=== PATIENT | female | born 1985 | race Two or more races ===

== ENCOUNTER 2023-02-17 10:37 | Outpatient (OUT) | payer OTHER, SELFPAY ==
[2023-02-17 11:22] LABS: Glucose 1 Hour 194 mg/dL
== END 2023-02-17 10:38 | disposition home or self-care (01) ==
LOC: LAB 10:37
PROVIDERS: Visit Provider Obstetrics & Gynecology
DX: O99.810 Abnormal glucose complicating pregnancy (principal); Z3A.00 Weeks of gestation of pregnancy not specified; E74.39 Other disorders of intestinal carbohydrate absorption
CPT/HCPCS: 36415; 82950

== ENCOUNTER 2023-02-27 07:40 | Outpatient (OUT) | payer OTHER, SELFPAY ==
[2023-02-27 08:29] LABS: Glucose Fasting 106 mg/dL (74-106)
[2023-02-27 09:51] LABS: Glucose 1 Hour 187 mg/dL
[2023-02-27 10:47] LABS: Glucose 2 Hour 134 mg/dL
[2023-02-27 12:14] LABS: Glucose 3 Hour 89 mg/dL
== END 2023-02-27 07:41 | disposition home or self-care (01) ==
LOC: LAB 07:40
PROVIDERS: Visit Provider Obstetrics & Gynecology
DX: R73.09 Other abnormal glucose (principal)
CPT/HCPCS: 36415; 82951; 82952

== ENCOUNTER 2023-02-28 20:21 | Outpatient (REF) | payer OTHER, SELFPAY ==
[2023-03-03 22:06] LABS: Age Gdln ACOG Testing Note (.); HPV Aptima Negative (Negative); IGP, Aptima HPV, rfx 16/18,45 Note (.)
== END 2023-02-28 20:22 | disposition home or self-care (01) ==
LOC: LAB 20:21
PROVIDERS: Visit Provider Obstetrics & Gynecology
DX: Z12.4 Encounter for screening for malignant neoplasm of cervix (principal); Z11.51 Encounter for screening for human papillomavirus (HPV); Z20.2 Contact with and (suspected) exposure to infections with a predominantly sexual mode of transmission
CPT/HCPCS: 87624; G0145

== ENCOUNTER 2023-03-09 15:13 | Outpatient (OUT) | payer OTHER, SELFPAY | END 2023-03-09 15:14 | disposition home or self-care (01) | LOC: DE 15:14 | PROVIDERS: PCP Family Medicine; Visit Provider Obstetrics & Gynecology | DX: O24.419 Gestational diabetes mellitus in pregnancy, unspecified control (principal); Z71.3 Dietary counseling and surveillance | CPT/HCPCS: G0108 ==

== ENCOUNTER 2023-03-21 14:42 | Outpatient (OUT) | payer OTHER, SELFPAY ==
--- NOTE | 2023-03-21 14:44 | US_ITS ---
[address] [address] Patient Name: SAAD DURHAM MRN: [id number] date: 1985 Sex: F Assigned Patient Location: US Current Patient Location: Accession/Order Number: [id number] Exam Date: 03/21/2023 14:45 Report Date: 03/21/2023 17:52 At the request of: EFREN CASTILLO Procedure: US OB anatomy EXAMINATION: US OB anatomy HISTORY: ANATOMY COMPARISON: No relevant comparison available. TECHNIQUE: Transabdominal sonographic examination was performed for obstetrical and evaluation. FINDINGS: Number: 1 Heart Rate: Not measured position: Cephalic presentation Amniotic Fluid Volume: Subjectively normal Placental Location: Anterior. Grade 0. Placental edge is 7.4 cm from the os Cervix Length: 4 cm , small amount of fluid in the endocervical canal measuring 2 mm Normal anatomy: Lateral ventricles, cerebellum, posterior fossa, nose, lips, orbits, four-chamber heart, RVOT, LVOT, diaphragm, stomach, kidneys, abdominal cord insertion, bladder, umbilical arteries, spine, extremities Suboptimal visualization: Three-vessel cord BIOMETRY: BPD: 5.0 cm 21 weeks 2 days , 60% HC: 18.2 cm 20 weeks 4 days, 23% AC: 16.1 cm 21 weeks 1 days, 50% FL: 3.7 cm 21 weeks 5 days, 67% EFW:417.9 grams; 15 ounces, 65% FL/AC: 22.9 FL/BPD: 73.2 HC/AC: 1.1 GESTATIONAL AGE: Age by EDC: 21 weeks 0 days Age by current US: 21 weeks 0 days JONN by current US: 08/01/2023 JONN by EDC: 08/01/2023 US/US OB anatomy IMPRESSION: Suboptimal visualization of the three-vessel cord Small amount of fluid in the endocervical canal dilated up to 2 mm Otherwise normal anatomy scan *Reference: [employer] Practice Guideline for the performance of Obstetric Ultrasound Examinations, May 21, 2007. Electronically authenticated by: GELA HUI Date: 03/21/2023 17:52
--- NOTE | 2023-03-21 14:44 | US_ITS ---
[address] [address] Patient Name: SAAD DURHAM MRN: [id number] date: 1985 Sex: F Assigned Patient Location: US Current Patient Location: Accession/Order Number: [id number] Exam Date: 03/21/2023 14:45 Report Date: 03/21/2023 17:52 At the request of: EFREN CASTILLO Procedure: US OB transvaginal EXAMINATION: US OB anatomy HISTORY: ANATOMY COMPARISON: No relevant comparison available. TECHNIQUE: Transabdominal sonographic examination was performed for obstetrical and evaluation. FINDINGS: Number: 1 Heart Rate: Not measured position: Cephalic presentation Amniotic Fluid Volume: Subjectively normal Placental Location: Anterior. Grade 0. Placental edge is 7.4 cm from the os Cervix Length: 4 cm , small amount of fluid in the endocervical canal measuring 2 mm Normal anatomy: Lateral ventricles, cerebellum, posterior fossa, nose, lips, orbits, four-chamber heart, RVOT, LVOT, diaphragm, stomach, kidneys, abdominal cord insertion, bladder, umbilical arteries, spine, extremities Suboptimal visualization: Three-vessel cord BIOMETRY: BPD: 5.0 cm 21 weeks 2 days , 60% HC: 18.2 cm 20 weeks 4 days, 23% AC: 16.1 cm 21 weeks 1 days, 50% FL: 3.7 cm 21 weeks 5 days, 67% EFW:417.9 grams; 15 ounces, 65% FL/AC: 22.9 FL/BPD: 73.2 HC/AC: 1.1 GESTATIONAL AGE: Age by EDC: 21 weeks 0 days Age by current US: 21 weeks 0 days JONN by current US: 08/01/2023 JONN by EDC: 08/01/2023 US/US OB transvaginal IMPRESSION: Suboptimal visualization of the three-vessel cord Small amount of fluid in the endocervical canal dilated up to 2 mm Otherwise normal anatomy scan *Reference: [employer] Practice Guideline for the performance of Obstetric Ultrasound Examinations, May 21, 2007. Electronically authenticated by: GELA HUI Date: 03/21/2023 17:52
== END 2023-03-21 14:43 | disposition home or self-care (01) ==
LOC: US 14:42
PROVIDERS: PCP Family Medicine; Visit Provider Obstetrics & Gynecology
DX: Z34.92 Encounter for supervision of normal pregnancy, unspecified, second trimester (principal); Z3A.21 21 weeks gestation of pregnancy
CPT/HCPCS: 76805; 76817

== ENCOUNTER 2023-03-29 09:26 | Outpatient (OUT) | payer OTHER, SELFPAY ==
--- NOTE | 2023-03-29 09:36 | US_ITS ---
[address] [address] Patient Name: SAAD DURHAM MRN: [id number] date: 1985 Sex: F Assigned Patient Location: US Current Patient Location: US Accession/Order Number: [id number] Exam Date: 03/29/2023 09:45 Report Date: 03/29/2023 15:23 At the request of: EFREN CASTILLO Procedure: US OB incomplete anatomy EXAMINATION: US OB incomplete anatomy HISTORY: Follow Up Anatomy Ultrasound Z36.2 COMPARISON: Ultrasound OB anatomy 03/21/2023 FINDINGS: Presentation: Cephalic Heart rate: 144 beats minute Anatomy: Three-vessel cord, hard palate. GA: 22 weeks 1 day JONN: 08/01/2023 US/US OB incomplete anatomy IMPRESSION: 1. Single live intrauterine . 2. No appreciable abnormality of the three-vessel cord or hard palate. Electronically authenticated by: JOCELIN CUTLER Date: 03/29/2023 15:23
== END 2023-03-29 09:27 | disposition home or self-care (01) ==
LOC: US 09:26
PROVIDERS: PCP Family Medicine; Visit Provider Obstetrics & Gynecology
DX: Z36.2 Encounter for other antenatal screening follow-up (principal)
CPT/HCPCS: 76815

== ENCOUNTER 2023-05-10 17:02 | Outpatient (OUT) | payer OTHER, SELFPAY ==
--- NOTE | 2023-05-10 17:03 | US_ITS ---
The [address] [address] Patient Name: SAAD DURHAM MRN: [id number] date: 1985 Sex: F Assigned Patient Location: US Current Patient Location: Accession/Order Number: [id number] Exam Date: 05/10/2023 17:05 Report Date: 05/11/2023 15:11 At the request of: EFREN CASTILLO Procedure: US OB growth EXAM: US OB growth HISTORY: SIZE INCONSISTENT WITH DATES O26.849 COMPARISON: Ultrasound OB anatomy 03/21/2023 TECHNIQUE: Transabdominal ultrasound evaluation. FINDINGS: Heart Rate: 153.4 bpm Number: 1.0 Position: BREECH Amniotic Fluid Volume: 14.0 cm Maximum Vertical Pocket: 6.1 cm BIOMETRY: BPD: 7.6 cm cm; 30 weeks 3 days; 95% HC: 27.5 cmcm; 30 weeks 0 days; 77% AC: 24.7 cm cm; 29 weeks 0 days; 68% FL: 5.2 cm cm; 27 weeks 6 days; 27% EFW: 1286.9 grams; 63% FL/AC: 21.2 FL/BPD: 68.9 HC/AC: 1.1 GESTATIONAL AGE: Age by EDC: 28 weeks 1 days JONN by EDC: 08/01/2023 Age by US: 29 weeks 2 days JONN by US: 07/24/2023 US/US OB growth IMPRESSION: 1. Single live intrauterine with growth detailed above. Electronically authenticated by: JOCELIN CUTLER Date: 05/11/2023 15:11
== END 2023-05-10 17:03 | disposition home or self-care (01) ==
LOC: US 17:02
PROVIDERS: PCP Family Medicine; Visit Provider Obstetrics & Gynecology
DX: O26.843 Uterine size-date discrepancy, third trimester (principal); Z3A.30 30 weeks gestation of pregnancy
CPT/HCPCS: 76816

== ENCOUNTER 2023-06-07 09:09 | Outpatient (OUT) | payer OTHER, SELFPAY ==
--- NOTE | 2023-06-07 09:11 | US_ITS ---
[place] [id number] Patient Name: SAAD DURHAM MRN: [id number] date: 1985 Sex: F Assigned Patient Location: US Current Patient Location: US Accession/Order Number: [id number] Exam Date: 06/07/2023 09:12 Report Date: 06/07/2023 09:48 At the request of: EFREN CASTILLO Procedure: US OB growth EXAMINATION: US OB growth HISTORY: SIZE INCONSISTENT WITH DATES COMPARISON: No relevant comparison available. FINDINGS: Heart Rate: 144.0 bpm Amniotic Fluid Volume: 19.5 cm Number: 1.0 Position: Cephalic presentation, longitudinal lie Maximum Vertical Pocket: 9.0 cm cm 1.4 cm cm 3.8 cm cm 5.3 cm cm BIOMETRY: BPD: 8.5 cm cm; 34 weeks 3 days; 94% HC: 31.0 cmcm; 34 weeks 5 days, 79% AC: 29.4 cm cm; 33 weeks 3 days, 83% FL: 6.2 cm cm; 32 weeks 1 days; 36.6 % % EFW: 2150.9 grams, 4 lbs. 12 oz., 75% FL/AC: 21.1 FL/BPD: 72.7 HC/AC: 1.1 GESTATIONAL AGE: Age by EDC: 32 weeks 1 days JONN by EDC: 08/01/2023 Age by US: 33 weeks 5 days JONN by US: 07/21/2023 US/US OB growth IMPRESSION: Normal interval growth Electronically authenticated by: GELA HUI Date: 06/07/2023 09:48
== END 2023-06-07 09:10 | disposition home or self-care (01) ==
LOC: US 09:09
PROVIDERS: PCP Family Medicine; Visit Provider Obstetrics & Gynecology
DX: O26.849 Uterine size-date discrepancy, unspecified trimester (principal); Z3A.32 32 weeks gestation of pregnancy
CPT/HCPCS: 76816

== ENCOUNTER 2023-06-21 08:12 | Outpatient (OUT) | payer OTHER, SELFPAY ==
--- NOTE | 2023-06-21 15:19 | US_ITS ---
[address] [address] Patient Name: SAAD DURHAM MRN: [id number] date: 1985 Sex: F Assigned Patient Location: [facility] Current Patient Location: Accession/Order Number: [id number] Exam Date: 06/21/2023 15:20 Report Date: 06/21/2023 16:43 At the request of: EFREN CASTILLO Procedure: US OB BPP w non-stress EXAMINATION: US OB BPP w non-stress HISTORY: Diet controlled GDM COMPARISON: No relevant comparison available. TECHNIQUE: Ultrasound biophysical profile was performed in the radiology department. FINDINGS: BREATHING MOVEMENTS: 2.0 GROSS BODY MOVEMENTS: 2.0 TONE: 2.0 QUALITATIVE AMNIOTIC FLUID VOLUME: 2.0 PRESENTATION: CEPHALIC HEART RATE: 157.0 bpm H.B./min AMNIOTIC FLUID VOLUME: 19.5 cm cm GESTATIONAL AGE: 34 weeks 1 days CONCLUSION: Total biophysical profile score: 8.0 Electronically authenticated by: GELA HUI Date: 06/21/2023 16:43
[2023-06-21 15:44] VITALS: BP 146/93; PULSE 106
[2023-06-21 16:05] VITALS: BP 121/76; PULSE 100
== END 2023-06-21 16:10 | disposition home or self-care (01) ==
LOC: US 08:12 → FBC 15:08
PROVIDERS: PCP Family Medicine; Visit Provider Obstetrics & Gynecology
DX: O24.410 Gestational diabetes mellitus in pregnancy, diet controlled (principal); O26.843 Uterine size-date discrepancy, third trimester; Z3A.34 34 weeks gestation of pregnancy
CPT/HCPCS: 76818

== ENCOUNTER 2023-06-24 08:15 | Outpatient (OUT) | payer OTHER, SELFPAY ==
[2023-06-24 10:47] VITALS: BP 142/95; PULSE 107
[2023-06-24 10:59] VITALS: BP 136/85; PULSE 103
== END 2023-06-24 11:10 | disposition home or self-care (01) ==
LOC: FBCO 08:15 → FBC 10:43
PROVIDERS: PCP Family Medicine; Visit Provider Obstetrics & Gynecology
DX: O24.410 Gestational diabetes mellitus in pregnancy, diet controlled (principal); Z3A.00 Weeks of gestation of pregnancy not specified
CPT/HCPCS: 59025

== ENCOUNTER 2023-06-28 08:30 | Outpatient (OUT) | payer OTHER, SELFPAY ==
--- NOTE | 2023-06-28 | US_ITS ---
[address] [address] Patient Name: SAAD DURHAM MRN: [id number] date: 1985 Sex: F Assigned Patient Location: [facility] Current Patient Location: [facility] Accession/Order Number: [id number] Exam Date: 06/28/2023 16:00 Report Date: 06/29/2023 22:31 At the request of: EFREN CASTILLO Procedure: US OB BPP w non-stress EXAMINATION: US OB BPP w non-stress HISTORY: SIZE INCONSISTENT WITH DATES COMPARISON: Ultrasound OB biophysical 06/21/2023 TECHNIQUE: Ultrasound biophysical profile was performed in the radiology department. BREATHING MOVEMENTS: 2.0 GROSS BODY MOVEMENTS: 2.0 TONE: 2.0 QUALITATIVE AMNIOTIC FLUID VOLUME: 2.0 PRESENTATION: CEPHALIC HEART RATE: 147.5 bpm bpm. AMNIOTIC FLUID VOLUME: 20.0 cm GESTATIONAL AGE: 35 weeks 1 days CONCLUSION: Total biophysical profile score 8.0. Electronically authenticated by: JOCELIN CUTLER Date: 06/29/2023 22:31
[2023-06-28 16:28] VITALS: BP 141/98; PULSE 98
[2023-06-28 16:39] VITALS: BP 134/88; PULSE 95
[2023-06-28 16:49] VITALS: BP 129/88; PULSE 92
== END 2023-06-28 17:00 ==
LOC: US 08:31 → FBC 15:50
PROVIDERS: PCP Family Medicine; Visit Provider Obstetrics & Gynecology
DX: O24.410 Gestational diabetes mellitus in pregnancy, diet controlled (principal); Z3A.35 35 weeks gestation of pregnancy
CPT/HCPCS: 76818

== ENCOUNTER 2023-07-01 08:19 | Outpatient (OUT) | payer OTHER, SELFPAY ==
[2023-07-01 09:18] VITALS: BP 136/95; PULSE 100
[2023-07-01 09:28] VITALS: BP 130/88; PULSE 103
[2023-07-01 09:38] VITALS: BP 135/89; PULSE 104
== END 2023-07-01 09:50 | disposition home or self-care (01) ==
LOC: FBCO 08:19 → FBC 09:14
PROVIDERS: PCP Family Medicine; Visit Provider Obstetrics & Gynecology
DX: O24.410 Gestational diabetes mellitus in pregnancy, diet controlled (principal); O26.843 Uterine size-date discrepancy, third trimester
CPT/HCPCS: 59025

== ENCOUNTER 2023-07-05 07:14 | Outpatient (OUT) | payer OTHER, SELFPAY ==
[2023-07-05 15:57] VITALS: BP 142/93; PULSE 100
[2023-07-05 16:25] VITALS: BP 133/81; PULSE 94
== END 2023-07-05 16:32 | disposition home or self-care (01) ==
LOC: US 15:47 → FBC 15:50
PROVIDERS: PCP Family Medicine; Visit Provider Obstetrics & Gynecology
DX: O26.843 Uterine size-date discrepancy, third trimester (principal)
CPT/HCPCS: 59025

== ENCOUNTER 2023-07-05 15:05 | Outpatient (OUT) | payer OTHER, SELFPAY ==
--- NOTE | 2023-07-05 15:04 | US_ITS ---
[address] [address] Patient Name: SAAD DURHAM MRN: [id number] date: 1985 Sex: F Assigned Patient Location: US Current Patient Location: Accession/Order Number: [id number] Exam Date: 07/05/2023 15:04 Report Date: 07/06/2023 01:25 At the request of: EFREN CASTILLO Procedure: US OB BPP w non-stress EXAMINATION: US OB BPP w non-stress HISTORY: SIZE INCONSISTENT WITH DATES COMPARISON: Ultrasound OB biophysical 06/28/2023 TECHNIQUE: Ultrasound biophysical profile was performed in the radiology department. BREATHING MOVEMENTS: 2.0 GROSS BODY MOVEMENTS: 2.0 TONE: 2.0 QUALITATIVE AMNIOTIC FLUID VOLUME: 2.0 PRESENTATION: CEPHALIC HEART RATE: 142.0 bpm bpm. AMNIOTIC FLUID VOLUME: 19.3 cm GESTATIONAL AGE: 36 weeks 1 days CONCLUSION: Total biophysical profile score 8.0. Electronically authenticated by: JOCELIN CUTLER Date: 07/06/2023 01:25
--- NOTE | 2023-07-05 15:04 | US_ITS ---
[address] [address] Patient Name: SAAD DURHAM MRN: [id number] date: 1985 Sex: F Assigned Patient Location: US Current Patient Location: LAB Accession/Order Number: [id number] Exam Date: 07/05/2023 15:04 Report Date: 07/06/2023 00:00 At the request of: EFREN CASTILLO Procedure: US OB growth EXAMINATION: US OB growth HISTORY: SIZE INCONSISTENT WITH DATES COMPARISON: ULTRASOUND OB GROWTH 06/07/2023 FINDINGS: Heart Rate: 142.0 bpm Number: 1.0 Position: CEPHALIC Amniotic Fluid Volume: 19.3 cm Maximum Vertical Pocket: 6.3 cm BIOMETRY: BPD: 9.4 cm cm; 38 weeks 1 days; 96% HC: 33.7 cmcm; 38 weeks 4 days ; 79% AC: 33.6 cm cm; 37 weeks 4 days; 91% FL: 7.4 cm cm; 38 weeks 0 days; 88% EFW: 3324.0 grams; 91% FL/AC: 22.1 FL/BPD: 79.4 HC/AC: 1.0 GESTATIONAL AGE: Age by EDC: 36 weeks 1 days JONN by EDC: 08/01/2023 Age by US: 38 weeks 1 day JONN by US: 07/18/2023 US/US OB growth IMPRESSION: 1. Single live intrauterine with growth detailed above. Electronically authenticated by: JOCELIN CUTLER Date: 07/06/2023 00:00
== END 2023-07-05 15:06 | disposition home or self-care (01) ==
PROVIDERS: PCP Family Medicine; Visit Provider Obstetrics & Gynecology
DX: O26.843 Uterine size-date discrepancy, third trimester (principal); O24.410 Gestational diabetes mellitus in pregnancy, diet controlled; Z3A.36 36 weeks gestation of pregnancy
CPT/HCPCS: 59025; 76816; 76818; 87081

== ENCOUNTER 2023-07-05 19:11 | Outpatient (REF) | payer OTHER, SELFPAY | END 2023-07-05 19:12 | disposition home or self-care (01) | LOC: LAB 19:11 | PROVIDERS: PCP Family Medicine; Visit Provider Physician Assistant | DX: Z34.93 Encounter for supervision of normal pregnancy, unspecified, third trimester (principal) | CPT/HCPCS: 87081 ==

== ENCOUNTER 2023-07-08 09:01 | Outpatient (RCR) | payer OTHER, SELFPAY ==
[2023-07-08 09:15] VITALS: BP 134/73; PULSE 106
== END 2023-07-08 09:48 | disposition home or self-care (01) ==
LOC: FBCO 09:01
PROVIDERS: PCP Family Medicine; Visit Provider Obstetrics & Gynecology
DX: O24.410 Gestational diabetes mellitus in pregnancy, diet controlled (principal); Z3A.36 36 weeks gestation of pregnancy
CPT/HCPCS: 59025

== ENCOUNTER 2023-07-12 07:10 | Outpatient (OUT) | payer OTHER, SELFPAY ==
[2023-07-12 12:44] VITALS: BP 139/73; PULSE 122
--- NOTE | 2023-07-12 12:50 | US_ITS ---
[address] [address] Patient Name: SAAD DURHAM MRN: [id number] date: 1985 Sex: F Assigned Patient Location: US Current Patient Location: Accession/Order Number: [id number] Exam Date: 07/12/2023 13:20 Report Date: 07/13/2023 02:43 At the request of: EFREN CASTILLO Procedure: US OB BPP w non-stress EXAMINATION: US OB BPP w non-stress HISTORY: Diet controlled gestational diabetes mellitus COMPARISON: Ultrasound OB biophysical 07/05/2023 TECHNIQUE: Ultrasound biophysical profile was performed in the radiology department. BREATHING MOVEMENTS: 2.0 GROSS BODY MOVEMENTS: 2.0 TONE: 2.0 QUALITATIVE AMNIOTIC FLUID VOLUME: 2.0 PRESENTATION: CEPHALIC HEART RATE: 150.8 bpm bpm. AMNIOTIC FLUID VOLUME: 15.8 cm GESTATIONAL AGE: 37 weeks 1 days CONCLUSION: Total biophysical profile score 8.0. Electronically authenticated by: JOCELIN CUTLER Date: 07/13/2023 02:43
== END 2023-07-12 13:42 | disposition home or self-care (01) ==
LOC: US 07:10 → FBC 12:43
PROVIDERS: PCP Family Medicine; Visit Provider Obstetrics & Gynecology
DX: O24.410 Gestational diabetes mellitus in pregnancy, diet controlled (principal); O26.843 Uterine size-date discrepancy, third trimester; Z3A.37 37 weeks gestation of pregnancy
CPT/HCPCS: 76818

== ENCOUNTER 2023-07-15 12:07 | Inpatient (IN) | payer OTHER, SELFPAY ==
[2023-07-15] VITALS (23 sets, daily range): BP systolic 115–146; BP diastolic 73–101; PULSE 93–117; RESP 16–18; TEMP 36.5
[2023-07-15 10:45] LABS: Basophils Percent Auto 0.4 % (0.2-2.0); Eosinophils Percent Auto 0.4 % (0.9-7.0); Hematocrit 37.5 % (36.0-48.0); Hemoglobin 11.9 g/dL (12.0-16.0); Immature Granulocytes Abs Auto 0.03 10^3/uL (0.00-0.03); Immature Granulocytes Pct Auto 0.4 % (0.0-0.5); Lymphocytes Absolute Auto 1.8 10^3/uL (1.2-3.8); Lymphocytes Percent Auto 21.6 % (20.5-60.0); Mean Corpuscular HGB Conc 31.7 g/dL (29.9-35.2); Mean Corpuscular Hemoglobin 28.7 pg (26.7-34.0); Mean Corpuscular Volume 90.6 fL (81.0-99.0); Mean Platelet Volume 12.2 fL (9.5-13.5); Monocytes Absolute Auto 0.5 10^3/uL (0.3-0.8); Monocytes Percent Auto 6.6 % (1.7-12.0); Neutrophils Absolute Auto 5.8 10^3/uL (1.4-6.5); Neutrophils Percent Auto 70.6 % (43.0-75.0); Platelet Count 214 10^3/uL (150-450); Red Blood Count 4.14 10^6/uL (4.20-5.40); Red Cell Distribution Width 13.7 % (11.0-15.0); White Blood Count 8.2 10^3/uL (4.0-11.0)
[2023-07-15 10:58] LABS: Alanine Aminotransferase 15 U/L (14-59); Aspartate Amino Transferase 15 U/L (15-37); Estimated GFR (African America >60 (>=60); Estimated GFR (Non-African Ame >60 (>=60); Uric Acid 4.2 mg/dL (2.6-6.0)
[2023-07-15 11:00] LABS: Protein Creatinine Ratio Urine 0.36; Total Protein Urine Random <6.0 mg/dL (<=11.9)
[2023-07-15 11:02] LABS: Partial Thromboplastin Time 27.5 sec (22.3-36.2); Prothrombin Time 9.6 sec (9.0-11.6)
[2023-07-15 11:04] LABS: INR <0.93
[2023-07-15] MEDS: DINOPROSTONE 10 MG VAG INSERT.ER VAGINAL (20:20)
[2023-07-15 20:32] LABS: Amphetamine Screen Urine NEGATIVE (NEGATIVE); Barbiturates Screen Urine NEGATIVE (NEGATIVE); Benzodiazepines Screen Urine NEGATIVE (NEGATIVE); Buprenorphine Screen Urine NEGATIVE (NEGATIVE); Cannabinoid Screen Urine NEGATIVE (NEGATIVE); Cocaine Screen Urine NEGATIVE (NEGATIVE); Methadone Screen Urine NEGATIVE (NEGATIVE); Methamphetamines Screen Urine NEGATIVE (NEGATIVE); Opiate Screen Urine NEGATIVE (NEGATIVE); Oxycodone Screen Urine NEGATIVE (NEGATIVE); Phencyclidine Screen Urine NEGATIVE (NEGATIVE); Tricyclic Antidepressant Urine NEGATIVE (NEGATIVE)
[2023-07-16] VITALS (104 sets, daily range): BP systolic 83–188; BP diastolic 57–118; PULSE 88–132; RESP 14–26; TEMP 36.6–37.4; O2SAT 95–100
[2023-07-16] MEDS: LABETALOL HCL 20 MG/4 ML SYRINGE IVP (08:55)
[2023-07-16] MEDS: 0.9 % SODIUM CHLORIDE 1,000 ML 1000 ML IV (09:27)
[2023-07-16] MEDS: OXYTOCIN/0.9 % SODIUM CHLORIDE 10 UNITS/500 ML PLAST..BAG 6 UNIT IV (09:35)
[2023-07-16] MEDS: FENTANYL CITRATE/PF 100 MCG/2 ML VIAL EPIDURAL ×2 (13:28→13:29)
[2023-07-16] MEDS: ROPIVACAINE HCL/PF 400 MG/200 ML PREMIX 6 MG EPIDURAL (13:30)
[2023-07-16] MEDS: 0.9 % SODIUM CHLORIDE 1,000 ML 125 ML IV (13:52)
--- NOTE | 2023-07-16 20:08 | PM.OBHP ---
OB - H&P: HPI History of Present Illness Chief complaint: size inconsistent with dates : 1 Para: 0 Date of last menstrual period: 10/25/2022 Gestational age based on last menstrual period: 37 5/7wks Indications for induction: cephalopelvic disproportion History of Present Dating criteria: LMP confirmed by 1st trimester US care: good care Ultrasounds: normal 1st trimester US and normal mid trimester US complications: preeclampsia Medical complications OB: none Labs Blood type: A (+) positive Rubella: immune RPR/VDLR: nonreactive GBS status: negative HBsAG: negative Review of Systems ROS Status of ROS 10 or more systems reviewed and unremarkable except as noted in history and below Meds Home Medications and Allergies Home Medications Medication Instructions Recorded Confirmed Type aspirin 81 mg capsule 81 mg PO DAILY 06/28/23 07/15/23 History vits,calcium 21-iron fum 1 tab PO DAILY 06/28/23 07/15/23 History 14 mg iron-folic acid 400 mcg tablet ( Complete) Allergies Allergy/AdvReac Type Severity Reaction Status Date / Time topiramate [From Topamax] Allergy Mild Verified 06/24/23 10:52 Exam Constitutional Vital Signs, click to edit/add: Last Vital Signs Temp 99.4 F 07/16/23 17:25 Pulse 120 H 07/16/23 19:40 Resp 16 07/16/23 18:25 BP 154/96 H 07/16/23 19:40 Documenting provider has reviewed patient's vital signs: yes Common normals: no apparent distress Respiratory Common normals: normal respiratory effort and clear to auscultation bilaterally Cardio Common normals: regular rate and regular rhythm GI Common normals: Normal to inspection, nondistended, normoactive bowel sounds present Extremity Common normals: no calf tenderness OB - A/P Assessment and Plan (1) Intrauterine normal : (2) Advanced maternal age (AMA) in : (3) Pre-eclampsia: Plan iup at 37 5/7wks, ama, preeclampsia-iv, pit induction, arom, iv abx, failure to dilate, failure to descend, consent obtained, mmc reviewed, procedure.
[2023-07-16] MEDS: CEFAZOLIN SODIUM/DEXTROSE,ISO 2 GM/50 ML PIGGYBACK IV (20:18)
[2023-07-16] MEDS: FAMOTIDINE/PF 20 MG/2 ML VIAL IV (20:23)
[2023-07-16] MEDS: LACTATED RINGER'S SOLUTION 1,000 ML 50 ML IV (21:18)
--- NOTE | 2023-07-16 21:20 | P.OBPRC_ITS ---
Procedure Pre-op/Post-op diagnoses: Pre-Op/Post-Op Diagnoses Operation Date: 07/16/23 20:30 <No data on this case meets the specified criteria> Procedure: Procedures Operation Date: 07/16/23 20:30 Actual Procedure Side Surgeon p Not Applicable Jovany Wan DO Electronics Engineering Technologist: Prisca Roque Estimated blood loss (mL): 575 Disposition: PACU Anesthesia type: Epidural
--- NOTE | 2023-07-16 21:23 | PM.ONB ---
Brief Operative Note Date of procedure: 07/16/23 Pre-op diagnosis: iup at 37 4/7wks, ama, mild preeclampsia, failure to dilate, failure to presley Post-op diagnosis: same as pre-op Procedure: NAME OF PROCEDURE: [ section ] PROCEDURE: Patient was taken back to the Operating Room where she was given a spinal anesthesia with Duramorph without difficulty. She was prepped and draped in the normal sterile fashion. A Pfannenstiel skin incision was then made 2 cm above the symphysis pubis and carried down to underlying rectus fascia using a Bovie. The fascia was incised in the midline and extended laterally using Elliott scissors. Two Marylou clamps were placed on the superior aspect of the fascia and dissected off the underlying rectus muscles. The same was performed on the inferior aspect as well. The muscles were then in the midline. Peritoneum was identified and entered bluntly. The peritoneum was then extended superiorly and inferiorly with good visualization of the bladder. The bladder blade was inserted. A low transverse incision was made on the patient's uterus and extended laterally digitally. The was then delivered atraumatically after the bladder blade was removed in the cephalic position. The cord was clamped and cut. Cord blood was obtained. The infant was handed off to awaiting team. The patient's placenta was spontaneously delivered. The uterus was then exteriorized. The uterus was cleared of all clots and debris. The bladder blade was reinserted. The patient's uterine incision was closed using #0 Vicryl in a running lock fashion. Excellent hemostasis was assured. The uterus was then returned to the patient's abdomen. The patient's abdomen was copiously irrigated using warm saline. Peritoneal gutters were cleared of all clots and debris. Again excellent hemostasis was assured. The patient's peritoneum was closed using 3-0 Vicryl in a running fashion. The patient's fascia was closed using #0 Vicryl in a running fashion. The patient's skin was closed using 4-0 Vicryl subcuticularly. The patient tolerated the procedure well. Sponge, lap, and needle counts were correct x2. The patient was taken to the Recovery Room in stable condition. Anesthesia: epidural Surgeon: Jovany Wan Vehicle Glass Technician: Prisca Roque Estimated blood loss (mL): 575 Pathology: other (uterus) Condition: stable Disposition: PACU
--- NOTE | 2023-07-16 22:39 | PC.NURSE ---
2 small clots noted ;no active vaginal bleeding with fundus checks
--- NOTE | 2023-07-16 22:47 | PC.NURSE ---
Pericare given and clean pad applied
--- NOTE | 2023-07-16 22:48 | PC.NURSE ---
Epidural level at ribcage with tingling and has pressure feeling with fundus checks
--- NOTE | 2023-07-16 22:50 | PC.NURSE ---
Recovered in [facility]BC
[2023-07-17] VITALS (26 sets, daily range): BP systolic 113–145; BP diastolic 67–97; PULSE 91–109; RESP 16–26; TEMP 36.6–37; O2SAT 96–99
[2023-07-17] MEDS: KETOROLAC TROMETHAMINE 30 MG/ML VIAL IVP ×3 (00:06→20:24)
[2023-07-17] MEDS: MAGNESIUM SULFATE IN WATER 2 G/50 ML PREMIX IV (00:35)
[2023-07-17] MEDS: MAGNESIUM SULFATE IN WATER 40 GM/1,000 ML IV.SOLN IV ×2 (01:06→21:27)
[2023-07-17] MEDS: ACETAMINOPHEN 500 MG TABLET 1000 MG PO (02:15)
[2023-07-17] MEDS: CEFAZOLIN SODIUM/DEXTROSE,ISO 2 GM/50 ML PIGGYBACK IV (04:09)
[2023-07-17 07:02] LABS: Basophils Percent Auto 0.2 % (0.2-2.0); Eosinophils Percent Auto 0.1 % (0.9-7.0); Hematocrit 30.4 % (36.0-48.0); Hemoglobin 9.5 g/dL (12.0-16.0); Immature Granulocytes Abs Auto 0.04 10^3/uL (0.00-0.03); Immature Granulocytes Pct Auto 0.3 % (0.0-0.5); Lymphocytes Absolute Auto 2.3 10^3/uL (1.2-3.8); Mean Corpuscular HGB Conc 31.3 g/dL (29.9-35.2); Mean Corpuscular Hemoglobin 29.2 pg (26.7-34.0); Mean Corpuscular Volume 93.5 fL (81.0-99.0); Mean Platelet Volume 12.2 fL (9.5-13.5); Monocytes Absolute Auto 0.9 10^3/uL (0.3-0.8); Monocytes Percent Auto 7.2 % (1.7-12.0); Neutrophils Absolute Auto 9.4 10^3/uL (1.4-6.5); Neutrophils Percent Auto 74.2 % (43.0-75.0); Platelet Count 192 10^3/uL (150-450); Red Blood Count 3.25 10^6/uL (4.20-5.40); Red Cell Distribution Width 14.1 % (11.0-15.0); White Blood Count 12.6 10^3/uL (4.0-11.0)
--- NOTE | 2023-07-17 07:37 | P.OBPN_ITS ---
OB - PN: Subj Subjective Patient comments: no complaints and pain well controlled [place] status: doing well Exam Constitutional Vital Signs, click to edit/add: Last Vital Signs Temp 97.8 F 07/17/23 04:15 Pulse 109 H 07/17/23 00:03 Resp 16 07/17/23 04:15 BP 136/82 07/17/23 06:00 Pulse Ox 99 07/17/23 04:15 O2 Del Method Room Air 07/17/23 04:15 Documenting provider has reviewed patient's vital signs: yes Common normals: no apparent distress Respiratory Common normals: normal respiratory effort and clear to auscultation bilaterally Cardio Common normals: regular rate and regular rhythm GI Common normals: Normal to inspection, nondistended, normoactive bowel sounds present Extremity Common normals: no calf tenderness Results Labs Labs: Short CBC 07/17/23 Range/Units 06:40 WBC 12.6 H (4.0-11.0) 10^3/uL Hgb 9.5 L (12.0-16.0) g/dL Hct 30.4 L (36.0-48.0) % Plt Count 192 (150-450) 10^3/uL OB - PN: A/P Assessment and Plan (1) Intrauterine normal : (2) Advanced maternal age (AMA) in : (3) Pre-eclampsia: Assessment and Plan: cont magnesium for 24hrs, then start labetalol, labs reviewed, vitals reviewed. Plan - day: 1 Plan: routine postop care Time Spent with Patient Time: Total time spent is greater than 50% in coordination of care (as documented) at patient's floor/unit and/or counseling patient: Total time spent with greater than 50% in coordination of care (as documented) at patient's floor/unit and/or counseling patient: less than 15 minutes
--- NOTE | 2023-07-17 07:45 | W.PC.ACHO ---
Registration Status: ADM IN Primary Language: Chinese Preferred Language: Chinese Active Medications Generic Name Dose Route Start Last Admin Trade Name Freq PRN Reason Stop Dose Admin Acetaminophen 1,000 mg 07/15/23 19:12 07/17/23 02:15 Acetaminophen 500 Mg Tablet PO 1,000 mg Q6H PRN Administration Pain Al Hydroxide/Mg Hydroxide 2,400 mg 07/16/23 21:24 Magnesium Hydroxide 2,400 Mg/10 Ml Oral.Susp PO Q6H PRN Dyspepsia Calcium Gluconate 1,000 mg 07/16/23 23:19 Calcium Gluconate 1,000 Mg/10 Ml Vial IVP ONCE PRN magnesium toxicity Carboprost Tromethamine 250 mcg 07/15/23 19:07 Carboprost Tromethamine 250 Mcg/Ml 1 Ml Vial IM 07/17/23 19:08 Q15M PRN Bleeding Diphenhydramine HCl 25 mg 07/16/23 08:07 Diphenhydramine Hcl 50 Mg/Ml (1ml) Vial IV 07/17/23 08:09 Q6H PRN Itching Diphenhydramine HCl 25 mg 07/16/23 21:24 Diphenhydramine Hcl 50 Mg/Ml (1ml) Vial IV 07/17/23 21:26 Q6H PRN Itching Docusate Sodium 100 mg 07/17/23 09:00 Docusate Sodium 100 Mg Capsule PO BID LUIS Enoxaparin Sodium 40 mg 07/16/23 21:30 Enoxaparin Sodium 40 Mg/0.4 Ml Syringe SUBQ Q24H LUIS Ephedrine Sulfate 5 mg 07/16/23 08:07 Ephedrine Sulfate 50 Mg/Ml Vial IV 07/17/23 08:09 Q5M PRN Blood Pressure - Low Fentanyl Citrate 100 mcg 07/16/23 08:07 07/16/23 13:28 Fentanyl Citrate/Pf 100 Mcg/2 Ml Vial EPIDURAL 100 mcg ONCE PRN Administration epidural Fentanyl Citrate 100 mcg 07/16/23 08:07 07/16/23 13:29 Fentanyl Citrate/Pf 100 Mcg/2 Ml Vial EPIDURAL 100 mcg ONCE PRN Administration epidural Sodium Chloride 1,000 mls @ 125 mls/hr 07/16/23 20:00 07/16/23 13:52 Sodium Chloride 0.9% 1,000 Ml IV 125 mls/hr .Q8H LUIS Administration Ropivacaine/Sodium Chloride 400 mg in 200 mls @ 6 mls/hr 07/16/23 08:15 07/16/23 13:30 Naropin 0.2% 400 Mg/200 Ml Bag EPIDURAL 10 mls/hr Q24H LUIS Infusion Oxytocin/Sodium Chloride 10 units in 500 mls @ 6 mls/hr 07/16/23 09:30 07/16/23 19:05 Pitocin 10 Unit/500 Ml-Ns IV 20 milliunit/min CONT LUIS 60 mls/hr Titration Protocol 2 MILLIUNIT/MIN Sodium Chloride 1,000 mls @ 125 mls/hr 07/16/23 21:30 Sodium Chloride 0.9% 1,000 Ml IV .Q8H LUIS Lactated Ringer's 1,000 mls @ 50 mls/hr 07/16/23 22:00 07/16/23 21:18 Lactated Ringers IV 50 mls/hr .Q20H LUIS Administration Magnesium Sulfate 40 gm in 1,000 mls @ 50 mls/hr 07/16/23 23:15 07/17/23 01:06 Magnesium Sulf 40 G/1,000 Ml IV 50 mls/hr Q13H LUIS Administration Sodium Chloride 1,000 mls @ 75 mls/hr 07/16/23 23:15 Sodium Chloride 0.9% 1,000 Ml IV .[id number] LUIS Ibuprofen 800 mg 07/18/23 21:24 Ibuprofen 400 Mg Tablet PO Q8H PRN Pain Ketorolac Tromethamine 30 mg 07/16/23 21:24 07/17/23 00:06 Ketorolac Tromethamine 30 Mg/Ml Vial IVP 07/18/23 21:25 30 mg Q6H PRN Administration Pain Lidocaine 1 ml 07/15/23 19:07 Lidocaine Hcl 1% 200 Mg/20 Ml Mdv INJ ONCE PRN Pain Lidocaine 5 ml 07/16/23 08:07 Lidocaine Hcl 2% Pf 100 Mg/5 Ml Vial INJ 07/17/23 08:08 Q1H PRN epidural Methylergonovine Maleate 0.2 mg 07/15/23 19:07 Methylergonovine Maleate 0.2 Mg/Ml Ampule IM 07/17/23 19:08 ONCE PRN Uterine Contractility/Contract Methylergonovine Maleate 0.2 mg 07/15/23 19:07 Methylergonovine Maleate 0.2 Mg Tablet PO 07/17/23 19:08 Q4H PRN Uterine Contractility/Contract Misoprostol 600 mcg 07/15/23 19:07 Misoprostol 100 Mcg Tablet PO 07/17/23 19:08 ONCE PRN Uterine Bleeding Misoprostol 800 mcg 07/15/23 19:07 Misoprostol 100 Mcg Tablet SL 07/17/23 19:08 ONCE PRN Uterine Bleeding Misoprostol 1,000 mcg 07/15/23 19:07 Misoprostol 100 Mcg Tablet NV 07/17/23 19:08 ONCE PRN Uterine Bleeding Naloxone HCl 0.4 mg 07/16/23 08:07 Naloxone Hcl 0.4 Mg/Ml Vial IV 07/17/23 08:09 ONCE PRN epidural Ondansetron HCl 4 mg 07/15/23 19:07 Ondansetron Pf 4 Mg/2 Ml Vial IV Q6H PRN Nausea And Vomiting Ondansetron HCl 4 mg 07/15/23 19:07 Ondansetron 4 Mg Rapdis Tablet SL Q6H PRN Nausea And Vomiting Ondansetron HCl 4 mg 07/16/23 21:24 Ondansetron 4 Mg Rapdis Tablet PO Q6H PRN Nausea And Vomiting Ondansetron HCl 4 mg 07/16/23 21:24 Ondansetron Pf 4 Mg/2 Ml Vial IV Q6H PRN Nausea And Vomiting Oxycodone/Acetaminophen 1 tab 07/16/23 21:24 Oxycodone Hcl/Acetaminophen 5mg/325mg PO Q4H PRN Pain Scale 4-6 Oxycodone/Acetaminophen 2 tab 07/16/23 21:24 Oxycodone Hcl/Acetaminophen 5mg/325mg PO Q4H PRN Pain Scale 7-10 Oxytocin 10 unit 07/15/23 19:07 Oxytocin 10 Unit/Ml Vial IM 07/17/23 19:08 ONCE PRN Bleeding Senna 17.2 mg 07/16/23 20:00 Sennosides 8.6 Mg Tablet PO QHS PRN Constipation Simethicone 80 mg 07/16/23 21:24 Simethicone 80 Mg Tab.Chew PO QID PRN Abdominal Distention Diet Category Date Time Status Regular Consistency Diet Diet 07/16/23 21:25 Active Consults Category Date Time Status Consult to Anesthesiology Routine Cons 07/16/23 08:00 Ordered IV Insertion/Site Date of IV Line Insertion [ 07/17/23 Short PIV (<1.75 in) 22g left Forearm] IV Insertion Time [Short PIV ( 01:00 <1.75 in) 22g left Forearm] Neurology Patient orientation (short person,place,time,situation list) Respiratory Lung sounds [Throughout] clear Pulse Oximetry 99 Pulse Oximetry 96 Pulse Oximetry 95 Pulse Oximetry 95 Pulse Oximetry 95 Pulse Oximetry 96 Pulse Oximetry 96 Pulse Oximetry 97 Pulse Oximetry 96 Pulse Oximetry 97 Pulse Oximetry 97 Pulse Oximetry 97 Pulse Oximetry 98 Pulse Oximetry 97 Pulse Oximetry 95 Pulse Oximetry 97 Pulse Oximetry 99 Pulse Oximetry 98 Pulse Oximetry 99 Pulse Oximetry 99 Pulse Oximetry 98 Pulse Oximetry 97 Pulse Oximetry 100 Pulse Oximetry 98 Pulse Oximetry 99 Pulse Oximetry 99 Pulse Oximetry 99 Oxygen Delivery Method Room Air Oxygen Delivery Method Room Air Oxygen Delivery Method Room Air Oxygen Delivery Method Room Air Oxygen Delivery Method Room Air Oxygen Delivery Method Room Air Oxygen Delivery Method Room Air Oxygen Delivery Method Room Air Oxygen Delivery Method Room Air Cardiology Heart Sounds Strong,Regular Heart Sounds Strong,Regular Catheter Urinary Catheter Date of 07/16/23 Insertion [2-way Urethral]
[2023-07-17] MEDS: DOCUSATE SODIUM 100 MG CAPSULE PO ×2 (08:31→20:25)
--- NOTE | 2023-07-17 17:37 | RESP.RT ---
done per nursing
--- NOTE | 2023-07-17 19:31 | W.PC.ACHO ---
Registration Status: ADM IN Primary Language: [place] Preferred Language: [place] Active Medications Generic Name Dose Route Start Last Admin Trade Name Freq PRN Reason Stop Dose Admin Acetaminophen 1,000 mg 07/15/23 19:12 07/17/23 02:15 Acetaminophen 500 Mg Tablet PO 1,000 mg Q6H PRN Administration Pain Al Hydroxide/Mg Hydroxide 2,400 mg 07/16/23 21:24 Magnesium Hydroxide 2,400 Mg/10 Ml Oral.Susp PO Q6H PRN Dyspepsia Calcium Gluconate 1,000 mg 07/16/23 23:19 Calcium Gluconate 1,000 Mg/10 Ml Vial IVP ONCE PRN magnesium toxicity Diphenhydramine HCl 25 mg 07/16/23 21:24 Diphenhydramine Hcl 50 Mg/Ml (1ml) Vial IV 07/17/23 21:26 Q6H PRN Itching Docusate Sodium 100 mg 07/17/23 09:00 07/17/23 08:31 Docusate Sodium 100 Mg Capsule PO 100 mg BID LUIS Administration Enoxaparin Sodium 40 mg 07/16/23 21:30 Enoxaparin Sodium 40 Mg/0.4 Ml Syringe SUBQ Q24H LUIS Fentanyl Citrate 100 mcg 07/16/23 08:07 07/16/23 13:28 Fentanyl Citrate/Pf 100 Mcg/2 Ml Vial EPIDURAL 100 mcg ONCE PRN Administration epidural Fentanyl Citrate 100 mcg 07/16/23 08:07 07/16/23 13:29 Fentanyl Citrate/Pf 100 Mcg/2 Ml Vial EPIDURAL 100 mcg ONCE PRN Administration epidural Sodium Chloride 1,000 mls @ 125 mls/hr 07/16/23 20:00 07/16/23 13:52 Sodium Chloride 0.9% 1,000 Ml IV 125 mls/hr .Q8H LUIS Administration Ropivacaine/Sodium Chloride 400 mg in 200 mls @ 6 mls/hr 07/16/23 08:15 07/16/23 13:30 Naropin 0.2% 400 Mg/200 Ml Bag EPIDURAL 10 mls/hr Q24H LUIS Infusion Oxytocin/Sodium Chloride 10 units in 500 mls @ 6 mls/hr 07/16/23 09:30 07/16/23 19:05 Pitocin 10 Unit/500 Ml-Ns IV 20 milliunit/min CONT LUIS 60 mls/hr Titration Protocol 2 MILLIUNIT/MIN Sodium Chloride 1,000 mls @ 125 mls/hr 07/16/23 21:30 Sodium Chloride 0.9% 1,000 Ml IV .Q8H LUIS Lactated Ringer's 1,000 mls @ 50 mls/hr 07/16/23 22:00 07/16/23 21:18 Lactated Ringers IV 50 mls/hr .Q20H LUIS Administration Magnesium Sulfate 40 gm in 1,000 mls @ 50 mls/hr 07/16/23 23:15 07/17/23 01:06 Magnesium Sulf 40 G/1,000 Ml IV 50 mls/hr Q13H LUIS Administration Sodium Chloride 1,000 mls @ 75 mls/hr 07/16/23 23:15 Sodium Chloride 0.9% 1,000 Ml IV .[id number] [facility] Ibuprofen 800 mg 07/18/23 21:24 Ibuprofen 400 Mg Tablet PO Q8H PRN Pain Ketorolac Tromethamine 30 mg 07/16/23 21:24 07/17/23 12:50 Ketorolac Tromethamine 30 Mg/Ml Vial IVP 07/18/23 21:25 30 mg Q6H PRN Administration Pain Labetalol HCl 200 mg 07/18/23 09:00 Labetalol Hcl 200 Mg Tablet PO BID LUIS Lidocaine 1 ml 07/15/23 19:07 Lidocaine Hcl 1% 200 Mg/20 Ml Mdv INJ ONCE PRN Pain Ondansetron HCl 4 mg 07/15/23 19:07 Ondansetron Pf 4 Mg/2 Ml Vial IV Q6H PRN Nausea And Vomiting Ondansetron HCl 4 mg 07/15/23 19:07 Ondansetron 4 Mg Rapdis Tablet SL Q6H PRN Nausea And Vomiting Ondansetron HCl 4 mg 07/16/23 21:24 Ondansetron 4 Mg Rapdis Tablet PO Q6H PRN Nausea And Vomiting Ondansetron HCl 4 mg 07/16/23 21:24 Ondansetron Pf 4 Mg/2 Ml Vial IV Q6H PRN Nausea And Vomiting Oxycodone/Acetaminophen 1 tab 07/16/23 21:24 Oxycodone Hcl/Acetaminophen 5mg/325mg PO Q4H PRN Pain Scale 4-6 Oxycodone/Acetaminophen 2 tab 07/16/23 21:24 Oxycodone Hcl/Acetaminophen 5mg/325mg PO Q4H PRN Pain Scale 7-10 Senna 17.2 mg 07/16/23 20:00 Sennosides 8.6 Mg Tablet PO QHS PRN Constipation Simethicone 80 mg 07/16/23 21:24 Simethicone 80 Mg Tab.Chew PO QID PRN Abdominal Distention Diet Category Date Time Status Regular Consistency Diet Diet 07/16/23 21:25 Active IV Insertion/Site Date of IV Line Insertion [ 07/17/23 Short PIV (<1.75 in) 22g left Forearm] IV Insertion Time [Short PIV ( 01:00 <1.75 in) 22g left Forearm] Respiratory Lung sounds [Throughout] clear Pulse Oximetry 99 Pulse Oximetry 96 Pulse Oximetry 95 Pulse Oximetry 95 Pulse Oximetry 95 Pulse Oximetry 96 Pulse Oximetry 96 Pulse Oximetry 97 Pulse Oximetry 96 Pulse Oximetry 97 Pulse Oximetry 97 Pulse Oximetry 97 Pulse Oximetry 98 Pulse Oximetry 97 Pulse Oximetry 95 Pulse Oximetry 97 Pulse Oximetry 99 Pulse Oximetry 98 Pulse Oximetry 99 Pulse Oximetry 99 Pulse Oximetry 98 Pulse Oximetry 97 Pulse Oximetry 100 Pulse Oximetry 98 Pulse Oximetry 99 Pulse Oximetry 99 Pulse Oximetry 99 Oxygen Delivery Method Room Air Oxygen Delivery Method Room Air Oxygen Delivery Method Room Air Oxygen Delivery Method Room Air Oxygen Delivery Method Room Air Oxygen Delivery Method Room Air Oxygen Delivery Method Room Air Oxygen Delivery Method Room Air Oxygen Delivery Method Room Air Oxygen Delivery Method Room Air Oxygen Delivery Method Room Air Oxygen Delivery Method Room Air Cardiology Heart Sounds Strong,Regular Heart Sounds Strong,Regular Catheter Urinary Catheter Date of 07/16/23 Insertion [2-way Urethral]
[2023-07-17] MEDS: 0.9 % SODIUM CHLORIDE 1,000 ML 125 ML IV (21:27)
[2023-07-17] MEDS: ENOXAPARIN SODIUM 40 MG/0.4 ML SYRINGE SUBQ (22:12)
[2023-07-18] VITALS (28 sets, daily range): BP systolic 113–169; BP diastolic 79–112; PULSE 81–113; RESP 16–18; TEMP 36.4–36.8; O2SAT 88–99
[2023-07-18] MEDS: ACETAMINOPHEN 500 MG TABLET 1000 MG PO ×4 (01:15→21:11)
[2023-07-18] MEDS: KETOROLAC TROMETHAMINE 30 MG/ML VIAL IVP ×2 (04:35→10:30)
[2023-07-18] MEDS: SIMETHICONE 80 MG TAB.CHEW PO (04:43)
[2023-07-18] MEDS: DOCUSATE SODIUM 100 MG CAPSULE PO ×2 (08:04→21:12)
[2023-07-18] MEDS: LABETALOL HCL 200 MG TABLET PO ×2 (08:04→21:12)
--- NOTE | 2023-07-18 08:13 | PM.OBPN ---
OB - PN: Subj Subjective Patient comments: no complaints [place] status: doing well Exam Constitutional Vital Signs, click to edit/add: Last Vital Signs Temp 98.3 F 07/18/23 01:05 Pulse 94 H 07/18/23 01:05 Resp 18 07/18/23 01:05 BP 163/99 H 07/18/23 07:30 Pulse Ox 99 07/18/23 07:30 O2 Del Method Room Air 07/18/23 01:05 Documenting provider has reviewed patient's vital signs: yes Common normals: no apparent distress Orientation/consciousness: Yes awake, Yes oriented to person, Yes oriented to place and Yes oriented to time HENMT Common normals: normocephalic Eye Common normals: EOMs intact bilaterally General eye: normal appearance of both eyes Visual acuity: acuity normal Neck & C-Spine Common normals: full ROM and no lymphadenopathy Lymph Lymphatic: no lymphadenopathy noted Chest Common normals: inspection of chest normal Respiratory Common normals: normal respiratory effort and no retractions Cardio Common normals: regular rate and regular rhythm Rate: regular rate Rhythm: regular rhythm GI Common normals: Normal to inspection, nondistended, normoactive bowel sounds present Auscultation: normoactive bowel sounds Common normals: no CVA tenderness Back & Pelvis Common normals: no CVA tenderness Extremity Common normals: normal to inspection and full ROM Neuro Common normals: oriented x3 Sensorium/orientation: awake, alert, oriented to person, oriented to place, oriented to time and orientation impaired Psych Common normals: mental status grossly normal, thought process normal and cooperative Attitude: calm OB - PN: A/P Assessment and Plan (1) Intrauterine normal : (2) Advanced maternal age (AMA) in : (3) Pre-eclampsia: Plan - day: 1 Plan: routine postop care Time Spent with Patient Time: Total time spent is greater than 50% in coordination of care (as documented) at patient's floor/unit and/or counseling patient: Total time spent with greater than 50% in coordination of care (as documented) at patient's floor/unit and/or counseling patient: less than 15 minutes
--- NOTE | 2023-07-18 10:33 | W.PC.ACHO ---
Registration Status: ADM IN Primary Language: [place] Citizen Preferred Language: [place] Citizen Active Medications Generic Name Dose Route Start Last Admin Trade Name Freq PRN Reason Stop Dose Admin Acetaminophen 1,000 mg 07/15/23 19:12 07/18/23 08:04 Acetaminophen 500 Mg Tablet PO 1,000 mg Q6H PRN Administration Pain Al Hydroxide/Mg Hydroxide 2,400 mg 07/16/23 21:24 Magnesium Hydroxide 2,400 Mg/10 Ml Oral.Susp PO Q6H PRN Dyspepsia Calcium Gluconate 1,000 mg 07/16/23 23:19 Calcium Gluconate 1,000 Mg/10 Ml Vial IVP ONCE PRN magnesium toxicity Docusate Sodium 100 mg 07/17/23 09:00 07/18/23 08:04 Docusate Sodium 100 Mg Capsule PO 100 mg BID LUIS Administration Enoxaparin Sodium 40 mg 07/16/23 21:30 07/17/23 22:12 Enoxaparin Sodium 40 Mg/0.4 Ml Syringe SUBQ 40 mg Q24H LUIS Administration Sodium Chloride 1,000 mls @ 125 mls/hr 07/16/23 21:30 07/18/23 01:05 Sodium Chloride 0.9% 1,000 Ml IV 0 mls/hr .Q8H LUIS Infusion Magnesium Sulfate 40 gm in 1,000 mls @ 50 mls/hr 07/16/23 23:15 07/17/23 21:27 Magnesium Sulf 40 G/1,000 Ml IV 50 mls/hr Q13H LUIS Administration Ibuprofen 800 mg 07/18/23 21:24 Ibuprofen 400 Mg Tablet PO Q8H PRN Pain Ketorolac Tromethamine 30 mg 07/16/23 21:24 07/18/23 10:30 Ketorolac Tromethamine 30 Mg/Ml Vial IVP 07/18/23 21:25 30 mg Q6H PRN Administration Pain Labetalol HCl 200 mg 07/18/23 08:00 07/18/23 08:04 Labetalol Hcl 200 Mg Tablet PO 200 mg BID LUIS Administration Ondansetron HCl 4 mg 07/16/23 21:24 Ondansetron 4 Mg Rapdis Tablet PO Q6H PRN Nausea And Vomiting Ondansetron HCl 4 mg 07/16/23 21:24 Ondansetron Pf 4 Mg/2 Ml Vial IV Q6H PRN Nausea And Vomiting Oxycodone/Acetaminophen 1 tab 07/16/23 21:24 Oxycodone Hcl/Acetaminophen 5mg/325mg PO Q4H PRN Pain Scale 4-6 Oxycodone/Acetaminophen 2 tab 07/16/23 21:24 Oxycodone Hcl/Acetaminophen 5mg/325mg PO Q4H PRN Pain Scale 7-10 Senna 17.2 mg 07/16/23 20:00 Sennosides 8.6 Mg Tablet PO QHS PRN Constipation Simethicone 80 mg 07/16/23 21:24 07/18/23 04:43 Simethicone 80 Mg Tab.Chew PO 80 mg QID PRN Administration Abdominal Distention Respiratory Pulse Oximetry 99 Pulse Oximetry 99 Pulse Oximetry 99 Pulse Oximetry 98 Pulse Oximetry 98 Pulse Oximetry 99 Pulse Oximetry 99 Pulse Oximetry 99 Pulse Oximetry 98 Pulse Oximetry 98 Pulse Oximetry 98 Oxygen Delivery Method Room Air Oxygen Delivery Method Room Air Oxygen Delivery Method Room Air Oxygen Delivery Method Room Air Oxygen Delivery Method Room Air Oxygen Delivery Method Room Air Bowels Bowel Pattern No Bowel Movement
[2023-07-18] MEDS: SENNOSIDES 8.6 MG TABLET 17.2 MG PO (14:19)
[2023-07-18] MEDS: MAGNESIUM HYDROXIDE 2,400 MG/10 ML ORAL.SUSP 2400 MG PO (21:12)
[2023-07-19] VITALS (11 sets, daily range): BP systolic 133–164; BP diastolic 77–101; PULSE 90–106; RESP 16–18; TEMP 36.5–36.7; O2SAT 94–95
[2023-07-19] MEDS: OXYCODONE HCL/ACETAMINOPHEN 5MG/325MG 2 TAB PO (01:20)
[2023-07-19] MEDS: IBUPROFEN 400 MG TABLET 800 MG PO ×2 (07:36→15:58)
--- NOTE | 2023-07-19 07:50 | PM.OBPN ---
OB - PN: Subj Subjective Patient comments: no complaints and pain well controlled [place] status: doing well Exam Constitutional Vital Signs, click to edit/add: Last Vital Signs Temp 98.0 F 07/19/23 07:41 Pulse 106 H 07/19/23 07:41 Resp 16 07/19/23 07:41 BP 159/101 H 07/19/23 07:41 Pulse Ox 95 07/19/23 07:41 O2 Del Method Room Air 07/19/23 07:41 Documenting provider has reviewed patient's vital signs: yes Common normals: no apparent distress Respiratory Common normals: normal respiratory effort and clear to auscultation bilaterally Cardio Common normals: regular rate and regular rhythm GI Common normals: Normal to inspection, nondistended, normoactive bowel sounds present Extremity Common normals: no calf tenderness OB - PN: A/P Assessment and Plan (1) Intrauterine normal : (2) Advanced maternal age (AMA) in : (3) Pre-eclampsia: Plan - day: 2 Plan: routine postop care, discharge home and follow up 6 weeks Time Spent with Patient Time: Total time spent is greater than 50% in coordination of care (as documented) at patient's floor/unit and/or counseling patient: Total time spent with greater than 50% in coordination of care (as documented) at patient's floor/unit and/or counseling patient: less than 15 minutes
[2023-07-19] MEDS: LABETALOL HCL 200 MG TABLET 300 MG PO ×2 (08:24→14:18)
[2023-07-19] MEDS: DOCUSATE SODIUM 100 MG CAPSULE PO (08:24)
--- NOTE | 2023-07-19 13:10 | W.PC.ACHO ---
Registration Status: ADM IN Primary Language: Beninese Preferred Language: Beninese Active Medications Generic Name Dose Route Start Last Admin Trade Name Freq PRN Reason Stop Dose Admin Acetaminophen 1,000 mg 07/15/23 19:12 07/18/23 21:11 Acetaminophen 500 Mg Tablet PO 1,000 mg Q6H PRN Administration Pain Al Hydroxide/Mg Hydroxide 2,400 mg 07/16/23 21:24 07/18/23 21:12 Magnesium Hydroxide 2,400 Mg/10 Ml Oral.Susp PO 2,400 mg Q6H PRN Administration Dyspepsia Calcium Gluconate 1,000 mg 07/16/23 23:19 Calcium Gluconate 1,000 Mg/10 Ml Vial IVP ONCE PRN magnesium toxicity Docusate Sodium 100 mg 07/17/23 09:00 07/19/23 08:24 Docusate Sodium 100 Mg Capsule PO 100 mg BID LUIS Administration Enoxaparin Sodium 40 mg 07/16/23 21:30 07/17/23 22:12 Enoxaparin Sodium 40 Mg/0.4 Ml Syringe SUBQ 40 mg Q24H LUIS Administration Sodium Chloride 1,000 mls @ 125 mls/hr 07/16/23 21:30 07/18/23 01:05 Sodium Chloride 0.9% 1,000 Ml IV 0 mls/hr .Q8H LUIS Infusion Magnesium Sulfate 40 gm in 1,000 mls @ 50 mls/hr 07/16/23 23:15 07/17/23 21:27 Magnesium Sulf 40 G/1,000 Ml IV 50 mls/hr Q13H LUIS Administration Ibuprofen 800 mg 07/18/23 21:24 07/19/23 07:36 Ibuprofen 400 Mg Tablet PO 800 mg Q8H PRN Administration Pain Labetalol HCl 300 mg 07/19/23 08:30 07/19/23 08:24 Labetalol Hcl 200 Mg Tablet PO 300 mg TID LUIS Administration Ondansetron HCl 4 mg 07/16/23 21:24 Ondansetron 4 Mg Rapdis Tablet PO Q6H PRN Nausea And Vomiting Ondansetron HCl 4 mg 07/16/23 21:24 Ondansetron Pf 4 Mg/2 Ml Vial IV Q6H PRN Nausea And Vomiting Oxycodone/Acetaminophen 1 tab 07/16/23 21:24 Oxycodone Hcl/Acetaminophen 5mg/325mg PO Q4H PRN Pain Scale 4-6 Oxycodone/Acetaminophen 2 tab 07/16/23 21:24 07/19/23 01:20 Oxycodone Hcl/Acetaminophen 5mg/325mg PO 2 tab Q4H PRN Administration Pain Scale 7-10 Senna 17.2 mg 07/16/23 20:00 07/18/23 14:19 Sennosides 8.6 Mg Tablet PO 17.2 mg QHS PRN Administration Constipation Simethicone 80 mg 07/16/23 21:24 07/18/23 04:43 Simethicone 80 Mg Tab.Chew PO 80 mg QID PRN Administration Abdominal Distention IV Insertion/Site Date of IV Line Insertion [20g 07/15/23 right Forearm] Date of IV Line Insertion [20g 07/15/23 right Forearm] IV Insertion Time [20g right 19:50 Forearm] IV Insertion Time [20g right 19:50 Forearm] Respiratory Pulse Oximetry 95 Pulse Oximetry 94 Pulse Oximetry 95 Pulse Oximetry 95 Pulse Oximetry 98 Pulse Oximetry 96 Pulse Oximetry 88 Oxygen Delivery Method Room Air Oxygen Delivery Method Room Air Oxygen Delivery Method Room Air Oxygen Delivery Method Room Air Oxygen Delivery Method Room Air Oxygen Delivery Method Room Air Oxygen Delivery Method Room Air Oxygen Delivery Method Room Air Cardiology Heart Sounds Strong,Regular Heart Sounds Strong,Regular Heart Sounds Regular Bowels Bowel Pattern Constipated Bowel Pattern Constipated Date of Last Bowel Movement 07/19/23 Renal Bladder Pattern Continent Bladder Pattern Continent
--- NOTE | 2023-07-19 15:33 | PC.NURSE ---
Dr. Wan called with BP results. No complaints of headache or blurred vision.
--- NOTE | 2023-07-19 16:05 | PC.NURSE ---
Vital signs called to Dr. Wan, orders to discharge home. Follow up scheduled, advised to call MD if any signs or symptoms of hypertension.
--- NOTE | 2023-07-19 17:49 | PC.NURSE ---
1730Call out to Dr. Wan, aware of patient's complaint of feeling hot and wanting to have her BP checked. Orders to recheck BP in 30 minutes. If under 150/100, ok to discharge home.
--- NOTE | 2023-07-19 18:13 | PC.NURSE ---
[address] Wan with BP 161/82, [id number]
--- NOTE | 2023-07-19 18:52 | PC.NURSE ---
assisted mom out to car with dad and baby. ok to discharge per Dr. Wan. instructed to ana with any symptoms or concerns.
--- NOTE | 2023-07-29 | DS_ITS ---
DISCHARGE DATE: 07/29/2023 PRIMARY DIAGNOSES: 1. Intrauterine at 37 4/7 weeks. 2. Advanced maternal age. 3. Mild preeclampsia. 4. Failure to dilate. 5. Failure to descend. PROCEDURE: section. HOSPITAL COURSE: As expected. Please see chart for full details. LABORATORY DATA: Please see chart. COMPLICATIONS: None. DISCHARGE CONDITION: Stable. CONSULTATION: Anesthesia. DISCHARGE INSTRUCTIONS: 1. Diet: Regular. 2. Medications: a. Percocet 5/325 one to two p.o. every 4-6 hours p.r.n. pain. b. Motrin 800 one p.o. every 8 hours p.r.n. pain. 3. Followup in one week. Restrictions: Pelvic rest for 6 weeks. No heavy lifting. May drive when pain free and no longer on narcotics. MTDD
== END 2023-07-19 18:40 | disposition home or self-care (01) | DRG 788 ==
LOC: FBCO 12:08 → FBC 12:08 → MS 07-18 18:35 → FBC 07-19 09:08
PROVIDERS: Admitting Provider Obstetrics & Gynecology; PCP Family Medicine; Visit Provider Obstetrics & Gynecology
PROC: 10D00Z1 Extraction of Products of Conception, Low, Open Approach (ICD-10-PCS; CPT 59514; principal; 2023-07-16 20:30)
DX: O14.04 Mild to moderate pre-eclampsia, complicating childbirth (principal); O62.0 Primary inadequate contractions; O32.4XX0 Maternal care for high head at term, not applicable or unspecified; Z3A.37 37 weeks gestation of pregnancy; Z37.0 Single live birth
CPT/HCPCS: 36415; 51702; 59025; 59050; 80307; 82565; 82570; 84156; 84450; 84460; 84520; 84550; 85025; 85384; 85610; 85730; 86850; 86900; 86901; 88307; 94667; 94668; 96372; 96374; 96375; 96376

== ENCOUNTER 2023-07-21 12:18 | Observation (INO) | payer OTHER, SELFPAY ==
--- NOTE | 2023-07-21 12:24 | PC.NURSE ---
1100- Patient arrives to the unit for BP recheck ordered by Dr. Wan. Patient to room 250 and allowed to sit and rest for 15 mins prior to BP recheck. Fluids offered but patient denies. 1115- Mandy Pan RN at bedside to assess patient. Patient reports last dose of Labetalol 300mg administered at 0600, denies headache, RUQ pain, vision changes, or dizziness. States has been feeling good at home and reports blood pressures at home yesterday were as follows: 139/86 @ 0948 and 142/89 @ 1530. 1117- BP assessed with red cuff on upper right arm. BP 176/94, upper and lower DTRs +1, and swelling noted as +2/+3 BLE. Patient educated to relax and deep breathe and RN will reasses in 15 mins. 1130- Manual blood pressure obtained on left upper arm with red cuff. BP 162/78. 1140- Dr. Weiss called and reported on patient history and todays assessment. Dr. Weiss orders to administer Procardia 60mg ER tablet NOW, educate patient to stop Labetalol 300mg TID, patient to return tomorrow at 1030am for BP reassessment and to educate that if patient develops any symptoms of pre-eclampsia overnight she should come in to be seen immediately. RN may reassess BP after dose of Procardia and as long as BP is less than 170s/100s then patient may go home self care. 1210- Report given to Wilmar Vega RN.
[2023-07-21 13:00] VITALS: BP 190/94
[2023-07-21] MEDS: NIFEdipine 30 MG TAB.ER.24 60 MG PO (13:00)
[2023-07-21 13:01] VITALS: BP 190/94; PULSE 93
--- NOTE | 2023-07-21 13:41 | PC.NURSE ---
1305 Plan of care discussed with patient and . pt verbalizes understanding. Procardia XR 60mg given PO
[2023-07-21 14:11] VITALS: BP 123/71; PULSE 129
--- NOTE | 2023-07-21 14:16 | PC.NURSE ---
1405 RN to room to reassess blood pressure. patient reports anxiety, visibly shaking. Discussion started, patient breaks down in tears. Much reassurance and encouragement given. Patient understandably upset about blood pressure problems in hospital. Reassurance given, bp checked and wnl. patient and visibly relieved, okay to discharge at their leisure.
== END 2023-07-21 14:36 | disposition home or self-care (01) ==
LOC: FBCO 12:19 → FBC 12:59
PROVIDERS: Admitting Provider Obstetrics & Gynecology; PCP Family Medicine; Visit Provider Obstetrics & Gynecology
DX: O16.3 Unspecified maternal hypertension, third trimester (principal); Z3A.00 Weeks of gestation of pregnancy not specified
CPT/HCPCS: G0378; G0379

== ENCOUNTER 2023-07-22 10:25 | Outpatient (OUT) | payer OTHER, SELFPAY ==
--- NOTE | 2023-07-22 11:59 | PC.NURSE ---
1030-Pt. arrives to unit for BP check post . Pt to room 250 & sits in chair. BP initially 181/119. Pt has not taken any BP med today. 1040- Repeat BP 177/95. Taken manually in left arm 160/100 & left arm manually 158/106. Pt asymptomatic for JOAQUIN, blurry vision or epigastric pain. Dr. Weiss present on unit & BP's reported. 1115 - Pt discharged home with prescriptions for Procardia & Labetalol & regimen to take them. To return tomorrow, 07/23, at 10:30 for BP re-check.
== END 2023-07-22 11:15 | disposition home or self-care (01) ==
LOC: FBCO 10:26
PROVIDERS: PCP Family Medicine; Visit Provider Obstetrics & Gynecology
DX: O26.899 Other specified pregnancy related conditions, unspecified trimester (principal); Z3A.00 Weeks of gestation of pregnancy not specified

== ENCOUNTER 2023-07-23 07:10 | Outpatient (OUT) | payer OTHER, SELFPAY ==
[2023-07-23 10:35] VITALS: BP 118/72; PULSE 110
--- NOTE | 2023-07-23 10:45 | PC.NURSE ---
1030 - Pt arrives to unit for BP check. 1040 - BP taken in left arm, NIBP, 118/72. 1040- Dr. Weiss called with report of BP. Orders received to discharge home & to stay on same medicine regimen until she sees Dr. Wan this week. 1045 - Pt verbalizes understanding of discharge instructions. Leaves ambulatory with family.
== END 2023-07-23 10:45 ==
LOC: FBCO 07:11 → FBC 10:33
PROVIDERS: PCP Family Medicine; Visit Provider Obstetrics & Gynecology
DX: O24.410 Gestational diabetes mellitus in pregnancy, diet controlled (principal); Z3A.00 Weeks of gestation of pregnancy not specified
CPT/HCPCS: G0463

== ENCOUNTER 2024-03-21 18:09 | Outpatient (REF) | payer OTHER, SELFPAY ==
--- OUTSIDE RECORDS SUMMARY | 2024-03-21 18:14 | XMS_ITS | CCD ---
Author Organization [facility] Care Team Providers Care Sightseeing Guide Name Role Phone Shereen Garcia Unavailable SAVAGE ., DR SCHWARTZ Attending Unavailable NADERER, DR ORESTES Whitfield Primary Care Unavailable SAVAGE ., DR SCHWARTZ Consulting Unavailable SAVAGE ., DR SCHWARTZ Admitting Unavailable NADERER, DR ORESTES Whitfield Consulting Unavailable NADERER, DR ORESTES Whitfield Primary Care Unavailable NADERER, DR ORESTES Whitfield Admitting Unavailable NADERER, DR ORESTES Whitfield Attending Unavailable SAVAGE ., DR SCHWARTZ Admitting Unavailable SAVAGE ., DR SCHWARTZ Attending Unavailable NADERER, DR ORESTES Whitfield Primary Care Unavailable SAVAGE ., DR SCHWARTZ Consulting Unavailable SAVAGE ., DR SCHWARTZ Admitting Unavailable SAVAGE ., DR SCHWARTZ Attending Unavailable SAVAGE ., DR SCHWARTZ Consulting Unavailable NADERER, DR ORESTES Whitfield Primary Care Unavailable SAVAGE ., DR SCHWARTZ Admitting Unavailable SAVAGE ., DR SCHWARTZ Attending Unavailable NADERER, DR ORESTES Whitfield Primary Care Unavailable SAVAGE ., DR SCHWARTZ Consulting Unavailable SAVAGE ., DR SCHWARTZ Admitting Unavailable SAVAGE ., DR SCHWARTZ Attending Unavailable REQUEST, DR BUTLER LISTED Consulting Unavaila ble NADAMIER, DR ORESTES Whitfield Primary Care Unavailable SAVAGE ., DR SCHWARTZ Attending Unavailable SAVAGE ., DR SCHWARTZ Admitting Unavailable DOCKERY ., REG Primary Care Unavailable SAVAGE ., DR SCHWARTZ Attending Unavailable NADERER, DR ORESTES Whitfield Primary Care Unavailable SAVAGE ., DR SCHWARTZ Consulting Unavailable SAVAGE ., DR SCHWARTZ Admitting Unavailable SavageEfren Attending Provider Orestes Strange Primary Care Unavailable Savage, Efren Attending Unavailable Savage, Efren Admitting Unavailable Naderer Orestes PADILLA Primary Care Provider MARILYN SUAREZ Attending Unavailable DANIELA, MARILYN Attending Unavailable DANIELA, MARILYN Attending Unavailable ORESTES STRANGE Attending Unavailable ORESTES STRANGE Attending Unavailable ORESTES STRANGE Attending Unavailable SAVAGE, EFREN Attending Unavailable DANIELA, MARILYN Attending Unavailable EFREN WAN Attending Unavailable NIDA ESCOBAR Attending Unavailable SHAIKH ROSADO Attending Unavailable MIKAL MAHER Attending Unavailable SHAIKH ROSADO Referring Unavailable Allergies Allergy Classification Reported Allergen(s) Allergy Type Date of Onset Reaction(s) Facility (3 sources) Topiramate Allergy to substance Diarrhea, Other [facility] Medications Current Medications Medication Drug Class(es) Dates Sig (Normalized) Sig (Original) Ethinyl Estradiol / Ferrous fumarate / Norethindrone (3 sources) Estrogen Start: 08-30-2023 End: 09-27-2023 norethindrone-ethin yl estradiol (09/09) 1-20 MG-MCG tablet Indications: 6 weeks follow-up Take 1 tablet by mouth in the morning. 28 tablet 11 08/30/2023 09/27/2023 Discontinued Start: 08-30-2023 End: 08-29-2024 norethindrone-ethinyl estrad iol (09/09) 1-20 MG-MCG tablet Indications: 6 weeks follow-up Take 1 tablet by mouth in the morning. 28 tablet 11 08/30/2023 08/29/2024 Active labetalol hydrochloride 100 mg oral tablet (3 sources) beta-Adrenergic Amber Start: 07-22-2023 End: 09-27-2023 take 1 tablet by mouth in the morning, then take 1 tablet by mouth in the evening, then take 1 tablet by mouth at bedtime labetalol (Normodyne) 100 MG tablet Take 1 tablet by mouth in the morning and 1 tablet in the evening and 1 tablet before bedtime. 0 07/22/2023 09/27/2023 Discontinued metFORMIN (1 source) Biguanide metFORMIN HCl Active predniSONE 50 mg oral tablet (2 sources) Start: 09-27-2023 End: 10-03-2023 take 1 tablet by mouth in the morning predniSONE (Deltasone) 50 MG tablet Indications: De Quervain's tenosynovitis Take 1 tablet (50 mg) by mouth in the morning for 6 days. 6 tablet 0 09/27/2023 10/03/2023 Active Problems Active Problems Problem Classification Problem Date Documented Date Episodic/Chronic Hypertension complicating ; childbirth and the puerperium (4 sources) -induced hypertension; Translations: [Gestational [-induced] hypertension without significant proteinuria, complicating the puerperium] Onset: 09-27-2023 09-27-2023 Episodic Menstrual disorders (4 sources) Irregular menstruation, unspecified; Translations: [IRREGULAR MENSTRUATION UNSPECIFIED] Onset: 12-29-2022 Chronic Nutritional deficiencies (4 sources) Vitamin D deficiency, unspecified; Translations: [Vitamin D deficiency] Onset: 06-02-2022 09-27-2023 Chronic Other circulatory disease (3 sources) Elevated blood-pressure reading without diagnosis of hypertension; Translations: [Elevated blood-pressure reading, without diagnosis of hypertension] Onset: 09-27-2023 09-27-2023 Episodic Other complications of (1 source) Uterine size-date discrepancy, unspecified trimester; Translations: [Uterine size-date discrepancy, unspecified trimester] Onset: 07-15-2023 Episodic Other connective tissue disease (4 sources) Radial styloid tenosynovitis; Translations: [Radial styloid tenosynovitis [de Quervain]] Onset: 09-27-2023 09-27-2023 Episodic Other endocrine disorders (3 sources) Hyperinsulinism; Translations: [Other hypoglycemia] Onset: 09-27-2023 09-27-2023 Chronic Other female genital disorders (4 sources) Abnormal uterine and vaginal bleeding, unspecified; Translations: [ABNORMAL UTERINE VAGINAL BLEED UNS] Onset: 11-14-2022 Chronic Other non-traumatic joint disorders (3 sources) Pain in right knee; Translations: [Pain in joint, lower leg] Onset: 09-27-2023 09-27-2023 Episodic Unclassified (1 source) Past or Other Problems Problem Classification Problem Date Documented Da te Episodic/Chronic Unclassified (1 source) Exposure to COVID-19 virus Z20.822 Onset: 04-01-2022 Resolved: 04-01-2022 Viral infection (1 source) COVID-19 Onset: 04-01-2022 Resolved: 04-01-2022 Results Test Name Value Interpretation Reference Range Facility COVID Cepheidon 11-05-2023 SARS-CoV-2 (COVID-19) RNA SHAISTA+probe Ql (Unsp spec) Negative [facility] No Panel Informationon 11-04 POC Influenza A (PCR) Negative [facility] POC Influenza B (PCR) Negative [facility] No Panel InformationOrdered By: Radha Morel on 11-05-2023 Quick Strep (POC) [facility] Fibrinogenon 07-15-2023 Fibrinogen 310 mg/dL Normal 200-393 [facility] Comment on above: Result Comment: A he matocrit value greater than 55% may lead to inaccurate results in coagulation testing. Patients having hematocrit values >55% require a special collection tube for coagulation studies. Please contact the laboratory at [phone] for redraw instructions. PERFORMED BY: [place] [address] PATHOLOGIST STEP FINISHER VALENTINO MORENO M.D. Performed By: #### F IB-C #### [address] Fibrinogen [Mass/volume] in Platelet poor plasma by Coagulation assayOrdered By: Efren Wan on 07-15-2023 Fibrinogen Coag (PPP) [Mass/Vol] 310 mg/dL 200-393 [facility] Comment on above: A hematocrit value g reater than 55% may lead to inaccurate results in coagulation testing. Patients having hematocrit values >55% require a special collection tube for coagulation studies. Please contact the laboratory at [phone] for redraw instructions. PREG QUANT HCGon 12-29-2022 HCG QUANT 79542 mIU/mL Normal [facility] Comment on above: Performed By: #### P REGQNT #### [facility] [address] [address] [address] Alexsander Madrigal HCG RANGE SEE BELOW Normal [facility] Comment on above: Result Comment: 5-50 0.2-1 WEEK 50-500 1-2 WEEKS 100-5,000 2-3 WEEKS 500-10,000 3-4 WEEKS 1,000-50,000 4-5 WEEKS 10,000-100,000 5-6 WEEKS 15,000-200,000 6-8 WEEKS 10,000-100,000 2-3 MONTHS Performed By: #### P REGQNT #### [facility] [address] [place] [address] Dr. Alexsander Madrigal PROGESTERONEon 11-15-2022 Progesterone 2.2 ng/mL Normal [facility] Comment on above: Result Comment: Foll icular phase 0.1 - 0.9 Luteal phase 1.8 - 23.9 Ovulation phase 0.1 - 12.0 First trimester 11.0 - 44.3 Second trimester 25.4 - 83.3 Third trimester 58.7 - 214.0 Postmenopausal 0.0 - 0.1 Performed By: #### P JERRY #### [facility] [address] [place] [address] Dr. Alexsander Madrigal PROGESTERONEon 10-12-2022 Progesterone 0.8 ng/mL Normal [facility] Comment on above: Result Comment: Foll icular phase 0.1 - 0.9 Luteal phase 1.8 - 23.9 Ovulation phase 0.1 - 12.0 First trimester 11.0 - 44.3 Second trimester 25.4 - 83.3 Third trimester 58.7 - 214.0 Postmenopausal 0.0 - 0.1 Performed By: #### P JERRY #### [facility] [address] [place] [address] Dr. Alexsander Madrigal PROGESTERONEon 09-06-2022 Progesterone <0.1 Normal [facility] Comment on above: Result Comment: Foll icular phase 0.1 - 0.9 Luteal phase 1.8 - 23.9 Ovulation phase 0.1 - 12.0 First trimester 11.0 - 44.3 Second trimester 25.4 - 83.3 Third trimester 58.7 - 214.0 Postmenopausal 0.0 - 0.1 Performed By: #### P JERRY #### [facility] [address] [place] [address] Dr. Alexsander Madrigal PROGESTERONEon 07-01-2022 Progesterone <0.1 Normal [facility] Comment on above: Result Comment: Foll icular phase 0.1 - 0.9 Luteal phase 1.8 - 23.9 Ovulation phase 0.1 - 12.0 First trimester 11.0 - 44.3 Second trimester 25.4 - 83.3 Third trimester 58.7 - 214.0 Postmenopausal 0.0 - 0.1 Performed By: #### P JERRY #### [facility] [address] [place] [address] Dr. Alexsander Madrigal CBC AUTO DIFFon 05-30-2022 BASO # 0.1 103/ul Normal 0.0-0.1 [facility] Comment on above: Performed By: #### C BC #### [facility] [address] [place] [address] Dr. Alexsander Madrigal Basophils/100 WBC (Bld) 0.6 % Normal 0.2-2.0 [facility] Comment on above: Performed By: #### C BC #### [facility] [address] [place] [address] Dr. Alexsander Madrigal EO # 0.1 103/ul Normal 0.0-0.7 [facility] Comment on above: Performed By: #### C BC #### [facility] [address] [place] [address] Dr. Alexsander Madrigal Eosinophils/100 WBC (Bld) 0.6 % Critically low 0.9-7.0 [facility] Comment on above: Performed By: #### C BC #### [facility] [address] [place] [address] Dr. Alexsander Madrigal Erythrocyte distribution width (RBC) [Ratio] 13.3 % Normal 11.0-15.0 [facility] Comment on above: Performed By: #### C BC #### [facility] [address] [place] [address] Dr. Aelxsander Madrigal Hematocrit (Bld) [Volume fraction] 42.9 % Normal 36.0-48.0 [facility] Comment on above: Performed By: #### C BC #### [facility] [address] [place] [address] Dr. Alexsander Madrigal Hemoglobin (Bld) [Mass/Vol] 13.7 g/dL Normal 12.0-16.[address] [facility] Comment on above: Performed By: #### C BC #### [facility] [address] [place] [address] Dr. Alexsander Madrigal IG # 0.02 10e3/ul Normal 0.00-0.03 [facility] Comment on above: Performed By: #### C BC #### [facility] [address] [place] [address] Dr. Alexsander Madrigal IG % 0.2 % Normal 0.0-0.5 [facility] Comment on above: Performed By: #### C BC #### [facility] [address] [place] [address] Dr. Alexsander Madrigal LYMPH # 4.1 103/ul Critically high 1.2-3.8 [facility] Comment on above: Performed By: #### C BC #### [facility] [address] [place] [address] Dr. Alexsander Madrigal Lymphocytes/100 WBC (Bld) 41.1 % Normal 20.5-60.0 [facility] Comment on above: Performed By: #### C BC #### [facility] [address] [place] [address] Dr. Alexsander Madrigal MANUAL DIFF REQ NO Normal [facility] Comment on above: Performed By: #### C BC #### [facility] [address] [place] [address] Dr. Alexsander Madrigal MCH (RBC) [Entitic mass] 29.4 pg Normal 26.7-34.0 [facility] Comment on above: Performed By: #### C BC #### [facility] [address] [place] [address] Dr. Alexsander Madrigal MCHC (RBC) [Mass/Vol] 31.9 g/dL Normal 29.9-35.[address] [facility] Comment on above: Performed By: #### C BC #### [facility] [address] [place] [address] Dr. Alexsander Madrigal MCV (RBC) [Entitic vol] 92.1 fL Normal 81.0-99.0 [facility] Comment on above: Performed By: #### C BC #### [facility] [address] [place] [address] Dr. Alexsander Madrigal MONO # 0.6 103/ul Normal 0.3-0.[address] [facility] Comment on above: Performed By: #### C BC #### [facility] [address] [place] [address] Dr. Alexsander Madrigal Monocytes/100 WBC (Bld) 6.0 % Normal 1.7-12.[address] [facility] Comment on above: Performed By: #### C BC #### [facility] [address] [place] [address] Dr. Alexsander Madrigal NEUT # 5.1 103/ul Normal 1.4-6.[address] [facility] Comment on above: Performed By: #### C BC #### [facility] [address] [place] [address] Dr. Alexsander Madrigal Neutrophils/100 WBC (Bld) 51.5 % Normal 43.0-75.[address] [facility] Comment on above: Performed By: #### C BC #### [facility] [address] [place] [address] Dr. Alexsander Madrigal Platelet mean volume (Bld) [Entitic vol] 11.0 fL Normal 9.5-13.[address] [facility] Comment on above: Performed By: #### C BC #### [facility] [address] [place] [address] Dr. Alexsander Madrigal PLT 291 103/ul Normal 150-[address] [facility] Comment on above: Performed By: #### C BC #### [facility] [address] [place] [address] Dr. Alexsander Madrigal RBC 4.66 106/ul Normal 4.20-5.[address] [facility] Comment on above: Performed By: #### C BC #### [facility] [address] [place] [address] Dr. Alexsander Madrigal WBC 9.9 103/ul Normal 4.0-11.[address] [facility] Comment on above: Performed By: #### C BC #### [facility] [address] [place] [address] Dr. Alexsander Madrigal GLYCOHEMOGLOBIN A1Con 2021 ADA RECOMMENDATION SEE BELOW Normal [facility] Comment on above: Result Comment: ADA RECOMMENDED LIMIT 4.0 - 6.0 ADA THERAPEUTIC TARGET < 7.0 ACTION SUGGESTED > 7.0 Performed By: #### A 1C #### [facility] [address] [address] [address] Alexsander Madrigal Glucose [Mass/Vol] 126 mg/dL Normal [facility] Comment on above: Performed By: #### A 1C #### [facility] [address] [address] [address] Alexsander Madrigal HbA1c (Bld) [Mass fraction] 6.0 % Normal 4.5-6.2 [facility] Comment on above: Performed By: #### A 1C #### [facility] [address] [place] [address] Dr. Alexsander Madrigal LIPID PROFILEon 05-30-2022 CHOL-HDL RATIO NORM SEE BELOW Normal [facility] Comment on above: Result Comment: 3.3 - 4.4 LOW RISK 4.4 - 7.1 AVERAGE RISK 7.1 - 11.0 MODERATE RISK >11.0 HIGH RISK Performed By: #### L IVER, TSH, BMP, LIPID #### [facility] [address] [place] [address] Dr. Alexsander Madrigal Cholesterol [Mass/Vol] 204 mg/dL Critically high <=200 [facility] Comment on above: Performed By: #### L IVER, TSH, BMP, LIPID #### [facility] [address] [address] [address] Alexsander Madrigal Cholesterol in HDL [Mass/Vol] 38 mg/dL Critically low 40-60 [facility] Comment on above: Performed By: #### L IVER, TSH, BMP, LIPID #### [facility] [address] [address] [address] Alexsander Madrigal Cholesterol in LDL [Mass/Vol] 129.0 mg/dL Normal [facility] Comment on above: Performed By: #### L IVER, TSH, BMP, LIPID #### [facility] [address] [address] [address] Alexsander Madrigal Cholesterol.total/Chol esterol in HDL [Mass ratio] 5.4 {ratio} Normal [facility] Comment on above: Performed By: #### L IVER, TSH, BMP, LIPID #### [facility] [address] [address] [address] Alexsander Madrigal HDL NORMAL > or = 60 mg/dl - LOW CARDIOVASCULAR RISK <40 mg/dl - HIGH CARDIOVASCULAR RISK Normal [facility] Comment on above: Performed By: #### L IVER, TSH, BMP, LIPID #### [facility] [address] [address] [address] Alexsander Madrigal LDL CALC NORMAL SEE BELOW Normal [facility] Comment on above: Result Comment: <100 mg/dl OPTIMAL 100 - 129 mg/dl NEAR OR ABOVE OPTIMAL 130 - 159 mg/dl BORDERLINE HIGH 160 - 189 mg/dl HIGH >190 mg/dl VERY HIGH Performed By: #### L IVER, TSH, BMP, LIPID #### [facility] [address] [address] [address] Alexsander Madrigal Triglyceride [Mass/Vol] 185 mg/dL Critically high <=150 [facility] Comment on above: Performed By: #### L IVER, TSH, BMP, LIPID #### [facility] [address] [address] [address] Alexsander Madrigal VLDL CALC 37.0 mg/dL Normal [facility] Comment on above: Performed By: #### L IVER, TSH, BMP, LIPID #### [facility] [address] [address] [address] Alexsander Madrigal LIVER PROFILEon 05-30-2022 Albumin [Mass/Vol] 4.0 g/dL Normal 3.4-5.0 [facility] Comment on above: Performed By: #### L IVER, TSH, BMP, LIPID #### [facility] [address] [place] [address] Dr. Alexsander Madrigal Albumin/Globulin [Mass ratio] 1.0 {ratio} Normal [facility] Comment on above: Performed By: #### L IVER, TSH, BMP, LIPID #### [facility] [address] [address] [address] Alexsander Madrigal ALP [Catalytic activity/Vol] 73 U/L Normal 46-116 [facility] Comment on above: Performed By: #### L IVER, TSH, BMP, LIPID #### [facility] [address] [address] [address] Alexsander Madrigal ALT [Catalytic activity/Vol] 78 U/L Critically high 14-59 [facility] Comment on above: Performed By: #### L IVER, TSH, BMP, LIPID #### [facility] [address] [address] [address] Alexsander Madrigal AST [Catalytic activity/Vol] 40 U/L Critically high 15-37 [facility] Comment on above: Performed By: #### L IVER, TSH, BMP, LIPID #### [facility] [address] [place] [address] Dr. Alexsander Madrigal BILI, CONJUGATED 0.1 mg/dL Normal 0.0-0.2 [facility] Comment on above: Performed By: #### L IVER, TSH, BMP, LIPID #### [facility] [address] [address] [address] Alexsander Madrigal Bilirubin [Mass/Vol] 0.2 mg/dL Normal 0.2-1.0 [facility] Comment on above: Performed By: #### L IVER, TSH, BMP, LIPID #### [facility] [address] [address] [address] Alexsander Madrigal Globulin (S) [Mass/Vol] 3.9 g/dL Normal [facility] Comment on above: Performed By: #### L IVER, TSH, BMP, LIPID #### [facility] [address] [address] [address] Alexsander Madrigal Protein [Mass/Vol] 7.9 g/dL Normal 6.4-8.2 [facility] Comment on above: Performed By: #### L IVER, TSH, BMP, LIPID #### [facility] [address] [address] [address] Alexsander Madrigal PROF CHEM 8 (BAS METB)on Anion gap [Moles/Vol] 14.9 mmol/L Normal [facility] Comment on above: Performed By: #### L IVER, TSH, BMP, LIPID #### [facility] [address] [address] [address] Alexsander Madrigal Calcium [Mass/Vol] 9.3 mg/dL Normal 8.5-10.1 [facility] Comment on above: Performed By: #### L IVER, TSH, BMP, LIPID #### [facility] [address] [address] [address] Alexsander Madrigal Chloride [Moles/Vol] 105 mmol/L Normal 98-107 [facility] Comment on above: Performed By: #### L IVER, TSH, BMP, LIPID #### [facility] [address] [place] [address] Dr. Alexsander Madrigal CO2 [Moles/Vol] 23.2 mmol/L Normal 21.0-32.0 [facility] Comment on above: Performed By: #### L IVER, TSH, BMP, LIPID #### [facility] [address] [place] [address] Dr. Alexsander Madrigal Creatinine [Mass/Vol] 0.72 mg/dL Normal 0.55-1.02 [facility] Comment on above: Performed By: #### L IVER, TSH, BMP, LIPID #### [facility] [address] [place] [address] Dr. Alexsander Madrigal EGFR-AF AFGHAN >60 Normal >=60 [facility] Comment on above: Performed By: #### L IVER, TSH, BMP, LIPID #### [facility] [address] [place] [address] Dr. Alexsander Madrigal EGFR-NON AF AFGHAN >60 Normal >=60 [facility] Comment on above: Performed By: #### L IVER, TSH, BMP, LIPID #### [facility] [address] [address] [address] Alexsander Mdarigal Glucose [Mass/Vol] 87 mg/dL Normal 74-106 [facility] Comment on above: Performed By: #### L IVER, TSH, BMP, LIPID #### [facility] [address] [place] [address] Dr. Alexsander Madrigal Potassium [Moles/Vol] 4.1 mmol/L Normal 3.5-5.1 [facility] Comment on above: Performed By: #### L IVER, TSH, BMP, LIPID #### [facility] [address] [place] [address] Dr. Alexsander Madrigal Sodium [Moles/Vol] 139 mmol/L Normal 136-145 [facility] Comment on above: Performed By: #### L IVER, TSH, BMP, LIPID #### [facility] [address] [place] [address] Dr. Alexsander Madrigal Urea nitrogen [Mass/Vol] 15.0 mg/dL Normal 7.0-18.0 [facility] Comment on above: Performed By: #### L IVER, TSH, BMP, LIPID #### [facility] [address] [place] [address] Dr. Alexsander Madrigal Urea nitrogen/Creatinine [Mass ratio] 20.8 mg/mg Normal [facility] Comment on above: Performed By: #### L IVER, TSH, BMP, LIPID #### [facility] [address] [place] [address] Dr. Alexsander Madrigal TSHon 05-30-2022 TSH 2.600 uIU/mL Normal 0.358-3.740 [facility] Comment on above: Performed By: #### C BC #### [facility] [address] [place] [address] Dr. Alexsander Madrigal VITAMIN D 25 OHon 05-30-2022 VIT D 25-OH 18.8 ng/mL Normal [facility] Comment on above: Performed By: #### C BC #### [facility] [address] [place] [address] Dr. Alexsander Madrigal VIT D RANGES SEE BELOW Normal [facility] Comment on above: Result Comment: <20 ng/mL Vit D deficient 20 - <30 ng/mL Vit D insufficient 30 - 100 ng/mL Vit D sufficient >100 ng/mL Potential Toxicity Performed By: #### C BC #### [facility] [address] [address] [address] Alexsander Madrigal SARS-CoV-2 (COVID-19) RNA NA A+probe Ql (Resp)on 04-01-2022 SARS-CoV-2 (COVID-19) RNA SHAISTA+probe Ql (Unsp spec) Positive Scan•Jour Other Vital Signs Date Time Vital Sign Value Performing Clinician Facility 11-05-2023 09:35-0400 Body height 160.02 cm [facility] 11-05-2023 09:35-0400 Body mass index (BMI) [Ratio] 34 kg/m2 [facility] 11-05-2023 09:35-0400 Body temperature 97.6 [degF] [facility] 11-05-2023 09:35-0400 Body weight 87.25 kg [facility] 11-05-2023 09:35-0400 Diastolic blood pressure 97 mm[Hg] [facility] 11-05-2023 09:35-0400 Heart rate 94 /min [facility] 11-05-2023 09:35-0400 Respiratory rate 18 /min [facility] 11-05-2023 09:35-0400 SaO2% (BldA) [Mass fraction] 96 % [facility] 11-05-2023 09:35-0400 Systolic blood pressure 140 mm[Hg] [facility] 09-27-2023 07:56-0500 Body height 160 cm Orestes Strange MD Work Phone: [facility] 09-27-2023 07:56-0500 Body mass index (BMI) [Ratio] 34.37 kg/m2 Orestes Strange MD Work Phone: [facility] 09-27-2023 07:56-0500 Body temperature 97.3 [degF] Orestes Strange MD Work Phone: [facility] 09-27-2023 07:56-0500 Body weight 88 kg Orestes Strange MD Work Phone: [facility] 09-27-2023 07:56-0500 Diastolic blood pressure 72 mm[Hg] Orestes Strange MD Work Phone: [facility] 09-27-2023 07:56-0500 Heart rate 94 /min Orestes Strange MD Work Phone: [facility] 09-27-2023 07:56-0500 SaO2% (BldA) [Mass fraction] 99 % Orestes Strange MD Work Phone: [facility] 09-27-2023 07:56-0500 Systolic blood pressure 126 mm[Hg] Orestes Strange MD Work Phone: [facility] 04-01-2022 14:10-0400 Body height 160.02 cm Shereen Garcia Other [facility] Other 04-01-2022 14:10-0400 Body mass index (BMI) [Ratio] 34.54 kg/m2 Shereen Garcia Other [facility] Other 04-01-2022 14:10-0400 Body temperature 99.3 [degF] Shereen Garcia Other [facility] Other 04-01-2022 14:10-0400 Body weight 88.45 kg Shereen Garcia Other [facility] Other 04-01-2022 14:10-0400 Respiratory rate 18 /min Shereen Garcia Other [facility] Other 04-01-2022 14:10-0400 SaO2% (BldA) [Mass fraction] 98 % Shereen Garcia Other [facility] Other Encounters Encounter Date Encounter Type Care Provider Facility Start: 02-19-2024 End: 02-19-2024 ambulatory MIKAL MAHER Not Available Start: 02-07-2024 End: 02-07-2024 ambulatory SHAIKH ASHLEE Not Available Start: 11-29-2023 End: 11-29-2023 ambulatory NIDA ESCOBAR Not Available Start: 11-22-2023 End: 11-22-2023 ambulatory ORESTES STRANGE Not Available Start: 11-08-2023 End: 11-08-2023 ambulatory ORESTES STRANGE Not Available Start: 11-05-2023 End: 11-05-2023 ambulatory [facility] Work Phone: Start: 11-05-2023 End: 11-05-2023 Patient encounter procedure [facility] Work Phone: Start: 09-27-2023 Bambobrent flowsheet Orestes Strange MD Work Phone: [facility] Start: 09-27-2023 Fred flowsheet Orestes Strange MD Work Phone: [facility] Start: 09-27-2023 End: 09-27-2023 ambulatory ORESTES STRANGE Not Available Start: 09-27-2023 End: 09-27-2023 Office outpatient visit 15 minutes Orestes Strange MD Work Phone: [facility] Comment on above: induced hy pertension, (Primary Dx); De Quervain's tenosynovitis Start: 08-30-2023 End: 08-30-2023 ambulatory MARILYN SUAREZ Not Available Start: 08-09-2023 End: 08-09-2023 ambulatory EFREN SAVAGE Not Available Start: 08-02-2023 End: 08-02-2023 ambulatory MARILYN DANIELA Not Available Start: 07-26-2023 End: 07-26-2023 ambulatory EFREN SAVAGE Not Available Start: 07-15-2023 End: 07-15-2023 ambulatory Orestes Hallr Facility:[facility] Start: 07-15-2023 End: 07-15-2023 ambulatory Efren Savage Work Phone: [facility] Work Phone: Start: 07-15-2023 End: 07-15-2023 Departed Referred Efren Wan Work Phone: [facility] [place] Work Phone: Start: 07-12-2023 End: 07-12-2023 ambulatory MARILYN SUAREZ Not Available Start: 07-05-2023 End: 07-05-2023 ambulatory MARILYN SUAREZ Not Available Start: 01-05-[address] EFREN WAN . Facili ty:[facility] Start: 12-29-2022 End: 12-30-[address] EFREN WAN . Facility:[facility] Start: 11-14-2022 End: 11-15-[address] EFREN WAN . Facility:[facility] Start: 10-11-2022 End: 10-12-[address] EFREN WAN . Facility:[facility] Start: 09-05-2022 End: 09-06-[address] EFREN WAN . Facility:[facility] Start: 06-30-2022 End: 07-01-[address] EFREN WAN . Facility:[facility] Start: 06-02-2022 Encounter for genera l adult medical examination without abnormal findings DR ORESTES STRANGE [facility] Start: 05-30-2022 End: 05-31-[address] ORESTES STRANGE Facility:[facility] Start: 05-30-2022 End: 05-31-2022 Encounter for general adult medical examination without abnormal findings DR ORESTES STRANGE Facility:[facility] Start: 05-27-[address] EFREN WAN . Facili ty:[facility] Start: 04-01-2022 End: 04-01-2022 ambulatory Shereen Garcia Other [facility] Other Start: 04-01-2022 Office outpatient ne w 30 minutes Shereen Garcia [facility] Procedures Date Procedure Procedure Detail Performing Clinician Start: 11-05-2023 Quick Strep (POC) Start: 02-28-2023 Microscopic observat ion [Identifier] in Cervix by Cyto stain Orestes Strange MD Work Phone: Plan of Treatment Date Care Activity Detail Author Start: 03-31-2028 Screening for malign ant neoplasm of cervix [facility] Start: 02-29-2028 Screening for malign ant neoplasm of cervix Pap Smear [facility] Start: 03-21-2024 End: 03-21-2024 Patient encounter procedure 03/21/2024 9:00 AM EDT Office Visit [facility] [address] [place] [address] Marilyn Suarez PA [address] [place] [address] [facility] Start: 11-07-2023 End: 11-07-2023 Patient encounter procedure 11/07/2023 1:15 PM EDT Office Visit [facility] [address] [place] [id number] Orestes Strange MD [address] [place] [id number] [facility] Start: 04-21-2023 Influenza vaccination Influenza Vacc ine (#1) [facility] Payers Date Payer Category Payer Unknown [id number] [address] [facility] Care O (unspecified) AETNA AETNA [id number] 2022-Present [address] [place] [address] [facility] [place] [id number] 1987 Unknown [id number] 2.16.840.1.767281.3.579.2.5 93 1987 Unknown [id number] 2.16.840.1.465879.3.579.2.5 93 1987 Unknown [id number] 2.16.840.1.015835.3.579.2.5 93 1987 Unknown [id number] 2.16.840.1.845325.3.579.2.5 1987 Unknown [id number] 2.16.840.1.460734.3.579.2.5 93 1987 Unknown [id number] 2.16.840.1.672131.3.579.2.5 93 1987 Unknown [id number] 2.16.840.1.386986.3.579.2.5 93 1987 Unknown [id number] 2.16.840.1.483008.3.579.2.5 93 1987 Unknown [id number] 2.16.840.1.594583.3.579.2.1 259 1987 Unknown [id number] 2.16.840.1.567231.3.579.2.1 259 1987 Unknown [id number] 2.16.840.1.340100.3.579.2.1 259 1987 Unknown [id number] 2.16.840.1.350069.3.579.2.1 259 1987 Unknown [id number] 2.16.840.1.756199.3.579.2.1 259 1987 Unknown [id number] 2.16.840.1.552046.3.579.2.1 259 1987 Unknown [id number] 2.16.840.1.479882.3.579.2.1 259 1987 Unknown [id number] 2.16.840.1.327780.3.579.2.1 259 1987 Unknown [id number] 2.16.840.1.389074.3.579.2.1 259 1987 Unknown [id number] 2.16.840.1.830056.3.579.2.1 259 1987 Unknown [id number] 2.16.840.1.187982.3.579.2.1 259 1987 Unknown [id number] 2.16.840.1.913059.3.579.2.1 259 1959 [employer] [id number] [id number] 2.16.840.1.278364.19 1959 Private Health Insurance [id number] 1959 Self-pay Private Health Insurance [id number] Unknown [id number] 2.16.840.1.911840.3.579.2.5 31 Social History Date Type Detail Facility Start: 09-26-2023 End: 09-27-2023 Sex Assigned At [facility] Start: 1985 Sex Assigned At Female [facility] Start: 01-28-2023 [facility] Start: 01-28-2023 Tobacco use and exposure Smoke less tobacco non-user [facility] Start: 09-26-2023 End: 09-27-2023 Alcohol intake Lifetime non-drinker (finding) [facility] Start: 09-26-2023 End: 09-27-2023 History of Social function [facility] Within the last year , have you been afraid of your partner or ex-partner? No [facility] How often do you att end meetings of the clubs or organizations you belong to? Patient refused [facility] Are you now , , , , never or living with a partner? [facility] How often to you hav e a drink containing alcohol? Monthly or less [facility] How many standard dr inks containing alcohol do you have on a typical day? 1 or 2 [facility] How often do you hav e 6 or more drinks on 1 occasion? Never [facility] Do you feel stress - tense, restless, nervous, or anxious, or unable to sleep at night because your mind is troubled all the time - these days [OSQ] Not at all [facility] (I/We) worried wheth er (my/our) food would run out before (I/we) got money to buy more. DK or Refused [facility] Start: 1985 Sex Assigned At Not on file [facility] History of Present illness Narrative 09-27-2023 Orestes Strange MD - 09/27/2023 8:32 AM Agustin Strange MD - 09/27/2023 8:31 AM Agustin Strange MD - 09/27/2023 7:45 AM EST Note Date & Type Note Facility 09-27-2023 History of Presen t illness Narrative Associated Problem(s): De Quervain's tenosynovitis Exam consistent with De Quervain's. Start prednisone for inflammation. Use thumb spica brace. Handout with exercises to patient. Associated Problem(s): induced hypertension, Developed HTN in and slowly improving. Reassured can take up to 6 months for BP to normalize. Stop labetalol and monitor. If consistently >140 or >90 will treat. Discussed DASH diet. Subjective Patient ID: Saad Peralta is a 38 y.o. female who presents for Follow-up (Blood pressure). Concerned of high blood pressure and wrist pain. Delivered 07/16 and had developed HTN and preeclampsia the last week of . OB added labetolol and procardia. Developed lightheadedness and stopped procardia. Now on labetalol but not taking TID. Monitoring BP PRN and typically controlled. If elevated will take a labetalol and last dose was yesterday am. BP normal today. Overall feels well and no signs of elevated BP. C/o left thumb and wrist pain for several months. Pain in base thumb and radiates down into wrist. 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 Pain to push off or use arm. Not tried OTC. Bought brace and mild relief. Developed pain in right thumb after carrying . Review of Systems Respiratory: Negative for cough, shortness of breath and wheezing. Cardiovascular: Negative for chest pain and palpitations. Gastrointestinal: Negative for abdominal pain, diarrhea, nausea and vomiting. Genitourinary: Negative for dysuria. Objective Physical Exam Constitutional: General: She is not in acute distress. Appearance: Normal appearance. HENT: Head: Normocephalic. Right Ear: Tympanic membrane normal. Left Ear: Tympanic membrane normal. Eyes: Extraocular Movements: Extraocular movements intact. Pupils: Pupils are equal, round, and reactive to light. Cardiovascular: Rate and Rhythm: Normal rate and regular rhythm. Heart sounds: No murmur heard. No friction rub. No gallop. Pulmonary: Effort: Pulmonary effort is normal. Breath sounds: Normal breath sounds. No wheezing, rhonchi or rales. Abdominal: General: Bowel sounds are normal. There is no distension. Palpations: Abdomen is soft. Tenderness: There is no abdominal tenderness. There is no guarding or rebound. Musculoskeletal: Cervical back: Neck supple. Right lower leg: No edema. Left lower leg: No edema. Neurological: Mental Status: She is alert. Assessment/Plan Problem List Items Addressed This Visit induced hypertension, - Primary Developed HTN in and slowly improving. Reassured can take up to 6 months for BP to normalize. Stop labetalol and monitor. If consistently >140 or >90 will treat. Discussed DASH diet. De Quervain's tenosynovitis Exam consistent with De Quervain's. Start prednisone for inflammation. Use thumb spica brace. Handout with exercises to patient. Relevant Medications predniSONE (Deltasone) 50 MG tablet documented in this encounter [facility] Evaluation note 04-01-2022 Note Date & Type Note Facility 04-01-2022 Evaluation note Encounter Date Diagnosis Assessment Notes Mar, Exposure to COVID-19 virus (ICD-10 - Z20.822) Mar, COVID-19 (ICD-10 - U07.1) Rapid COVID test performed in office today. Advised patient that test was positive. Instructed patient to isolate per CDC guidelines for 5 days from symptom onset, mask 5 days following. May return to work/activities outside home after isolation period as long as symptoms are improving and has been afebrile for 24 hours without use of antipyretic. Advised patient that treatment of COVID is with viral supportive care, OTC cold medications as directed, Tylenol/Motrin as needed for body aches/fever. Increase fluids and rest. Encouraged use of cool mist humidifier. Follow-up with PCP to advise of positive result and further management. Immediate eval for SOB, difficulty, chest pain, fevers that do not break with antipyretic or any other concerning symptoms as reviewed on patient education handout. Patient verbalizes understanding and is agreeable to treatment plan. Patient left in stable condition [facility] Other Evaluation note Note Date & Type Note Facility Evaluation note No assessment information availa jill [facility] Work Phone: Evaluation note Note Date & Type Note Facility Evaluation note Diagnosis induced hypertension, - Primary De Quervain's tenosynovitis Radial styloid tenosynovitis documented in this encounter [facility] Summary Purpose Family History No Family History Records Found Relationship Condition Age at Onset Recorded Date/T guillermo father Diabetes mellitus Unknown Advance Directives No Advanced Directives Records Found Advance Directive Response Recorded Date/ Time Advance Directives No June 9:16am Chief Complaint and Reason for Visit Chief Complaint sore throat, congest ion, cough Additional Source Comments REASON FOR VISIT (unrecogniz ed section and content) Reason Comments Follow-up Blood pressure INFORMATION SOURCE (unrecogn ized section and content) DATE CREATED AUTHOR 01/04/2023 [facility] DATE CREATED AUTHOR AUTHOR'S ORGANIZ ATION 08/06/2023 [facility] DATE CREATED AUTHOR AUTHOR'S ORGANIZ ATION 02/19/2024 [facility] Care Teams (unrecognized sec tion and content) Team Status: Inactive Member Role Status Dates Efren Wan Attending Provider Active Sightseeing Guide Relationship Specialty Start Date End Date Orestes Strange MD [address] [place] [id number] PCP - General Family Medicine 09/26/23 Sightseeing Guide Relationship Specialty Start Date End Date Orestes Strange MD [address] [place] [address] PCP - General Family Medicine 09/26/23 Team Status: Active Member Role Status Dates Orestes Strange MD Primary Care Provider Active Team Status: Inactive Member Role Status Dates Orestes Strange MD Primary Care Provider Active S tart: November 05, 2023 End: November 05, 2023 SHAWN Jara Attending Provider Active S tart: November 05, 2023 End: November 05, 2023 Goals (unrecognized section and content) Goals may be documented in a n alternate section FOR RECORDS PERTAINING TO PATIENTS WHO ARE OR HAVE BEEN ENROLLED IN A CHEMICAL DEPENDENCY/SUBSTANCEABUSE PROGRAM, SOME INFORMATION MAY BE OMITTED. This clinical summary was aggregated from multiple sources. Caution should be exercised in using it in the provision of clinical care. This summary normalizes information from multiple sources, and as a consequence, information in this document may materially change the coding, format and clinical context of patient data. In addition, data may be omitted in some cases. CLINICAL DECISIONS SHOULD BE BASED ON THE PRIMARY CLINICAL RECORDS. [facility] [employer] provides no warranty or guarantee of the accuracy or completeness of information in this document.
== END 2024-03-21 18:10 | disposition home or self-care (01) ==
LOC: LAB 18:09
PROVIDERS: PCP Family Medicine; Visit Provider Physician Assistant
DX: Z01.419 Encounter for gynecological examination (general) (routine) without abnormal findings (principal)
CPT/HCPCS: 88175

== ENCOUNTER 2024-07-10 07:15 | Outpatient (OUT) | payer OTHER, SELFPAY ==
--- OUTSIDE RECORDS SUMMARY | 2024-07-10 07:19 | XMS_ITS | CCD ---
Author Organization [facility] Care Team Providers Care Staff Radiation Therapist Name Role Phone Shereen Garcia Unavailable SAVAGE [...] SUAREZ Attending Unavailable DANIELA, MARILYN Attending Unavailable ORESTES STRANGE Attending Unavailable ORESTES STRANGE Attending Unavailable MARILYN SUAREZ Attending Unavailable ORESTES STRANGE Attending Unavailable NIDA ESCOBAR Attending Unavailable FACAMMY, Attending Unavailable MIKAL MAHER Attending Unavailable ASHLEE, Referring Unavailable EFREN WAN Attending Unavailable DANIELA, MARILYN Attending Unavailable DANIELA, MARILYN Attending Unavailable EFREN WAN Attending Unavailable Allergies Allergy Classification Reported Allergen(s) Allergy [...] (COVID-19) RNA SHAISTA+probe Ql (Unsp spec) Negative [facility] No Panel Informationon 11-04 POC Influenza A (PCR) Negative [facility] POC Influenza B (PCR) Negative [facility] No Panel InformationOrdered By: Radha Morel on 11-05-2023 Quick Strep (POC) [facility] Fibrinogenon 07-15-2023 Fibrinogen 310 mg/dL Normal 200-393 [facility] Comment on above: Result Comment: A he matocrit value greater than 55% may lead to inaccurate results in coagulation testing. Patients having hematocrit values >55% require a special collection tube for coagulation studies. Please contact the laboratory at [phone] for redraw instructions. PERFORMED BY: [place] [address] PATHOLOGIST [employer] LINEMAN VALENTINO MORENO M.D. Performed By: #### F IB-C #### [address] Fibrinogen [Mass/volume] in Platelet poor plasma by Coagulation assayOrdered By: Efren Wan on 07-15-2023 Fibrinogen Coag (PPP) [Mass/Vol] 310 mg/dL 200-393 [facility] Comment on above: A hematocrit value g reater than 55% may lead to inaccurate results in coagulation testing. Patients having hematocrit values >55% require a special collection tube for coagulation studies. Please contact the laboratory at [phone] for redraw instructions. PREG QUANT HCGon 12-29-2022 HCG QUANT 83048 mIU/mL Normal [facility] Comment on above: Performed By: #### P REGQNT #### [facility] [address] [address] [address] Alexsander Madrigal HCG RANGE SEE BELOW Normal [facility] Comment on above: Result Comment: 5-50 0.2-1 WEEK 50-500 1-2 WEEKS 100-5,000 2-3 WEEKS 500-10,000 3-4 WEEKS 1,000-50,000 4-5 WEEKS 10,000-100,000 5-6 WEEKS 15,000-200,000 6-8 WEEKS 10,000-100,000 2-3 MONTHS Performed By: #### P REGQNT #### [facility] [address] [place] [address] Dr. Alexsander Madrigal PROGESTERONEon 11-15-2022 Progesterone 2.2 ng/mL Normal [facility] Comment on above: Result Comment: Foll icular phase 0.1 - 0.9 Luteal phase 1.8 - 23.9 Ovulation phase 0.1 - 12.0 First trimester 11.0 - 44.3 Second trimester 25.4 - 83.3 Third trimester 58.7 - 214.0 Postmenopausal 0.0 - 0.1 Performed By: #### P JERRY #### [facility] [address] [place] [address] Dr. Alexsander Madrigal PROGESTERONEon 10-12-2022 Progesterone 0.8 ng/mL [facility] Comment on above: Result Comment: Foll icular phase 0.1 - 0.9 Luteal phase 1.8 - 23.9 Ovulation phase 0.1 - 12.0 First trimester 11.0 - 44.3 Second trimester 25.4 - 83.3 Third trimester 58.7 - 214.0 Postmenopausal 0.0 - 0.1 Performed By: #### P JERRY #### [facility] [address] [place] [address] Dr. Alexsander Madrigal PROGESTERONEon 09-06-2022 Progesterone <0.1 [facility] Comment on above: Result Comment: Foll icular phase 0.1 - 0.9 Luteal phase 1.8 - 23.9 Ovulation phase 0.1 - 12.0 First trimester 11.0 - 44.3 Second trimester 25.4 - 83.3 Third trimester 58.7 - 214.0 Postmenopausal 0.0 - 0.1 Performed By: #### P JERRY #### [facility] [address] [place] [address] Dr. Alexsander Madrigal PROGESTERONEon 07-01-2022 Progesterone <0.1 [facility] Comment on above: Result Comment: Foll icular phase 0.1 - 0.9 Luteal phase 1.8 - 23.9 Ovulation phase 0.1 - 12.0 First trimester 11.0 - 44.3 Second trimester 25.4 - 83.3 Third trimester 58.7 - 214.0 Postmenopausal 0.0 - 0.1 Performed By: #### P JERRY #### [facility] [address] [address] [address] Alexsander Madrigal CBC AUTO DIFFon 05-30-2022 BASO # 0.1 103/ul Normal 0.0-0.1 [facility] Comment on above: Performed By: #### C BC #### [facility] [address] [address] [address] Alexsander Madrigal Basophils/100 WBC (Bld) 0.6 % Normal 0.2-2.0 [facility] Comment on above: Performed By: #### C BC #### [facility] [address] [place] [address] Dr. Alexsander Madrigal EO # 0.1 103/ul Normal 0.0-0.7 [facility] Comment on above: Performed By: #### C BC #### [facility] [address] [address] [address] Alexsander Madrigal Eosinophils/100 WBC (Bld) 0.6 % Critically low 0.9-7.0 [facility] Comment on above: Performed By: #### C BC #### [facility] [address] [place] [address] Dr. Alexsander Madrigal Erythrocyte distribution width (RBC) [Ratio] 13.3 % Normal 11.0-15.0 [facility] Comment on above: Performed By: #### C BC #### [facility] [address] [place] [address] Dr. Alexsander Madrigal Hematocrit (Bld) [Volume fraction] 42.9 % Normal 36.0-48.0 [facility] Comment on above: Performed By: #### C BC #### [facility] [address] [place] [address] Dr. Alexsander Madrigal Hemoglobin (Bld) [Mass/Vol] 13.7 g/dL Normal 12.0-16.0 [facility] Comment on above: Performed By: #### C BC #### [facility] [address] [place] [address] Dr. Alexsander Madrigal IG # 0.02 10e3/ul Normal 0.00-0.03 [facility] Comment on above: Performed By: #### C BC #### [facility] [address] [place] [address] Dr. Alexsander Madrigal IG % 0.2 % Normal 0.0-0.5 [facility] Comment on above: Performed By: #### C BC #### [facility] [address] [place] [address] Dr. Alexsander Madrigal LYMPH # 4.1 103/ul Critically high 1.2-3.8 [facility] Comment on above: Performed By: #### C BC #### [facility] [address] [place] [address] Dr. Alexsander Madrigal Lymphocytes/100 WBC (Bld) 41.1 % Normal 20.5-60.0 [facility] Comment on above: Performed By: #### C BC #### [facility] [address] [place] [address] Dr. Alexsander Madrigal MANUAL DIFF REQ NO Normal [facility] Comment on above: Performed By: #### C BC #### [facility] [address] [place] [address] Dr. Alexsander Madrigal MCH (RBC) [Entitic mass] 29.4 pg Normal 26.7-34.0 [facility] Comment on above: Performed By: #### C BC #### [facility] [address] [place] [address] Dr. Alexsander Madrigal MCHC (RBC) [Mass/Vol] 31.9 g/dL Normal 29.9-35.2 [facility] Comment on above: Performed By: #### C BC #### [facility] [address] [place] [address] Dr. Alexsander Madrigal MCV (RBC) [Entitic vol] 92.1 fL Normal 81.0-99.0 [facility] Comment on above: Performed By: #### C BC #### [facility] [address] [place] [address] Dr. Alexsander Madrigal MONO # 0.6 103/ul Normal 0.3-0.8 [facility] Comment on above: Performed By: #### C BC #### [facility] [address] [place] [address] Dr. Alexsander Madrigal Monocytes/100 WBC (Bld) 6.0 % Normal 1.7-12.0 [facility] Comment on above: Performed By: #### C BC #### [facility] [address] [place] [address] Dr. Alexsander Madrigal NEUT # 5.1 103/ul Normal 1.4-6.5 [facility] Comment on above: Performed By: #### C BC #### [facility] [address] [place] [address] Dr. Alexsander Madrigal Neutrophils/100 WBC (Bld) 51.5 % Normal 43.0-75.0 [facility] Comment on above: Performed By: #### C BC #### [facility] [address] [place] [address] Dr. Alexsander Madrigal Platelet mean volume (Bld) [Entitic vol] 11.0 fL Normal 9.5-13.5 [facility] Comment on above: Performed By: #### C BC #### [facility] [address] [place] [address] Dr. Alexsander Madrigal PLT 291 103/ul Normal 150-450 [facility] Comment on above: Performed By: #### C BC #### [facility] [address] [place] [address] Dr. Alexsander Madrigal RBC 4.66 106/ul Normal 4.20-5.40 [facility] Comment on above: Performed By: #### C BC #### [facility] [address] [place] [address] Dr. Alexsander Madrigal WBC 9.9 103/ul Normal 4.0-11.0 [facility] Comment on above: Performed By: #### C BC #### [facility] [address] [place], [place] [id number] Dr. Alexsander Madrigal GLYCOHEMOGLOBIN A1Con 2021 ADA RECOMMENDATION SEE BELOW Normal [facility] Comment on above: Result Comment: ADA RECOMMENDED LIMIT 4.0 - 6.0 ADA THERAPEUTIC TARGET < 7.0 ACTION SUGGESTED > 7.0 Performed By: #### A 1C #### [facility] [address] [place] [address] Dr. Alexsander Madrigal Glucose [Mass/Vol] 126 mg/dL Normal [facility] Comment on above: Performed By: #### A 1C #### [facility] [address] [place] [address] Dr. Alexsander Madrigal HbA1c (Bld) [Mass fraction] 6.0 % Normal 4.5-6.2 [facility] Comment on above: Performed By: #### A 1C #### [facility] [address] [place] [address] Dr. Alexsander Madrigal LIPID PROFILEon 05-30-2022 CHOL-HDL RATIO NORM SEE BELOW Normal [facility] Comment on above: Result Comment: 3.3 - 4.4 LOW RISK 4.4 - 7.1 AVERAGE RISK 7.1 - 11.0 MODERATE RISK >11.0 HIGH RISK Performed By: #### L IVER, TSH, BMP, LIPID #### [facility] [address] [place] [address] Dr. Alexsander Madrigal Cholesterol [Mass/Vol] 204 mg/dL Critically high <=200 [facility] Comment on above: Performed By: #### L IVER, TSH, BMP, LIPID #### [facility] [address] [place] [address] Dr. Alexsander aMdrigal Cholesterol in HDL [Mass/Vol] 38 mg/dL Critically low 40-60 [facility] Comment on above: Performed By: #### L IVER, TSH, BMP, LIPID #### [facility] [address] [place] [address] Dr. Alexsander Madrigal Cholesterol in LDL [Mass/Vol] 129.0 mg/dL Normal [facility] Comment on above: Performed By: #### L IVER, TSH, BMP, LIPID #### [facility] [address] [address] [address] Alexsander Madrigal Cholesterol.total/Chol esterol in HDL [Mass ratio] 5.4 {ratio} Normal [facility] Comment on above: Performed By: #### L IVER, TSH, BMP, LIPID #### [facility] [address] [address] [address] Alexsander Madrigal HDL NORMAL > or = 60 mg/dl - LOW CARDIOVASCULAR RISK <40 mg/dl - HIGH CARDIOVASCULAR RISK Normal [facility] Comment on above: Performed By: #### L IVER, TSH, BMP, LIPID #### [facility] [address] [address] [address] Alexsander Madrigal LDL CALC NORMAL SEE BELOW Normal [facility] Comment on above: Result Comment: <100 mg/dl OPTIMAL 100 - 129 mg/dl NEAR OR ABOVE OPTIMAL 130 - 159 mg/dl BORDERLINE HIGH 160 - 189 mg/dl HIGH >190 mg/dl VERY HIGH Performed By: #### L IVER, TSH, BMP, LIPID #### [facility] [address] [address] [address] Alexsander Madrigal Triglyceride [Mass/Vol] 185 mg/dL Critically high <=150 [facility] Comment on above: Performed By: #### L IVER, TSH, BMP, LIPID #### [facility] [address] [address] [address] Alexsander Madrigal VLDL CALC 37.0 mg/dL Normal [facility] Comment on above: Performed By: #### L IVER, TSH, BMP, LIPID #### [facility] [address] [address] [address] Alexsander Madrigal LIVER PROFILEon 05-30-2022 Albumin [Mass/Vol] 4.0 g/dL Normal 3.4-5.0 [facility] Comment on above: Performed By: #### L IVER, TSH, BMP, LIPID #### [facility] [address] [address] [address] Alexsander Madrigal Albumin/Globulin [Mass ratio] 1.0 {ratio} Normal [facility] Comment on above: Performed By: #### L IVER, TSH, BMP, LIPID #### [facility] [address] [address] [address] Alexsander Madrigal ALP [Catalytic activity/Vol] 73 U/L Normal 46-116 [facility] Comment on above: Performed By: #### L IVER, TSH, BMP, LIPID #### [facility] [address] [address] [address] Alexsander Madrigal ALT [Catalytic activity/Vol] 78 U/L Critically high 14-59 [facility] Comment on above: Performed By: #### L IVER, TSH, BMP, LIPID #### [facility] [address] [address] [address] Alexsander Madrigal AST [Catalytic activity/Vol] 40 U/L Critically high 15-37 [facility] Comment on above: Performed By: #### L IVER, TSH, BMP, LIPID #### [facility] [address] [place] [address] Dr. Alexsander Madrigal BILI, CONJUGATED 0.1 mg/dL Normal 0.0-0.2 [facility] Comment on above: Performed By: #### L IVER, TSH, BMP, LIPID #### [facility] [address] [place] [address] Dr. Alexsander Madrigal Bilirubin [Mass/Vol] 0.2 mg/dL Normal 0.2-1.0 [facility] Comment on above: Performed By: #### L IVER, TSH, BMP, LIPID #### [facility] [address] [place] [address] Dr. Alexsander Madrigal Globulin (S) [Mass/Vol] 3.9 g/dL Normal [facility] Comment on above: Performed By: #### L IVER, TSH, BMP, LIPID #### [facility] [address] [place] [address] Dr. Alexsander Madrigal Protein [Mass/Vol] 7.9 g/dL Normal 6.4-8.2 [facility] Comment on above: Performed By: #### L IVER, TSH, BMP, LIPID #### [facility] [address] [place] [address] Dr. Alexsander Madrigal PROF CHEM 8 (BAS METB)on Anion gap [Moles/Vol] 14.9 mmol/L Normal [facility] Comment on above: Performed By: #### L IVER, TSH, BMP, LIPID #### [facility] [address] [address] [address] Alexsander Madrigal Calcium [Mass/Vol] 9.3 mg/dL Normal 8.5-10.1 [facility] Comment on above: Performed By: #### L IVER, TSH, BMP, LIPID #### [facility] [address] [address] [address] Alexsander Madrigal Chloride [Moles/Vol] 105 mmol/L Normal 98-107 [facility] Comment on above: Performed By: #### L IVER, TSH, BMP, LIPID #### [facility] [address] [place] [address] Dr. Alexsander Madrigal CO2 [Moles/Vol] 23.2 mmol/L Normal 21.0-32.0 [facility] Comment on above: Performed By: #### L IVER, TSH, BMP, LIPID #### [facility] [address] [address] [address] Alexsander Madrigal Creatinine [Mass/Vol] 0.72 mg/dL Normal 0.55-1.02 [facility] Comment on above: Performed By: #### L IVER, TSH, BMP, LIPID #### [facility] [address] [address] [address] Alexsander Madrigal EGFR-AF URUGUAYAN >60 Normal >=60 [facility] Comment on above: Performed By: #### L IVER, TSH, BMP, LIPID #### [facility] [address] [place] [address] Dr. Alexsander Madrigal EGFR-NON AF URUGUAYAN >60 Normal >=60 [facility] Comment on above: Performed By: #### L IVER, TSH, BMP, LIPID #### [facility] [address] [address] [address] Alexsander Madrigal Glucose [Mass/Vol] 87 mg/dL Normal 74-106 [facility] Comment on above: Performed By: #### L IVER, TSH, BMP, LIPID #### [facility] [address] [address] [address] Alexsander Madrigal Potassium [Moles/Vol] 4.1 mmol/L Normal 3.5-5.1 [facility] Comment on above: Performed By: #### L IVER, TSH, BMP, LIPID #### [facility] [address] [place] [address] Dr. Alexsander Madrigal Sodium [Moles/Vol] 139 mmol/L Normal 136-145 [facility] Comment on above: Performed By: #### L IVER, TSH, BMP, LIPID #### [facility] [address] [place] [address] Dr. Alexsander Madrigal Urea nitrogen [Mass/Vol] 15.0 mg/dL Normal 7.0-18.0 [facility] Comment on above: Performed By: #### L IVER, TSH, BMP, LIPID #### [facility] [address] [place] [address] Dr. Alexsander Madrigal Urea nitrogen/Creatinine [Mass ratio] 20.8 mg/mg Normal [facility] Comment on above: Performed By: #### L IVER, TSH, BMP, LIPID #### [facility] [address] [place] [address] Dr. Alexsander Madrigal TSHon 05-30-2022 TSH 2.600 uIU/mL Normal 0.358-3.740 [facility] Comment on above: Performed By: #### C BC #### [facility] [address] [place] [address] Dr. Alexsander Madrigal VITAMIN D 25 OHon 05-30-2022 VIT D 25-OH 18.8 ng/mL Normal [facility] Comment on above: Performed By: #### C BC #### [facility] [address] [place] [address] Dr. Alexsander Madrigal VIT D RANGES SEE BELOW Normal [facility] Comment on above: Result Comment: <20 ng/mL Vit D deficient 20 - <30 ng/mL Vit D insufficient 30 - 100 ng/mL Vit D sufficient >100 ng/mL Potential Toxicity Performed By: #### C BC #### [facility] [address] [place] [address] Dr. Alexsander Madrigal SARS-CoV-2 (COVID-19) RNA NA A+probe Ql (Resp)on 04-01-2022 SARS-CoV-2 (COVID-19) RNA SHAISTA+probe Ql (Unsp spec) Positive [facility] Other Vital Signs Date Time Vital Sign Value Performing Clinician Facility 11-05-2023 09:35-0400 Body height 160.02 cm [facility] 11-05-2023 09:35-0400 Body mass index (BMI) [Ratio] 34 kg/m2 [facility] 11-05-2023 09:35-0400 Body temperature 97.6 [degF] [facility] 11-05-2023 09:35-0400 Body weight 87.25 kg [facility] 11-05-2023 09:35-0400 Diastolic blood pressure 97 mm[Hg] [facility] 11-05-2023 09:35-0400 Heart rate 94 /min [facility] 11-05-2023 09:35-0400 Respiratory rate 18 /min [facility] 11-05-2023 09:35-0400 SaO2% (BldA) [Mass fraction] 96 % [facility] 11-05-2023 09:35-0400 Systolic blood pressure 140 mm[Hg] [facility] 09-27-2023 07:56-0500 Body height 160 cm Orestes Strange MD Work Phone: [facility] 09-27-2023 07:56-0500 Body mass index (BMI) [Ratio] 34.37 kg/m2 Orestes Strange MD Work Phone: [facility] 09-27-2023 07:56-0500 Body temperature 97.3 [degF] Orestes Strange MD Work Phone: [facility] 09-27-2023 07:56-0500 Body weight 88 kg Orestes Strange MD Work Phone: [facility] 09-27-2023 07:56-0500 Diastolic blood pressure 72 mm[Hg] Orestes Strange MD Work Phone: [facility] 09-27-2023 07:56-0500 Heart rate 94 /min Orestes Strange MD Work Phone: [facility] 09-27-2023 07:56-0500 SaO2% (BldA) [Mass fraction] 99 % Orestes Strange MD Work Phone: [facility] 09-27-2023 07:56-0500 Systolic blood pressure 126 mm[Hg] Orestes Strange MD Work Phone: [facility] 04-01-2022 14:10-0400 Body height 160.02 cm Shereen Garcia Other [facility] Other 04-01-2022 14:10-0400 Body mass index (BMI) [Ratio] 34.54 kg/m2 Shereen Garcia Other [facility] Other 04-01-2022 14:10-0400 Body temperature 99.3 [degF] Shereen Garcia Other [facility] Other 04-01-2022 14:10-0400 Body weight 88.45 kg Shereen Garcia Other [facility] Other 04-01-2022 14:10-0400 Respiratory rate 18 /min Shereen Garcia Other [facility] Other 04-01-2022 14:10-0400 SaO2% (BldA) [Mass fraction] 98 % Shereen Garcia Other [facility] Other Encounters Encounter Date Encounter Type Care Provider Facility Start: 03-21-2024 End: 03-21-2024 ambulatory MARILYN SUAREZ Not Available Start: 02-19-2024 End: 02-19-2024 ambulatory MIKAL MAHER Not Available Start: 02-07-2024 End: 02-07-2024 ambulatory SHAIKH ASHLEE Not Available Start: 11-29-2023 End: 11-29-2023 ambulatory NIDA ESCOBAR Not Available Start: 11-22-2023 End: 11-22-2023 ambulatory ORESTES STRANGE Not Available Start: 11-08-2023 End: 11-08-2023 ambulatory ORESTES STRANGE Not Available Start: 11-05-2023 End: 11-05-2023 ambulatory [facility] Work Phone: Start: 11-05-2023 End: 11-05-2023 Patient encounter procedure [facility] Work Phone: Start: 09-27-2023 Fred flowsheet Orestes Strange MD [...] Available Start: 08-02-2023 End: 08-02-2023 ambulatory MARILYN SUAREZ Not Available Start: 07-26-2023 End: 07-26-2023 ambulatory EFREN SAVAGE Not Available Start: 07-15-2023 End: 07-15-2023 ambulatory Orestes Strange Facility:[facility] Start: 07-15-2023 End: 07-15-2023 ambulatory Efren Savage Work Phone: [facility] Work Phone: Start: 07-15-2023 End: 07-15-2023 Departed Referred Efren Wan Work Phone: [facility] Work Phone: Start: 07-12-2023 End: 07-12-2023 ambulatory [...] examination without abnormal findings DR ORESTES STRANGE [facility] Start: 05-30-2022 End: 05-31-[address] ORESTES STRANGE Facility:[facility] Start: 05-30-2022 End: 05-31-2022 Encounter for general adult medical examination without abnormal findings DR ORESTES STRANGE Facility:[facility] Start: 05-27-[address] EFREN WAN . Facili ty:[facility] Start: 04-01-2022 End: 04-01-2022 ambulatory Shereen Garcia Other [facility] Other Start: 04-01-2022 Office outpatient ne w 30 minutes Shereen Garcia [facility] Procedures Date Procedure Procedure Detail Performing Clinician Start: 11-05-2023 Quick Strep (POC) Start: 02-28-2023 Microscopic observat ion [Identifier] in Cervix by Cyto stain Orestes Strange MD Work Phone: Plan of Treatment Date Care Activity Detail Author Start: 03-31-2028 Screening for malign ant neoplasm of cervix [facility] Start: 02-29-2028 Screening for malign ant neoplasm of cervix Pap Smear [facility] Start: 03-21-2024 End: 03-21-2024 Patient encounter procedure 03/21/2024 9:00 AM EDT Office Visit [facility] [address] [place] [phone] Marilyn Suarez PA [address] [place], [place] [id number] [facility] Start: 11-07-2023 End: 11-07-2023 Patient encounter procedure 11/07/2023 1:15 PM EDT Office Visit [facility] [address] [place] [id number] Orestes Strange MD [address] [place] [id number] [facility] Start: 04-21-2023 Influenza vaccination Influenza Vacc ine (#1) [facility] Payers Date Payer Category Payer Unknown [id number] 2022 [facility] Care O (unspecified) [employer] [id number] 2022-Present [address] [place] [address] [facility] [id number] 1987 Unknown [id number] 1987 Unknown [id number] 1987 Unknown [id number] 93 1985 Unknown [id number] 2.16.840.1.521197.3.579.2.5 93 1985 Unknown [id number] 2.16.840.1.830123.3.579.2.5 93 1987 Unknown [id number] 2.16.840.1.389523.3.579.2.5 93 1987 Unknown [id number] 2.16.840.1.236611.3.579.2.5 93 1987 Unknown [id number] 2.16.840.1.717137.3.579.2.5 93 1987 Unknown [id number] 2.16.840.1.340721.3.579.2.1 259 1987 Unknown [id number] 2.16.840.1.613985.3.579.2.1 259 1987 Unknown [id number] 2.16840.1.520513.3.579.2.1 259 1987 Unknown [id number] 2.16.840.1.311038.3.579.2.1 259 1987 Unknown [id number] 2.16.840.1.467910.3.579.2.1 259 1987 Unknown [id number] 2.16.840.1.306003.3.579.2.1 259 1987 Unknown [id number] 2.16840.1.779614.3.579.2.1 259 1987 Unknown [id number] 2.16.840.1.511881.3.579.2.1 259 1987 Unknown [id number] 2.16.840.1.635520.3.579.2.1 259 1987 Unknown [id number] 2.16.840.1.701965.3.579.2.1 259 1987 Unknown [id number] 2.16.840.1.735250.3.579.2.1 259 1987 Unknown [id number] 2.16.840.1.523197.3.579.2.1 259 1987 Unknown [id number] 2.16.840.1.592998.3.579.2.1 259 1959 [facility] [id number] 2.16.840.1.347230.19 1959 Private Health Insurance [id number] 1959 Self-pay Private Health Insurance [id number] Unknown [id number] 2.16.840.1.532900.3.579.2.5 31 Social History Date Type Detail Facility Start: 09-26-2023 End: 09-27-2023 Sex Assigned At [facility] Start: 1985 Sex Assigned At Female F [facility] Start: 01-28-2023 Tobacco smoking stat [facility] Never smoked tobacco [facility] Start: 01-28-2023 [...] and radiates down into wrist. 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 Pain to push off or [...] 50 MG tablet documented in this encounter [facility] Evaluation note 04-01-2022 Note Date [...] treatment plan. Patient left in stable condition [employer] Other Evaluation note Note Date & Type Note Facility Evaluation note No assessment information availa [facility] Work Phone: Evaluation note Note Date & [...] section and content) DATE CREATED AUTHOR 01/04/2023 Victorina Mejia [facility] DATE CREATED AUTHOR AUTHOR'S ORGANIZ ATION 08/06/2023 [facility] DATE CREATED AUTHOR AUTHOR'S ORGANIZ ATION 03/23/2024 [facility] Care Teams (unrecognized sec tion and content) Team Status: Inactive Member Role Status Dates Efren Wan Attending Provider Active Staff Radiation Therapist Relationship Specialty Start Date End Date Orestes Strange MD [address] [place] [address] PCP - General Family Medicine 09/26/23 Staff Radiation Therapist Relationship Specialty Start Date End Date Orestes Strange MD [address] [place] [address] PCP - General Family Medicine [...] BE BASED ON THE PRIMARY CLINICAL RECORDS. [facility] [employer] provides no warranty or guarantee of the accuracy or completeness of information in this document.
[2024-07-11 04:07] LABS: Progesterone 0.1 ng/mL (.)
== END 2024-07-10 07:16 | disposition home or self-care (01) ==
LOC: LAB 07:16
PROVIDERS: PCP Family Medicine; Visit Provider Obstetrics & Gynecology
DX: N97.0 Female infertility associated with anovulation (principal)
CPT/HCPCS: 36415; 84144

== ENCOUNTER 2024-08-17 07:11 | Emergency (ER) | payer OTHER, SELFPAY ==
[2024-08-17 07:17] VITALS: BP 210/140; PULSE 87; TEMP 36.9; O2SAT 98; BMI 36.8
--- NOTE | 2024-08-17 07:38 | ECG_ITS ---
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
--- NOTE | 2024-08-17 07:38 | XR_ITS ---
The [address] [address] Patient Name: SADA DURHAM MRN: [id number] date: 1985 Sex: F Assigned Patient Location: ER Current Patient Location: ER Accession/Order Number: [id number] Exam Date: 08/17/2024 07:45 Report Date: 08/17/2024 08:02 At the request of: MEJIA LI Procedure: XR chest 1V EXAM: CHEST 1 VIEW HISTORY: cp TECHNIQUE: Chest, one view. COMPARISON: None. FINDINGS: Lungs are clear. No focal consolidation, pleural effusion, or pneumothorax. Pulmonary vasculature is within normal limits. Cardiomediastinal silhouette is normal. XR/XR chest 1V IMPRESSION: 1. No acute cardiopulmonary disease. Electronically authenticated by: DONTE WILL Date: 08/17/2024 08:02
[2024-08-17 07:44] VITALS: O2SAT 98
[2024-08-17 07:45] VITALS: PULSE 87
--- OUTSIDE RECORDS SUMMARY | 2024-08-17 07:46 | XMS_ITS | CCD ---
Author Organization [facility] Care Team Providers Care Health Support Specialist Name Role Phone Shereen Garcia Unavailable SAVAGE [...] REQUEST, DR BUTLER LISTED Consulting Unavaila ble NADERER, DR ORESTES [facility] Unavailable [...] Unavailable Naderer Orestes PADILLA Primary Care Provider [phone] Alma PADILLA, Unavailable MARILYN SURAEZ Attending Unavailable ORESTES STRANGE Attending Unavailable ORESTES STRANGE Attending Unavailable ORESTES STRANGE Attending Unavailable NIDA ESCOBAR Attending Unavailable AMLA, Attending Unavailable MIKAL MAHER Attending Unavailable ALMA, Referring Unavailable MARILYN SUAREZ Attending Unavailable ALEXANDR, ORESTES Attending Unavailable Allergies Allergy Classification Reported Allergen(s) Allergy Type Date of Onset Reaction(s) Facility (7 sources) Topiramate Allergy to substance 3 Diarrhea, Other [facility] Medications Current Medications Medication Drug Class(es) Dates Sig (Normalized) Sig (Original) cefdinir 300 mg oral capsule (2 sources) Cephalosporin Antibacterial Start: 08-07-2024 End: 08-17-2024 take 1 capsule by mouth in the morning cefdinir (Omnicef) 300 MG capsule Indications: Acute non-recurrent pansinusitis Take 1 capsule (300 mg) by mouth in the morning and 1 capsule (300 mg) before bedtime. Do all this for 10 days. 20 capsule 08/07/2024 08/17/2024 Active Ethinyl Estradiol / Ferrous fumarate / Norethindrone (3 sources) Estrogen Start: 08-30-2023 End: 09-27-2023 norethindrone-ethi nyl estradiol (09/09) 1-20 MG-MCG tablet Indications: 6 weeks follow-up Take 1 tablet by mouth in the morning. 28 tablet 08/30/2023 09/27/2023 Discontinued Start: 08-30-2023 End: 08-29-2024 norethindrone-ethinyl estrad iol (09/09) 1-20 MG-MCG tablet Indications: 6 weeks follow-up Take 1 tablet by mouth in the morning. 28 tablet 08/30/2023 08/29/2024 Active fluocinonide 0.5 mg/ml topical solution (4 sources) Corticosteroid Start: 05-30-2024 fluocinonide (Lidex) 0.05 % external solution Indications: Other seborrheic dermatitis Apply to affected areas on the scalp, up to twice a day when flared, 30 day supply 60 mL 5 05/30/2024 Active labetalol hydrochloride 100 mg oral tablet [...] tablet before bedtime. 0 07/22/2023 09/27/2023 Discontinued medroxyPROGESTERone acetate 10 mg oral tablet (3 sources) Progestin Start: 05-22-2024 End: 08-07-2024 take 1 tablet by mouth once daily medroxyPROGESTERone (Provera) 10 MG tablet Indications: Anovulation Take 1 tablet (10 mg) by mouth Daily for 10 days 10 tablet 05/22/2024 08/07/2024 Discontinued metFORMIN (1 source) Biguanide metFORMIN HCl Ac tive predniSONE 50 mg oral tablet (2 sources) Start: 09-27-2023 End: 10-03-2023 take 1 tablet by mouth in the morning predniSONE (Deltasone) 50 MG tablet Indications: De Quervain's tenosynovitis Take 1 tablet (50 mg) by mouth in the morning for 6 days. 6 tablet 0 09/27/2023 10/03/2023 Active Problems Active Problems Problem Classification Problem Date Documented Da te Episodic/Chronic Essential hypertension (4 sources) Essential hypertension; Translations: [Essential (primary) hypertension] Onset: 02-07-2024 Resolved: 08-07-2024 02-07-2024 Chronic Female infertility (4 sources) Anovulation; Translations: [Female infertility associated with anovulation] Onset: 11-08-2023 Resolved: 08-07-2024 11-08-2023 Chronic Headache; including migraine (4 sources) Chronic migraine without aura; Translations: [Chronic migraine without aura, not intractable, without status migrainosus] Onset: 11-08-2023 11-08-2023 Chronic Menstrual disorders (4 sources) Irregular menstruation, unspecified; Translations: [IRREGULAR MENSTRUATION UNSPECIFIED] Onset: 12-29-2022 Chronic Nutritional deficiencies (8 sources) Vitamin D deficiency, unspecified; Translations: [Vitamin D deficiency] Onset: 06-02-2022 09-27-2023 Chronic Other circulatory disease (9 sources) Elevated blood-pressure reading without diagnosis of hypertension; Translations: [Elevated blood-pressure reading, without diagnosis of hypertension] Onset: 09-27-2023 09-27-2023 Episodic Other complications of (1 source) Uterine size-date discrepancy, unspecified trimester; Translations: [Uterine size-date discrepancy, unspecified trimester] Onset: 07-15-2023 Episodic Other endocrine disorders (7 sources) Hyperinsulinism; Translations: [Other hypoglycemia] Onset: 09-27-2023 09-27-2023 Chronic Other female genital disorders (4 sources) Abnormal uterine and vaginal bleeding, unspecified; Translations: [ABNORMAL UTERINE VAGINAL BLEED UNS] Onset: 11-14-2022 Chronic Other non-traumatic joint disorders (4 sources) Pain in left shoulder; Translations: [Pain in joint, shoulder region] Onset: 08-07-2024 08-07-2024 Episodic Other nutritional; endocrine; and metabolic disorders (4 sources) Obesity caused by energy imbalance; Translations: [Class 2 obesity due to excess calories without serious comorbidity with body mass index (BMI) of 36.0 to 36.9 in adult] Onset: 08-07-2024 08-07-2024 Chronic Other upper respiratory infections (4 sources) Chronic sinusitis, unspecified; Translations: [Chronic rhinitis] Onset: 11-22-2023 11-22-2023 Chronic Other upper respiratory infections (6 sources) Acute pansinusitis; Translations: [Acute pansinusitis, unspecified] Onset: 11-08-2023 Resolved: 11-22-2023 11-22-2023 Episodic Unclassified (1 source) Past or Other Problems Problem Classification Problem Date Documented Date Episodic/Chronic Hypertension complicating ; childbirth and the puerperium (8 sources) -induced hypertension; Translations: [Gestational [-induced] hypertension without significant proteinuria, complicating the puerperium] Onset: 09-27-2023 Resolved: 08-07-2024 09-27-2023 Episodic Other connective tissue disease (8 sources) Radial styloid tenosynovitis; Translations: [Radial styloid tenosynovitis [de Quervain]] Onset: 09-27-2023 Resolved: 08-07-2024 09-27-2023 Episodic Other nervous system disorders (4 sources) Paresthesia of upper limb; Translations: [Anesthesia of skin] Onset: 02-07-2024 Resolved: 08-07-2024 02-07-2024 Episodic Other non-traumatic joint disorders (7 sources) Pain in right knee; Translations: [Pain in joint, lower leg] Onset: 09-27-2023 Resolved: 02-07-2024 09-27-2023 Episodic Unclassified (1 source) Exposure to COVID-19 virus Z20.822 Onset: 04-01-2022 Resolved: 04-01-2022 Viral infection (1 source) COVID-19 Onset: 04-01-2022 Resolved: 04-01-2022 Results Test Name Value Interpretation Reference Range Facility ALL PROGESTERONEon PROGESTERONE 0.1 ng/mL . [facility] are Comment on above: Follicular phase 0.1 - 0.9 Luteal phase 1.8 - 23.9 Ovulation phase 0.1 - 12.0 First trimester 11.0 - 44.3 Second trimester 25.4 - 83.3 Third trimester 58.7 - 214.0 Postmenopausal 0.0 - 0.1 Performed at: [facility] [id number] Managing Member: Andrew Kumar PhD, Phone: [phone] [facility] e COVID Cepheidon 11-05-2023 SARS-CoV-2 (COVID-19) RNA SHAISTA+probe Ql (Unsp spec) Negative [facility] No Panel Informationon 11-04 POC Influenza A (PCR) Negative [facility] POC Influenza B (PCR) Negative [facility] No Panel InformationOrdered By: Radha Morel on 11-05-2023 Quick Strep (POC) [facility] Fibrinogenon 07-15-2023 Fibrinogen 310 mg/dL Normal 200-393 [facility] Comment on above: Result Comment: A he matocrit value greater than 55% may lead to inaccurate results in coagulation testing. Patients having hematocrit values >55% require a special collection tube for coagulation studies. Please contact the laboratory at [phone] for redraw instructions. PERFORMED BY: [facility] [address] [place] [address] PATHOLOGIST HOURLY SHIFT VALENTINO MORENO M.D. Performed By: #### F IB-C #### [facility] [address] [id number] [facility] Fibrinogen [Mass/volume] in Platelet poor plasma by Coagulation assayOrdered By: Efren Wan on 07-15-2023 Fibrinogen Coag (PPP) [Mass/Vol] 310 mg/dL 200-393 [facility] Comment on above: A hematocrit value g reater than 55% may lead to inaccurate results in coagulation testing. Patients having hematocrit values >55% require a special collection tube for coagulation studies. Please contact the laboratory at [phone] for redraw instructions. PREG QUANT HCGon 12-29-2022 HCG QUANT 82180 mIU/mL Normal [facility] Comment on above: Performed By: #### P REGQNT #### [facility] [address] [place] [address] Dr. Alexsander Madrigal HCG RANGE SEE BELOW Normal [facility] Comment on above: Result Comment: 5-50 0.2-1 WEEK 50-500 1-2 WEEKS 100-5,000 2-3 WEEKS 500-10,000 3-4 WEEKS 1,000-50,000 4-5 WEEKS 10,000-100,000 5-6 WEEKS 15,000-200,000 6-8 WEEKS 10,000-100,000 2-3 MONTHS Performed By: #### P REGQNT #### [facility] [address] [place] [address] Dr. Alexsander Madrigal PROGESTERONEon 11-15-2022 Progesterone 2.2 ng/mL Normal [facility] Comment on above: Result Comment: Foll icular phase 0.1 - 0.9 Luteal phase 1.8 - 23.9 Ovulation phase 0.1 - 12.0 First trimester 11.0 - 44.3 Second trimester 25.4 - 83.3 Third trimester 58.7 - 214.0 Postmenopausal 0.0 - 0.1 Performed By: #### P ROGES #### [facility] [address] [place] [address] Dr. Alexsander Madrigal PROGESTERONEon 10-12-2022 Progesterone 0.8 ng/mL Normal [facility] Comment on above: Result Comment: Foll icular phase 0.1 - 0.9 Luteal phase 1.8 - 23.9 Ovulation phase 0.1 - 12.0 First trimester 11.0 - 44.3 Second trimester 25.4 - 83.3 Third trimester 58.7 - 214.0 Postmenopausal 0.0 - 0.1 Performed By: #### P ROGES #### [facility] [address] [place] [address] Dr. Alexsander Madrigal PROGESTERONEon 09-06-2022 Progesterone <0.1 Normal [facility] Comment on above: Result Comment: Foll icular phase 0.1 - 0.9 Luteal phase 1.8 - 23.9 Ovulation phase 0.1 - 12.0 First trimester 11.0 - 44.3 Second trimester 25.4 - 83.3 Third trimester 58.7 - 214.0 Postmenopausal 0.0 - 0.1 Performed By: #### P ROGES #### [facility] [address] [place] [address] Dr. Alexsander Madrigal PROGESTERONEon 07-01-2022 Progesterone <0.1 Normal [facility] Comment on above: Result Comment: Foll icular phase 0.1 - 0.9 Luteal phase 1.8 - 23.9 Ovulation phase 0.1 - 12.0 First trimester 11.0 - 44.3 Second trimester 25.4 - 83.3 Third trimester 58.7 - 214.0 Postmenopausal 0.0 - 0.1 Performed By: #### P MAXIMILIANES #### [facility] [address] [place] [address] Dr. Alexsander Madrigal CBC AUTO DIFFon 05-30-2022 BASO # 0.1 103/ul Normal 0.0-0.1 [facility] Comment on above: Performed By: #### C BC #### [facility] [address] [place] [address] Dr. Alexsander Madrigal Basophils/100 WBC (Bld) 0.6 % Normal 0.2-2.0 [facility] Comment on above: Performed By: #### C BC #### [facility] [address] [place] [address] Dr. Alexsander Madrigal EO # 0.1 103/ul Normal 0.0-0.7 [facility] Comment on above: Performed By: #### C BC #### [facility] [address] [place] [address] Dr. Alexsander Madrigal Eosinophils/100 WBC (Bld) 0.6 % Critically low 0.9-7.0 [facility] Comment on above: Performed By: #### C BC #### [facility] [address] [place] [address] Dr. Alexsander Madrigal Erythrocyte distribution width (RBC) [Ratio] 13.3 % Normal 11.0-15.0 [facility] Comment on above: Performed By: #### C BC #### [facility] [address] [place] [address] Dr. Alexsander Madrigal Hematocrit (Bld) [Volume fraction] 42.9 % Normal 36.0-48.0 [facility] Comment on above: Performed By: #### C BC #### [facility] [address] [place] [address] Dr. Alexsander Madrigal Hemoglobin (Bld) [Mass/Vol] 13.7 g/dL Normal 12.0-16.0 [facility] Comment on above: Performed By: #### C BC #### [facility] [address] [place] [address] Dr. Alexsander Madrigal IG # 0.02 10e3/ul Normal 0.00-0.03 [facility] Comment on above: Performed By: #### C BC #### [facility] [address] [place] [address] Dr. Alexsander Madrigal IG % 0.2 % Normal 0.0-0.5 [facility] Comment on above: Performed By: #### C BC #### [facility] [address] [place] [address] Dr. Alexsander Madrigal LYMPH # 4.1 103/ul Critically high 1.2-3.8 [facility] Comment on above: Performed By: #### C BC #### [facility] [address] [place] [address] Dr. Alexsander Madrigal Lymphocytes/100 WBC (Bld) 41.1 % Normal 20.5-60.0 [facility] Comment on above: Performed By: #### C BC #### [facility] [address] [place] [address] Dr. Alexsander Madrigal MANUAL DIFF REQ NO Normal [facility] Comment on above: Performed By: #### C BC #### [facility] [address] [place] [address] Dr. Alexsander Madrigal MCH (RBC) [Entitic mass] 29.4 pg Normal 26.7-34.0 [facility] Comment on above: Performed By: #### C BC #### [facility] [address] [place] [address] Dr. Alexsander Madrigal MCHC (RBC) [Mass/Vol] 31.9 g/dL Normal 29.9-35.2 [facility] Comment on above: Performed By: #### C BC #### [facility] [address] [place] [address] Dr. Alexsander Madrigal MCV (RBC) [Entitic vol] 92.1 fL Normal 81.0-99.0 [facility] Comment on above: Performed By: #### C BC #### [facility] [address] [place] [address] Dr. Alexsander Madrigal MONO # 0.6 103/ul Normal 0.3-0.8 [facility] Comment on above: Performed By: #### C BC #### [facility] [address] [place] [address] Dr. Alexsander Madrigal Monocytes/100 WBC (Bld) 6.0 % Normal 1.7-12.0 [facility] Comment on above: Performed By: #### C BC #### [facility] [address] [place] [address] Dr. Alexsander Madrigal NEUT # 5.1 103/ul Normal 1.4-6.5 [facility] Comment on above: Performed By: #### C BC #### [facility] [address] [place] [address] Dr. Alexsander Madrigal Neutrophils/100 WBC (Bld) 51.5 % Normal 43.0-75.0 [facility] Comment on above: Performed By: #### C BC #### [facility] [address] [place] [address] Dr. Alexsander Madrigal Platelet mean volume (Bld) [Entitic vol] 11.0 fL Normal 9.5-13.5 [facility] Comment on above: Performed By: #### C BC #### [facility] [address] [place] [address] Dr. Alexsander Madrigal PLT 291 103/ul Normal 150-450 [facility] Comment on above: Performed By: #### C BC #### [facility] [address] [place] [address] Dr. Alexsander Madrigal RBC 4.66 106/ul Normal 4.20-5.40 [facility] Comment on above: Performed By: #### C BC #### [facility] [address] [place] [address] Dr. Alexsander Madrigal WBC 9.9 103/ul Normal 4.0-11.0 [facility] Comment on above: Performed By: #### C BC #### [facility] [address] [place] [address] Dr. Alexsander Madrigal GLYCOHEMOGLOBIN A1Con 2021 ADA RECOMMENDATION SEE BELOW Normal [facility] Comment on above: Result Comment: ADA RECOMMENDED LIMIT 4.0 - 6.0 ADA THERAPEUTIC TARGET < 7.0 ACTION SUGGESTED > 7.0 Performed By: #### A 1C #### [facility] [address] [place] [address] Dr. Alexsander Madrigal Glucose [Mass/Vol] 126 mg/dL Normal [facility] Comment on above: Performed By: #### A 1C #### [facility] [address] [place] [address] Dr. Alexsander Madrigal HbA1c (Bld) [Mass fraction] 6.0 % Normal 4.5-6.2 [facility] Comment on above: Performed By: #### A 1C #### [facility] [address] [place] [address] Dr. Alexsander Madrigal LIPID PROFILEon 05-30-2022 CHOL-HDL RATIO NORM SEE BELOW Normal [facility] Comment on above: Result Comment: 3.3 - 4.4 LOW RISK 4.4 - 7.1 AVERAGE RISK 7.1 - 11.0 MODERATE RISK >11.0 HIGH RISK Performed By: #### L IVER, TSH, BMP, LIPID #### [facility] [address] [address] [address] Alexsander Madrigal Cholesterol [Mass/Vol] 204 mg/dL Critically high <=200 [facility] Comment on above: Performed By: #### L IVER, TSH, BMP, LIPID #### [facility] [address] [address] [address] Alexsander Madrigal Cholesterol in HDL [Mass/Vol] 38 mg/dL Critically low 40-60 [facility] Comment on above: Performed By: #### L IVER, TSH, BMP, LIPID #### [facility] [address] [place] [address] Dr. Alexsander Madrigal Cholesterol in LDL [Mass/Vol] 129.0 mg/dL Normal [facility] Comment on above: Performed By: #### L IVER, TSH, BMP, LIPID #### [facility] [address] [place] [address] Dr. Alexsander Madrigal Cholesterol.total/Chol esterol in HDL [Mass ratio] 5.4 {ratio} Normal [facility] Comment on above: Performed By: #### L IVER, TSH, BMP, LIPID #### [facility] [address] [place] [address] Dr. Alexsander Madrigal HDL NORMAL > or = 60 mg/dl - LOW CARDIOVASCULAR RISK <40 mg/dl - HIGH CARDIOVASCULAR RISK Normal [facility] Comment on above: Performed By: #### L IVER, TSH, BMP, LIPID #### [facility] [address] [place] [address] Dr. Alexsander Madrigal LDL CALC NORMAL SEE BELOW Normal [facility] Comment on above: Result Comment: <100 mg/dl OPTIMAL 100 - 129 mg/dl NEAR OR ABOVE OPTIMAL 130 - 159 mg/dl BORDERLINE HIGH 160 - 189 mg/dl HIGH >190 mg/dl VERY HIGH Performed By: #### L IVER, TSH, BMP, LIPID #### [facility] [address] [address] [address] Alexsander Madrigal Triglyceride [Mass/Vol] 185 mg/dL Critically high <=150 [facility] Comment on above: Performed By: #### L IVER, TSH, BMP, LIPID #### [facility] [address] [address] [address] Alexsander Madrigal VLDL CALC 37.0 mg/dL Normal [facility] Comment on above: Performed By: #### L IVER, TSH, BMP, LIPID #### [facility] [address] [address] [address] Alexsander Madrigal LIVER PROFILEon 05-30-2022 Albumin [Mass/Vol] 4.0 g/dL Normal 3.4-5.0 [facility] Comment on above: Performed By: #### L IVER, TSH, BMP, LIPID #### [facility] [address] [address] [address] Alexsander Madrigal Albumin/Globulin [Mass ratio] 1.0 {ratio} Normal [facility] Comment on above: Performed By: #### L IVER, TSH, BMP, LIPID #### [facility] [address] [address] [address] Alexsander Madrigal ALP [Catalytic activity/Vol] 73 U/L Normal 46-116 [facility] Comment on above: Performed By: #### L IVER, TSH, BMP, LIPID #### [facility] [address] [address] [address] Alexsander Madrigal ALT [Catalytic activity/Vol] 78 U/L Critically high 14-59 [facility] Comment on above: Performed By: #### L IVER, TSH, BMP, LIPID #### [facility] [address] [address] [address] Alexsander Madrigal AST [Catalytic activity/Vol] 40 U/L Critically high 15-37 [facility] Comment on above: Performed By: #### L IVER, TSH, BMP, LIPID #### [facility] [address] [address] [address] Alexsander Madrigal BILI, CONJUGATED 0.1 mg/dL Normal 0.0-0.2 [facility] Comment on above: Performed By: #### L IVER, TSH, BMP, LIPID #### [facility] [address] [place] [address] Dr. Alexsander Madrigal Bilirubin [Mass/Vol] 0.2 mg/dL Normal 0.2-1.0 [facility] Comment on above: Performed By: #### L IVER, TSH, BMP, LIPID #### [facility] [address] [address] [address] Alexsander Madrigal Globulin (S) [Mass/Vol] 3.9 g/dL Normal [facility] Comment on above: Performed By: #### L IVER, TSH, BMP, LIPID #### [facility] [address] [place] [address] Dr. Alexsander Madrigal Protein [Mass/Vol] 7.9 g/dL Normal 6.4-8.2 [facility] Comment on above: Performed By: #### L IVER, TSH, BMP, LIPID #### [facility] [address] [place] [address] Dr. Alexsander Madrigal PROF CHEM 8 (BAS METB)on Anion gap [Moles/Vol] 14.9 mmol/L Normal [facility] Comment on above: Performed By: #### L IVER, TSH, BMP, LIPID #### [facility] [address] [address] [address] Alexsander Madrigal Calcium [Mass/Vol] 9.3 mg/dL Normal 8.5-10.1 [facility] Comment on above: Performed By: #### L IVER, TSH, BMP, LIPID #### [facility] [address] [place] [address] Dr. Alexsander Madrigal Chloride [Moles/Vol] 105 mmol/L Normal 98-107 [facility] Comment on above: Performed By: #### L IVER, TSH, BMP, LIPID #### [facility] [address] [address] [address] Alexsander Madrigal CO2 [Moles/Vol] 23.2 mmol/L Normal 21.0-32.0 [facility] Comment on above: Performed By: #### L IVER, TSH, BMP, LIPID #### [facility] [address] [address] [address] Alexsander Madrigal Creatinine [Mass/Vol] 0.72 mg/dL Normal 0.55-1.02 [facility] Comment on above: Performed By: #### L IVER, TSH, BMP, LIPID #### [facility] [address] [address] [address] Alexsander Madrigal EGFR-AF ALGERIAN >60 Normal >=60 [facility] Comment on above: Performed By: #### L IVER, TSH, BMP, LIPID #### [facility] [address] [address] [address] Alexsander Madrigal EGFR-NON AF ALGERIAN >60 Normal >=60 [facility] Comment on above: Performed By: #### L IVER, TSH, BMP, LIPID #### [facility] [address] [address] [address] Alexsander Madrigal Glucose [Mass/Vol] 87 mg/dL Normal 74-106 [facility] Comment on above: Performed By: #### L IVER, TSH, BMP, LIPID #### [facility] [address] [id number] Dr. Alexsander Madrigal Potassium [Moles/Vol] 4.1 mmol/L Normal 3.5-5.1 [facility] Comment on above: Performed By: #### L IVER, TSH, BMP, LIPID #### [facility] [address] [address] [address] Alexsander Madrigal Sodium [Moles/Vol] 139 mmol/L Normal 136-145 [facility] Comment on above: Performed By: #### L IVER, TSH, BMP, LIPID #### [facility] [address] [address] [address] Alexsander Madrigal Urea nitrogen [Mass/Vol] 15.0 mg/dL Normal 7.0-18.0 [facility] Comment on above: Performed By: #### L IVER, TSH, BMP, LIPID #### [facility] [address] [place] [address] Dr. Alexsander Madrigal Urea nitrogen/Creatinine [Mass ratio] 20.8 mg/mg Normal [facility] Comment on above: Performed By: #### L IVER, TSH, BMP, LIPID #### [facility] [address] [place] [address] Dr. Alexsander Madrigal TSHon 05-30-2022 TSH 2.600 uIU/mL Normal 0.358-3.740 [facility] Comment on above: Performed By: #### C BC #### [facility] [address] [place] [address] Dr. Alexsander Madrigal VITAMIN D 25 OHon 05-30-2022 VIT D 25-OH 18.8 ng/mL Normal [facility] Comment on above: Performed By: #### C BC #### [facility] [address] [place] [address] Dr. Alexsander Madrigal VIT D RANGES SEE BELOW Normal [facility] Comment on above: Result Comment: <20 ng/mL Vit D deficient 20 - <30 ng/mL Vit D insufficient 30 - 100 ng/mL Vit D sufficient >100 ng/mL Potential Toxicity Performed By: #### C BC #### [facility] [address] [place] [address] Dr. Alexsander Madrigal SARS-CoV-2 (COVID-19) RNA NA A+probe Ql (Resp)on 04-01-2022 SARS-CoV-2 (COVID-19) RNA SHASITA+probe Ql (Unsp spec) Positive [facility] Other Vital Signs Date Time Vital Sign Value Performing Clinician Facility 08-07-2024 08:12-0500 Body height 160 cm Orestes Strange MD Work Phone: [facility] 08-07-2024 08:12-0500 Body mass index (BMI) [Ratio] 36.85 kg/m2 Orestes Strange MD Work Phone: [facility] 08-07-2024 08:12-0500 Body temperature 97.11 [degF] Orestes Strange MD Work Phone: [facility] 08-07-2024 08:12-0500 Body weight 94.35 kg Orestes Strange MD Work Phone: [facility] 08-07-2024 08:12-0500 Diastolic blood pressure 98 mm[Hg] Orestes Strange MD Work Phone: [facility] 08-07-2024 08:12-0500 Heart rate 89 /min Orestes Strange MD Work Phone: [facility] 08-07-2024 08:12-0500 Respiratory rate 22 /min Orestse Strange MD Work Phone: [facility] 08-07-2024 08:12-0500 SaO2% (BldA) [Mass fraction] 98 % Orestes Strange MD Work Phone: [facility] 08-07-2024 08:12-0500 Systolic blood pressure 170 mm[Hg] Orestes Strange MD Work Phone: [facility] 11-05-2023 09:35-0400 Body height 160.02 cm [facility] 11-05-2023 09:35-0400 Body mass index (BMI) [Ratio] 34 kg/m2 [facility] 11-05-2023 09:35-0400 Body temperature 97.6 [degF] [facility] 11-05-2023 09:35-0400 Body weight 87.25 kg [facility] 11-05-2023 09:35-0400 Diastolic blood pressure 97 mm[Hg] [facility] 11-05-2023 09:35-0400 Heart rate 94 /min [facility] 11-05-2023 09:35-0400 Respiratory rate 18 /min [facility] 11-05-2023 09:35-0400 SaO2% (BldA) [Mass fraction] 96 % [facility] 11-05-2023 09:35-0400 Systolic blood pressure 140 mm[Hg] [facility] 09-27-2023 07:56-0500 Body height 160 cm Orestes Strange MD Work Phone: [facility] 09-27-2023 07:56-0500 Body mass index (BMI) [Ratio] 34.37 kg/m2 Orestes Strange MD Work Phone: [facility] 09-27-2023 07:56-0500 Body temperature 97.3 [degF] Orestes Strange MD Work Phone: [facility] 09-27-2023 07:56-0500 Body weight 88 kg Orestes Strange MD Work Phone: [facility] 09-27-2023 07:56-0500 Diastolic blood pressure 72 mm[Hg] Orestes Strange MD Work Phone: [facility] 09-27-2023 07:56-0500 Heart rate 94 /min Orestes Strange MD Work Phone: [facility] 09-27-2023 07:56-0500 SaO2% (BldA) [Mass fraction] 99 % Orestes Strange MD Work Phone: [facility] 09-27-2023 07:56-0500 Systolic blood pressure 126 mm[Hg] Orestes Strange MD Work Phone: [facility] 04-01-2022 14:10-0400 Body height 160.02 cm [facility] Other [facility] Other 04-01-2022 14:10-0400 Body mass index (BMI) [Ratio] 34.54 kg/m2 [facility] Other [facility] Other 04-01-2022 14:10-0400 Body temperature 99.3 [degF] Shereen Garcia Other [facility] Other 04-01-2022 14:10-0400 Body weight 88.45 kg Shereen Garcia Other [facility] Other 04-01-2022 14:10-0400 Respiratory rate 18 /min Shereen Garcia Other [facility] Other 04-01-2022 14:10-0400 SaO2% (BldA) [Mass fraction] 98 % Shereen Garcia Other [facility] Other Encounters Encounter Date Encounter Type Care Provider Facility Start: 08-07-2024 End: 08-07-2024 Bamboo flowsheet Orestes Strange MD Work Phone: [facility] Start: 08-07-2024 End: 08-07-2024 Bamboo flowsheet Orestes Strange MD Work Phone: [facility] Start: 08-07-2024 End: 08-07-2024 ambulatory ORESTES STRANGE Not Available Start: 08-07-2024 End: 08-07-2024 Patient encounter procedure Orestes Strange MD Work Phone: [facility] Work Phone: Start: 08-07-2024 End: 08-07-2024 Periodic preventive med est patient 18-39 yrs Orestes Strange MD Work Phone: [facility] Comment on above: Annual physical exam (Primary Dx); Elevated blood pressure reading without diagnosis of hypertension; Acute non-recurrent pansinusitis; Acute pain of left shoulder; Class 2 obesity due to excess calories without serious comorbidity with body mass index (BMI) of 36.0 to 36.9 in adult Start: 07-10-2024 End: 07-11-2024 Clinisync Result Encounter Generic External Data Provider [facility] Unsolicited Start: 07-10-2024 End: 07-11-2024 Clinisync Result Encounter Generic External Data Provider [facility] Unsolicited Start: 03-21-2024 End: 03-21-2024 ambulatory MARILYN SUAREZ Not Available Start: 02-19-2024 End: 02-19-2024 ambulatory MIKAL MAHER Not Available Start: 02-07-2024 End: 02-07-2024 ambulatory SHAIKH ALMA Not Available Start: 11-29-2023 End: 11-29-2023 ambulatory NIDA ESCOBAR Not Available Start: 11-22-2023 End: 11-22-2023 ambulatory ORESTES STRANGE Not Available Start: 11-08-2023 End: 11-08-2023 ambulatory ORESTES STRANGE Not Available Start: 11-05-2023 End: 11-05-2023 ambulatory [facility] Work Phone: Start: 11-05-2023 End: 11-05-2023 Patient encounter procedure [facility] Work Phone: Start: 09-27-2023 Fred Strange MD Work Phone: [facility] Start: 09-27-2023 Fred Strange MD Work Phone: [facility] Start: 09-27-2023 End: 09-27-2023 ambulatory ORESTES STRANGE Not Available Start: 09-27-2023 End: 09-27-2023 Office outpatient visit 15 minutes Orestes Strange MD Work Phone: [facility] Comment on above: induced hy pertension, (Primary Dx); De Quervain's tenosynovitis Start: 08-30-2023 End: 08-30-2023 ambulatory MARILYN SUAREZ Not Available Start: 07-15-2023 End: 07-15-2023 ambulatory Orestes Strange Facility:[facility] Start: 07-15-2023 End: 07-15-2023 ambulatory Efren Wan Work Phone: [facility] Work Phone: Start: 07-15-2023 End: 07-15-2023 Departed Referred Efren Wan Work Phone: [facility] Work Phone: Start: 01-05-[address] EFREN WAN . [...] examination without abnormal findings DR ORESTES STRANGE [facility] Start: 05-30-2022 End: 05-31-[address] ORESTES STRANGE Facility:[facility] Start: 05-30-2022 End: 05-31-2022 Encounter for general adult medical examination without abnormal findings DR ORESTES STRANGE Facility:[facility] Start: 05-27-[address] EFREN WAN . Facili ty:[facility] Start: 04-01-2022 End: 04-01-2022 ambulatory Shereen Garcia Other [facility] Other Start: 04-01-2022 Office outpatient ne w 30 minutes Shereen Garcia [facility] Procedures Date Procedure Procedure Detail Performing Clinician Start: 07-10-2024 ALL PROGESTERONE Efren Wan DO Work Phone: Start: 03-21-2024 Microscopic observat ion [Identifier] in Cervix by Cyto stain Generic Provider Start: 11-05-2023 Quick Strep (POC) Start: 02-28-2023 Microscopic observat ion [Identifier] in Cervix by Cyto stain Orestes Strange MD Work Phone: Plan of Treatment Date Care Activity Detail Author Start: 03-31-2028 Screening for malign ant neoplasm of cervix [facility] Start: 02-29-2028 Screening for malign ant neoplasm of cervix Pap Smear [facility] Start: 03-21-2027 Screening for malign ant neoplasm of cervix Pap Smear [facility] Start: 02-06-2025 End: 02-06-2025 Patient encounter procedure 02/06/2025 9:00 AM EDT Office Visit [facility] [address] [place] [address] Orestes Strange MD [address] [place] [address] [facility] Start: 08-07-2024 End: 08-07-2025 Basic metabolic 1998 panel - Serum or Plasma Basic metabolic panel Lab Routine Annual physical exam Expected: 08/07/2024 (Approximate), Expires: 08/07/2025 [facility] Comment on above: Expected: 08/07/2024 (Approximate), Expires: 08/07/2025 Start: 08-07-2024 End: 08-07-2025 CBC W Auto Differential panel - Blood CBC and differential Lab Routine Annual physical exam Expected: 08/07/2024 (Approximate), Expires: 08/07/2025 [facility] Comment on above: Expected: 08/07/2024 (Approximate), Expires: 08/07/2025 Start: 08-07-2024 End: 08-07-2025 Hemoglobin A1c/Hemoglobin.total in Blood Hemoglobin A1c Lab Routine Annual physical exam Expected: 08/07/2024 (Approximate), Expires: 08/07/2025 [facility] Work Phone: Comment on above: Expected: 08/07/2024 (Approximate), Expires: 08/07/2025 Start: 08-07-2024 End: 08-07-2025 Hepatic function 2000 panel - Serum or Plasma Hepatic function panel Lab Routine Annual physical exam Expected: 08/07/2024 (Approximate), Expires: 08/07/2025 [facility] Comment on above: Expected: 08/07/2024 (Approximate), Expires: 08/07/2025 Start: 08-07-2024 End: 08-07-2025 Lipid 1996 panel - Serum or Plasma Lipid panel Lab Routine Annual physical exam Expected: 08/07/2024 (Approximate), Expires: 08/07/2025 [facility] Comment on above: Expected: 08/07/2024 (Approximate), Expires: 08/07/2025 Start: 08-07-2024 End: 08-07-2025 Thyrotropin [Units/volume] in Serum or Plasma TSH Lab Routine Annual physical exam Expected: 08/07/2024 (Approximate), Expires: 08/07/2025 [facility] Comment on above: Expected: 08/07/2024 (Approximate), Expires: 08/07/2025 Start: 08-07-2024 End: 08-07-2024 Patient encounter procedure 08/07/2024 8:00 AM EST Office Visit [facility] [address] [place] [phone] Orestes Strange MD [address] [place] [phone] [facility] Start: 04-21-2024 Influenza vaccination Influenza Vacc ine (#1) [facility] Start: 03-21-2024 End: 03-21-2024 Patient encounter procedure 03/21/2024 9:00 AM EDT Office Visit [facility] [address] [place] [id number] Marilyn Suarez PA [address] [place] [address] [facility] Start: 11-07-2023 End: 11-07-2023 Patient encounter procedure 11/07/2023 1:15 PM EDT Office Visit [facility] [address] [place] [phone] Orestes Strange MD [address] [place] [address] [facility] Start: 04-21-2023 Influenza vaccination Influenza Vacc ine (#1) [facility] Payers Date Payer Category Payer Private Health Insurance [employer] [id number] 2023 Unknown [id number] 2022 Managed Care HMO (unspecified) [employer] [id number] 2022-Present [address] [place] [address] HMO [id number] 1987 Unknown [id number] 2.16.840.1.499777.3.579.2. 593 1987 Unknown [id number] 2.16.840.1.015544.3.579.2. 593 1987 Unknown [id number] 2.16.840.1.727956.3.579.2. 593 1987 Unknown [id number] 2.16.840.1.972419.3.579.2. 593 1987 Unknown [id number] 2.16.840.1.992239.3.579.2. 593 1987 Unknown [id number] 2.16.840.1.480563.3.579.2. 593 1987 Unknown [id number] 2.16.840.1.486389.3.579.2. 593 1987 Unknown [id number] 2.16.840.1.442107.3.579.2. 593 1987 Unknown [id number] 2.16.840.1.513955.3.579.2. 1259 1987 Unknown [id number] 2.16.840.1.431595.3.579.2. 9 1987 Unknown [id number] 2.16.840.1.377590.3.579.2. 1258 1987 Unknown [id number] 2.16.840.1.441270.3.579.2. 9 1987 Unknown [id number] 2.16.840.1.123324.3.579.2. 1258 1987 Unknown [id number] 2.16.840.1.617895.3.579.2. 1258 1987 Unknown [id number] 2.16.840.1.682521.3.579.2. 1258 1987 Unknown [id number] 2.16.840.1.829185.3.579.2. 9 1987 Unknown [id number] 2.16.840.1.136083.3.579.2. 9 1957 [facility] [id number] [id number] 1959 Private Health Insurance [id number] 1957 Self-pay Private Health Insurance [id number] Unknown [id number] 2.16.840.1.867896.3.579.2. 531 Social History Date Type Detail Facility Start: 09-26-2023 End: 02-07-2024 Sex Assigned At [facility] Start: 1985 Sex Assigned At Female [facility] Start: 01-28-2023 End: 02-07-2024 Tobacco smoking status NHIS Never smoked tobacco [facility] Start: 01-28-2023 End: 02-07-2024 Tobacco use and exposure Smokeless tobacco non-user [facility] Start: 09-26-2023 End: 08-07-2024 Alcohol intake Lifetime non-drinker (finding) [facility] Start: 09-26-2023 End: 02-07-2024 History of Social function [facility] Within [...] Not at all [facility] (I/We) worried whechris er (my/our) food would run out before (I/we) got money to buy more. DK or Refused [facility] Start: 1985 Sex Assigned At Not on file [facility] NEGATED: Highlighted rowStart: NINF History of tobacco use Passive smoker [facility] History of Present illness Narrative 08-07-2024 Orestes Strange MD - 08/07/2024 8:50 AM Agustin Strange MD - 08/07/2024 8:49 AM Agustin Strange MD - 08/07/2024 8:49 AM Agustin Strange MD - 08/07/2024 8:49 AM EST Note Date & Type Note Facility 08-07-2024 History of Presen t illness Narrative Associated Problem(s): Class 2 obesity due to excess calories without serious comorbidity with body mass index (BMI) of 36.0 to 36.9 in adult Discussed proper diet and regular aerobic exercise. Recommend Weight Watchers and need to limit calories and smaller portions. Need to increase activity and regular aerobic exercise several days a week for 30 minutes at a time. Associated Problem(s): Elevated blood pressure reading without diagnosis of hypertension BP elevated but took decongestant. Previously normal and start to monitor PRN. Associated Problem(s): Annual physical exam Due for labs. Discussed proper diet and regular aerobic exercise. Need aerobic exercise 5-6 days a week for 30 minutes at a time. Smaller portions and limit total calories. Colonoscopy after age 45. Tetanus every 10 years. Advised not to smoke. Associated Problem(s): Acute pain of left shoulder Recent pain but improving. Likely strain and monitor. Use OTC PRN. Associated Problem(s): Acute non-recurrent pansinusitis Take antibiotics BID for 10 days. Use sudafed or other decongestants as needed. Use Robitussin or Robitussin-DM for cough. Can use afrin for congestion but no longer than 3 days. Can use Mucinex to bring up phlegm. Use Motrin or Tylenol as needed for fever, aches, or pains. Increase fluid intake and rest. Should improve over next 5-7 days and if no better or worse call for re-evaluation. Images from the original note were not included. Subjective Patient ID: Eneida Peralta is a 39 y.o. female who presents for Annual Exam (Wellness ), Shoulder Pain, and Nasal Congestion (With chest congestion). Presents for annual PE. Weight up 14 pounds since September. Tries to stay active around house but no regular exercise or activity at home. Tries to watch diet and eat healthy. Increased fruits and vegetables. Smaller portions and limits snacking. Tries to limit total daily calories. Due for labs. BP elevated today but hasn't checked in several months. Currently doesn't feel well and took decongestant this am. C/o cough, congestion, and rhinorrhea x 1 week. Afebrile. Severe fatigue and no energy. Mild cough dry and nonproductive. Denies chest tightness or SOB. JOAQUIN and sinus pressure in forehead and cheeks along with postnasal drip. Ears plugged and popping. Sore throat and pain to swallow. Mild nausea. recently sick. Using OTC medication and mild relief. No improvement in symptoms since onset. C/o left shoulder pain for 1 week. No change in activity or lifting. Pain to sleep on left side. Pain to lift her baby. Full ROM but pain with extension. Improved today. Review of Systems Respiratory: Negative for cough, [...] There is no guarding or rebound. Musculoskeletal: General: No swelling or tenderness. Cervical back: Neck supple. Right lower leg: No edema. Left lower leg: No edema. Skin: Findings: No erythema or rash. Neurological: General: No focal deficit present. Mental Status: She is alert and oriented to person, place, and time. Cranial Nerves: No cranial nerve deficit. Motor: No weakness. Gait: Gait normal. Assessment/Plan Problem List Items Addressed This Visit Elevated blood pressure reading without diagnosis of hypertension BP elevated but took decongestant. Previously normal and start to monitor PRN. Acute non-recurrent pansinusitis Take antibiotics BID for 10 days. Use sudafed or other decongestants as needed. Use Robitussin or Robitussin-DM for cough. Can use afrin for congestion but no longer than 3 days. Can use Mucinex to bring up phlegm. Use Motrin or Tylenol as needed for fever, aches, or pains. Increase fluid intake and rest. Should improve over next 5-7 days and if no better or worse call for re-evaluation. Relevant Medications cefdinir (Omnicef) 300 MG capsule Annual physical exam - Primary Due for labs. Discussed proper diet and regular aerobic exercise. Need aerobic exercise 5-6 days a week for 30 minutes at a time. Smaller portions and limit total calories. Colonoscopy after age 45. Tetanus every 10 years. Advised not to smoke. Relevant Orders Hemoglobin A1c Basic metabolic panel CBC and differential Hepatic function panel Lipid panel TSH Acute pain of left shoulder Recent pain but improving. Likely strain and monitor. Use OTC PRN. documented in this encounter [facility] History of Present illness Narrative 09-27-2023 [...] treat. Discussed DASH diet. Subjective Patient ID: Eneida Peralta is a 38 y.o. female who [...] and radiates down into wrist. Pain with adult live in caregiver and squeezing. Pain to push off or [...] 50 MG tablet documented in this encounter [facility] Evaluation note 04-01-2022 Note Date & [...] treatment plan. Patient left in stable condition [facility] Other Evaluation note Note Date & Type Note Facility Evaluation note [facility]: Evaluation note Note Date & Type Note Facility Evaluation note Diagnosis induced hypertension, - Primary De Quervain's tenosynovitis Radial styloid tenosynovitis documented in this encounter [facility] Evaluation note Note Date & Type Note Facility Evaluation note Diagnosis induced hypertension, - Primary Chronic rhinosinusitis Unspecified sinusitis (chronic) Annual physical exam- Primary Routine general medical examination at a health care facility Elevated blood pressure reading without diagnosis of hypertension Acute non-recurrent pansinusitis Acute pain of left shoulder Class 2 obesity due to excess calories without serious comorbidity with body mass index (BMI) of 36.0 to 36.9 in adult documented in this encounter [facility] Summary Purpose Family History No Family [...] and content) Reason Comments Follow-up Blood pressure Reason Comments Annual Exam Wellness Shoulder Pain Nasal Congestion With chest congestio n INFORMATION SOURCE (unrecogn ized section and content) DATE CREATED AUTHOR 01/04/2023 [facility] DATE CREATED AUTHOR AUTHOR'S ORGANIZ ATION 08/06/2023 [facility] DATE CREATED AUTHOR AUTHOR'S ORGANIZ ATION 08/10/2024 [facility] Care Teams (unrecognized sec tion and content) Team Status: Inactive Member Role Status Dates Efren Wan Attending Provider Active Health Support Specialist Relationship Specialty Start Date End Date Orestes Strange MD [address] [place] [phone] PCP - General Family Medicine 09/26/23 Health Support Specialist Relationship Specialty Start Date End Date Orestes Strange MD [address] [place] [phone] PCP - General Family Medicine 09/26/23 Team Status: Active Member Role Status Dates Orestes Strange MD Primary Care Provider Active Team Status: Inactive Member Role Status Dates Orestes Strange MD Primary Care Provider Active S tart: November 05, 2023 End: November 05, 2023 Radha Morel , NO BAKE MOLDER-C Attending Provider Active S tart: November 05, 2023 End: November 05, 2023 Health Support Specialist Relationship Specialty Start Date End Date Orestes Strange MD [address] [place] [phone] PCP - General Family Medicine 09/26/23 Shaikh Marquez MD [address] [place] [phone] PCP - Medical [employer] 12/20/23 08/20/99 Health Support Specialist Relationship Specialty Start Date End Date Orestes Strange MD [address] [place] [phone] PCP - General Family Medicine 09/26/23 Shaikh Marquez MD [address] [place] [phone] PCP - [facility] 12/20/23 08/20/99 Health Support Specialist Relationship Specialty Start Date End Date Orestes Strange MD [address] [place] [phone] PCP - General [facility] 09/26/23 Shaikh Marquez MD [address] [place] [phone] PCP - [facility] [employer] 12/20/23 08/20/99 Goals (unrecognized section and content) Goals may [...] BE BASED ON THE PRIMARY CLINICAL RECORDS. [employer] [facility]. provides no warranty or guarantee of the accuracy or completeness of information in this document.
[2024-08-17 07:50] LABS: Basophils Absolute Auto 0.1 10^3/uL (0.0-0.1); Basophils Percent Auto 0.6 % (0.2-2.0); Eosinophils Absolute Auto 0.1 10^3/uL (0.0-0.7); Eosinophils Percent Auto 1.2 % (0.9-7.0); Hematocrit 43.1 % (36.0-48.0); Hemoglobin 14.5 g/dL (12.0-16.0); Immature Granulocytes Abs Auto 0.03 10^3/uL (0.00-0.03); Immature Granulocytes Pct Auto 0.4 % (0.0-0.5); Lymphocytes Absolute Auto 3.5 10^3/uL (1.2-3.8); Lymphocytes Percent Auto 41.1 % (20.5-60.0); Mean Corpuscular HGB Conc 33.6 g/dL (29.9-35.2); Mean Corpuscular Hemoglobin 30.1 pg (26.7-34.0); Mean Corpuscular Volume 89.4 fL (81.0-99.0); Mean Platelet Volume 10.9 fL (9.5-13.5); Monocytes Absolute Auto 0.5 10^3/uL (0.3-0.8); Monocytes Percent Auto 5.3 % (1.7-12.0); Neutrophils Absolute Auto 4.4 10^3/uL (1.4-6.5); Neutrophils Percent Auto 51.4 % (43.0-75.0); Platelet Count 280 10^3/uL (150-450); Red Blood Count 4.82 10^6/uL (4.20-5.40); Red Cell Distribution Width 12.4 % (11.0-15.0); White Blood Count 8.5 10^3/uL (4.0-11.0)
[2024-08-17 08:09] LABS: INR 0.99; Prothrombin Time 10.5 sec (9.0-11.6)
[2024-08-17 08:10] LABS: Alanine Aminotransferase 113 U/L (14-59); Albumin Globulin Ratio 1.1; Albumin Level 3.8 g/dL (3.4-5.0); Alkaline Phosphatase 73 U/L (46-116); Anion Gap 15.5; Aspartate Amino Transferase 65 U/L (15-37); BUN Creatinine Ratio 17.7; Bilirubin Total 0.5 mg/dL (0.2-1.0); Calcium 8.8 mg/dL (8.5-10.1); Carbon Dioxide 23.4 mmol/L (21.0-32.0); Chloride 105 mmol/L (98-107); Estimated GFR (African America >60 (>=60 mL/min/1.73m^2); Estimated GFR (Non-African Ame >60 (>=60 mL/min/1.73m^2); Globulin 3.5 g/dL; Glucose 165 mg/dL (74-106); Potassium 3.9 mmol/L (3.5-5.1); Sodium 140 mmol/L (136-145); Total Protein 7.3 g/dL (6.4-8.2); Troponin I High Sensitivity 5.7 pg/mL (4.0-51.3)
[2024-08-17 08:11] LABS: D Dimer <0.19 mg/L FEU (<=0.59)
[2024-08-17] MEDS: ASPIRIN 81 MG TAB.CHEW 162 MG PO (08:22)
[2024-08-17] MEDS: ACETAMINOPHEN 500 MG TABLET PO (08:22)
[2024-08-17 08:23] VITALS: BP 154/100
[2024-08-17 08:25] VITALS: BP 160/98
--- NOTE | 2024-08-17 08:26 | ED.GENADUL1 ---
HPI HPI - General Adult General Chief complaint: Chest Pain Stated complaint: CHEST PAIN, FINGERS AND FACE TINGELING Time Seen by Provider: 08/17/24 07:26 Source: patient Mode of arrival: walk-in Limitations: no limitations History of Present Illness HPI narrative: Patient is a 39-year-old female who is presenting to the ER today with chief complaint of left chest tightness that radiates to her left upper thoracic area. Patient stated the pain started around 1030 yesterday morning. Patient did take a baby aspirin last night around 10:30 PM. She is taken no aspirin this morning. Patient states that Dr. Zamora has been watching her blood pressure since her , it was intermittently elevated during , eventually came down. Patient has an appointment on Monday with her PCP to discuss her blood pressure. Patient's had no recent traveling. Non-smoker, no cocaine use, no control. No PE risk factors. Patient's sister is at bedside. Patient has been having the pain intermittently in the heaviness to the left upper chest since yesterday morning. Patient was looking on the Internet last night, patient is worried about stroke and heart attack. Education was done at bedside. Patient has no swelling to her arms, legs, or abdomen. All systems are negative except as noted/marked. All systems reviewed and otherwise negative. Nurses note and vital signs reviewed and patient is not hypoxic. General: The patient appears well and in no apparent distress. Patient is resting comfortably on cart. Patient is not toxic, lethargic, or listless Skin: Warm, dry, no pallor noted. There is no rash noted. No petechiae, purpura. Head: Normocephalic, atraumatic Eye: Normal conjunctiva, no drainage, EOMI. PERRL Ears, Nose, Mouth, and Throat: oral mucosa is moist. Nares patent. Mouth without vesicles. Cardiovascular: Regular Rate and Rhythm, no murmur, gallop, rub. Patient has slight reproduction of pain to the left upper anterior chest wall, patient has moderate reproduction of her pain to left upper thoracic area. Patient does not have any reproducible pain to her left upper chest with flexion extension abduction of her left upper extremity. No rash. Respiratory: Patient is in no distress, no accessory muscle use, lungs are clear to auscultation, no wheezing, rales or rhonchi Back: non-tender, no CVA tenderness bilaterally to percussion. No CT LS midline pain GI: no tenderness to palpation, no masses appreciated. No rebound, guarding, or rigidity noted. No distention. No pitting edema. Musculoskeletal: Patient has full range of motion of all of the extremities, no motor, sensory, or focal neurological deficits Neurological: A&O x4, normal speech Psychiatric: Cooperative Related Data Home Medications ?Medication ?Instructions ?Recorded ?Confirmed aspirin 81 mg capsule 81 mg PO DAILY 06/28/23 08/17/24 vits,calcium 21-iron fum 1 tab PO DAILY 06/28/23 08/17/24 14 mg iron-folic acid 400 mcg tablet ( Complete) Previous Rx's ?Medication ?Instructions ?Recorded ibuprofen 800 mg tablet 800 mg PO Q8H PRN pain 14 days #40 07/19/23 tabs Allergies Allergy/AdvReac Type Severity Reaction Status Date / Time topiramate (From Topamax) Allergy Mild Verified 06/24/23 10:52 Opioid HPI Opioid Management Most Recent Opioid Data: Last Pain Scale 4 08/17/24 08:22 08/17/24 Last MAR Pain Assessment 08/17/24 08:22 Ur Phencyclidine Scrn Negative (NEGATIVE) 07/15/23 19:40 07/15/23 Exam Constitutional Vital Signs, click to edit/add: Last Vital Signs Temp 98.4 F 08/17/24 07:17 Pulse 87 08/17/24 07:17 Resp 18 08/17/24 07:17 BP 160/98 H 08/17/24 08:25 Pulse Ox 98 08/17/24 07:44 O2 Del Method Room Air 08/17/24 07:44 Course Vital Signs Vital signs: Vital Signs Temperature 98.4 F 08/17/24 07:17 Pulse Rate 87 08/17/24 07:17 Respiratory Rate 18 08/17/24 07:17 Blood Pressure 210/140 H 08/17/24 07:17 Pulse Oximetry 98 08/17/24 07:17 Oxygen Delivery Method Room Air 08/17/24 07:17 Temperature 98.4 F 08/17/24 07:17 Pulse Rate 87 08/17/24 07:17 Respiratory Rate 18 08/17/24 07:17 Blood Pressure 160/98 H 08/17/24 08:25 Pulse Oximetry 98 08/17/24 07:44 Oxygen Delivery Method Room Air 08/17/24 07:44 Medical Decision Making MDM Narrative Medical decision making narrative: Patient has a heart score 0. Patient blood pressures were initially elevated, and there was a significant contrast to both arms with machine and manual done, blood pressures will be repeated manually to double check the accuracy to see if additional testing would need to be done. Patient undergo cardiac evaluation. Differential diagnosis, DC, ACS, pericarditis, aortic coarctation, aneurysm, dissection, pneumonia, shingles, muscle skeletal, anxiety 0830 repeat blood pressure manual to both arms, right arm was 154 100. Left arm was 160/98. Blood pressures are similar. Patient EKG, D-dimer, labs showed no acute findings. Troponins negative. Patient has been having pain since yesterday morning at 1030. Patient's heart score 0. Patient was reassured that her D-dimer, troponin, chest x-ray, EKG, no acute findings. Patient has similar blood pressure to both arms, no acute aortic etiology concern at this time according to blood pressures. Patient will follow-up with Dr. Zamora on Monday. Education on starting a blood pressure log and recording her blood pressures twice a day for the next 1 to 2 weeks to see if patient's pressures consistently over 140/90 was discussed with patient at bedside and on discharge paperwork. No question at discharge. Patient was given 2 baby aspirin prophylactically. Patient is comfortable with this plan. Lab Data Labs: Lab Results 08/17/24 Range/Units 07:26 WBC 8.5 (4.0-11.0) 10^3/uL RBC 4.82 (4.20-5.40) 10^6/uL Hgb 14.5 (12.0-16.0) g/dL Hct 43.1 (36.0-48.0) % MCV 89.4 (81.0-99.0) fL MCH 30.1 (26.7-34.0) pg MCHC 33.6 (29.9-35.2) g/dL RDW 12.4 (11.0-15.0) % Plt Count 280 (150-450) 10^3/uL MPV 10.9 (9.5-13.5) fL Neut % (Auto) 51.4 (43.0-75.0) % Lymph % (Auto) 41.1 (20.5-60.0) % [place] % (Auto) 5.3 (1.7-12.0) % Eos % (Auto) 1.2 (0.9-7.0) % Baso % (Auto) 0.6 (0.2-2.0) % Neut # (Auto) 4.4 (1.4-6.5) 10^3/uL Lymph # (Auto) 3.5 (1.2-3.8) 10^3/uL [place] # (Auto) 0.5 (0.3-0.8) 10^3/uL Eos # (Auto) 0.1 (0.0-0.7) 10^3/uL Baso # (Auto) 0.1 (0.0-0.1) 10^3/uL Abs Immat Gran (auto) 0.03 (0.00-0.03) 10^3/uL Imm/Tot Granulo (auto) 0.4 (0.0-0.5) % PT 10.5 (9.0-11.6) sec INR 0.99 D-Dimer <0.19 (<=0.59) mg/L FEU Sodium 140 (136-145) mmol/L Potassium 3.9 (3.5-5.1) mmol/L Chloride 105 (98-107) mmol/L Carbon Dioxide 23.4 (21.0-32.0) mmol/L Anion Gap 15.5 BUN 11.0 (7.0-18.0) mg/dL Creatinine 0.62 (0.55-1.02) mg/dL Est GFR ( Amer) >60 (>=60 mL/min/1.73m^2) Est GFR (Non-Af Amer) >60 (>=60 mL/min/1.73m^2) BUN/Creatinine Ratio 17.7 Glucose 165 H (74-106) mg/dL Calcium 8.8 (8.5-10.1) mg/dL Total Bilirubin 0.5 (0.2-1.0) mg/dL AST 65 H (15-37) U/L ALT 113 H (14-59) U/L Alkaline Phosphatase 73 (46-116) U/L Troponin I High Sens 5.7 (4.0-51.3) pg/mL NT-Pro-B Natriuret Pep 14.0 (<=450.0) pg/mL Total Protein 7.3 (6.4-8.2) g/dL Albumin 3.8 (3.4-5.0) g/dL Globulin 3.5 g/dL Albumin/Globulin Ratio 1.1 Lipase 50.0 (16.0-77.0) U/L Discharge Plan Discharge Chief Complaint: Chest Pain Clinical Impression: Chest pain, Hypertension Patient Disposition: Home, Self-Care Time of Disposition Decision: 08:32 Condition: Fair Prescriptions / Home Meds: No Action aspirin 81 mg capsule 81 mg PO DAILY Complete 14 mg iron- 400 mcg tablet 1 tab PO DAILY ibuprofen 800 mg tablet 800 mg PO Q8H PRN (Reason: pain) 14 Days Qty: 40 0RF Print Language: Citizen Of [place] Instructions: Chest Pain (ED), Hypertension (ED) Additional Instructions: You have asymptomatic hypertension in the emergency room today. Either go to a drugstore, pharmacy, or where she is to her or your doctors office to have your blood pressure checked intermittently. A better idea is to buy a blood pressure cuff at home that is appropriate size, the pharmacist can help make sure that you use size is appropriate. Take your blood pressure twice a day for the next 1 to 2 weeks. If your blood pressure is consistently elevated 140/90, follow-up with your PCP for medication changes or adjustment as indicated. If you are having any significant headache, severe chest pain or heaviness or tightness, shortness of breath, passing out, or any other acute symptoms, please return to the ER for further evaluation or if you have any other acute concerns. See Dr. Zamora at your scheduled appointment on Monday. Return back to the ER if any significant heavy chest pressure, shortness of breath, or any other acute complaint Referrals: Orestes Zamora MD [Primary Care Provider] - 1 week
[2024-08-17 08:45] VITALS: BP 157/97; PULSE 81; O2SAT 97
== END 2024-08-17 08:47 | disposition home or self-care (01) ==
PROVIDERS: Emergency Provider Emergency Medicine; PCP Family Medicine
DX: R07.9 Chest pain, unspecified (principal); I10 Essential (primary) hypertension
CPT/HCPCS: 36415; 71045; 80053; 83690; 83880; 84484; 85025; 85378; 85610; 93005; 99285

== ENCOUNTER 2024-08-20 18:44 | Emergency (ER) | payer OTHER, SELFPAY ==
[2024-08-20 18:50] VITALS: BP 165/105; PULSE 118; TEMP 36.7; O2SAT 98; BMI 36.3
--- OUTSIDE RECORDS SUMMARY | 2024-08-20 18:51 | XMS_ITS | CCD ---
Author Organization [facility] Care Team Providers Care Manager [place] Name Role Phone Shereen Garcia Unavailable SAVAGE [...] Unavailable Naderer Orestes PADILLA Primary Care Provider [phone] Alma PADILLA, Unavailable MARILYN SUAREZ Attending Unavailable ORESTES STRANGE Attending Unavailable ORESTES STRANGE Attending Unavailable ORESTES STRANGE Attending Unavailable NIDA ESCOBAR Attending Unavailable ALMA, Attending Unavailable MIKAL MAHER Attending Unavailable ALMA, [...] Facility ALL PROGESTERONEon PROGESTERONE 0.1 ng/mL . [facility] are Comment on above: Follicular phase 0.1 - 0.9 Luteal phase 1.8 - 23.9 Ovulation phase 0.1 - 12.0 First trimester 11.0 - 44.3 Second trimester 25.4 - 83.3 Third trimester 58.7 - 214.0 Postmenopausal 0.0 - 0.1 Performed at: [facility] [place] [id number] [employer] Operator: Andrew Kumar PhD, Phone: [phone] [facility] e COVID Cepheidon 11-05-2023 SARS-CoV-2 (COVID-19) RNA SHAISTA+probe Ql (Unsp spec) Negative [facility] No Panel Informationon 11-04 POC Influenza A (PCR) Negative [facility] POC Influenza B (PCR) Negative [facility] No Panel InformationOrdered By: Radha Morel on 11-05-2023 Quick Strep (POC) [facility] Fibrinogenon 07-15-2023 Fibrinogen 310 mg/dL Normal 200-393 [facility] Comment on above: Result Comment: A he matocrit value greater than 55% may lead to inaccurate results in coagulation testing. Patients having hematocrit values >55% require a special collection tube for coagulation studies. Please contact the laboratory at [phone] for redraw instructions. PERFORMED BY: [facility] [address] [place] [address] PATHOLOGIST DIAMOND SAWER VALENTINO MORENO M.D. Performed By: #### F IB-C #### [facility] [address] [place] [id number] [facility] Fibrinogen [Mass/volume] in Platelet poor plasma by Coagulation assayOrdered By: Efren Wan on 07-15-2023 Fibrinogen Coag (PPP) [Mass/Vol] 310 mg/dL 200-393 [facility] Comment on above: A hematocrit value g reater than 55% may lead to inaccurate results in coagulation testing. Patients having hematocrit values >55% require a special collection tube for coagulation studies. Please contact the laboratory at [phone] for redraw instructions. PREG QUANT HCGon 12-29-2022 HCG QUANT 45367 mIU/mL Normal [facility] Comment on above: Performed By: #### P REGQNT #### [facility] [address] [place] [address] Dr. Alexsander Madrigal HCG RANGE SEE BELOW Normal [facility] Comment on above: Result Comment: 5-50 0.2-1 WEEK 50-500 1-2 WEEKS 100-5,000 2-3 WEEKS 500-10,000 3-4 WEEKS 1,000-50,000 4-5 WEEKS 10,000-100,000 5-6 WEEKS 15,000-200,000 6-8 WEEKS 10,000-100,000 2-3 MONTHS Performed By: #### P REGQNT #### [facility] [address] [place] [address] Dr. Alexsander Madrigal PROGESTERONEon 11-15-2022 Progesterone 2.2 ng/mL Normal [facility] Comment on above: Result Comment: Foll icular phase 0.1 - 0.9 Luteal phase 1.8 - 23.9 Ovulation phase 0.1 - 12.0 First trimester 11.0 - 44.3 Second trimester 25.4 - 83.3 Third trimester 58.7 - 214.0 Postmenopausal 0.0 - 0.1 Performed By: #### P ROGES #### [facility] [address] [place] [address] Dr. Alexsander Madrigal PROGESTERONEon 10-12-2022 Progesterone 0.8 ng/mL Normal [facility] Comment on above: Result Comment: Foll icular phase 0.1 - 0.9 Luteal phase 1.8 - 23.9 Ovulation phase 0.1 - 12.0 First trimester 11.0 - 44.3 Second trimester 25.4 - 83.3 Third trimester 58.7 - 214.0 Postmenopausal 0.0 - 0.1 Performed By: #### P ROGES #### [facility] [address] [place] [address] Dr. Alexsander Madrigal PROGESTERONEon 09-06-2022 Progesterone <0.1 Normal [facility] Comment on above: Result Comment: Foll icular phase 0.1 - 0.9 Luteal phase 1.8 - 23.9 Ovulation phase 0.1 - 12.0 First trimester 11.0 - 44.3 Second trimester 25.4 - 83.3 Third trimester 58.7 - 214.0 Postmenopausal 0.0 - 0.1 Performed By: #### P ROGES #### [facility] [address] [place] [address] Dr. Alexsander Madrigal PROGESTERONEon 07-01-2022 Progesterone <0.1 Normal [facility] Comment on above: Result Comment: Foll icular phase 0.1 - 0.9 Luteal phase 1.8 - 23.9 Ovulation phase 0.1 - 12.0 First trimester 11.0 - 44.3 Second trimester 25.4 - 83.3 Third trimester 58.7 - 214.0 Postmenopausal 0.0 - 0.1 Performed By: #### P MAXIMILIANES #### [facility] [address] [place] [address] Dr. Alexsander Madrigal CBC AUTO DIFFon 05-30-2022 BASO # 0.1 103/ul Normal 0.0-0.1 [facility] Comment on above: Performed By: #### C BC #### [facility] [address] [place] [address] Dr. Alexsander Madrigal Basophils/100 WBC (Bld) 0.6 % Normal 0.2-2.0 [facility] Comment on above: Performed By: #### C BC #### [facility] [address] [place] [address] Dr. Alexsander Madrigal EO # 0.1 103/ul Normal 0.0-0.7 [facility] Comment on above: Performed By: #### C BC #### [facility] [address] [place] [address] Dr. Alexsander Madrigal Eosinophils/100 WBC (Bld) 0.6 % Critically low 0.9-7.0 [facility] Comment on above: Performed By: #### C BC #### [facility] [address] [place] [address] Dr. Alexsander Madrigal Erythrocyte distribution width (RBC) [Ratio] 13.3 % Normal 11.0-15.0 [facility] Comment on above: Performed By: #### C BC #### [facility] [address] [place] [address] Dr. Alexsander Madrigal Hematocrit (Bld) [Volume fraction] 42.9 % Normal 36.0-48.0 [facility] Comment on above: Performed By: #### C BC #### [facility] [address] [place] [address] Dr. Alexsander Madrigal Hemoglobin (Bld) [Mass/Vol] 13.7 g/dL Normal 12.0-16.0 [facility] Comment on above: Performed By: #### C BC #### [facility] [address] [place] [address] Dr. Alexsander Madrigal IG # 0.02 10e3/ul Normal 0.00-0.03 [facility] Comment on above: Performed By: #### C BC #### [facility] [address] [place] [address] Dr. Alexsander Madrigal IG % 0.2 % Normal 0.0-0.5 [facility] Comment on above: Performed By: #### C BC #### [facility] [address] [place] [address] Dr. Alexsander Madrigal LYMPH # 4.1 103/ul Critically high 1.2-3.8 [facility] Comment on above: Performed By: #### C BC #### [facility] [address] [place] [address] Dr. Alexsander Madrigal Lymphocytes/100 WBC (Bld) 41.1 % Normal 20.5-60.0 [facility] Comment on above: Performed By: #### C BC #### [facility] [address] [place] [address] Dr. Alexsander Madrigal MANUAL DIFF REQ NO Normal [facility] Comment on above: Performed By: #### C BC #### [facility] [address] [place] [address] Dr. Alexsander Madrigal MCH (RBC) [Entitic mass] 29.4 pg Normal 26.7-34.0 [facility] Comment on above: Performed By: #### C BC #### [facility] [address] [place] [address] Dr. Alexsander Madrigal MCHC (RBC) [Mass/Vol] 31.9 g/dL Normal 29.9-35.2 [facility] Comment on above: Performed By: #### C BC #### [facility] [address] [place] [address] Dr. Alexsander Madrigal MCV (RBC) [Entitic vol] 92.1 fL Normal 81.0-99.0 [facility] Comment on above: Performed By: #### C BC #### [facility] [address] [place] [address] Dr. Alexsander Madrigal MONO # 0.6 103/ul Normal 0.3-0.8 [facility] Comment on above: Performed By: #### C BC #### [facility] [address] [place] [address] Dr. Alexsander Madrigal Monocytes/100 WBC (Bld) 6.0 % Normal 1.7-12.0 [facility] Comment on above: Performed By: #### C BC #### [facility] [address] [place] [address] Dr. Alexsander Madrigal NEUT # 5.1 103/ul Normal 1.4-6.5 [facility] Comment on above: Performed By: #### C BC #### [facility] [address] [place] [address] Dr. Alexsander Madrigal Neutrophils/100 WBC (Bld) 51.5 % Normal 43.0-75.0 [facility] Comment on above: Performed By: #### C BC #### [facility] [address] [place] [address] Dr. Alexsander Madrigal Platelet mean volume (Bld) [Entitic vol] 11.0 fL Normal 9.5-13.5 [facility] Comment on above: Performed By: #### C BC #### [facility] [address] [place] [address] Dr. Alexsander Madrigal PLT 291 103/ul Normal 150-450 [facility] Comment on above: Performed By: #### C BC #### [facility] [address] [place] [address] Dr. Alexsander Madrigal RBC 4.66 106/ul Normal 4.20-5.40 [facility] Comment on above: Performed By: #### C BC #### [facility] [address] [place] [address] Dr. Alexsander Madrigal WBC 9.9 103/ul Normal 4.0-11.0 [facility] Comment on above: Performed By: #### C BC #### [facility] [address] [place] [address] Dr. Alexsander Madrigal GLYCOHEMOGLOBIN A1Con 2021 ADA RECOMMENDATION SEE BELOW Normal [facility] Comment on above: Result Comment: ADA RECOMMENDED LIMIT 4.0 - 6.0 ADA THERAPEUTIC TARGET < 7.0 ACTION SUGGESTED > 7.0 Performed By: #### A 1C #### [facility] [address] [place] [address] Dr. Alexsander Madrigal Glucose [Mass/Vol] 126 mg/dL Normal [facility] Comment on above: Performed By: #### A 1C #### [facility] [address] [place] [address] Dr. Alexsander Madrigal HbA1c (Bld) [Mass fraction] 6.0 % Normal 4.5-6.2 [facility] Comment on above: Performed By: #### A 1C #### [facility] [address] [place] [address] Dr. Alexsander Madrigal LIPID PROFILEon 05-30-2022 CHOL-HDL RATIO NORM SEE BELOW Normal [facility] Comment on above: Result Comment: 3.3 - 4.4 LOW RISK 4.4 - 7.1 AVERAGE RISK 7.1 - 11.0 MODERATE RISK >11.0 HIGH RISK Performed By: #### L IVER, TSH, BMP, LIPID #### [facility] [address] [address] [address] Alexsander Madrigal Cholesterol [Mass/Vol] 204 mg/dL Critically high <=200 [facility] Comment on above: Performed By: #### L IVER, TSH, BMP, LIPID #### [facility] [address] [address] [address] Alexsander Madrigal Cholesterol in HDL [Mass/Vol] 38 mg/dL Critically low 40-60 [facility] Comment on above: Performed By: #### L IVER, TSH, BMP, LIPID #### [facility] [address] [place] [address] Dr. Alexsander Madrigal Cholesterol in LDL [Mass/Vol] 129.0 mg/dL Normal [facility] Comment on above: Performed By: #### L IVER, TSH, BMP, LIPID #### [facility] [address] [place] [address] Dr. Alexsander Madrigal Cholesterol.total/Chol esterol in HDL [Mass ratio] 5.4 {ratio} Normal [facility] Comment on above: Performed By: #### L IVER, TSH, BMP, LIPID #### [facility] [address] [place] [address] Dr. Alexsander Madrigal HDL NORMAL > or = 60 mg/dl - LOW CARDIOVASCULAR RISK <40 mg/dl - HIGH CARDIOVASCULAR RISK Normal [facility] Comment on above: Performed By: #### L IVER, TSH, BMP, LIPID #### [facility] [address] [place] [address] Dr. Alexsander Madrigal LDL CALC NORMAL SEE BELOW Normal [facility] Comment on above: Result Comment: <100 mg/dl OPTIMAL 100 - 129 mg/dl NEAR OR ABOVE OPTIMAL 130 - 159 mg/dl BORDERLINE HIGH 160 - 189 mg/dl HIGH >190 mg/dl VERY HIGH Performed By: #### L IVER, TSH, BMP, LIPID #### [facility] [address] [address] [address] Alexsander Madrigal Triglyceride [Mass/Vol] 185 mg/dL Critically high <=150 [facility] Comment on above: Performed By: #### L IVER, TSH, BMP, LIPID #### [facility] [address] [address] [address] Alexsander Madrigal VLDL CALC 37.0 mg/dL Normal [facility] Comment on above: Performed By: #### L IVER, TSH, BMP, LIPID #### [facility] [address] [address] [address] Alexsander Madrigal LIVER PROFILEon 05-30-2022 Albumin [Mass/Vol] 4.0 g/dL Normal 3.4-5.0 [facility] Comment on above: Performed By: #### L IVER, TSH, BMP, LIPID #### [facility] [address] [address] [address] Alexsander Madrigal Albumin/Globulin [Mass ratio] 1.0 {ratio} Normal [facility] Comment on above: Performed By: #### L IVER, TSH, BMP, LIPID #### [facility] [address] [address] [address] Alexsander Madrigal ALP [Catalytic activity/Vol] 73 U/L Normal 46-116 [facility] Comment on above: Performed By: #### L IVER, TSH, BMP, LIPID #### [facility] [address] [address] [address] Alexsander Madrigal ALT [Catalytic activity/Vol] 78 U/L Critically high 14-59 [facility] Comment on above: Performed By: #### L IVER, TSH, BMP, LIPID #### [facility] [address] [address] [address] Alexsander Madrigal AST [Catalytic activity/Vol] 40 U/L Critically high 15-37 [facility] Comment on above: Performed By: #### L IVER, TSH, BMP, LIPID #### [facility] [address] [address] [address] Alexsander Madrigal BILI, CONJUGATED 0.1 mg/dL Normal 0.0-0.2 [facility] Comment on above: Performed By: #### L IVER, TSH, BMP, LIPID #### [facility] [address] [place] [address] Dr. Alexsander Madrigal Bilirubin [Mass/Vol] 0.2 mg/dL Normal 0.2-1.0 [facility] Comment on above: Performed By: #### L IVER, TSH, BMP, LIPID #### [facility] [address] [address] [address] Alexsander Madrigal Globulin (S) [Mass/Vol] 3.9 g/dL Normal [facility] Comment on above: Performed By: #### L IVER, TSH, BMP, LIPID #### [facility] [address] [place] [address] Dr. Alexsander Madrigal Protein [Mass/Vol] 7.9 g/dL Normal 6.4-8.2 [facility] Comment on above: Performed By: #### L IVER, TSH, BMP, LIPID #### [facility] [address] [place] [address] Dr. Alexsander Madrigal PROF CHEM 8 (BAS METB)on Anion gap [Moles/Vol] 14.9 mmol/L Normal [facility] Comment on above: Performed By: #### L IVER, TSH, BMP, LIPID #### [facility] [address] [address] [address] Alexsander Madrigal Calcium [Mass/Vol] 9.3 mg/dL Normal 8.5-10.[address] [facility] Comment on above: Performed By: #### L IVER, TSH, BMP, LIPID #### [facility] [address] [place] [address] Dr. Alexsander Madrigal Chloride [Moles/Vol] 105 mmol/L Normal 98-107 [facility] Comment on above: Performed By: #### L IVER, TSH, BMP, LIPID #### [facility] [address] [address] [address] Alexsander Madrigal CO2 [Moles/Vol] 23.2 mmol/L Normal 21.0-32.0 [facility] Comment on above: Performed By: #### L IVER, TSH, BMP, LIPID #### [facility] [address] [address] [address] Alexsander Madrigal Creatinine [Mass/Vol] 0.72 mg/dL Normal 0.55-1.02 [facility] Comment on above: Performed By: #### L IVER, TSH, BMP, LIPID #### [facility] [address] [address] [address] Alexsander Madrigal EGFR-AF CHADIAN >60 Normal >=60 [facility] Comment on above: Performed By: #### L IVER, TSH, BMP, LIPID #### [facility] [address] [address] [address] Alexsander Madrigal EGFR-NON AF CHADIAN >60 Normal >=60 [facility] Comment on above: Performed By: #### L IVER, TSH, BMP, LIPID #### [facility] [address] [address] [address] Alexsander Madrigal Glucose [Mass/Vol] 87 mg/dL Normal 74-[address] [facility] Comment on above: Performed By: #### L IVER, TSH, BMP, LIPID #### [facility] [address] [address] [address] Alexsander Madrigal Potassium [Moles/Vol] 4.1 mmol/L Normal 3.5-5.1 [facility] Comment on above: Performed By: #### L IVER, TSH, BMP, LIPID #### [facility] [address] [address] [address] Alexsander Madrigal Sodium [Moles/Vol] 139 mmol/L Normal 136-[address] [facility] Comment on above: Performed By: #### L IVER, TSH, BMP, LIPID #### [facility] [address] [address] [address] Alexsander Madrigal Urea nitrogen [Mass/Vol] 15.0 mg/dL Normal 7.0-18.0 [facility] Comment on above: Performed By: #### L IVER, TSH, BMP, LIPID #### [facility] [address] [place] [address] Dr. Alexsander Madrigal Urea nitrogen/Creatinine [Mass ratio] 20.8 mg/mg Normal [facility] Comment on above: Performed By: #### L IVER, TSH, BMP, LIPID #### [facility] [address] [place] [address] Dr. Alexsander Madrigal TSHon 05-30-2022 TSH 2.600 uIU/mL Normal 0.358-3.740 [facility] Comment on above: Performed By: #### C BC #### [facility] [address] [place] [address] Dr. Alexsander Madrigal VITAMIN D 25 OHon 05-30-2022 VIT D 25-OH 18.8 ng/mL Normal [facility] Comment on above: Performed By: #### C BC #### [facility] [address] [place] [address] Dr. Alexsander Madrigal VIT D RANGES SEE BELOW Normal [facility] Comment on above: Result Comment: <20 ng/mL Vit D deficient 20 - <30 ng/mL Vit D insufficient 30 - 100 ng/mL Vit D sufficient >100 ng/mL Potential Toxicity Performed By: #### C BC #### [facility] [address] [place] [address] Dr. Alexsander Madrigal SARS-CoV-2 (COVID-19) RNA NA A+probe Ql (Resp)on 04-01-2022 SARS-CoV-2 (COVID-19) RNA SHAISTA+probe Ql (Unsp spec) Positive [facility] Other Vital Signs Date Time Vital Sign Value Performing Clinician Facility 08-07-2024 08:12-0500 Body height 160 cm Orestes Strange MD Work Phone: [facility] 08-07-2024 08:12-0500 Body mass index (BMI) [Ratio] 36.85 kg/m2 Orestes Strange MD Work Phone: [facility] 08-07-2024 08:12-0500 Body temperature 97.11 [degF] Orestes Strange MD Work Phone: [facility] 08-07-2024 08:12-0500 Body weight 94.35 kg Orestes Strange MD Work Phone: [facility] 08-07-2024 08:12-0500 Diastolic blood pressure 98 mm[Hg] Orestes Strange MD Work Phone: [facility] 08-07-2024 08:12-0500 Heart rate 89 /min Orestes Strange MD Work Phone: [facility] 08-07-2024 08:12-0500 Respiratory rate 22 /min Orestes Strange MD Work Phone: [facility] 08-07-2024 08:12-0500 SaO2% (BldA) [Mass fraction] 98 % Orestes Strange MD Work Phone: [facility] 08-07-2024 08:12-0500 Systolic blood pressure 170 mm[Hg] Orestes Strange MD Work Phone: [facility] 11-05-2023 09:35-0400 Body height 160.02 cm [facility] 11-05-2023 09:35-0400 Body mass index (BMI) [Ratio] 34 kg/m2 [facility] 11-05-2023 09:35-0400 Body temperature 97.6 [degF] [facility] 11-05-2023 09:35-0400 Body weight 87.25 kg [facility] 11-05-2023 09:35-0400 Diastolic blood pressure 97 mm[Hg] [facility] 11-05-2023 09:35-0400 Heart rate 94 /min [facility] 11-05-2023 09:35-0400 Respiratory rate 18 /min [facility] 11-05-2023 09:35-0400 SaO2% (BldA) [Mass fraction] 96 % [facility] 11-05-2023 09:35-0400 Systolic blood pressure 140 mm[Hg] [facility] 09-27-2023 07:56-0500 Body height 160 cm Orestes Strange MD Work Phone: [facility] 09-27-2023 07:56-0500 Body mass index (BMI) [Ratio] 34.37 kg/m2 Orestes Strange MD Work Phone: [facility] 09-27-2023 07:56-0500 Body temperature 97.3 [degF] Orestes Strange MD Work Phone: [facility] 09-27-2023 07:56-0500 Body weight 88 kg Orestes Strange MD Work Phone: [facility] 09-27-2023 07:56-0500 Diastolic blood pressure 72 mm[Hg] Orestes Strange MD Work Phone: [facility] 09-27-2023 07:56-0500 Heart rate 94 /min Orestes Strange MD Work Phone: [facility] 09-27-2023 07:56-0500 SaO2% (BldA) [Mass fraction] 99 % Orestes Strange MD Work Phone: [facility] 09-27-2023 07:56-0500 Systolic blood pressure 126 mm[Hg] Orestes Strange MD Work Phone: [facility] 04-01-2022 14:10-0400 Body height 160.02 cm Shereen Flexiroam Other [facility] Other 04-01-2022 14:10-0400 Body mass index (BMI) [Ratio] 34.54 kg/m2 Shereen Flexiroam Other [facility] Other 04-01-2022 14:10-0400 Body temperature 99.3 [degF] Shereen Garcia Other [facility] Other 04-01-2022 14:10-0400 Body weight 88.45 kg Shereen Garcia Other [facility] Other 04-01-2022 14:10-0400 Respiratory rate 18 /min Shereen Garcia Other [facility] Other 04-01-2022 14:10-0400 SaO2% (BldA) [Mass fraction] 98 % Shereen Garcia Other [facility] Other Encounters Encounter Date Encounter Type Care [...] Not Available Start: 11-05-2023 End: 11-05-2023 ambulatory [facility] Work Phone: Start: 11-05-2023 End: 11-05-2023 Patient encounter procedure [facility] Work Phone: Start: [...] Start: 07-15-2023 End: 07-15-2023 ambulatory Orestes Strange Facility:[facility] Start: 07-15-2023 End: 07-15-2023 ambulatory Efren Wan Work Phone: [facility] Work Phone: Start: 07-15-2023 End: 07-15-2023 Departed Referred Efren Wan Work Phone: [facility] Work Phone: Start: 01-05-[address] EFREN [...] examination without abnormal findings DR ORESTES STRANGE [facility] Start: 05-30-2022 End: 05-31-[address] ORESTES STRANGE Facility:[facility] Start: 05-30-2022 End: 05-31-2022 Encounter for general adult medical examination without abnormal findings DR ORESTES STRANGE Facility:[facility] Start: 05-27-[address] EFREN WAN . Facili ty:[facility] Start: 04-01-2022 End: 04-01-2022 ambulatory Shereen Garcia Other [facility] Other Start: 04-01-2022 Office outpatient ne w [...] procedure 02/06/2025 9:00 AM EDT Office Visit [facility] [address] [place] [address] Orestes Strange MD [address] [place], [place] [id number] [facility] Start: 08-07-2024 End: 08-07-2025 Basic metabolic 1998 panel - Serum or Plasma Basic metabolic panel Lab Routine Annual physical exam Expected: 08/07/2024 (Approximate), Expires: 08/07/2025 [facility] Comment on above: Expected: 08/07/2024 (Approximate), Expires: 08/07/2025 Start: 08-07-2024 End: 08-07-2025 CBC W Auto Differential panel - Blood CBC and differential Lab Routine Annual physical exam Expected: 08/07/2024 (Approximate), Expires: 08/07/2025 [facility] Comment on above: Expected: 08/07/2024 (Approximate), Expires: 08/07/2025 Start: 08-07-2024 End: 08-07-2025 Hemoglobin A1c/Hemoglobin.total in Blood Hemoglobin A1c Lab Routine Annual physical exam Expected: 08/07/2024 (Approximate), Expires: 08/07/2025 [facility] Work Phone: Comment on above: Expected: 08/07/2024 (Approximate), Expires: 08/07/2025 Start: 08-07-2024 End: 08-07-2025 Hepatic function 2000 panel - Serum or Plasma Hepatic function panel Lab Routine Annual physical exam Expected: 08/07/2024 (Approximate), Expires: 08/07/2025 [facility] Comment on above: Expected: 08/07/2024 (Approximate), Expires: [...] 08/07/2024 8:00 AM EST Office Visit [facility] [address] [place] [phone] Orestes Strange MD [address] [place] [phone] [facility] Start: 04-21-2024 Influenza vaccination Influenza Vacc ine (#1) [facility] Start: 03-21-2024 End: 03-21-2024 Patient encounter procedure 03/21/2024 9:00 AM EDT Office Visit [facility] [address] [phone] Marilyn Suarez PA [address] [place] [address] [facility] Start: 11-07-2023 End: 11-07-2023 Patient encounter procedure 11/07/2023 1:15 PM EDT Office Visit [facility] [address] [place] [phone] Orestes Strange MD [address] [place] [address] [facility] Start: 04-21-2023 Influenza vaccination Influenza Vacc ine (#1) [facility] Payers Date Payer Category Payer Private Health Insurance [employer] [id number] 2023 Unknown [id number] 2022 Managed Care HMO (unspecified) [employer]ERONIMOTROCHEL[employer] AETROCHELLE [id number] 2022-Present [address] [place] [address] HMO [id number] 1987 Unknown [id number] 2.16.840.1.660081.3.579.2. 593 1987 Unknown [id number] 2.16.840.1.174850.3.579.2. 593 1987 Unknown [id number] 2.16.840.1.783428.3.579.2. 593 1987 Unknown [id number] 2.16.840.1.546410.3.579.2. 593 1987 Unknown [id number] 2.16.840.1.350652.3.579.2. 593 1987 Unknown [id number] 2.16.840.1.914548.3.579.2. 593 1987 Unknown [id number] 2.16.840.1.547422.3.579.2. 593 1987 Unknown [id number] 2.16.840.1.249799.3.579.2. 593 1987 Unknown [id number] 2.16.840.1.894350.3.579.2. 1259 1987 Unknown [id number] 2.16.840.1.482432.3.579.2. 9 1987 Unknown [id number] 2.16.840.1.472749.3.579.2. 1258 1987 Unknown [id number] 2.16.840.1.358919.3.579.2. 9 1987 Unknown [id number] 2.16.840.1.944770.3.579.2. 1258 1987 Unknown [id number] 2.16.840.1.363656.3.579.2. 1258 1987 Unknown [id number] 2.16.840.1.587583.3.579.2. 1258 1987 Unknown [id number] 2.16.840.1.495129.3.579.2. 9 1987 Unknown [id number] 2.16.840.1.229801.3.579.2. 9 1957 [facility] [id number] 2.16.840.1.018049.19 1959 Private Health Insurance [id number] 1959 Self-pay Private Health Insurance [id number] Unknown [id number] 2.16.840.1.482280.3.579.2. 531 Social History Date Type Detail Facility Start: 09-26-2023 End: 02-07-2024 Sex Assigned At [facility] Start: 1985 Sex Assigned At Female F [facility] Start: 01-28-2023 End: 02-07-2024 Tobacco smoking [...] and radiates down into wrist. 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 Pain to push off or [...] 50 MG tablet documented in this encounter [facility] Evaluation note 04-01-2022 Note Date & [...] treatment plan. Patient left in stable condition [place] Other Evaluation note Note Date & Type Note Facility Evaluation note [facility] Work [facility]: Evaluation note Note Date & Type Note Facility Evaluation note Diagnosis induced hypertension, - Primary De Quervain's tenosynovitis Radial styloid tenosynovitis documented in this encounter [facility] Evaluation note Note Date & Type [...] 36.9 in adult documented in this encounter [facility] Summary Purpose Family History No Family [...] CREATED AUTHOR AUTHOR'S ORGANIZ ATION 08/06/2023 [facility] DATE CREATED AUTHOR AUTHOR'S ORGANIZ ATION 08/10/2024 [facility] Care Teams (unrecognized sec tion and content) Team Status: Inactive Member Role Status Dates Efren Wan Attending Provider Active Manager Mass Relationship Specialty Start Date End Date Orestes Strange MD [address] [place] [phone] PCP - General Family Medicine 09/26/23 Manager Mass Relationship Specialty Start Date End Date Orestes Strange MD [address] [place] [phone] PCP - General Family Medicine 09/26/23 Team Status: Active Member Role Status Dates Orestes Strange MD Primary Care Provider Active Team Status: Inactive Member Role Status Dates Orestes Strange MD Primary Care Provider Active S tart: November 05, 2023 End: November 05, 2023 Radha Morel , BONE GRINDER-C Attending Provider Active S tart: November 05, 2023 End: November 05, 2023 Manager Mass Relationship Specialty Start Date End Date Orestes Strange MD [address] [place] [phone] PCP - General Family Medicine 09/26/23 Shaikh Marquez MD [address] [place] [phone] PCP - Medical [employer] 12/20/23 08/20/99 Manager Mass Relationship Specialty Start Date End Date Orestes Strange MD [address] [place] [phone] PCP - General Family Medicine 09/26/23 Shaikh Marquez MD [address] [place] [phone] PCP - [employer] 12/20/23 08/20/99 Manager Mass Relationship Specialty Start Date End Date Orestes Strange MD [address] [place] [phone] PCP - General [facility] 09/26/23 Shaikh Marquez MD [address] [place] [phone] PCP - [facility] [employer] 12/20/23 08/20/99 Goals (unrecognized section and content) [...] BE BASED ON THE PRIMARY CLINICAL RECORDS. [facility]. provides no warranty or guarantee of the accuracy or completeness of information in this document.
--- NOTE | 2024-08-20 19:15 | CT_ITS ---
The [address] [address] Patient Name: SAAD DURHAM MRN: [id number] date: 1985 Sex: F Assigned Patient Location: ER Current Patient Location: ED.MAIN Accession/Order Number: [id number] Exam Date: 08/20/2024 20:04 Report Date: 08/20/2024 21:55 At the request of: KIERRA DAWSON Procedure: CT head/brain wo con EXAM: CT head/brain wo con INDICATION: 39 years old; Female. Headache. TECHNIQUE: CT Head (ax/cor/sag reformats). Ionizing radiation dose reduced via iterative reconstruction/FBP blend and body size kV/mA adjustment. Comparison: None FINDINGS: POSTOPERATIVE CHANGES: None. BRAIN PARENCHYMA: No intraparenchymal or extra-axial hemorrhage. No mass effect. No midline shift or herniation. Gilmore/white differentiation. VENTRICLES/EXTRA-AXIAL SPACES: Oval for patient's age. SINUSES/MASTOIDS: The visualized sinuses are clear although the maxillary sinuses are not completely included. Mastoids and middle ears are clear. MSK: No displaced or depressed calvarial fracture. OTHER: No hyperdense intraluminal thrombus. CT/CT head/brain wo con IMPRESSION: 1. No acute intracranial abnormality. No hemorrhage or mass effect. Electronically authenticated by: BRANDEN ELDRIDGE Date: 08/20/2024 21:55
--- NOTE | 2024-08-20 19:15 | ECG_ITS ---
The [facility] Test Date: 2024-08-20 Pat Name: SAAD DURHAM Department: Room: - Gender: Female Manager Plant: : 1985 Requested By: HERMES STRANGE Order Number: [id number] Reading MD: KAILASH MELENDEZ Measurements Intervals [place] Rate: 110 P: 45 DC: 146 QRS: 60 QRSD: 86 T: 4 QT: 336 QTc: 401 Interpretive Statements 1120 Sinus tachycardia 4068 Nonspecific Twave abnormality 9140 abnormal rhythm ECG Compared to ECG 08/17/2024 07:22:08 Sinus rhythm no longer present Electronically Signed On 08-22-2024 16:30:29 EST by KAILASH MELENDEZ
--- NOTE | 2024-08-20 19:16 | XR_ITS ---
[address] [address] Patient Name: SAAD DURHAM MRN: [id number] date: 1985 Sex: F Assigned Patient Location: ER Current Patient Location: ER Accession/Order Number: [id number] Exam Date: 08/20/2024 20:02 Report Date: 08/20/2024 22:04 At the request of: KIERRA DAWSON Procedure: XR chest 1V EXAMINATION: XR chest 1V, , 08/20/2024 8:02 PM EST INDICATION: chest pain HISTORY: Ordering Provider Reason for Exam: chest pain Technologist Note: Additional: COMPARISON: None. TECHNIQUE: Chest x-ray: One view. FINDINGS: No pneumothorax, pleural effusion or focal airspace consolidation. Heart is normal in size. Bony thorax is unremarkable. XR/XR chest 1V IMPRESSION: No acute cardiopulmonary process. Electronically authenticated by: HITESH TREVINO Date: 08/20/2024 22:04
[2024-08-20] MEDS: DIPHENHYDRAMINE HCL 50 MG/ML VIAL 25 MG IV (19:33)
[2024-08-20] MEDS: METOCLOPRAMIDE HCL 10 MG/2 ML VIAL IVP (19:33)
--- NOTE | 2024-08-20 19:34 | ED_ITS ---
HPI HPI - General Adult General Chief complaint: Headache Stated complaint: Headache Time Seen by Provider: 08/20/24 19:06 Source: patient and family Mode of arrival: Wheelchair History of Present Illness HPI narrative: 39-year-old female to the emergency department chief complaint of headache and chest pain. Patient reports she was recently seen in this department for chest pain. She reports that she has had some numbness and tingling as well as palpitations associated. Patient reports she took nifedipine for the first time today. She reports she developed a severe headache afterwards. It was gradual in onset. She reports she is also had some congestion. She denies any fever, sweats, chills. No neck pain or back pain. She has had nausea and vomiting all day. She reports intermittent chest pain throughout the day. Intermittent paresthesias to her hands and feet bilaterally throughout the day. She reports she is currently trying to get . Related Data Home Medications ?Medication ?Instructions ?Recorded ?Confirmed aspirin 81 mg capsule 81 mg PO DAILY 06/28/23 08/17/24 vits,calcium 21-iron fum 1 tab PO DAILY 06/28/23 08/17/24 14 mg iron-folic acid 400 mcg tablet ( Complete) Previous Rx's ?Medication ?Instructions ?Recorded ibuprofen 800 mg tablet 800 mg PO Q8H PRN pain 14 days #40 07/19/23 tabs Allergies Allergy/AdvReac Type Severity Reaction Status Date / Time topiramate (From Topamax) Allergy Mild Verified 06/24/23 10:52 Opioid HPI Opioid Management Most Recent Opioid Data: Last Pain Scale 4 08/17/24 08:22 08/17/24 Ur Phencyclidine Scrn Negative (NEGATIVE) 07/15/23 19:40 06/22 01/10 Review of Systems ROS Status of ROS 10 or more systems reviewed and unremark able except as noted in history and below PFSH PFSH Social History Little interest or pleasure in doing things: not at all Feeling down, depressed, or hopeless: not at all Exam Narrative Exam Narrative: VITALS: I have reviewed the triage vital signs. GENERAL: Well developed, well appearing adult in no acute distress. NEURO: Alert and oriented x4. Moves all extremities. Face is symmetric and expressive. Cranial nerves II through XII grossly intact as tested. Muscular strength and sensation grossly intact upper and lower extremities bilaterally. No dysarthria. No aphasia. No ataxia. Normal gait. NIHSS 0. EYES: PERRL. No scleral icterus or conjunctival injection. No discharge. HENT: Normocephalic, atraumatic. Hearing is grossly intact. Nares grossly patent and without discharge. Mucous membranes moist. NECK: No JVD. Patient moves neck without restriction. No meningismus CARDIO: Rhythm regular. Normal rate. No murmur, rub, or gallop. Pulses equal bilaterally in the upper and lower extremity. No lower extremity edema. PULM: Lungs clear to auscultation in all beatty. No wheezes, rales, or rhonchi. No conversational dyspnea. No splinting, stridor, or accessory muscle use. GI/: Abdomen is soft and non-tender. Normoactive bowel sounds. EXTREMITIES: Symmetric muscle bulk. No joint swelling. No clubbing, cyanosis, or deformity. SKIN: Warm and dry. Normal turgor. No rash or lesions appreciated. PSYCH: Anxious Constitutional Vital Signs, click to edit/add: Last Vital Signs Temp 98.1 F 08/20/24 18:50 Pulse 118 H 08/20/24 18:50 Resp 18 08/20/24 18:50 BP 165/105 H 08/20/24 18:50 Pulse Ox 98 08/20/24 18:50 O2 Del Method Room Air 08/20/24 18:50 Course Vital Signs Vital signs: Vital Signs Temperature 98.1 F 08/20/24 18:50 Pulse Rate 118 H 08/20/24 18:50 Respiratory Rate 18 08/20/24 18:50 Blood Pressure 165/105 H 08/20/24 18:50 Pulse Oximetry 98 08/20/24 18:50 Oxygen Delivery Method Room Air 08/20/24 18:50 Temperature 98.1 F 08/20/24 18:50 Pulse Rate 118 H 08/20/24 18:50 Respiratory Rate 18 08/20/24 18:50 Blood Pressure 165/105 H 08/20/24 18:50 Pulse Oximetry 98 08/20/24 18:50 Oxygen Delivery Method Room Air 08/20/24 18:50 Medical Decision Making MDM Narrative Medical decision making narrative: 39-year-old female to the emergency department chief complaint of severe headache, chest pain. Vital stable, the patient is afebrile. Cardiac workup as well as a CT scan of the head is initiated. Patient agrees with this plan. Magnesium, Reglan, Benadryl, fluids are ordered. Story is not consistent with SAH given gradual onset, history of migraines however she describes this headache as far more severe than previous. There is no meningismus. No infectious symptoms. I do not believe this represents meningitis. Lab work reviewed and noted. No major abnormalities. Troponin very low. EKG without evidence of ischemia. Chest x-ray without acute findings. CT head without acute findings. Patient did get significant relief with initial cocktail. Second round after CT came back normal. Patient feels much improved. Agreeable plan for discharge home. Return precautions were discussed. All questions were answered. Discussed ongoing care at home. All questions were answered. The patient was discharged home. Medical Records Medical records reviewed: Yes I reviewed the patient's medical records Lab Data Labs: Lab Results 08/20/24 08/20/24 Range/Units 19:15 19:45 Sodium 136 (136-145) mmol/L Potassium 5.1 (3.5-5.1) mmol/L Chloride 100 (98-107) mmol/L Carbon Dioxide 23.6 (21.0-32.0) mmol/L Anion Gap 17.5 BUN 9.0 (7.0-18.0) mg/dL Creatinine 0.51 L (0.55-1.02) mg/dL Est GFR ( Amer) >60 (>=60 mL/min/1.73m^2) Est GFR (Non-Af Amer) >60 (>=60 mL/min/1.73m^2) BUN/Creatinine Ratio 17.6 Glucose 136 H (74-106) mg/dL Calcium 9.6 (8.5-10.1) mg/dL Troponin I High Sens <4.0 L (4.0-51.3) pg/mL Urine HCG, Qual Negative (NEGATIVE) ECG Data Attestation: I personally reviewed and interpreted this ECG as follows: (Sinus tachycardia rate of 110. No STEMI. Normal QTc) Discharge Plan Discharge Chief Complaint: Headache Clinical Impression: Migraine Patient Disposition: Home, Self-Care Time of Disposition Decision: 22:13 Condition: Good Mode of Transportation: Private Vehicle Prescriptions / Home Meds: No Action aspirin 81 mg capsule 81 mg PO DAILY Complete 14 mg iron- 400 mcg tablet 1 tab PO DAILY ibuprofen 800 mg tablet 800 mg PO Q8H PRN (Reason: pain) 14 Days Qty: 40 0RF Print Language: Botswanan Instructions: Migraine Headache (ED) Additional Instructions: Call the office of your primary care doctor to arrange for follow-up within the above-stated timeframe. Your ED visit was focused on your acute issue and does not replace primary care. You should review your labs, imaging, and diagnoses from this ED visit with your primary care physician. There may be non-emergent/ incidental findings that need further evaluation. You should review your vital signs including blood pressure with your PCP. If you were prescribed medications you should discuss possible side-effects and drug interactions with your pharmacist. Call 911 or go to the nearest Emergency Department if you develop any new or worsening symptoms. Seek immediate medical attention if you develop: worsening headache, nausea, vomiting, confusion, weakness, loss of motion in your arms or legs, loss of control of your urine Referrals: Orestes Zamora MD [Primary Care Provider] - 1 week
[2024-08-20] MEDS: MAGNESIUM SULFATE IN WATER 2 GM/50 ML PREMIX IV (19:38)
[2024-08-20] MEDS: 0.9 % SODIUM CHLORIDE 1,000 ML 1000 ML IV (19:38)
[2024-08-20 19:54] LABS: HCG Qualitative Urine* NEGATIVE (NEGATIVE); Internal Control Within Normal Limits
[2024-08-20 19:55] LABS: Anion Gap 17.5; BUN Creatinine Ratio 17.6; Calcium 9.6 mg/dL (8.5-10.1); Carbon Dioxide 23.6 mmol/L (21.0-32.0); Chloride 100 mmol/L (98-107); Estimated GFR (African America >60 (>=60 mL/min/1.73m^2); Estimated GFR (Non-African Ame >60 (>=60 mL/min/1.73m^2); Glucose 136 mg/dL (74-106); Sodium 136 mmol/L (136-145); Troponin I High Sensitivity <4.0 pg/mL (4.0-51.3)
[2024-08-20 19:59] LABS: Potassium 5.1 mmol/L (3.5-5.1)
[2024-08-20] MEDS: DEXAMETHASONE SOD PHOS 10 MG/ML VIAL IV (22:21)
[2024-08-20] MEDS: KETOROLAC TROMETHAMINE 30 MG/ML VIAL IVP (22:21)
[2024-08-20] MEDS: MORPHINE SULFATE 2 MG/ML SYRINGE IV (22:21)
[2024-08-20 22:34] VITALS: BP 132/102; PULSE 121; TEMP 36.9; O2SAT 95
== END 2024-08-20 22:36 | disposition home or self-care (01) ==
PROVIDERS: Emergency Provider Student in an Organized Health Care Education/Training Program; PCP Family Medicine
DX: G43.909 Migraine, unspecified, not intractable, without status migrainosus (principal); R07.9 Chest pain, unspecified
CPT/HCPCS: 36415; 70450; 71045; 80048; 84484; 84703; 93005; 96365; 96375; 99285; J1100; J1200; J1885; J2270; J2765; J3475

== ENCOUNTER 2025-01-31 11:47 | Emergency (ER) | payer OTHER, SELFPAY ==
[2025-01-31] VITALS (22 sets, daily range): BP systolic 125–141; BP diastolic 90–102; PULSE 104–116; TEMP 37; O2SAT 95–99; BMI 36.3
[2025-01-31 12:37] LABS: Basophils Absolute Auto 0.1 10^3/uL (0.0-0.1); Basophils Percent Auto 0.3 % (0.2-2.0); Eosinophils Percent Auto 0.1 % (0.9-7.0); Hematocrit 42.3 % (36.0-48.0); Hemoglobin 14.3 g/dL (12.0-16.0); Immature Granulocytes Abs Auto 0.06 10^3/uL (0.00-0.03); Immature Granulocytes Pct Auto 0.3 % (0.0-0.5); Lymphocytes Absolute Auto 4.1 10^3/uL (1.2-3.8); Lymphocytes Percent Auto 22.2 % (20.5-60.0); Mean Corpuscular HGB Conc 33.8 g/dL (29.9-35.2); Mean Corpuscular Hemoglobin 30.4 pg (26.7-34.0); Mean Corpuscular Volume 89.8 fL (81.0-99.0); Mean Platelet Volume 10.7 fL (9.5-13.5); Monocytes Absolute Auto 0.8 10^3/uL (0.3-0.8); Monocytes Percent Auto 4.4 % (1.7-12.0); Neutrophils Absolute Auto 13.3 10^3/uL (1.4-6.5); Neutrophils Percent Auto 72.7 % (43.0-75.0); Platelet Count 277 10^3/uL (150-450); Red Blood Count 4.71 10^6/uL (4.20-5.40); Red Cell Distribution Width 12.8 % (11.0-15.0); White Blood Count 18.3 10^3/uL (4.0-11.0)
[2025-01-31 12:40] LABS: Bilirubin Urine NEGATIVE (NEGATIVE); Blood Urine NEGATIVE (NEGATIVE); Clarity Urine CLEAR (CLEAR); Color Urine LT. YELLOW (YELLOW); Glucose Urine UA NEGATIVE (NEGATIVE); Ketones Urine NEGATIVE (NEGATIVE); Leukocyte Esterase Urine TRACE (NEGATIVE); Nitrite Urine NEGATIVE (NEGATIVE); Protein Urine NEGATIVE (NEG/TRACE); pH Urine 6.5 (5.0-9.0)
[2025-01-31 12:41] LABS: Urine Microscopic Indicated YES
[2025-01-31 12:52] LABS: HCG Qualitative NEGATIVE (NEGATIVE); Internal Control Within Normal Limits
[2025-01-31 12:53] LABS: Bacteria Urine TRACE #/HPF (NONE SEEN); Mucus Urine NONE SEEN (NONE SEEN); RBC Urine 0-2 #/HPF (0-2); Squamous Epithelial Cell Urine FEW #/LPF (NONE/RARE)
[2025-01-31 12:54] LABS: Cast Seen? NONE SEEN #/LPF (NONE SEEN); Crystals Seen? None Seen #/HPF (None Seen); Urine Culture Indicated YES-FRMC
[2025-01-31 12:54] LABS: Alanine Aminotransferase 76 U/L (14-59); Albumin Globulin Ratio 0.9; Albumin Level 3.6 g/dL (3.4-5.0); Alkaline Phosphatase 68 U/L (46-116); Anion Gap 14.7; Aspartate Amino Transferase 26 U/L (15-37); BUN Creatinine Ratio 13.1; Bilirubin Total 0.9 mg/dL (0.2-1.0); Carbon Dioxide 27.7 mmol/L (21.0-32.0); Chloride 102 mmol/L (98-107); Estimated GFR (African America >60 (>=60 mL/min/1.73m^2); Estimated GFR (Non-African Ame >60 (>=60 mL/min/1.73m^2); Globulin 3.9 g/dL; Glucose 185 mg/dL (74-106); Potassium 3.4 mmol/L (3.5-5.1); Sodium 141 mmol/L (136-145); Total Protein 7.5 g/dL (6.4-8.2)
[2025-01-31 13:02] LABS: Lactate/Lactic Acid 2.5 mmol/L (0.4-2.0)
--- NOTE | 2025-01-31 13:05 | CT_ITS ---
The [address] [address] Patient Name: SAAD DURHAM MRN: [id number] date: 1985 Sex: F Assigned Patient Location: ER Current Patient Location: ER Accession/Order Number: [id number] Exam Date: 01/31/2025 13:57 Report Date: 01/31/2025 14:03 At the request of: MARQUES ALEMAN MD Procedure: CT abdomen pelvis w con CT ABDOMEN AND PELVIS WITH CONTRAST COMPARISON: None CLINICAL DATA: Lower abdominal pain in the suprapubic region. Leukocytosis. Spiral images were obtained through the abdomen and pelvis following [address] exam was performed using one or more following dose reduction techniques: Automated exposure control, adjustment of the mA and/or kV according to patient size, or use of iterative reconstruction technique. Limited cuts through the lung bases show no contributory findings. There is fatty infiltration of the liver. No intrahepatic masses are identified. No calcified gallstones are seen. The spleen, pancreas and adrenal glands show no acute abnormalities. There are symmetric renal nephrograms, without hydronephrosis. The abdominal aorta is normal caliber. Small retroperitoneal and mesenteric lymph nodes are present. No ascites is seen. The small bowel loops are normal caliber. There is a normal retrocecal appendix. There is fluid and food debris within the stomach. There is stool within the ascending and transverse colon. The left colon is not as well distended. The bony structures are intact. Images through the pelvis show normal caliber small bowel loops. There is air and a small amount of stool at the distal colon. No diverticular disease is noted. The uterus is slightly levoverted. Bilateral ovarian follicles are seen however there are no dominant cysts. There is a small umbilical hernia containing fat. No urinary bladder abnormalities are noted. No ascites is seen. CT/CT abdomen pelvis w con IMPRESSION: NO BOWEL OR URINARY TRACT OBSTRUCTION. FATTY LIVER. NO ACUTE FINDINGS. Impression dictated by: Una Augustine M.D. 01/31/2025 2:03 PM Dictation Location: [place] [address] Electronically authenticated by: [id number] Y Date: 01/31/2025 14:03
[2025-01-31] MEDS: 0.9 % SODIUM CHLORIDE 1,000 ML 1000 ML IV ×2 (13:19→13:55)
[2025-01-31 14:48] LABS: Lactate/Lactic Acid 0.7 mmol/L (0.4-2.0)
[2025-01-31] MEDS: CEPHALEXIN 500 MG CAPSULE PO (16:53)
--- NOTE | 2025-01-31 17:39 | ED_ITS ---
HPI - Abdominal Pain General Chief Complaint: Abdominal Pain Stated Complaint: ABDOMINAL PAIN POSSIBLE UTI Time Seen by Provider: 01/31/25 12:17 Mode of arrival: walk-in History of Present Illness HPI narrative: The patient is coming to the ER with nonspecific symptoms of headache in the last 1 week in addition to suprapubic and pelvic pain that is mostly heaviness whenever she stands up, she mentioned that she has been trying to be as she follow-up with the [employer] [employer] doctor for a workup for that The patient mentioned that every time she stands up she feels this cramping in her pelvis No vaginal discharge no risk for STD the patient have no fever no chills no other concerns No nausea no vomiting and no change in bowel movement Related Data Home Medications ?Medication ?Instructions ?Recorded ?Confirmed vits,calcium 21-iron fum 1 tab PO DAILY 06/2808/17/24 14 mg iron-folic acid 400 mcg tablet ( Complete) hydrochlorothiazide 25 mg tablet 25 mg PO QAM 01/31/25 01/31/25 Previous Rx's ?Medication ?Instructions ?Recorded cephalexin 500 mg capsule 500 mg PO Q8H 7 days #21 cap s 01/31/25 Allergies Allergy/AdvReac Type Severity Reaction Status Date / Time topiramate (From Topamax) Allergy Mild Numbness Verified 01/31/25 12:03 Review of Systems ROS Status of ROS 10 or more systems reviewed and unremark able except as noted in history and below PFSH PFS Social History Little interest or pleasure in doing things: not at all Feeling down, depressed, or hopeless: not at all Exam Narrative Exam Narrative: Nurses notes and vital signs reviewed and patient is not hypoxic. General: Well-appearing and in no apparent distress. Skin: Warm, dry, no pallor noted. No rash. Head: Normocephalic, atraumatic. Neck: Supple, non-tender. Eye: Pupils are equal, round and EOMI. No scleral icterus. Ears, Nose, Mouth, and Throat: TM are clear, no nasal mucosal hypertrophy. Oral mucosa is moist, no posterior oropharynx erythema, uvula is mid-line Cardiovascular: Regular Rate and Rhythm without murmur, gallop or rub. Respiratory: No accessory muscle use or respiratory distress. Lungs are clear to auscultation, no wheezing, rales or rhonchi Chest Wall: no tenderness Back: No midline thoracic or lumbar vertebral tenderness. No CVA tenderness Musculoskeletal: normal ROM, no calf or popliteal tenderness, no lower extremity edema/swelling GI: Abdomen is soft, non-distended. Normal bowel sounds. No masses appreciated. Suprapubic discomfort in deep palpation Neurological: A&O x4. No cranial nerve dysfunction observed. No truncal ataxia. Moves all extremities. Sensation intact. Psychiatric: Cooperative and interactive. Normal mood and affect. Constitutional Vital Signs, click to edit/add: Last Vital Signs Temp 98.6 F 01/31/25 12:04 Pulse 104 H 01/31/25 16:56 Resp 18 01/31/25 16:56 BP 137/94 H 01/31/25 16:56 Pulse Ox 99 01/31/25 16:56 O2 Del Method Room Air 01/31/25 16:56 Course Vital Signs Vital signs: Vital Signs Temperature 98.6 F 01/31/25 12:04 Pulse Rate 116 H 01/31/25 12:04 Respiratory Rate 20 01/31/25 12:04 Blood Pressure 141/102 H 01/31/25 12:04 Pulse Oximetry 98 01/31/25 12:04 Oxygen Delivery Method Room Air 01/31/25 12:04 Temperature 98.6 F 01/31/25 12:04 Pulse Rate 104 H 01/31/25 16:56 Respiratory Rate 18 01/31/25 16:56 Blood Pressure 137/94 H 01/31/25 16:56 Pulse Oximetry 99 01/31/25 16:56 Oxygen Delivery Method Room Air 01/31/25 16:56 MDM - Abdominal Pain MDM Narrative Medical decision making narrative: The patient CBC did show leukocytosis Chemistry showing some elevated lactic acid with 2.5 The patient was tachycardic initially she was provided IV fluid The patient also had a CAT scan of the abdomen that showed no acute significant pathology the ultrasound obtained also to make sure that there is no underlying pathology that is missed especially with the patient having pelvic pain whenever she stands up The patient CAT scan did not show any acute pathology except for some stool in the distal colon Right now I did explain to the patient that after IV fluids that her lactic acid improved she did have some dehydration and her urine did show some leukocyte esterase and some bacteria but there was not enough signs for infection but with the patient presentation I prefer to cover her with antibiotics just to be on the safe side The patient was instructed about monitoring her symptoms she is to come back to the ER in case of any worsening of the pain or any fever Patient is feeling much better before getting discharged The patient is to follow up with primary care physician in next 2-3 days or to return to the emergency department should any of the signs or symptoms worsen or new symptoms develop. The patient agrees with the following Diagnosis and Treatment plan and the patient will be discharged home. Lab Data Labs: Lab Results 01/31/25 01/31/25 01/31/25 Range/Units 12:16 12:19 14:28 WBC 18.3 H (4.0-11.0) 10^3/uL RBC 4.71 (4.20-5.40) 10^6/uL Hgb 14.3 (12.0-16.0) g/dL Hct 42.3 (36.0-48.0) % MCV 89.8 (81.0-99.0) fL MCH 30.4 (26.7-34.0) pg MCHC 33.8 (29.9-35.2) g/dL RDW 12.8 (11.0-15.0) % Plt Count 277 (150-450) 10^3/uL MPV 10.7 (9.5-13.5) fL Neut % (Auto) 72.7 (43.0-75.0) % Lymph % (Auto) 22.2 (20.5-60.0) % [place] % (Auto) 4.4 (1.7-12.0) % Eos % (Auto) 0.1 L (0.9-7.0) % Baso % (Auto) 0.3 (0.2-2.0) % Neut # (Auto) 13.3 H (1.4-6.5) 10^3/uL Lymph # (Auto) 4.1 H (1.2-3.8) 10^3/uL [place] # (Auto) 0.8 (0.3-0.8) 10^3/uL Eos # (Auto) 0.0 (0.0-0.7) 10^3/uL Baso # (Auto) 0.1 (0.0-0.1) 10^3/uL Abs Immat Gran (auto) 0.06 H (0.00-0.03) 10^3/uL Imm/Tot Granulo (auto) 0.3 (0.0-0.5) % Sodium 141 (136-145) mmol/L Potassium 3.4 L (3.5-5.1) mmol/L Chloride 102 (98-107) mmol/L Carbon Dioxide 27.7 (21.0-32.0) mmol/L Anion Gap 14.7 BUN 8.0 (7.0-18.0) mg/dL Creatinine 0.61 (0.55-1.02) mg/dL Est GFR ( Amer) >60 (>=60 mL/min/1.73m^2) Est GFR (Non-Af Amer) >60 (>=60 mL/min/1.73m^2) BUN/Creatinine Ratio 13.1 Glucose 185 H (74-106) mg/dL Lactate 2.5 H* 0.7 (0.4-2.0) mmol/L Calcium 9.0 (8.5-10.1) mg/dL Total Bilirubin 0.9 (0.2-1.0) mg/dL AST 26 (15-37) U/L ALT 76 H (14-59) U/L Alkaline Phosphatase 68 (46-116) U/L Total Protein 7.5 (6.4-8.2) g/dL Albumin 3.6 (3.4-5.0) g/dL Globulin 3.9 g/dL Albumin/Globulin Ratio 0.9 Serum HCG, Qual Negative (NEGATIVE) Urine Color Lt. yellow (YELLOW) Urine Clarity Clear (CLEAR) Urine pH 6.5 (5.0-9.0) Ur Specific [place] 1.010 (1.005-1.025) Urine Protein Negative (NEG/TRACE) mg/dL Urine Glucose (UA) Negative (NEGATIVE) mg/dL Urine Ketones Negative (NEGATIVE) mg/dL Urine Occult Blood Negative (NEGATIVE) Urine Nitrite Negative (NEGATIVE) Urine Bilirubin Negative (NEGATIVE) Urine Urobilinogen 1.0 (0.2-1.0) EU/dL Ur Leukocyte Esterase Trace A (NEGATIVE) Urine RBC 0-2 (0-2) #/HPF Urine WBC 5-10 A (NONE SEEN) #/HPF Ur Squamous Epith Cells Few A (NONE/RARE) #/LPF Urine Crystals None seen (None Seen) #/HPF Urine Bacteria Trace A (NONE SEEN) #/HPF Urine Casts None seen (NONE SEEN) #/LPF Urine Mucus None seen (NONE SEEN) Ur Culture Indicated? Yes-[facility] [place] Blood Type A Positive Antibody Screen Negative Discharge Plan Discharge Chief Complaint: Abdominal Pain Clinical Impression: UTI (urinary tract infection), Pelvic pain Patient Disposition: Home, Self-Care Time of Disposition Decision: 16:49 Condition: Good Prescriptions / Home Meds: New cephalexin 500 mg capsule 500 mg PO Q8H 7 Days Qty: 21 0RF No Action hydrochlorothiazide 25 mg tablet 25 mg PO QAM Complete 14 mg iron- 400 mcg tablet 1 tab PO DAILY Print Language: Uzbek Instructions: Pelvic Pain (ED) Referrals: Orestes Zamora MD [Primary Care Provider, Family Practice] - 1 week Discharge Date/Time: 01/31/25 16:58
== END 2025-01-31 16:58 | disposition home or self-care (01) ==
PROVIDERS: Emergency Provider Emergency Medicine; PCP Family Medicine
DX: N39.0 Urinary tract infection, site not specified (principal); R10.2 Pelvic and perineal pain; K76.0 Fatty (change of) liver, not elsewhere classified; N88.8 Other specified noninflammatory disorders of cervix uteri; N83.02 Follicular cyst of left ovary; N83.01 Follicular cyst of right ovary; R51.9 Headache, unspecified; D72.829 Elevated white blood cell count, unspecified
CPT/HCPCS: 36415; 74177; 76830; 80053; 81001; 83605; 84703; 85025; 86850; 86900; 86901; 87086; 99285; Q9967

== ENCOUNTER 2025-06-21 11:17 | Outpatient (OUT) | payer OTHER, SELFPAY ==
--- OUTSIDE RECORDS SUMMARY | 2025-06-21 11:21 | XMS_ITS | Clinical Summary ---
Author Organization [facility] Address [address] [place] [address] Care Team Providers Care Supervisor Stone Name Role Phone Orestes Grullon MD Primary Care Provider [phone] Orestes Grullon MD Unavailable Allergies Active AllergyReactionsCriticalityNoted DateCommentsTopiramateDiarrhea,Other 01/31/2023 Tingling in finger and face, paresthesias Medications MedicationSigDispense QuantityRefillsLast FilledStart DateEnd DateStatus fluocinonide (Lidex) 0.05 % external solution Indications:Other seborrheic dermatitisApply to affected areas on the scalp, up to twice a day when flared, 30 day supply 60 mL 4Active hydroCHLOROthiazide (HYDRODiuril) 25 MG tablet Indications:Benign essential hypertensionTAKE 1 TABLET BY MOUTH EVERY DAY 90 tablet 5Active fluocinolone (Synalar) 0.025 % cream Indications:Chronic eczematous otitis externa of both earsApply to right outer ear 2 times daily for 10 day 15 g 5Active fluticasone (Flonase) 50 MCG/ACT nasal spray Indications:Eustachian tube dysfunction, leftADMINISTER 2 SPRAYS INTO EACH NOSTRIL DAILY SHAKE GENTLY. BEFORE FIRST USE, PRIME PUMP. AFTER USE, CLEAN TIP AND REPLACE CAP. 48 mL 5Active medroxyPROGESTERone (Provera) 10 MG tablet Indications:AnovulationTake 1 tablet (10 mg) by mouth Daily for 10 days 10 tablet 5Active Active Problems ProblemNoted DateDiagnosed DateStrain of AC joint, right, initial encounter 02/26/2025 Assessment & Plan (02/26/2025 11:41 AM EDT): Appears to have AC joint strain but unclear cause. Treat with prednisone and ice PRN. Handout withROM exercises to patient. Eustachian tube dysfunction, left02/07/2025 Assessment & Plan (02/07/2025 12:19 PM EDT): Discomfort off and on and fluid behind left TM. Possibly related to postnasal drip. Start flonase daily. If no improvement will refer to ENT. Avvxfrcttia59/20/2025 Assessment & Plan (02/07/2025 12:19 PM EDT): Discomfort off and on and fluid behind left TM. Possibly related to postnasal drip. Start flonase daily. If no improvement will refer to ENT. Annual physical exam08/07/2024 Assessment & Plan (12/11/2024 8:08 AM EDT): Due for labs. Discussed proper diet and regular aerobic exercise. Need aerobic exercise 5-6 days a week for 30 minutes at a time. Smaller portions and limit total calories. Colonoscopy after age 45. Tetanus every 10 years. Advised not to smoke. Assessment & Plan (08/07/2024 8:49 AM EST): Due for labs. Discussed proper diet and regular aerobic exercise. Need aerobic exercise 5-6 days a week for 30 minutes at a time. Smaller portions and limit total calories. Colonoscopy after age 45. Tetanus every 10 years. Advised not to smoke. Class 2 severe obesity due to excess calories with serious comorbidity and body mass index (BMI) of36.0 to 36.9 in adult08/07/2024 Assessment & Plan (09/09/2024 9:26 AM EST): Discussed proper diet and regular aerobic exercise. Recommend Weight Watchers and need to limit calories and smaller portions. Need to increase activity and regular aerobic exercise several days a week for 30 minutes at a time. Assessment & Plan (08/07/2024 8:50 AM EST): Discussed proper diet and regular aerobic exercise. Recommend Weight Watchers and need to limit calories and smaller portions. Need to increase activity and regular aerobic exercise several days a week for 30 minutes at a time. Migraine without aura and without status migrainosus, not jftsrdglwul61/20/2024 Benign essential rnguzyhanovd58/07/2024 Assessment & Plan (12/11/2024 8:08 AM EDT): BP improved and monitor PRN. Discussed DASH diet. Assessment & Plan (09/09/2024 9:26 AM EST): BP improved and monitor PRN. Discussed DASH diet. Assessment & Plan (08/07/2024 8:49 AM EST): BP elevated but took decongestant. Previously normal and start to monitor PRN. Vitamin D dpyghnhgxz28/07/2024 Resolved Problems ProblemNoted DateDiagnosed DateResolved DateAcute UTI Assessment & Plan (02/07/2025 12:18 PM EDT): Recent UTI and improved with treatment. Monitor. URI, acute Assessment & Plan (12/11/2024 8:08 AM EDT): Illness likely due to a virus and need to treat symptoms. Use sudafed or other decongestants as needed. Use Robitussin or Robitussin-DM for cough. Can use afrin for congestion but no longer than 3 days. Can use Mucinex to bring up phlegm. Use Motrin or Tylenol as needed for fever, aches, or pains. Increase fluid intake and rest. Should improve over next 5-7 days and if no better or worse call forre-evaluation. Acute pain of left Assessment & Plan (08/07/2024 8:49 AM EST): Recent pain but improving. Likely strain and monitor. Use OTC PRN. Numbness and tingling of both upper gkykviudquu89 Assessment & Plan (02/07/2024 11:29 AM EDT): Numbness/tingling x 1-2, both UE, but more so on RUE. Symptoms more pronounced from elbow down. Denies injury. No change in symptoms with neck movement. Seems very unlikely that her symptoms are cervical radiculopathy. I will order NCV of both UE and then have her follow up with Dr Grullon after that's done to discuss plan of care according to the test results. Primary eaojtiqdutmy21 Assessment & Plan (02/07/2024 11:32 AM EDT): Reports BP at home is typically 130/90 on average. Elevated in office, likely because of anxiety/stress related to her symptoms. She would prefer lifestyle changes/improved diet/weight loss to manage her BP. Patient educated on HTN and will follow up with dr grullon as needed. Chronic whmznaaurwbinv56 Assessment & Plan (11/22/2023 10:24 AM EDT): Evidence of congestion and treat with steroids. Continue flonase. Twahoygxghi94cute non-recurrent mtrfvliotsme25/20/2024 09/09/2024 Assessment & Plan (08/07/2024 8:49 AM EST): Take antibiotics BID for 10 days. Use [...] no better or worse call for re-evaluation. Right knee pain/8272Qbrpyfwmhrxoxwkh65/07/202404/Pregnancy induced hypertension, ([facility]) Assessment & Plan (11/22/2023 10:24 AM EDT): BP improved and monitor PRN. Discussed DASH diet. Assessment & Plan (09/27/2023 8:31 AM EST): Developed HTN in and slowly improving. Reassured can take up to 6 months for BP to normalize. Stop labetalol and monitor. If consistently >140 or >90 will treat. Discussed DASH diet. Gonzalez'nae xhmrrpzhxvsuq66 Assessment & Plan (09/27/2023 8:32 AM EST): Exam consistent with Gonzalez's. Start prednisone for inflammation. Use thumb spica brace. Handout with exercises to patient. Encounters DateTypeDepartmentCare WruxRtdargnxxjx51/31/2025Telephone [facility] [address] [place] [address] Elisa Webb LPN 05/05/2025Telephone [facility] [address] [place] [address] Oksana Cleveland MA 04/25/2025Refill [facility] [address] [place] [address] Karla Cuevas, [employer] from Last 3 Months Family History Medical HistoryRelationNameCommentsDiabetesFatherSaul SalinasHypertensionFather Aristeo SalinasBreast cancerFather's Sister 1Nora CavazosCancerFather's Sister 1 Radha CavazosBreast cancerFather's Sister 2Aida InfanteCancerFather's Sister 2 France InfanteCancerFather's Sister 3Nora CavazosCancerFather's Sister 4Aida InfanteHypertensionMotherIda SalinasBreast cancerOtherCancerPaternal Grandfather Jorge SalinasRelationNameStatusCommentsFatherSaul SalinasAliveFather's Sister 1 Radha LarsonzosAliveFather's Sister 2Aida InfanteAliveFather's Sister 3Radha Duggans AliveFather's Sister 4Aida InfanteAliveMotherIda SalinasAliveOtherPaternal GrandfatherRoman SalinasAliveSister 1AliveSister 2Alive Social History Tobacco UseTypesPacks/DayYears UsedDateSmoking Tobacco: NeverPassive Smoke Exposure: NeverSmokeless Tobacco: Never Tobacco Cessation:Counseling Given: Not Answered Alcohol UseStandard Drinks/WeekCommentsNever0 (1 standard drink = 0.6 oz pure alcohol)B1300 Health LiteracyAnswerDate RecordedHow often do you need to have someone help you when you read instructions, pamphlets, or other written material from your doctor or pharmacy?Never12/11/2024Humiliation, Afraid, Rape, and Kick questionnaireAnswerDate RecordedWithin the last year, have you been afraid of your partner or ex-partner?No12/11/2024Within the last year, have you been humiliated or emotionally abused in other ways by your partner or ex-partner?No12/11/2024Within the last year, have you been kicked, hit, slapped, or otherwise physically hurt by your partner or ex-partner?12/11/2024Within the last year, have you been raped or forced to have any kind of sexual activity by your partner or ex-partner?12/11/2024Social Connection and Isolation Panel AnswerDate RecordedIn a typical week, how many times do you talk on the phone with family, friends, or neighbors?More than three times a week12/11/2024How often do you get together with friends or relatives?Twice a week12/11/2024How often do you attend gnosticist or islam services?1 to 4 times per year12/11/2024 Do you belong to any clubs or organizations such as gnosticist groups, unions, fraternal or athletic groups, or school groups?No12/11/2024How often do you attend meetings of the clubs or organizations you belong to?Never12/11/2024re you , , , , never , or living with a partner?Lfbjmpl2612/11/2024UDIT-CAnswerDate RecordedQ1: How often do you have a drink containing alcohol?Monthly or less12/11/2024Q2: How many drinks containing alcohol do you have on a typical day when you are drinking?1 or Q3: How often do you have six or more drinks on one occasion?Never12/11/2024Overall Financial Resource Strain (CARDIA)AnswerDate RecordedHow hard is it for you to pay for the very basics like food, housing, medical care, and heating?Not hard at all12/11/2024PHQ-2AnswerDate RecordedPatient Health Questionnaire-2 Score0 02/07/2024[facility] [place] [facility] - Occupational Stress QuestionnaireAnswerDate RecordedDo you feel stress - tense, restless, nervous, or anxious, or unable to sleep at night because yourmind is troubled all the time - these days?Not at all12/11/2024Exercise Vital SignAnswerDate RecordedOn average, how many days per week do you engage in moderate to strenuous exercise (like a brisk walk)?1 day12/11/2024On average, how many minutes do you engage in exercise at this level?30 min12/11/2024Hunger Vital SignAnswerDate Recorded Within the past 12 months, you worried that your food would run out before you got the money to buymore.Never true12/11/2024Within the past 12 months, the food you bought just didn't last and you didn't have money to get more.Never true 12/11/2024PRAPARE - TransportationAnswerDate RecordedIn the past 12 months, has lack of transportation kept you from medical appointments or from getting medications?No12/11/2024In the past 12 months, has lack of transportation kept you from meetings, work, or from getting things needed for daily living?No 12/11/2024Housing Stability Vital SignAnswerDate RecordedIn the last 12 months, was there a time when you were not able to pay the mortgage or rent on time?No 09/26/2023In the last 12 months, how many places have you lived?In the last 12 months, was there a time when you did not have a steady place to sleep or slept in ashelter (including now)?No09/26/2023Housing Stability Vital SignAnswerDate RecordedIn the last 12 months, was there a time when you were not able to pay the mortgage or rent on time?No12/11/2024In the past 12 months, how many times have you moved where you were living?t any time in the past 12 months, were you homeless or living in a correction (including now)?No 12/11/2024CommentsUnknownSex and Gender InformationValueDate RecordedSex Assigned at BirthNot on fileLegal ZqpTstzbb62/15/2023 9:44 PM EDTGender Identity Not on fileSexual OrientationNot on file Last Filed Vital Signs Vital SignReadingTime TakenCommentsBlood Smnermrv297/7207 11:09 AM EDT Ybnls39895/09/2025 11:09 AM HTATzpqhibsrzz95.4 ??C (97.5 ??F)02/26/2025 11:09 AM EDTRespiratory Cilm5120 11:09 AM EDTOxygen Qbugcxzzuf60%02/26/2025 11:09 AM EDTInhaled Oxygen Concentration--Sqxxzp48.5 kg (204 lb)02/26/2025 11:09 AM KRRLkmnhm047 cm (5' 3 )02/26/2025 11:09 AM EDTBody Mass Index36.14002/26/2025 11:09 AM EDT Plan of Treatment Health MaintenanceDue DateLast DoneCommentsMMR Vaccines (1 of 1 - Standard series)1988DTaP/Tdap/Td Vaccines (1 - Tdap)1994Varicella Vaccines (1 of 2 - 13+ 2-dose series)2000Hepatitis B Vaccines (1 of 3 - 19+ 3-dose series)2006HPV Vaccines (1 - 3-dose SCDM series)2014COVID-19 Vaccine ( season)5009/02/2023, 07/31/2021, 12/09/2020, Additional history existsInfluenza Vaccine (#1)04/21/2025Pap Smear, 02/28/2023ervical Cancer Ftwgmowxn46/11/2028HPV/Xceooz178003/31/2023HIB VaccinesAged OutNo longer eligible based on patient's age to complete this topic Hepatitis A VaccinesAged OutNo longer eligible based on patient's age to complete this topicIPV VaccinesAged OutNo longer eligible based on patient's age to complete this topicMeningococcal B VaccineAged OutNo longer eligible based on patient's age to complete this topicMeningococcal VaccineAged OutNo longer eligible based on patient's age to complete this topicPneumococcal Vaccine: Pediatrics (0 to 5 Years) and At-Risk Patients (6 to 64 Years)Aged OutNo longer eligible based on patient's age to complete this topicRotavirus VaccinesAged Out No longer eligible based on patient's age to complete this topic Procedures Procedure NamePriorityDate/TimeAssociated DiagnosisCommentsPAP SMEARRoutine 03/21/2024 12:00 AM EDTTHINPREP PAP AND HPV MRNA E6/E7 W/RFL HPV 16,18/45Routine 03/31/2023 12:42 PM EDT Well woman exam with routine gynecological exam from Last 3 Months or Most Recently Relevant to Health Maintenance Results * Pap Smear (03/21/2024 12:00 AM EDT)Specimen (Source)Anatomical Location / LateralityCollection Method / VolumeCollection TimeReceived TimeSwabCervical swab / Unknown Narrative Authorizing ProviderResult TypeResult StatusFazio Nurse [facility] ObLAB CYTOLOGY ORDERABLESFinal ResultPerforming OrganizationAddressCity/State/ZIP CodePhone Number EXTERNAL LAB * THINPREP PAP AND HPV MRNA E6/E7 W/RFL HPV 16,18/45 (03/31/2023 12:42 PM EDT) Narrative Authorizing ProviderResult TypeResult StatusCorey Savage DOLAB BLOOD ORDERABLES Final ResultPerforming OrganizationAddressCity/State/ZIP CodePhone Number EXTERNAL LAB from Last 3 Months or Most Recently Relevant to Health Maintenance Insurance * Guarantor: Eneida PeraltaAccount TypeRelation to PatientDate of BirthPhone Billing AddressPersonal/WpwmzgJmkv1985 [address] [address] Care Teams Team MemberRelationshipSpecialtyStart DateEnd Date Orestes Grullon MD PCP - GeneralFamily Medicine09/26/23 Orestes Grullon MD [address] [place] [id number] PCP - Medical [place] [employer]12/20/2411
--- OUTSIDE RECORDS SUMMARY | 2025-06-21 11:21 | XMS_ITS | CCD ---
Author Organization 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 Name Role Phone Shereen Garcia Unavailable SAVAGE [...] REQUEST, DR BUTLER LISTED Consulting Unavaila ble NADKINA, DR ORESTES Whitfield Primary Care Unavailable SAVAGE ., DR SCHWARTZ Attending Unavailable SAVAGE ., DR SCHWARTZ Admitting Unavailable DOCKERY ., REG Primary Care Unavailable SAVAGE ., DR SCHWARTZ Attending Unavailable NADERER, DR ORESTES Whitfield Primary Care Unavailable SAVAGE ., DR SCHWARTZ Consulting Unavailable SAVAGE ., DR SCHWARTZ Admitting Unavailable Savage, Efren Attending Provider Orestes Strange MD Primary Care Provider [phone] Alma PADILLA, Unavailable Orestes Strange MD Unavailable Corie Horvath Attending Unavailable Corie Horvath Admitting Unavailable Orestes Strange MD Primary Care Provider Eneida Castillo APRN Attending Provider [phone] Corie Horvath MD Attending Provider Jessica Schuler APRN Attending Provider [phone] ORESTES STRANGE Attending Unavailable ALEXANDR, ORESTES Attending Unavailable MARILYN SUAREZ Attending Unavailable ALEXANDR, ORESTES Attending Unavailable MARIOLA WILSON Attending Unavailable ORESTES STRANGE Referring Unavailable ORESTES STRANGE Attending Unavailable ALEXANDR, ORESTES Attending Unavailable Orestes Strange MD Primary Care Provider Orestes Strange MD Attending Provider [phone] Allergies Allergy ClassificationReported Allergen(s)Allergy TypeDate of OnsetReaction(s) Facility (20 sources)TopiramateAllergy to fhvxsvcoa24-76-9178FpcyuzolThree [facility] ([facility] source)topiramateDrug Tjzfdor34-40-3107SqmyngnmiProtestant Hospital Repository Medications Current Medications MedicationDrug Class(es)DatesSig (Normalized)Sig (Original)Albuterol Sulfate 90 mcg/actuation HFA aerosol inhaler (1 source)Start: 44-23-1360Ewdbychsc Sulfate 90 mcg/actuation HFA aerosol inhaler Active 2 INH INHALATION EVERY 4-6 HOURS as needed for shortness of breath or wheezing 6.7 January 15, 2025 12:00amcefdinir 300 mg oral capsule (2 sources)Cephalosporin AntibacterialStart: 08-07-2024 End: 50-51-8743lffc 1 capsule by mouth in the morningcefdinir (Omnicef) 300 MG capsule Indications: Acute non-recurrent pansinusitis Take 1 capsule (300mg) by mouth in the morning and 1 capsule (300 mg) before bedtime. Do all this for 10 days. 20 capsule 08/07/2024 08/17/2024 Activecephalexin 500 mg oral capsule (5 sources)Cephalosporin AntibacterialStart: 01-31-2025 End: 02-56-3433ipqs 1 capsule by mouth in the morning, then take 1 capsule by mouth in the evening, then take 1 capsule by mouth at bedtimecephalexin (Keflex) 500 MG capsule Take 500 mg by mouth in the morning and 500 mg in the evening and 500 mg before bedtime. 01/31/2025 02/24/2025 Discontinued (Therapy completed) Ciprofloxacin-Dexamethasone 0.3-0.1 % drops,suspension (1 source)Start: 86-57-8539Ftmsnunworgtv-Dexamethasone 0.3-0.1 % drops,suspension Active 4 DROPS OTIC Twice daily 7.5 7 January 15, 2025 12:00am left earEthinyl Estradiol / Ferrous fumarate / Norethindrone (3 sources)EstrogenStart: 08-30-2023 End: 58-93-0920cqtihidbkqrdm-ethinyl estradiol (09/09) 1-20 MG-MCG tablet Indications: 6 weeks follow-up Take 1 tablet by mouth in the morning. 28 tablet 11 08/30/2023 09/27/2023 DiscontinuedStart: 08-30-2023 End: 80-58-8646inwdznyiotznn-ethinyl estradiol (09/09) 1-20 MG-MCG tablet Indications: 6 weeks follow-up Take 1 tablet by mouth in the morning. 28 tablet 11 08/30/2023 08/29/2024 Activefluocinolone acetonide 0.1 mg/ml otic solution (10 sources)CorticosteroidStart: 02-24-2025 End: 49-53-2629xwtvjmwtfavc (DermOtic) 0.01 % ear drops Indications: Chronic eczematous otitis externa of both ears Administer 5 drops into each ear in the morning and 5 drops before bedtime. Do all this for 10 days. 20 mL 1 02/24/2025 03/06/2025 ActiveStart: 32-84-7614xnoqvmgencvf (Synalar) 0.025 % cream Indications: Chronic eczematous otitis externa of both ears Apply to right outer ear 2 times daily for 10 day 15 g 1 02/24/2025 Activefluocinonide 0.5 mg/ml topical solution (20 sources)CorticosteroidStart: 05-30-2024 End: 07-31-5040Vrcldtzhuixs 0.05 % solution Active TOPICAL June 02, 2025 12:57pm Apply to affected area on the scalp, up to twice a day when flared Complies with drug therapyfluticasone propionate 0.05 mg/actuat metered dose nasal spray (11 sources)CorticosteroidStart: 40-90-4190Rfrfpeammvt Propionate 50 mcg/actuation spray,suspension Active 2 SPRAY INTRANASAL Daily June 02, 2025 12:57pm Complies with drug therapyStart: 02-12-2025 End: 11-77-7102Zizfztuyqns Propionate 50 mcg/actuation spray,suspension Discontinued 1 SPRAY INTRANASAL January 12:00am June 02, 2025 12:58pmStart: 96-97-3889pxuh 2 spray(s) nasal route once dailyfluticasone (Flonase) 50 MCG/ACT nasal spray Indications: Eustachian tube dysfunction, left Administer 2 sprays into each nostril Daily Shake gently. Before first use, prime pump. After use, clean tip and replace cap. 16 g 2 02/07/2025 Active hydroCHLOROthiazide 25 mg oral tablet (20 sources)Thiazide DiureticStart: 80-16-6453ehrm 1 tablet by mouth once daily Hydrochlorothiazide 25 mg tablet Active 25 MG PO Daily October 23, 2024 1:00am Complies with drug therapyStart: 08-22-2024 End: 46-39-2331ioyd 1 tablet by mouth once dailyhydroCHLOROthiazide (HYDRODiuril) 25 MG tablet Indications: Benign essential hypertension TAKE 1 TAB LET BY MOUTH EVERY DAY 90 tablet 3 09/16/2024 Activelabetalol hydrochloride 100 mg oral tablet (3 sources)beta-Adrenergic BlockerStart: 07-22-2023 End: 61-21-0830ckvg 1 tablet by mouth in the morning, then take 1 tablet by mouth in the evening, then take 1 tablet by mouth at bedtimelabetalol (Normodyne) 100 MG tablet Take 1 tablet by mouth in the morning and 1 tablet in the evening and 1 tablet before bedtime. 0 07/22/2023 09/27/2023 Discontinued medroxyPROGESTERone acetate 10 mg oral tablet (16 sources)ProgestinStart: 89-45-0682xqmd 1 tablet by mouth once daily medroxyPROGESTERone (Provera) 10 MG tablet Indications: Anovulation Take 1 tablet (10 mg) by mouth Daily for 10 days 10 tablet 11/19/2024 ActiveStart: 05-22-2024 End: 23-38-6836wapw 1 tablet by mouth once dailymedroxyPROGESTERone (Provera) 10 MG tablet Indications: Anovulation Take 1 tablet (10 mg) by mouth Daily for 10 days 10 tablet 05/22/2024 08/07/2024 DiscontinuedmetFORMIN (1 source)BiguanidemetFORMIN HCl ActivepredniSONE 50 mg oral tablet (7 sources)Start: 02-26-2025 End: 62-06-6075eonr 1 tablet by mouth once daily before mealtimepredniSONE (Deltasone) 50 MG tablet Indications: Strain of AC joint, right, initial encounter Take 1 tablet (50 mg) by mouth Daily for 6 days 6 tablet 02/26/2025 03/04/2025 ActiveStart: 01-15-2025 End: 92-95-6556nhqi 1 tablet by mouth twice dailyPrednisone 20 mg tablet Discontinued 20 MG PO Twice daily 6 3 January 15, 2025 12:00am February 12, 2025 9:17amStart: 09-27-2023 End: 35-95-3628jylq 1 tablet by mouth in the morningpredniSONE (Deltasone) 50 MG tablet Indications: De Quervain's tenosynovitis Take 1 tablet (50 mg) by mouth in the morning for 6 days. 6 tablet 0 09/27/2023 10/03/2023 Active Completed/Discontinued Medications MedicationDrug Class(es)DatesSig (Normalized)Sig (Original)[id number] 200 actuat albuterol 0.09 mg/actuat metered dose inhaler (2 sources)beta2-Adrenergic AgonistStart: 01-15-2025 End: 65-34-0652Nfcoriqbi Sulfate 90 mcg/actuation HFA aerosol inhaler Discontinued 2 INH INHALATION EVERY 4-6 HOURS as needed for shortness of breath or wheezing 6.7 January 15, 2025 12:00am February 12, 2025 9:28amamoxicillin 80 mg/ml / clavulanate 11.4 mg/ml oral suspension (3 sources)Penicillin-class AntibacterialStart: 01-15-2025 End: 34-01-1661fvfj 1 mL by mouth every twelve hoursAmoxicillin-Pot Clavulanate 400-57 mg/5 mL suspension for reconstitution Discontinued 10.9 ML PO Every 12 hours 152.6 January 15, 2025 12:00am February 12, 2025 9:16amciprofloxacin 3 mg/ml / dexamethasone 1 mg/ml otic suspension (4 sources)Corticosteroid, Quinolone AntimicrobialStart: 02-12-2025 End: 88-09-7029Nrgcqouocamou-Dexamethasone 0.3-0.1 % drops,suspension Discontinued 4 DROPS OTIC Twice daily 7.5 7 February 12, 2025 12:00am June 02, 2025 12:58pm instill 4 drops in affected earStart: 01-15-2025 End: 89-46-6009Hkzkdcwxqfvsp-Dexamethasone 0.3-0.1 % drops,suspension Discontinued 4 DROPS OTIC Twice daily 7.5 January 15, 2025 12:00am February 12, 2025 9:17am left earNIFEdipine 30 mg osmotic 24 hr extended release oral tablet (4 sources)Dihydropyridine Calcium Channel BlockerStart: 10-23-2024 End: 50-39-1329rggg 1 tablet by mouth every twenty-four hoursNifedipine 30 mg tablet extended release 24hr Discontinued MG PO October 23, 2024 1:00am October 23, 2024 10:37ampolymyxin b 75166 unt/ml / trimethoprim 1 mg/ml ophthalmic solution (3 sources)Dihydrofolate Reductase Inhibitor Antibacterial, Polymyxin-class AntibacterialStart: 01-15-2025 End: 42-56-5792Sygchwzes B Sulf-Trimethoprim 10,000 unit- 1 mg/mL drops Discontinued 1 DROPS OPHTHALMIC Every three hours 10 January 15, 2025 12:00am February 12, 2025 9:17am do not exceed 6 doses in a 24 hr period Problems Active Problems Problem ClassificationProblemDateDocumented DateEpisodic/ChronicChronic obstructive pulmonary disease and bronchiectasis (3 sources)Bronchitis; Translations: [Bronchitis, not specified as acute or chronic]47-04-7412JrfwyynuObannxguo hypertension (20 sources)Essential hypertension; Translations: [Essential (primary) hypertension]Onset: 09-27-2023 Resolved: 719515-87-0042CsmnuljZridumdo; including migraine (20 sources)Chronic migraine without aura; Translations: [Chronic migraine without aura, not intractable, without status migrainosus]Onset: 11-08-2023 58-26-8060MxkgkcjPagxavlzqypc; infection of eye (except that caused by tuberculosis or sexually transmitteddisease) (3 sources)Bilateral conjunctivitis; Translations: [Unspecified conjunctivitis] 29-21-8677CiaotrnaXxxmsolch (4 sources)Influenza due to Influenza A virus; Translations: [Influenza due to other identified influenza virus with other respiratory manifestations] 60-24-6634UeyqkhvjUkcflwesb disorders (4 sources)Irregular menstruation, unspecified; Translations: [IRREGULAR MENSTRUATION UNSPECIFIED]Onset: 02-61-5888JltgbzoRuvsroujqbq deficiencies (20 sources)Vitamin D deficiency, unspecified; Translations: [Vitamin D deficiency]Onset: 956820-52-1727UhbuicwMtmls circulatory disease (9 sources)Elevated blood-pressure reading without diagnosis of hypertension; Translations: [Elevated blood-pressure reading, without diagnosis of hypertension]Onset: 143045-92-2764MrflbwagVnoby ear and sense organ disorders (2 sources)Chronic eczema of external auditory canal; Translations: [Other otitis externa, bilateral]82-54-9863CyhwtmxQzidr ear and sense organ disorders (2 sources)Impacted cerumen in right ear; Translations: [Impacted cerumen, right ear]92-36-4961UsmvipvmWfboc female genital disorders (4 sources)Abnormal uterine and vaginal bleeding, unspecified; Translations: [ABNORMAL UTERINE VAGINAL BLEED UNS]Onset: 13-98-7326EfyyioxAxszd nutritional; endocrine; and metabolic disorders (5 sources)Obesity caused by energy imbalance; Translations: [Class 2 obesity due to excess calories without serious comorbidity with body mass index (BMI) of 36.0 to 36.9 in adult]Onset: 971022-36-6399WtmqrdmRrcml nutritional; endocrine; and metabolic disorders (19 sources)Severe obesity; Translations: [Class 2 severe obesity due to excess calories with serious comorbidity and body mass index (BMI) of 36.0 to 36.9 in adult ([facility])]Onset: 473820-12-3519LaawvtjFhdke upper respiratory infections (20 sources)Chronic sinusitis, unspecified; Translations: [Chronic rhinitis] Onset: 11-22-2023 Resolved: 662550-55-0313ZcodmcdQxdds upper respiratory infections (20 sources)Acute pansinusitis; Translations: [Acute pansinusitis, unspecified] Onset: 11-08-2023 Resolved: 029852-27-9541QmoyardhCvzbsd media and related conditions (14 sources)Dysfunction of left eustachian tube; Translations: [Unspecified Eustachian tube disorder, left ear]Onset: 882919-13-9629VyeoahuvZqdfupw and strains (5 sources)Disorder of acromioclavicular joint; Translations: [Strain of unspecified muscle, fascia and tendonat shoulder and upper arm level, right arm, initial encounter]Onset: 672550-05-2932YgzmiakgMpzjmoxvxfrg (1 source)Urinary tract infections (10 sources)Acute urinary tract infection; Translations: [Urinary tract infection, site not specified]Onset: 02-07-2025 Resolved: 234056-39-2235Cduiwgxi Past or Other Problems Problem ClassificationProblemDateDocumented DateEpisodic/ChronicFemale infertility (20 sources)Anovulation; Translations: [Female infertility associated with anovulation]Onset: 11-08-2023 Resolved: 521720-02-7392SlwlifvHmvdldogiouu complicating ; childbirth and the puerperium (20 sources) -induced hypertension; Translations: [Gestational [-induced] hypertension without significant proteinuria, complicating the puerperium]Onset: 09-27-2023 Resolved: 611430-58-1486DvgmbinyAdlbj connective tissue disease (20 sources)Radial styloid tenosynovitis; Translations: [Radial styloid tenosynovitis [de Quervain]]Onset: 09-27-2023 Resolved: 383517-32-3378ZvnzfplpLvsmi endocrine disorders (20 sources)Hyperinsulinism; Translations: [Other hypoglycemia]Onset: 09-27-2023 Resolved: 224954-93-6859TkxgcmpMvgln nervous system disorders (20 sources)Paresthesia of upper limb; Translations: [Anesthesia of skin]Onset: 02-07-2024 Resolved: 568362-19-2692RxyyvqqqAeksa non-traumatic joint disorders (20 sources)Pain in right knee; Translations: [Pain in joint, lower leg]Onset: 09-27-2023 Resolved: 796854-31-5396MaqxrkmgAvipv non-traumatic joint disorders (20 sources)Pain in left shoulder; Translations: [Pain in joint, shoulder region]Onset: 08-07-2024 Resolved: 607898-82-0444FweofjvrNjrgwpxbprli (1 source)Exposure to COVID-19 virus Z20.822Onset: 04-01-2022 Resolved: 09-84-1410Fepgc infection (1 source)COVID-19Onset: 04-01-2022 Resolved: 04-01-2022 Results Test NameValueInterpretationReference RangeFacilityUrine Cultureon 01-31-2025 Bacteria identified Cx Nom (U)<9,000 colonies/ml mixed bacterial skin contaminants 2 Days PERFORMED BY: [place] [id number] PATHOLOGIST CUSTOMER SERVICE REPRESENTATIVE TELLER GÓMEZ GARCIA M.D.NormalThe [facility] Physician GroupComment on above: Performed By: #### CUU #### [place] [address] USAUrine cultureOrdered By: Corie Horvath on 93-83-5353Vfgmvvpp identified Cx Nom (U)2 DaysFirSuburban Community Hospital & Brentwood HospitalCOVID Cepheidon 69-92-8548IKAA-CoV-2 (COVID-19) RNA SHAISTA+probe Ql (Unsp spec)NegativeProtestant HospitalNo Panel InformationOrdered By: Eneida Castillo on 01-15-2025 Quick Strep (POC)Protestant HospitalNo Panel Informationon 01-32-4121HMY Influenza A (PCR)NegativeProtestant HospitalPO Influenza B (PCR)NegativeProtestant HospitalInfluenza virus B Ag [Presence] in Upper respiratory specimen by Rapid immunoassayon 88-97-5092APYAG Ag IA.rapid Ql (Nph)Influenza virus B Ag [Presence] in Upper respiratory specimen by Rapid immunoassayProtestant HospitalNo Panel Informationon 83-36-6233Rkpzawvfb Type A (Rapid)PositiveProtestant HospitalPO SARS CoV-2 AntigenNegativeProtestant HospitalALL PROGESTERONEon 51-32-6271ZXRJJEZHRVEF1.1 ng/mL.[facility] HealthcareComment on above: Follicular phase 0.1 - 0.9 Luteal phase 1.8 - 23.9 Ovulation phase 0.1 - 12.0 First trimester 11.0 - 44.3 Second trimester 25.4 - 83.3 Third trimester 58.7 - 214.0 Postmenopausal 0.0 - 0.1 Performed at: [place] [place] [id number] Commercial Intern: Andrew Kumar PhD, Phone: [phone] CLINISYLe [facility]heur [facility], MemphisCOVID Cepheidon 55-35-4170UTKA-CoV-2 (COVID-19) RNA SHAISTA+probe Ql (Unsp spec)NegativeProtestant HospitalNo Panel Informationon 67-18-3576BXC Influenza A (PCR)NegativeMer[facility] Influenza B (PCR)NegativeProtestant HospitalNo Panel InformationOrdered By: Radha Morel on 27-21-0612Vavhb Strep (POC)Protestant HospitalFibrinogen [Mass/volume] in Platelet poor plasma by Coagulation assayOrdered By: Efren Wan on 45-27-8380Pjupweuzfy Coag (PPP) [Mass/Vol]310 mg/vQ911-745ObwiqkiklProtestant HospitalComment on above:A hematocrit value greater than 55% may lead to inaccurate results in coagulation testing. Patientshaving hematocrit values >55% require a special collection tube for coagulation studies. Please contact the laboratory at [phone] for redraw instructions.PREG QUANT HCGon 43-86-6064DFT BVSKA94008 mIU/mLNormalKindred HealthcareComment on above:Performed By: #### PREGQNT #### [facility] [address] [place] [address] Dr. Alexsander MadrigalHCG [facility] HospitalComment on above: Result Comment: 5-50 0.2-1 WEEK 50-500 1-2 WEEKS 100-5,000 2-3 WEEKS 500-10,000 3-4 WEEKS 1,000-50,000 4-5 WEEKS 10,000-100,000 5-6 WEEKS 15,000-200,000 6-8 WEEKS 10,000-100,000 2-3 MONTHSPerformed By: #### PREGQNT #### [facility] [address] [place] [address] Dr. Alexsander MadrigalPROGESTERONEon 73-98-2348Ypwkbawhoziu6.2 ng/mLNMercy Health St. Elizabeth [facility] HospitalComment on above:Result Comment: Follicular phase 0.1 - 0.9 Luteal phase 1.8 - 23.9 Ovulation phase 0.1 - 12.0 First trimester 11.0 - 44.3 Second trimester 25.4 - 83.3 Third trimester 58.7 - 214.0 Postmenopausal 0.0 - 0.1Performed By: #### PROGES #### [facility] [address] [place] [address] Dr. Alexsander GordonGESTERONEon 75-18-5788Xrxrewkoqsnz3.8 ng/mLNMercy Health St. Elizabeth [facility] HospitalComment on above:Result Comment: Follicular phase 0.1 - 0.9 Luteal phase 1.8 - 23.9 Ovulation phase 0.1 - 12.0 First trimester 11.0 - 44.3 Second trimester 25.4 - 83.3 Third trimester 58.7 - 214.0 Postmenopausal 0.0 - 0.1Performed By: #### PROGES #### [facility] [address] [place] [address] Dr. Alexsander GordonGESTERONEeverett 90-88-0947Issgjyahpfhp<0.1NMercy Health St. Elizabeth [facility] HospitalComment on above:Result Comment: Follicular phase 0.1 - 0.9 Luteal phase 1.8 - 23.9 Ovulation phase 0.1 - 12.0 First trimester 11.0 - 44.3 Second trimester 25.4 - 83.3 Third trimester 58.7 - 214.0 Postmenopausal 0.0 - 0.1Performed By: #### PROGES #### [facility] [address] [address] [address] Alexsander MadrigalPROGESTERONEon 14-37-1072Zxtusdvpgago<0.1NormalThe [facility] HospitalComment on above:Result Comment: Follicular phase 0.1 - 0.9 Luteal phase 1.8 - 23.9 Ovulation phase 0.1 - 12.0 First trimester 11.0 - 44.3 Second trimester 25.4 - 83.3 Third trimester 58.7 - 214.0 Postmenopausal 0.0 - 0.1Performed By: #### PROGES #### [facility] [address] [place] [address] Dr. Alexsander Tomas AUTO DIFFon 16-54-6692CUHZ #0.1 103/ulNormal0.0-0.1The [facility] HospitalComment on above:Performed By: #### CBC #### [facility] [address] [place] [address] Dr. Alexsander MadrigalBasophils/100 WBC (Bld)0.6 %Normal0.2-2.0[facility] Comment on above:Performed By: #### CBC #### [facility] [address] [address] [address] Alexsander Erickson #0.1 103/ulNormal0.0-0.7The [facility] HospitalComment on above: Performed By: #### CBC #### [facility] [address] [place] [address] Dr. Alexsander Klineosinophils/100 WBC (Bld)0.6 %Critically low0.9-7.0The [facility] HospitalComment on above:Performed By: #### CBC #### [facility] [address] [place] [address] Dr. Alexsander Klinerythrocyte distribution width (RBC) [Ratio]13.3 %Mzowgt62.0-15.0 The [facility] HospitalComment on above:Performed By: #### CBC #### [facility] [address] [place] [address] Dr. Alexsander MadrigalHematocrit (Bld) [Volume fraction]42.9 %Xoycdm46.0-48.0The [facility] HospitalComment on above:Performed By: #### CBC #### [facility] [address] [place] [address] Dr. Alexsander MadrigalHemoglobin (Bld) [Mass/Vol]13.7 g/kWIittrb83.0-16.0The [facility] HospitalComment on above:Performed By: #### CBC #### [facility] [address] [place] [address] Dr. Alexsander Reyes #0.02 10e3/ulNormal0.00-0.03The [facility] HospitalComment on above:Performed By: #### CBC #### [facility] [address] [place] [address] Dr. Alexsander Reyes %0.2 %Normal0.0-0.5The [facility] HospitalComment on above: Performed By: #### CBC #### [facility] [address] [place] [address] Dr. Alexsander Ag #4.1 103/ulCritically high1.2-3.8The [facility] Comment on above:Performed By: #### CBC #### [facility] [address] [place] [address] Dr. Alexsander Baileyhocytes/100 WBC (Bld)41.1 %Ekduuz28.5-60.0The [facility] HospitalComment on above:Performed By: #### CBC #### [facility] [address] [place] [address] Dr. Alexsander FerrariUAL DIFF REQNONormalThe [facility] HospitalComment on above: Performed By: #### CBC #### [facility] [address] [place] [address] Dr. Alexsander Mccormick (RBC) [Entitic mass]29.4 faIbwpaq37.7-34.0The [facility] HospitalComment on above:Performed By: #### CBC #### [facility] [address] [place] [address] Dr. Alexsander Varela (RBC) [Mass/Vol]31.9 g/mPJtcbqj11.9-35.2The [facility] HospitalComment on above:Performed By: #### CBC #### [facility] [address] [place] [address] Dr. Alexsander VarelaV (RBC) [Entitic vol]92.1 ySJinzsz55.0-99.0The [facility] HospitalComment on above:Performed By: #### CBC #### [facility] [address] [place] [address] Dr. Alexsander Prince #0.6 103/ulNormal0.3-0.8The [facility] HospitalComment on above:Performed By: #### CBC #### [facility] [address] [place] [address] Dr. Alexsander Ninaocytes/100 WBC (Bld)6.0 %Normal1.7-12.0The [facility] Comment on above:Performed By: #### CBC #### [facility] [address] [place] [address] Dr. Alexsander Fatima #5.1 103/ulNormal1.4-6.5The [facility] HospitalComment on above:Performed By: #### CBC #### [facility] [address] [place] [address] Dr. Alexsander Jiangutrophils/100 WBC (Bld)51.5 %Hdwqbg70.0-75.0The [facility] HospitalComment on above:Performed By: #### CBC #### [facility] [address] [place] [address] Dr. Alexsander Laolet mean volume (Bld) [Entitic vol]11.0 fLNormal9.5-13.5The [facility] HospitalComment on above:Performed By: #### CBC #### [facility] [address] [place] [address] Dr. Alexsander ZamarripaT291 103/ceFhdpov865-594Auc [facility] HospitalComment on above: Performed By: #### CBC #### [facility] [address] [place] [address] Dr. Alexsander MadrigalRBC4.66 106/ulNormal4.20-5.40The [facility] on above:Performed By: #### CBC #### [facility] [address] [place] [address] Dr. Alexsander MadrigalWBC9.9 103/ulNormal4.0-11.0[facility] on above: Performed By: #### CBC #### [facility] [address] [place] [address] Dr. Alexsander MadrigalGLYCOHEMOGLOBIN A1Con 26-46-2410INX RECOMMENDATIONSEE BELOWDoctors HospitalComsheridan community hospital on above:Result Comment: ADA RECOMMENDED LIMIT 4.0 - 6.0 ADA THERAPEUTIC TARGET < 7.0 ACTION SUGGESTED > 7.0Performed By: #### A1C #### [facility] [address] [place] [address] Dr. Alexsander MadrigalGlucose [Mass/Vol]126 mg/dLNoAdena Health SystemComsheridan community hospital on above:Performed By: #### A1C #### [facility] [address] [place] [address] Dr. Alexsander MadrigalHbA1c (Bld) [Mass fraction]6.0 %Normal4.5-6.2[facility] on above:Performed By: #### A1C #### [facility] [address] [place] [address] Dr. Alexsander MadrigalLIPID PROFILEon 18-08-7765NEMZ-HDL RATIO NORMSEE [facility] HospitalComsher[facility] on above:Result Comment: 3.3 - 4.4 LOW RISK 4.4 - 7.1 AVERAGE RISK 7.1 - 11.0 MODERATE RISK >11.0 HIGH RISKPerformed By: #### LIVER, TSH, BMP, LIPID #### [facility] [address] [place] [address] Dr. Alexsander MadrigalCholesterol [Mass/Vol]204 mg/dLCritically high<=200[facility] on above:Performed By: #### LIVER, TSH, BMP, LIPID #### [facility] [address] [place] [address] Dr. Alexsander Troyesterol in HDL [Mass/Vol]38 mg/dLCritically uvv95-38IscKettering Health Miamisburg on above:Performed By: #### LIVER, TSH, BMP, LIPID #### [facility] [address] [address] [address] Alexsander MadrigalCholesterol in LDL [Mass/Vol]129.0 mg/dLKn[facility] on above:Performed By: #### LIVER, TSH, BMP, LIPID #### [facility] [address] [address] [address] Alexsander Fraga.total/Cholesterol in HDL [Mass ratio]5.4 {ratio} NormalThe [facility] on above:Performed By: #### LIVER, TSH, BMP, LIPID #### [facility] [address] [address] [address] Alexsander Peacock NORMAL> or = 60 mg/dl - LOW CARDIOVASCULAR RISK <40 mg/dl - HIGH CARDIOVASCULAR RISKSouthwest General Health CenterComsheridan community hospital on above:Performed By: #### LIVER, TSH, BMP, LIPID #### [facility] [address] [address] [address] Alexsander Charles CALC NORMALSEE BELOWSouthwest General Health CenterComsheridan community hospital on above:Result Comment: <100 mg/dl OPTIMAL 100 - 129 mg/dl NEAR OR ABOVE OPTIMAL 130 - 159 mg/dl BORDERLINE HIGH 160 - 189 mg/dl HIGH >190 mg/dl VERY HIGH Performed By: #### LIVER, TSH, BMP, LIPID #### [facility] [address] [address] [address] Alexsander MadrigalTriglyceride [Mass/Vol]185 mg/dLCritically high<=150[facility] on above:Performed By: #### LIVER, TSH, BMP, LIPID #### [facility] [address] [address] [address] Alexsander MadrigalVLDL CALC37.0 mg/dLSouthwest General Health CenterComment on above: Performed By: #### LIVER, TSH, BMP, LIPID #### [facility] [address] [place] [address] Dr. Alexsander Foster PROFILEon 97-34-4900Yeplmyc [Mass/Vol]4.0 g/dLNormal3.4-5.0 [facility] on above:Performed By: #### LIVER, TSH, BMP, LIPID #### [facility] [address] [place] [address] Dr. Alexsander MadrigalAlbumin/Globulin [Mass ratio]1.0 {ratio}NormalThe Mercy Healthment on above:Performed By: #### LIVER, TSH, BMP, LIPID #### [facility] [address] [place] [address] Dr. Alexsander Willis [Catalytic activity/Vol]73 U/HQvkcxq80-440Jub [facility] HospitalComment on above:Performed By: #### LIVER, TSH, BMP, LIPID #### [facility] [address] [place] [address] Dr. Alexsander Atkinson [Catalytic activity/Vol]78 U/LCritically jegf43-64Wya [facility] HospitalComment on above:Performed By: #### LIVER, TSH, BMP, LIPID #### [facility] [address] [place] [address] Dr. Alexsander Colon [Catalytic activity/Vol]40 U/LCritically utgb12-17Zts [facility] on above:Performed By: #### LIVER, TSH, BMP, LIPID #### [facility] [address] [place] [address] Dr. Alexsander Escalante, CONJUGATED0.1 mg/dLNormal0.0-0.2[facility] Comment on above:Performed By: #### LIVER, TSH, BMP, LIPID #### [facility] [address] [place] [address] Dr. Alexsander Cid [Mass/Vol]0.2 mg/dLNormal0.2-1.0[facility] Comment on above:Performed By: #### LIVER, TSH, BMP, LIPID #### [facility] [address] [place] [address] Dr. Yilan ChangGlobulin (S) [Mass/Vol]3.9 g/dLNormalThe [facility] HospitalComment on above:Performed By: #### LIVER, TSH, BMP, LIPID #### [facility] [address] [address] [address] Alexsander MadrigalProtein [Mass/Vol]7.9 g/dLNormal6.4-8.2[facility] Comment on above:Performed By: #### LIVER, TSH, BMP, LIPID #### [facility] [address] [address] [address] Alexsander MadrigalPROF CHEM 8 (BAS METB)on 37-65-6067Gonmu gap [Moles/Vol]14.9 mmol/LNormalKindred HealthcareComment on above:Performed By: #### LIVER, TSH, BMP, LIPID #### [facility] [address] [address] [address] Alexsander MadrigalCalcium [Mass/Vol]9.3 mg/dLNormal8.5-10.1The [facility] Comment on above:Performed By: #### LIVER, TSH, BMP, LIPID #### [facility] [address] [address] [address] Alexsander MadrigalChloride [Moles/Vol]105 mmol/OSbbuiw49-808Aiu [facility] Comment on above:Performed By: #### LIVER, TSH, BMP, LIPID #### [facility] [address] [address] [address] Alexsander MadrigalCO2 [Moles/Vol]23.2 mmol/CRhvxex23.0-32.0The [facility] Comment on above:Performed By: #### LIVER, TSH, BMP, LIPID #### [facility] [address] [address] [address] Alexsander MadrigalCreatinine [Mass/Vol]0.72 mg/dLNormal0.55-1.02The [facility] HospitalComment on above:Performed By: #### LIVER, TSH, BMP, LIPID #### [facility] [address] [address] [address] Beltre ChangEGFR-AF OMANI>60Normal>=60The [facility] HospitalComment on above:Performed By: #### LIVER, TSH, BMP, LIPID #### [facility] [address] [place] [address] Dr. Alexsander Mata-NON AF OMANI>60Normal>=60The [facility] HospitalComment on above:Performed By: #### LIVER, TSH, BMP, LIPID #### [facility] [address] [place] [address] Dr. Alexsander MadrigalGlucose [Mass/Vol]87 mg/bPNvjyhg00-686Bkp [facility] Comment on above:Performed By: #### LIVER, TSH, BMP, LIPID #### [facility] [address] [place] [address] Dr. Alexsander MadrigalPotassium [Moles/Vol]4.1 mmol/LNormal3.5-5.1[facility] Comment on above:Performed By: #### LIVER, TSH, BMP, LIPID #### [facility] [address] [place] [address] Dr. Alexsander Elliottdium [Moles/Vol]139 mmol/HBzmybe078-954IhdKindred Healthcare Comment on above:Performed By: #### LIVER, TSH, BMP, LIPID #### [facility] [address] [place] [address] Dr. Alexsander MadrigalUrea nitrogen [Mass/Vol]15.0 mg/dLNormal7.0-18.0The [facility] HospitalComment on above:Performed By: #### LIVER, TSH, BMP, LIPID #### [facility] [address] [place] [address] Dr. Alexsander Branch nitrogen/Creatinine [Mass ratio]20.8 mg/mgNormalThe [facility] HospitalComment on above:Performed By: #### LIVER, TSH, BMP, LIPID #### [facility] [address] [place] [address] Dr. Alexsander Pizarro 39-70-0378YPP8.600 uIU/mLNormal0.358-3.740The [facility] HospitalComment on above:Performed By: #### CBC #### [facility] [address] [address] [address] Alexsander MadrigalVITAMIN D 25 OHon 52-81-1911SBL D 25-OH18.8 ng/mLNMercy Health St. Elizabeth Youngstown HospitalComment on above:Performed By: #### CBC #### [facility] [address] [address] [address] Alexsander Heaton RANGES[place] BELOWSouthwest General Health CenterComment on above: Result Comment: <20 ng/mL Vit D deficient 20 - <30 ng/mL Vit D insufficient 30 - 100 ng/mL Vit D sufficient >100 ng/mL Potential ToxicityPerformed By: #### CBC #### [facility] [address] [address] [address] Alexsander Mejia-CoV-2 (COVID-19) RNA SHAISTA+probe Ql (Resp)on 04-01-2022 SARS-CoV-2 (COVID-19) RNA SHAISTA+probe Ql (Unsp spec)PositiveNort [employer] Other Vital Signs Date TimeVital SignValuePerforming UpelsaryjAutukowi54-96-2531 07:17-0400Body qywbqy080.02 cmOrestes Strange MD Work Phone: [facility]10-15-2025 07:17-0400 Body mass index (BMI) [Ratio]37.2 kg/m2Orestes Strange MD Work Phone: [facility]10-15-2025 07:17-0400 Body bcxtwgawqah94.1 [degF]Orestes Strange MD Work Phone: [facility]10-15-2025 07:17-0400 Body jrewwn43.25 kgOrestes Strange MD Work Phone: [facility]10-15-2025 07:17-0400 Diastolic blood riwooaim99 mm[Hg]Orestes Strange MD Work Phone: [facility]10-15-2025 07:17-0400 Heart rate93 /minOrestes Strange MD Work Phone: [facility]10-15-2025 07:17-0400 Respiratory rate20 /minOrestes Strange MD Work Phone: [facility]10-15-2025 07:17-0400 SaO2% (BldA) [Mass fraction]96 %Orestes Strange MD Work Phone: [facility]10-15-2025 07:17-0400 Systolic blood wyfcpzje221 mm[Hg]Orestes Strange MD Work Phone: [phone]07-09-2025 11:09-0400 Body pvvrxy175 cmOrestes Strange MD Work Phone: [facility] CenterOqsyobehep32-59-4242 11:09-0400Body mass index (BMI) [Ratio]36.14 kg/m2Orestes Strange MD Work Phone: [facility] CenterSsjuutkful79-67-1949 11:09-0400Body temperature 97.5 [degF]Orestes Strange MD Work Phone: [facility] CenterAiqfxbbvcq64-72-7778 11:09-0400Body fqjurk94.53 kgOrestes Strange MD Work Phone: [facility] CenterAzosjmfmtd55-09-0021 11:09-0400Diastolic blood mm[Hg]Orestes Strange MD Work Phone: [facility] CenterBiygvqvblj65-04-2063 11:09-0400Heart dpab341 /min Orestes Strange MD Work Phone: [facility] CenterDnwgggkcup68-66-6051 11:09-0400Respiratory rate18 /minOrestes Strange MD Work Phone: [facility] CenterVirrpxwzak39-38-3349 11:09-5806RjQ5% (BldA) [Mass fraction]98 %Orestes Strange MD Work Phone: [facility] CenterCcydmqzvnl72-56-8286 11:09-0400Systolic blood tjkcueef449 mm[Hg]Orestes Strange MD Work Phone: [facility] CenterFtwzmpvria90-41-0014 08:16-0400Body ifkjhc908 cm Mariola Wilson MD Work Phone: [facility] CenterTsnbvywkcw65-22-6302 08:16-0400Body mass index (BMI) [Ratio]36.14 kg/t6AotdznMariola Wilson MD Work Phone: [phone] CenterJovbkmwigf50-31-9119 08:16-0400Body uqxuji23.53 kgMariola Wilson MD Work Phone: [phone] [place], [place] [address] CenterNnjyfumibd02-72-4416 08:16-0400Diastolic blood owupwoza926 mm[Hg]Mariola Wlison MD Work Phone: [phone])[address] [place], [place] [address] CenterDlyfiaivkc81-06-2772 08:16-0400Heart rate83 /min Mariola Wilson MD Work Phone: [phone] CenterXwwzwonvaf46-58-6577 08:16-0400Systolic blood tcxtmaku098 mm[Hg]Mariola Wilson MD Work Phone: [phone] CenterBhosxdgowh21-22-2386 09:26-0400Body lxquwh919.02 cmOrestes Strange MD Work Phone: [facility]06-25-2025 09:26-0400 Body mass index (BMI) [Ratio]36.8 kg/m2Orestes Strange MD Work Phone: [facility]06-25-2025 09:26-0400 Body zpsudwxvdqq34.1 [degF]Orestes Strange MD Work Phone: 1(485)411-[address] [place], [place] [address]013606-25-2025 09:26-0400 Body .34 kgOrestes Strange MD Work Phone: [phone]06-25-2025 09:26-0400 Diastolic blood kwenngtu219 mm[Hg]Orestes Strange MD Work Phone: [facility]06-25-2025 09:26-0400 Heart rate80 /minOrestes Strange MD Work Phone: [facility]06-25-2025 09:26-0400 Respiratory rate16 /minOrestes Strange MD Work Phone: [phone] [place], [place] 5013606-25-2025 09:26-0400 SaO2% (BldA) [Mass fraction]97 %Orestes Strange MD Work Phone: [phone])101-[address] [place], [place] [address]013606-25-2025 09:26-0400 Systolic blood ohrgllue258 mm[Hg]Orestes Strange MD Work Phone: [phone]06-20-2025 11:35-0400 Body yhafuw338 cmOrestes Strange MD Work Phone: [facility] CenterVobdyxoakx63-28-5290 11:35-0400Body mass index (BMI) [Ratio]36.14 kg/m2Orestes Strange MD Work Phone: [phone] [place], [place] [address]Ueunqbctia58-03-9027 11:35-0400Body temperature 97.81 [degF]Orestes Strange MD Work Phone: [facility] CenterMtidkcscpq52-15-5536 11:35-0400Body nagrmh74.53 kgOrestes Strange MD Work Phone: [facility] CenterPijwngkwfw06-42-4089 11:35-0400Diastolic blood ketmlrby34 mm[Hg]Orestes Strange MD Work Phone: [facility] CenterEcjqvywtvi99-80-4670 11:35-0400Heart awoo930 /min Orestes Strange MD Work Phone: [facility] CenterDjnvfbplep60-68-7737 11:35-0400Respiratory rate22 /minOrestes Strange MD Work Phone: [facility] CenterXvutnszepz80-87-0349 11:35-5730TlE0% (BldA) [Mass fraction]99 %Orestes Strange MD Work Phone: [facility] CenterBypuvblpep55-12-8330 11:35-0400Systolic blood devjnfiv484 mm[Hg]Orestes Strange MD Work Phone: [facility] CenterOtqrgiamxl55-75-3249 09:20-0400Body bphwae504.02 cm[facility]05-28-2025 09:20-0400Body mass index (BMI) [Ratio]36.3 kg/r5CvqujcghjProtestant Hospital05-28-2025 09:20-0400Body bailvdahfdg43.9 [degF][facility]05-28-2025 09:20-0400Body sweqtj90.09 kgPro[facility]05-28-2025 09:20-0400Diastolic blood ybvtwcco294 mm[Hg][facility]05-28-2025 09:20-0400 Heart dlrr664 /[facility]05-28-2025 09:20-0400 Respiratory rate18 /[facility]05-28-2025 09:20-0400 SaO2% (BldA) [Mass fraction]95 %[facility]05-28-2025 09:20-0400Systolic blood sjeluedr506 mm[Hg][facility] 12-11-2024 07:51-0400Body oeytxf691 cmOrestes Strange MD Work Phone: [facility] CenterFekkbbibpy30-25-9391 07:51-0400Body mass index (BMI) [Ratio]36.31 kg/m2Orestes Strange MD Work Phone: [facility] CenterBdajmjmcvy72-73-8397 07:51-0400Body temperature 97.5 [degF]Orestes Strange MD Work Phone: [facility] CenterReklghrqzd15-66-7037 07:51-0400Body wyuyxj19.99 kgOrestes Strange MD Work Phone: [facility] CenterIgpwjztsrb26-74-9557 07:51-0400Diastolic blood uhwnlvzz57 mm[Hg]Orestes Strange MD Work Phone: [facility] CenterDdlynmnqtl99-62-1924 07:51-0400Heart cfgu964 /min Orestes Strange MD Work Phone: [facility] CenterRqzfllvdkz43-29-5356 07:51-0400Respiratory rate18 /minOrestes Strange MD Work Phone: [facility] CenterSltchioiam80-53-3723 07:51-2992JgV3% (BldA) [Mass fraction]98 %Orestes Strange MD Work Phone: [facility] CenterHwaloxkgnf62-65-5164 07:51-0400Systolic blood zkfozhcy097 mm[Hg]Orestes Strange MD Work Phone: [facility] CenterIxlogaemik51-94-2512 10:03-0500Diastolic blood mlxevpxf611 mm[Hg][facility]03-05-2025 10:03-0500Systolic blood zueffusv412 mm[Hg][facility]03-05-2025 09:28-0500 Body ubqwyw169.02 cmPro[facility]03-05-2025 09:28-0500Body mass index (BMI) [Ratio]35.9 kg/c5HvqgdofusProtestant Hospital03-05-2025 09:28-0500Body ohwictfaamg04.7 [degF][facility]03-05-2025 09:28-0500Body axemyr12.13 kgPro[facility]03-05-2025 09:28-0500Heart rate99 /[facility]03-05-2025 09:28-0500Respiratory rate14 /[facility]03-05-2025 09:28-6695NcL2% (BldA) [Mass fraction]97 %[facility] 09-09-2024 08:51-0500Body cmOrestes Strange MD Work Phone: [facility] CenterJlpqxcyreb69-55-3719 08:51-0500Body mass index (BMI) [Ratio]36.67 kg/m2Orestes Strange MD Work Phone: [facility] CenterTqtdqiyiyo28-83-9652 08:51-0500Body temperature 96.21 [degF]Orestes Strange MD Work Phone: [facility] CenterPgyrfypjhu42-75-5137 08:51-0500Body yyqtpw07.89 kgOrestes Strange MD Work Phone: [facility] CenterThhuopnpzn34-88-1833 08:51-0500Diastolic blood lucxvzyn17 mm[Hg]Orestes Strange MD Work Phone: [facility] CenterDjbbgabigp46-84-4635 08:51-0500Heart rigo086 /min Orestes Strange MD Work Phone: [facility] CenterKmendnnvwj38-63-2552 08:51-0500Respiratory rate16 /minOrestes Strange MD Work Phone: [phone] CenterIlkyrrtcli07-79-7508 08:51-9049XjD9% (BldA) [Mass fraction]98 %Orestes Strange MD Work Phone: [facility] CenterQfobzworrz65-13-1447 08:51-0500Systolic blood cbohhdja916 mm[Hg]Orestes Strange MD Work Phone: [facility] CenterPeivojavjh92-79-1368 08:12-0500Body yujfxr387 cm Orestes Strange MD Work Phone: [facility] CenterQssdgeyggm06-98-3553 08:12-0500Body mass index (BMI) [Ratio]36.85 kg/m2Orestes Strange MD Work Phone: [facility] CenterEkapimmniy93-12-8016 08:12-0500Body temperature 97.11 [degF]Orestes Strange MD Work Phone: [facility] CenterRxqhwefxls79-10-7779 08:12-0500Body .35 kgOrestes Strange MD Work Phone: [facility] CenterLpcnosrlsw96-64-1777 08:12-0500Diastolic blood mm[Hg]Orestes Strange MD Work Phone: [facility] CenterWygoloamro62-65-7840 08:12-0500Heart rate89 /min Orestes Strange MD Work Phone: 1(419) 467-103647 [address] StreetFbbkrvmrax48-44-9982 08:12-0500Respiratory rate22 /minDiliac Alexandr PADILLA Work Phone: [facility] CenterQwifyqbcgq42-63-5784 08:12-3268AbG7% (BldA) [Mass fraction]98 %Orestes Strange MD Work Phone: [facility] CenterDxmvpzdabe37-69-5520 08:12-0500Systolic blood qxjhakqs441 mm[Hg]Orestes Strange MD Work Phone: [phone] CenterXncjocyxov49-50-6932 09:35-0400Body lobhre768.02 cm[facility]03-17-2024 09:35-0400Body mass index (BMI) [Ratio]34 kg/j0VuiqvccdtProtestant Hospital03-17-2024 09:35-0400Body cbredoyfhvg96.6 [degF][facility]03-17-2024 09:35-0400Body ksqcur02.25 kgPro[facility]03-17-2024 09:35-0400Diastolic blood phxmiqca78 mm[Hg][facility]03-17-2024 09:35-0400 Heart rate94 /[facility]03-17-2024 09:35-0400 Respiratory rate18 /[facility]03-17-2024 09:35-0400 SaO2% (BldA) [Mass fraction]96 %[facility]03-17-2024 09:35-0400Systolic blood htwxuqqy189 mm[Hg][facility] 09-27-2023 07:56-0500Body pvikmh809 cmOrestes Strange MD Work Phone: [facility] CenterRethwqwwab31-68-3456 07:56-0500Body mass index (BMI) [Ratio]34.37 kg/m2Orestes Strange MD Work Phone: [facility] CenterGsfliuskyd98-66-3031 07:56-0500Body temperature 97.3 [degF]Orestes Strange MD Work Phone: [facility] CenterDfkkdzcppw88-23-6971 07:56-0500Body kg Orestes Strange MD Work Phone: [facility] CenterLdifgbgcri21-39-7644 07:56-0500Diastolic blood ibrrokku35 mm[Hg]Orestes Strange MD Work Phone: [facility]Do[facility] SpringfieldTqobqpighx22-44-6151 07:56-0500Heart rate94 /min Orestes Strange MD Work Phone: noDo[facility] of SpringfieldRgaeakzauk46-50-0951 07:56-6587WfP6% (BldA) [Mass fraction]99 %Orestes Strange MD Work Phone: noDo[facility] of SpringfieldIrvkfgmikw39-48-0459 07:56-0500Systolic blood xtnlyavk006 mm[Hg]Orestes Strange MD Work Phone: [facility] CenterFiqonttpzi38-40-6576 14:10-0400Body tpdzuk976.02 cmAaislinn Garcia Other [email or web address] Other 08-12-2022 14:10-0400Body mass index (BMI) [Ratio] 34.54 kg/z5DuisgShereen Garcia Other [employer] Other 08-12-2022 14:10-0400Body sxotwpxrdak42.3 [degF]Shereen Garcia Other [employer] Other 08-12-2022 14:10-0400Body lprbzu19.45 kgShereen Garcia Other [employer] Other 08-12-2022 14:10-0400Respiratory rate18 /minShereen Garcia Other [employer] Other 08-12-2022 14:10-6713WrH8% (BldA) [Mass fraction]98 % Shereen Garcia Other [email or web address] Other Encounters Encounter DateEncounter TypeCare ProviderFacilityStart: 06-04-2025 End: 87-26-4117xlievusuolNtww Naderer MD Work Phone: [facility] Work Phone: Start: 06-04-2025 End: 39-59-4925Vzfbcye encounter procedureOrestes Strange MD-[facility] Work Phone: Start: 02-26-2025 End: 99-04-0150Yzqorf flowsMaria A Strange MD Work Phone: [facility] C[facility] FMStart: 02-26-2025 End: 40-83-8646Eohezakeri Strange MD Work Phone: [facility] FMStart: 02-26-2025 End: 69-78-0416Vjvwtr outpatient visit 15 minutesOrestes Strange MD Work Phone: [facility] FMComment on above:Strain of AC joint, right, initial encounter (Primary Dx)Start: 02-26-2025 End: 35-09-4650hzgchtxxuqQHNM NADERERNot AvailableStart: 02-24-2025 End: 71-25-8360Fkjcgspierre Wilson MD Work Phone: noMS CI ENTStart: 02-24-2025 End: 81-70-2987Fxbqhikeri Wilson MD Work Phone: NOMS CI ENTStart: 02-24-2025 End: 62-46-5850ryilauqixyCFUITPAba Burns AvailableStart: 02-24-2025 End: 57-86-8380Vkzhpy outpatient new 45 minutesMariola Wilson MD Work Phone: [facility] CI ENTComment on above:Right ear impacted cerumen (Primary Dx); Chronic eczematous otitis externa of both earsStart: 02-12-2025 End: 34-37-4954btxlcemzjgSjpr Naderer MD Work Phone: [facility] Work Phone: Start: 02-12-2025 End: 28-20-5769Nlfjasd encounter procedureJessica KiranCindyMichelleluis alberto [employer] FURNACE TENDER-[facility] Work Phone: Start: 02-07-2025 End: 00-20-4612Nvoimr flowsheetOrestes Strange MD Work Phone: [facility] FMStart: 02-07-2025 End: 39-85-8865Ozrubl flowsheetOrestes Strange MD Work Phone: [facility] FMStart: 02-07-2025 End: 49-47-3792Ogfqyk outpatient visit 15 minutesOrestes Strange MD Work Phone: [facility] FMComment on above:Acute UTI (Primary Dx); Eustachian tube dysfunction, left; Pharyngitis, unspecified etiologyStart: 02-07-2025 End: 44-18-5014yxwajrknekJGCH NADERERNot AvailableStart: 01-31-2025 End: 99-84-9714Bquornzru Result EncounterGeneric External Data ProviderNOMS External Department UnsolicitedStart: 01-31-2025 End: 75-61-3480Kxnajuyiv Result EncounterGeneric External Data ProviderNOMS External Department UnsolicitedStart: 01-31-2025 End: 79-04-7088nurzqwepkyQjgasr A DiabFacility:[facility] Start: 01-31-2025 End: 84-84-0118Rzdxbydw ReferredMariam A Diab MD-[facility] Start: 01-15-2025 End: 18-07-4396wckbkanevvPzhhembpeOhio Valley Hospital Work Phone: Start: 01-15-2025 End: 09-61-2647Zbahnlf encounter procedureDavis [facility] Medical Center Physician [facility] Work Phone: Start: 12-11-2024 End: 87-41-9572Ozvifz flowsMaria A Strange MD Work Phone: NOCQ CWM FMStart: 12-11-2024 End: 55-77-1584Vmzbmo Aisha Strange MD Work Phone: NOTX CWM FMStart: 12-11-2024 End: 37-10-3221Ouhnbad encounter procedureOrestes Strange MD Work Phone: [facility] Work Phone: Start: 12-11-2024 End: 77-11-4220Xryvbnkq preventive med est patient 18-39 yrsOrestes Strange MD Work Phone: [facility] CWM FMComment on above:Annual physical exam (Primary Dx); Benign essential hypertension (CMS/HCC); URI, acuteStart: 12-11-2024 End: 88-90-1629utvqvsnejmPQIJ NADERERNot AvailableStart: 10-23-2024 End: 20-77-6807lwioaqkyisLmximtaisOhioHealth Work Phone: Start: 10-23-2024 End: 43-31-1081Utnfyrl encounter procedureDavis Regional Medical Center Physician [facility] Work Phone: Start: 09-15-2024 End: 04-13-7620AluzxhWiuf Naderer MD Work Phone: NORE CWM FMComment on above:Benign essential hypertension (CMS/HCC)Start: 09-09-2024 End: 12-71-3246Ayqmos Aisha Strange MD Work Phone: [facility] CWM FMStart: 09-09-2024 End: 77-21-9289Ujxjcc Aisha Strange MD Work Phone: [facility] CWM FMStart: 09-09-2024 End: 50-68-9178qfnfsptfdzVRZG NADERERNot AvailableStart: 09-09-2024 End: 14-48-6793Krexdx outpatient visit 15 minutesOrestes Strange MD Work Phone: noms CWM FMComment on above:Benign essential hypertension (CMS/HCC) (Primary Dx); Class 2 severe obesity due to excess calories with serious comorbidity and body mass index (BMI) of36.0 to 36.9 in adult (CMS/HCC)Start: 29-21-1407Vlc-patient / [facility] Work Phone: Start: 93-68-5109Jwv-patient / [facility]Jeff[facility] Work Phone: Start: 08-07-2024 End: 87-38-6946Loakzo Aisha Strange MD Work Phone: n[facility] CWM FMStart: 08-07-2024 End: 41-39-5966Jsiojm flowsMaria A Strange MD Work Phone: [facility] CWM FMStart: 08-07-2024 End: 28-20-4821pquhunyvuuWYGI NADERERNot AvailableStart: 08-07-2024 End: 92-32-5041Nenneuc encounter procedureOrestes Strange MD Work Phone: [facility] Work Phone: Start: 08-07-2024 End: 92-03-4669Iaafxuwz preventive med est patient 18-39 yrsOrestes Strange MD Work Phone: noms CWM FMComment on above:Annual physical exam (Primary Dx); Elevated blood pressure reading without diagnosis of hypertension; Acute non-recurrent pansinusitis; Acute pain of left shoulder; Class 2 obesity due to excess calories without serious comorbidity with body mass index (BMI) of 36.0 to 36.9 in adultStart: 07-10-2024 End: 85-72-5145Jklzqxhxo Result EncounterGeneric External Data ProviderNOMS External Department UnsolicitedStart: 07-10-2024 End: 78-39-8021Spviaisxt Result EncounterGeneric External Data ProviderNOMS External Department UnsolicitedStart: 03-21-2024 End: 33-83-5965anxhricpixFIG RAMEYNot AvailableStart: 11-05-2023 End: 79-50-6862ystttncavvYtocfzgvrOhio Valley Hospital Work Phone: Start: 11-05-2023 End: 03-76-4285Wjyjqnw encounter procedureDavis [facility] Work Phone: Start: 12-28-2170Ewzyqq flowsheetOrestes Strange MD Work Phone: n[facility] CWM FMStart: 97-88-8339Dzeidl flowsheetOrestes Strange MD Work Phone: [facility] CWM FMStart: 09-27-2023 End: 67-33-7442Hjcrbj outpatient visit 15 minutesMarmedardo Strange MD Work Phone: noms CWM FMComment on above: induced hypertension, (Primary Dx); De Quervain's tenosynovitisStart: 07-15-2023 End: 46-59-3419zmcqoxdtfuCsvrb Savage Work Phone: [facility] Work Phone: Start: 07-15-2023 End: 04-95-5558Qeurjczr ReferredCorey Savage Work Phone: [facility] [place] Work Phone: Start: 26-42-3771lczprblriiCP EFREN SAVAGE .Facility:H1 Start: 12-29-2022 End: 06-75-1081itnuxclqziQF EFREN SAVAGE .Facility:Y1Nupvu: 11-14-2022 End: 46-91-8649whnlckgtxqTO EFREN SAVAGE .Facility:T0Lzfne: 10-11-2022 End: 23-76-3789vdpgqvkroxDM EFREN SAVAGE .Facility:M2Pkzdr: 09-05-2022 End: 61-18-6565fkgtcabjdiEV EFREN SAVAGE .Facility:N9Boddr: 06-30-2022 End: 34-31-7094xadfqqmnvtQN EFREN SAVAGE .Facility:K6Tjymv: 53-98-0299Tzhykwhth for general adult medical examination without abnormal findingsDR ORESTES STRANGE [facility] HospitalStart: 05-30-2022 End: 58-11-7921cdjsvvenslKN ORESTES MOORERFacility:R1Fefta: 05-30-2022 End: 90-45-4923Sixxnjqby for general adult medical examination without abnormal findingsDR ORESTES MOORERFacility:J3Snege: 23-17-0565xguptclagcUK EFREN SAVAGE . Facility:A3Rstlb: 04-01-2022 End: 44-14-4614sixhjmknliFliqy Keller Other [place] [employer] Other Start: 74-63-2634Bjxots outpatient new 30 minutesAmb JoseQU[facility] Procedures DateProcedureProcedure DetailPerforming ClinicianStart: 93-10-9474Rsngy culture Orestes Strange MD Work Phone: Start: 90-15-5838ANEVA [facility] SHAW[facility]EEGeneric External Data ProviderStart: 06-23-5861Ehphq Strep (POC)Orestes Strange MD Work Phone: Start: 20-85-5021VLT PROGESTERONECorey Savage DO Work Phone: Start: 96-66-1689Jxielfauhat observation [Identifier] in Cervix by Cyto stainGeneric ProviderStart: 75-24-9558Ffhoa Strep (POC)Start: 03-95-2778Jziixevfzdy observation [Identifier] in Cervix by Cyto stainOrestes Strange MD Work Phone: Plan of Treatment DateCare ActivityDetailAuthorStart: 96-83-1116Sjyjevutv for malignant neoplasm of cervixNOMS HealthcareStart: 67-25-3644Hfqvaurap for malignant neoplasm of cervixPap SmearNOMS HealthcareStart: 49-25-3546Devhlusya for malignant neoplasm of cervixPap SmearNOMS HealthcareStart: 06-04-2025 End: 39-43-0940Ibtdkwy encounter vdwonbqgy29/15/2025 7:00 AM EDT Office Visit [facility] [address] [place] [address] Orestes Strange MD [address] [place] [address] [facility] CWM FMStart: 54-54-5652Rswkplzsu vaccinationCACHE VALLEY [facility]ITAL HealthcareStart: 02-26-2025 End: 12-03-6602Yzozhin encounter procedureNOPRAGUE COMMUNITY [facility] [place] FMComment on above:Arrived Start: 02-07-2025 End: 14-13-2952Euiorwu encounter qttwwfisr04/20/2025 11:45 AM EDT Office Visit [facility] [address] [place] [address] Orestes Strange MD [address] [place] [address] [facility] CenterM FMComment on above:ArrivedStart: 02-06-2025 End: 92-71-5654Potzqsm encounter lgvuudoiu62/19/2025 9:00 AM EDT Office Visit [facility] [address] [place] [address] Orestes Strange MD [address] [place] [address] [facility] CWM FMStart: 12-11-2024 End: 47-67-4045Ntaok metabolic 1998 panel - Serum or PlasmaBasic metabolic panel Lab Routine Annual physical exam Expected: 12/11/2024 (Approximate), Expires: 12/11/2025[facility] HealthcareComment on above:Expected: 12/11/2024 (Approximate), Expires: 12/11/2025Start: 12-11-2024 End: 90-36-5478GKS W Auto Differential panel - BloodCBC and differential Lab Routine Annual physical exam Expected: 12/11/2024 (Approximate), Expires: 0 12/11/2025[facility] HealthcareComment on above:Expected: 12/11/2024 (Approximate), Expires: 12/11/2025Start: 12-11-2024 End: 06-81-9897Cxbjhbemwb A1c/Hemoglobin.total in BloodHemoglobin A1c Lab Routine Annual physical exam Expected: 12/11/2024 (Approximate), Expires: 12/11/2025[facility] Work Phone: Comment on above:Expected: 12/11/2024 (Approximate), Expires: 12/11/2025Start: 12-11-2024 End: 70-62-5831Mntmpag function 2000 panel - Serum or PlasmaHepatic function panel Lab Routine Annual physical exam Expected: 12/11/2024 (Approximate), Expires: 12/11/2025[facility] HealthcareComment on above:Expected: 12/11/2024 (Approximate), Expires: 12/11/2025Start: 12-11-2024 End: 81-05-3386Jrtjd 1996 panel - Serum or PlasmaLipid panel Lab Routine Annual physical exam Expected: 12/11/2024 (Approximate), Expires: 12/11/2025[facility] HealthcareComment on above:Expected: 12/11/2024 (Approximate), Expires: 12/11/2025Start: 12-11-2024 End: 27-06-1114Rabpqqvoedg [Units/volume] in Serum or PlasmaTSH Lab Routine Annual physical exam Expected: 12/11/2024 (Approximate), Expires: 12/11/2025[facility] HealthcareComment on above:Expected: 12/11/2024 (Approximate), Expires: 12/11/2025Start: 12-11-2024 End: 45-67-5086Chyahat encounter procedureNOMS CWM FMComment on above:Arrived Start: 08-07-2024 End: 17-26-1246Rvtkv metabolic 1998 panel - Serum or PlasmaBasic metabolic panel Lab Routine Annual physical exam Expected: 08/07/2024 (Approximate), Expires: 08/07/2025[facility] HealthcareComment on above:Expected: 08/07/2024 (Approximate), Expires: 08/07/2025Start: 08-07-2024 End: 25-97-5671OKA W Auto Differential panel - BloodCBC and differential Lab Routine Annual physical exam Expected: 08/07/2024 (Approximate), Expires: 1 10/08/2024[facility] HealthcareComment on above:Expected: 08/07/2024 (Approximate), Expires: 08/07/2025Start: 08-07-2024 End: 82-73-5456Fpwwklwquq A1c/Hemoglobin.total in BloodHemoglobin A1c Lab Routine Annual physical exam Expected: 08/07/2024 (Approximate), Expires: 08/07/2025[facility] Healthcare Work Phone: Comment on above:Expected: 08/07/2024 (Approximate), Expires: 08/07/2025Start: 08-07-2024 End: 99-85-6092Ahdycfk function 2000 panel - Serum or PlasmaHepatic function panel Lab Routine Annual physical exam Expected: 08/07/2024 (Approximate), Expires: 08/07/2025[facility] HealthcareComment on above:Expected: 08/07/2024 (Approximate), Expires: 08/07/2025Start: 08-07-2024 End: 56-82-2572[place] 1996 panel - Serum or PlasmaLipid panel Lab Routine Annual physical exam Expected: 08/07/2024 (Approximate), Expires: 08/07/2025[facility] HealthcareComment on above:Expected: 08/07/2024 (Approximate), Expires: 08/07/2025Start: 08-07-2024 End: 20-10-1527Efxgqwkcyyv [Units/volume] in Serum or PlasmaTSH Lab Routine Annual physical exam Expected: 08/07/2024 (Approximate), Expires: 08/07/2025[facility] HealthcareComment on above:Expected: 08/07/2024 (Approximate), Expires: 08/07/2025Start: 08-07-2024 End: 40-20-8286Pyfphnx encounter /18/2024 8:00 AM EST Office Visit [facility] [address] [place] [address] Orestes Strange MD [address] [place] [address] [facility] FMStart: 61-11-1988Qojtgiznw vaccinationInfluenza Vaccine (#1)NOMS HealthcareStart: 03-21-2024 End: 12-16-7751Ytjbqak encounter jcoahyoyj45/01/2024 9:00 AM EDT Office Visit [facility] [address] [place] [address] Marilyn Suarez PA [address] [facility] [place], [place] [address] N[facility] BCP OBStart: 11-07-2023 End: 17-50-7124Nvzxirq encounter egqabqcxf18/19/2024 1:15 PM EDT Office Visit [facility] [address] [place] [address] Orestes Strange MD [address] [place] [address] [facility] FMStart: 90-42-2778Brgrfzdyd vaccinationInfluenza Vaccine (#1)[facility] Routine 01/31/2025 12:16 PM EDTOhio[facility] Payers DatePayer CategoryPayerPolicy [id number] Health InsuranceMEDICAL MUTUAL [id number] Care HMO (unspecified) AETNA AETNA [id number] 2022-Present [address] [place] [address] HMO [id number] 2.16.840.1.876523.3.57[id number] 2.16.840.1.205434.3.57[id number] 2.16840.1.562020.3.57[id number] 2.16.840.1.123930.3.57[id number] 2.16.840.1.276566.3.57[id number] 2.16.840.1.034056.3.57[id number] 2.16.840.1.782008.3.57[id number] 2.16.840.1.069321.3.57[id number] 2.16.840.1.120473.3.57[id number] 2.16.840.1.252435.3.57[id number] 2.16.840.1.675584.3.57[id number] 2.0.1.527535.3.57[id number] 2.0.1.903652.3.57[id number] 2.0.1.983553.3.57[id number] 2.0.1.041378.3.579.2.4[id number] 2..0.032982.00706808-56-3335Bbllqfw Health [id number] Private Health [id number]-[id number] 2..1.240057.3.579.2.531 Social History DateTypeDetailFacilityStart: 09-26-2023 End: 40-73-3858Uia [facility] HealthcareStart: 25-62-8660Art [facility] At [facility] Troytart: 01-28-2023 End: 25-34-0111Pkqgmdx smoking status NHISNever smoked tobaccoNOMS Healthcare Start: 01-28-2023 End: 61-31-3039Znvrddm use and exposureSmokeless tobacco non-userNOMS Healthcare Start: 09-26-2023 End: 16-40-9291Zrwfcnr intakeLifetime non-drinker (finding)[facility] HealthcareStart: 09-26-2023 End: 69-44-0105Uejrdgs of Social functionNOMS HealthcareWithin the last year, have you been afraid of your partner or ex-partner?NoNOMS HealthcareHow often do you attend meetings of the clubs or organizations you belong to?Patient refused [facility] HealthcareAre you now , , , , never or living with a partner?MarriedNOMS HealthcareHow often to you have a drink containing alcohol?Monthly or lessNOMS HealthcareHow many standard drinks containing alcohol do you have on a typical day?1 or 2NOMS HealthcareHow often do you have 6 or more drinks on 1 occasion?NeverNOMS HealthcareDo you feel stress - tense, restless, nervous, or anxious, or unable to sleep at night because yourmind is troubled all the time - these days [OSQ]Not at allNOVA Healthcare(I/We) worried whether (my/our) food would run out before (I/we) got money to buy more.DK or RefusedNOVA HealthcareStart: 70-40-7148Xlo Assigned At BirthNot on fileNOVA HealthcareStart: 10-23-2024 End: 54-60-2518NklOxpvsk (finding)[facility](I/We) worried whether (my/our) food would run out before (I/we) got money to buy more. Never trueCACHE VALLEY [facility]ITAL HealthcareNEGATED: Highlighted rowStart: NINFHistory of tobacco usePassive smokerMissouri Baptist Medical Center Functional Status EjmbJhnaojtzrzOddzobDokttlcd81-11-4632Dxegf score [AUDIT-C]1 12/11/2024 6:59 AM EDT Mychart, GenericMissouri Baptist Medical CenterLcotdqjyyu64-32-0140Ods often to you have a drink containing alcohol?Monthly or less 12/11/2024 6:59 AM EDT Mychart, Generic Monthly or lessMissouri Baptist Medical CenterAesyhxsmpr58-70-2042Xqb many standard drinks containing alcohol do you have on a typical day?1 or 2 12/11/2024 6:59 AM EDT Mychart, Generic 1 or 2NOMS Vsgrjcnsps66-10-2526Dim often do you have 6 or more drinks on 1 occasion?Never 12/11/2024 6:59 AM EDT GIGAShart, Generic NeverMissouri Baptist Medical Center Clinical Notes 04-01-2022 to 02-26-2025 Note Date & EoooIfinJhxagrvz40-34-5149 History of Present illness Narrative* Orestes Strange MD - 02/26/2025 11:41 AM EDTAssociated Problem(s): Strain of AC joint, right, initial encounter Appears to have AC joint strain but unclear cause. Treat with prednisone and ice PRN. Handout with ROM exercises to patient. * Orestes Strange MD - 02/26/2025 11:15 AM EDT Images from the original note were not included. Subjective Patient ID: Eneida Peralta is a 39 y.o. female who presents for Follow-up (Shoulder pain/Lump on right leg). C/o right shoulder pain for 4-5 days. Noticed mild discomfort in evening then increased pain in am.Pain in front of shoulder and initially decreased ROM. Pain to raise arm or move behind body. Very tender to touch. No fall, injury, or trauma. No change in activity. Patient right-handed. No historyof shoulder problems. Pain slightly better today but still pain with movement or lifting. ROM slowly improving. Review of Systems Respiratory: Negative for cough, [...] No edema. Left lower leg: No edema. Comments: Right shoulder: Mild TTP over AC joint. Full ROM and mild pain with abduction and forwardflexion. Strength rotator cuff 5/5. Negative empty can sign. Neurological: Mental Status: She is alert. Assessment/Plan Problem List Items Addressed This Visit Strain of AC joint, right, initial encounter - Primary Appears to have AC joint strain but unclear cause. Treat with prednisone and ice PRN. Handout with ROM exercises to patient. Relevant Medications predniSONE (Deltasone) 50 MG tablet documented in this encounterMissouri Baptist Medical CenterMyxhkrtzmx07-09-4241 History of Present illness Narrative* Mariola Wilson MD - 02/24/2025 8:10 AM EDT Images from the original note were not included. Subjective Patient ID: Eneida Peralta is a 39 y.o. female who presents for Ear Problem OM x 2-3 in the past few mo. Also had recent OE. Infection sx include ear pressure. No sig HL. Tx oral abx and ear drops. H/O needing wick for OE. Uses q-tips Review of Systems All other systems reviewed and are negative. Family History Problem Relation Name Age of Onset Hypertension Mother Comfort Quick Diabetes Father Aristeo Quick Hypertension Father Aristeo Quick Breast cancer Other Cancer Paternal Grandfather Jorge Quick Cancer Father's Sister Radha Larsonzos Breast cancer Father's Sister Radha Key Cancer Father's Sister France Bran Breast cancer Father's Sister France Bran Cancer Father's Sister Radha Key Cancer Father's Sister France Bran Active Ambulatory Problems Diagnosis Date Noted Benign essential hypertension 09/27/2023 Vitamin D deficiency 09/27/2023 Migraine without aura and without status migrainosus, not intractable 11/08/2023 Annual physical exam 08/07/2024 Class 2 severe obesity due to excess calories with serious comorbidity and body mass index (BMI) of36.0 to 36.9 in adult ([facility]) 08/07/2024 Acute UTI 02/07/2025 Eustachian tube dysfunction, left 02/07/2025 Pharyngitis 02/07/2025 Resolved Ambulatory Problems Diagnosis Date Noted Right knee pain 09/27/2023 Hyperinsulinemia 09/27/2023 induced hypertension, ([facility]) 09/27/2023 De Quervain's tenosynovitis 09/27/2023 Anovulation 11/08/2023 Acute non-recurrent pansinusitis 11/08/2023 Chronic rhinosinusitis 11/22/2023 Numbness and tingling of both upper extremities 02/07/2024 Primary hypertension 02/07/2024 Acute pain of left shoulder 08/07/2024 URI, acute 12/11/2024 Past Medical History: Diagnosis Date Acute pain of right knee At low risk for fall Blood pressure elevated without history of HTN Chronic migraine without aura without status migrainosus, not intractable DUB (dysfunctional uterine bleeding) Infertility, female Irregular menses Otitis, externa, infective, right Past Surgical History: Procedure Laterality Date SECTION, LOW TRANSVERSE 07/16/2023 Allergies Allergen Reactions Topamax [Topiramate] Diarrhea and Other Tingling in finger and face, paresthesias Current Outpatient Medications on File Prior to Visit Medication Sig Dispense Refill fluocinonide (Lidex) 0.05 % external solution Apply to affected areas on the scalp, up to twice a day when flared, 30 day supply 60 mL 5 fluticasone (Flonase) 50 MCG/ACT nasal spray Administer 2 sprays into each nostril Daily Shake gently. Before first use, prime pump. After use, clean tip and replace cap. 16 g 2 hydroCHLOROthiazide (HYDRODiuril) 25 MG tablet TAKE 1 TABLET BY MOUTH EVERY DAY 90 tablet 3 medroxyPROGESTERone (Provera) 10 MG tablet Take 1 tablet (10 mg) by mouth Daily for 10 days 10 tablet 0 [DISCONTINUED] cephalexin (Keflex) 500 MG capsule Take 500 mg by mouth in the morning and 500 mg inthe evening and 500 mg before bedtime. No current facility-administered medications on file prior to visit. Objective Last Recorded Vitals Vitals: 02/24/25 0816 BP: (!) 162/112 Pulse: 83 ENT Physical Exam Constitutional Appearance: patient appears well-developed, well-nourished and well-groomed, Head and Face Appearance: head appears normal and face appears atraumatic; Ear Ear Canals: left ear canal normal; Tympanic Membranes: right tympanic membrane normal; left tympanic membrane normal; Ear comments: RT cerumen impaction Nose External Nose: nares patent bilaterally; external nose normal; Internal Nose: septum normal; Oral Cavity/Oropharynx Tongue: normal; Oral mucosa: normal; Hard palate: normal; Soft palate: normal; Tonsils: normal; Neck Neck: neck normal; neck palpation normal; Thyroid: thyroid normal; Respiratory Inspection: breathing unlabored; normal breathing rate; Auscultation: breath sounds are clear; Cardiovascular Inspection: extremities are warm and well perfused; no peripheral edema present; Auscultation: regular rate and rhythm; Patient ID: Eneida Peralta is a 39 y.o. female. Procedures Cerumen was removed from the right ear using binocular microscopy under micro with suction Assessment/Plan Diagnoses and all orders for this visit: Right ear impacted cerumen Chronic eczematous otitis externa of both ears - Ambulatory referral to ENT RT ear debride. OE due to q-tips shelby, and some eczema on the RT documented in this encounterMissouri Baptist Medical CenterFmupfhwfiv21-82-4226 History of Present illness Narrative* Orestes Strange MD - 02/07/2025 12:19 PM EDTAssociated Problem(s): Pharyngitis Discomfort off and on and fluid behind left TM. Possibly related to postnasal drip. Start flonase daily. If no improvement will refer to ENT. * Orestes Strange MD - 02/07/2025 12:19 PM EDTAssociated Problem(s): Eustachian tube dysfunction, left Discomfort off and on and fluid behind left TM. Possibly related to postnasal drip. Start flonase daily. If no improvement will refer to ENT. * Orestes Strange MD - 02/07/2025 12:18 PM EDTAssociated Problem(s): Acute UTI Recent UTI and improved with treatment. Monitor. * Orestes Strange MD - 02/07/2025 11:45 AM EDT Images from the original note were not included. Subjective Patient ID: Eneida Peralta is a 39 y.o. female who presents for Follow-up (Er f/up for UTI) and Sore Throat (Ongoing on and off pain for about month. ). ER follow up from 02/03 for UTI. Developed abdominal cramping and discomfort for several days. Everytime she stood felt discomfort. Currently trying to get . Denied vaginal discharge or STD risk factors. To ER and WBC elevated at 18.3. HCG negative. CT abdomen and US pelvis normal. UA showed UTI and treated with keflex. Symptoms much improved today. C/o sore throat and discomfort in left side neck off and on for over a month. To urgent care 01/15 and at the time negative for strep, Covid, and flu. Given augmentin for OM. Symptoms improved but continues to have discomfort off and on. Feels pain in left side throat. Mild congestion and postnasal drip. Discomfort and tenderness in submandibular region. Afebrile. Review of Systems Respiratory: Negative for cough, [...] Assessment/Plan Problem List Items Addressed This Visit Acute UTI - Primary Recent UTI and improved with treatment. Monitor. Eustachian tube dysfunction, left Discomfort off and on and fluid behind left TM. Possibly related to postnasal drip. Start flonase daily. If no improvement will refer to ENT. Relevant Medications fluticasone (Flonase) 50 MCG/ACT nasal spray Pharyngitis Discomfort off and on and fluid behind left TM. Possibly related to postnasal drip. Start flonase daily. If no improvement will refer to ENT. documented in this encounterMissouri Baptist Medical CenterQeabfdlwvc81-40-5138 Evaluation note* Diagnosis Onset Date Resolution Status Admit Date Acute left otitis media acuteMay 2024 9:16amBilateral conjunctivitisacuteMay 2024 9:16am BronchitisacuteMay 2024 9:16am [facility] Work Phone: [phone]) 226-881304-23-2025 History of Present illness Narrative* Orestes Strange MD - 12/11/2024 8:08 AM EDTAssociated Problem(s): URI, acute Illness likely due to a virus and [...] if no better or worse call forre-evaluation. * Orestes Strange MD - 12/11/2024 8:08 AM EDTAssociated Problem(s): Benign essential hypertension (CMS/HCC) BP improved and monitor PRN. Discussed DASH diet. * Orestes Strange MD - 12/11/2024 8:08 AM EDTAssociated Problem(s): Annual physical exam Due for labs. Discussed proper diet and regular aerobic exercise. Need aerobic exercise 5-6 days a week for 30 minutes at a time. Smaller portions and limit total calories. Colonoscopy after age 45. Tetanus every 10 years. Advised not to smoke. * Orestes Strange MD - 12/11/2024 7:45 AM EDT Images from the original note were not included. Subjective Patient ID: Eenida ePralta is a 39 y.o. female who presents for Follow-up (3 m/) and Sore Throat (Hurts to swallow). Presents for annual PE. Patient stable today. Weight unchanged over the past year. Tries to stay active with the kids and walk several days a week. Tries to watch diet and eat healthy. Increased fruits and vegetables. Smaller portions and limits snacking. Tries to limit total daily calories. Due for labs. Checking BP PRN and typically controlled. BP slightly elevated today. Taking medication daily and tolerating without side effects. C/o sore throat x 2 days. Throat feels swollen and pain to swallow. Afebrile. Mild congestion and rhinorrhea. Son recently sick. Using OTC PRN and helps. Review of Systems Respiratory: Negative for cough, [...] Assessment/Plan Problem List Items Addressed This Visit Benign essential hypertension (CMS/HCC) BP improved and monitor PRN. Discussed DASH diet. Annual physical exam - Primary Due for labs. Discussed proper diet and regular aerobic exercise. Need aerobic exercise 5-6 days a week for 30 minutes at a time. Smaller portions and limit total calories. Colonoscopy after age 45. Tetanus every 10 years. Advised not to smoke. Relevant Orders Hemoglobin A1c Basic metabolic panel CBC and differential Hepatic function panel Lipid panel TSH URI, acute Illness likely due to a virus and [...] if no better or worse call forre-evaluation. documented in this encounterMissouri Baptist Medical [id number] Evaluation note* Diagnosis Onset Date Resolution Status Admit Date Influenza A acuteMarch 2024 9:26am [facility] Work Phone: [phone]) 627-791901-20-2025 History of Present illness Narrative* Orestes Strange MD - 09/09/2024 9:26 AM ESTAssociated Problem(s): Class 2 severe obesity due to excess calories with serious comorbidity and body mass index (BMI) of 36.0 to 36.9 in adult ([facility]) Discussed proper diet and regular aerobic exercise. Recommend Weight Watchers and need to limit calories and smaller portions. Need to increase activity and regular aerobic exercise several days a week for 30 minutes at a time. * Orestes Strange MD - 09/09/2024 9:26 AM ESTAssociated Problem(s): Benign essential hypertension ([facility]/HCC) BP improved and monitor PRN. Discussed DASH diet. * Orestes Strange MD - 09/09/2024 8:45 AM EST Images from the original note were not included. Subjective Patient ID: Eneida Peralta is a 39 y.o. female who presents for Follow-up and Hypertension. Follow up HTN. Patient feels well today. After last visit monitoring BP and elevated. Add procardiaand caused severe JOAQUIN. To ER 08/20 and work up normal. Stopped procardia and changed to hydrochlorothiazide and much improved. Checking BP PRN and typically controlled. BP normal today. Taking medication daily and tolerating without side effects. Review of Systems Respiratory: Negative for cough, [...] Assessment/Plan Problem List Items Addressed This Visit Benign essential hypertension (CMS/HCC) - Primary BP improved and monitor PRN. Discussed DASH diet. Class 2 severe obesity due to excess calories with serious comorbidity and body mass index (BMI) of36.0 to 36.9 in adult (CMS/HCC) Discussed proper diet and regular aerobic exercise. Recommend Weight Watchers and need to limit calories and smaller portions. Need to increase activity and regular aerobic exercise several days a week for 30 minutes at a time. documented in this encounter47 Holder [id number] History of Present illness Narrative* Orestes Strange MD - 08/07/2024 8:50 AM ESTAssociated Problem(s): Class 2 obesity due to excess calories without serious comorbidity with body mass index (BMI) of 36.0 to 36.9 in adult Discussed proper diet and regular aerobic exercise. Recommend Weight Watchers and need to limit calories and smaller portions. Need to increase activity and regular aerobic exercise several days a week for 30 minutes at a time. * Orestes Strange MD - 08/07/2024 8:49 AM ESTAssociated Problem(s): Elevated blood pressure reading without diagnosis of hypertension BP elevated but took decongestant. Previously normal and start to monitor PRN. * Orestes Strange MD - 08/07/2024 8:49 AM ESTAssociated Problem(s): Annual physical exam Due for labs. Discussed proper diet and regular aerobic exercise. Need aerobic exercise 5-6 days a week for 30 minutes at a time. Smaller portions and limit total calories. Colonoscopy after age 45. Tetanus every 10 years. Advised not to smoke. * Orestes Strange MD - 08/07/2024 8:49 AM ESTAssociated Problem(s): Acute pain of left shoulder Recent pain but improving. Likely strain and monitor. Use OTC PRN. * Orestes Strange MD - 08/07/2024 8:49 AM ESTAssociated Problem(s): Acute non- recurrent pansinusitis Take antibiotics BID for 10 days. [...] no better or worse call for re-evaluation. * Orestes Strange MD - 08/07/2024 8:00 AM EST Images from the original note were not [...] or SOB. JOAQUIN and sinus pressure in foreheadand cheeks along with postnasal drip. Ears plugged [...] monitor. Use OTC PRN. documented in this encounterMissouri Baptist Medical [id number] History of Present illness Narrative* Orestes Strange MD - 09/27/2023 8:32 AM ESTAssociated Problem(s): De Quervain's tenosynovitis Exam consistent with De Quervain's. Start prednisone for inflammation. Use thumb spica brace. Handout with exercises to patient. * Orestes Strange MD - 09/27/2023 8:31 AM ESTAssociated Problem(s): induced hypertension, Developed HTN in and slowly improving. Reassured can take up to 6 months for BP to normalize. Stop labetalol and monitor. If consistently >140 or >90 will treat. Discussed DASH diet. * Orestes Strange MD - 09/27/2023 7:45 AM EST Subjective Patient ID: Eneida Peralta is a [...] for several months. Pain in base thumb andradiates down into wrist. 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 Pain to push off or use arm. Not tried OTC.Bought brace and mild relief. Developed pain in [...] (Deltasone) 50 MG tablet documented in this encounterMissouri Baptist Medical [id number] Evaluation note* Encounter Date Diagnosis Assessment Notes Treatment Notes Treatment Clinical Notes Mar, Exposure to COVID-19 virus (ICD- 10 - Z20.822) Mar,OVID-19 (ICD-10 - U07.1) Rapid COVID test performed [...] treatment plan. Patient left in stable condition [email or web address] Other Evaluation noteNo assessment information available [facility] Work Phone: Evaluation note* Diagnosis induced hypertension, - Primary De Quervain's tenosynovitis Radial styloid tenosynovitis documented in this encounter [facility] HealthcareEvaluation note* Diagnosis induced hypertension, - Primary Chronic rhinosinusitis [...] 36.9 in adult documented in this encounter [facility] HealthcareEvaluation note* Diagnosis induced hypertension, - Primary Chronic rhinosinusitis Unspecified sinusitis (chronic) Annual physical exam- Primary Routine general medical examination at a health care facility Elevated blood pressure reading without diagnosis of hypertension Acute non-recurrent pansinusitis Acute pain of left shoulder Class 2 obesity due to excess calories without serious comorbidity with body mass index (BMI) of 36.0 to 36.9 in adult Benign essential hypertension (CMS/HCC)- Primary Essential hypertension, benign Class 2 severe obesity due to excess calories with serious comorbidity and body mass index (BMI) of36.0 to 36.9 in adult (CMS/HCC) documented in this encounter [facility] HealthcareEvaluation note* Diagnosis induced hypertension, - Primary Chronic rhinosinusitis Unspecified sinusitis (chronic) Annual physical exam- Primary Routine general medical examination at a health care facility Elevated blood pressure reading without diagnosis of hypertension Acute non-recurrent pansinusitis Acute pain of left shoulder Class 2 obesity due to excess calories without serious comorbidity with body mass index (BMI) of 36.0 to 36.9 in adult Benign essential hypertension (CMS/HCC)- Primary Essential hypertension, benign Class 2 severe obesity due to excess calories with serious comorbidity and body mass index (BMI) of36.0 to 36.9 in adult (CMS/HCC) Benign essential hypertension (CMS/HCC) Essential hypertension, benign documented in this encounter [facility] HealthcareEvaluation note* Diagnosis Annual physical exam- Primary Routine general medical examination at a health care facility Elevated blood pressure reading without diagnosis of hypertension Acute non-recurrent pansinusitis Acute pain of left shoulder Class 2 obesity due to excess calories without serious comorbidity with body mass index (BMI) of 36.0 to 36.9 in adult Benign essential hypertension ([facility])- Primary Essential hypertension, benign Class 2 severe obesity due to excess calories with serious comorbidity and body mass index (BMI) of36.0 to 36.9 in adult ([facility] [place] [place]) Annual physical exam- Primary Routine general medical examination at a health care facility Benign essential hypertension ([facility]) Essential hypertension, benign URI, acute Acute upper respiratory infections of unspecified site documented in this encounter [facility] HealthcareEvaluation note* Diagnosis Annual physical exam- Primary Routine general medical examination at a health care facility Elevated blood pressure reading without diagnosis of hypertension Acute non-recurrent pansinusitis Acute pain of left shoulder Class 2 obesity due to excess calories without serious comorbidity with body mass index (BMI) of 36.0 to 36.9 in adult Benign essential hypertension- Primary Essential hypertension, benign Class 2 severe obesity due to excess calories with serious comorbidity and body mass index (BMI) of36.0 to 36.9 in adult ([facility] Annual physical exam- Primary Routine general medical examination at a health care facility Benign essential hypertension Essential hypertension, benign URI, acute Acute upper respiratory infections of unspecified site Acute UTI- Primary Urinary tract infection, site not specified Eustachian tube dysfunction, left Pharyngitis, unspecified etiology documented in this encounter [facility]* Diagnosis Annual physical exam- Primary Routine general medical examination at a health care facility Elevated blood pressure reading without diagnosis of hypertension Acute non-recurrent pansinusitis Acute pain of left shoulder Class 2 obesity due to excess calories without serious comorbidity with body mass index (BMI) of 36.0 to 36.9 in adult Benign essential hypertension- Primary Essential hypertension, benign Class 2 severe obesity due to excess calories with serious comorbidity and body mass index (BMI) of36.0 to 36.9 in adult ([facility] Annual physical exam- Primary Routine general medical examination at a health care facility Benign essential hypertension Essential hypertension, benign URI, acute Acute upper respiratory infections of unspecified site Acute UTI- Primary Urinary tract infection, site not specified Eustachian tube dysfunction, left Pharyngitis, unspecified etiology Right ear impacted cerumen- Primary Impacted cerumen Chronic eczematous otitis externa of both ears documented in this encounter [facility]* Diagnosis Annual physical exam- Primary Routine general medical examination at a health care facility Elevated blood pressure reading without diagnosis of hypertension Acute non-recurrent pansinusitis Acute pain of left shoulder Class 2 obesity due to excess calories without serious comorbidity with body mass index (BMI) of 36.0 to 36.9 in adult Benign essential hypertension- Primary Essential hypertension, benign Class 2 severe obesity due to excess calories with serious comorbidity and body mass index (BMI) of36.0 to 36.9 in adult ([facility]) Annual physical exam- Primary Routine general medical examination at a health care facility Benign essential hypertension Essential hypertension, benign URI, acute Acute upper respiratory infections of unspecified site Acute UTI- Primary Urinary tract infection, site not specified Eustachian tube dysfunction, left Pharyngitis, unspecified etiology Strain of AC joint, right, initial encounter- Primary documented in this encounter [facility] HealthcareReason for referral (narrative)No reason for referral information availableBrown [facility] Hospital Work Phone: Summary Purpose Family History Relationship Condition Age at Onset Recorded Date/T guillermo father Diabetes mellitus Unknown Advance Directives Advance Directive Response Recorded Date/ Time Advance Directives No June 9:16am Chief Complaint and Reason for Visit Chief Complaint sore throat, congest ion, cough Chief Complaint Admit Date Cough October 23, 2024 9:26 am Chief Complaint Admit Date Cough October 23, 2024 9:26 am Congestion, poss pink eye January 15, 2025 9:16am Reason for Visit Admit Date Influenza A October 23, 2024 9:26 am Chief Complaint Admit Date Congestion, poss pink eye January 15, 2025 9:16am Unknown January 31, 2025 12:1 6pm Ear pain February 12, 2025 9:13 am Reason for Visit Admit Date Acute left otitis media January 15, 2025 9 :16am Bilateral conjunctivitis January 15, 2025 9:16am Bronchitis January 15, 2025 9:16a m Chief Complaint Admit Date Established Patient June 04, 2025 7 :08am Additional Source Comments REASON FOR VISIT (unrecogniz ed section and content) ReasonCommentsFollow-upBlood pressureReasonCommentsAnnual ExamWellnessShoulder PainNasal CongestionWith chest congestionReasonCommentsFollow-upHypertension ReasonCommentsMed Change RequestReasonCommentsFollow-up3 mSore ThroatHurts to swallowReasonCommentsFollow-upEr f/up for UTISore ThroatOngoing on and off pain for about month.ReasonCommentsEar ProblemSpecialtyDiagnoses / ProceduresReferred By ContactReferred To ContactOtolaryngology Diagnoses Eustachian tube dysfunction, left Procedures [place] OFFICE/OUTPATIENT NEW HIGH MDM 60 MINUTES Orestes Strange MD [address] [place] [address] Phone: tel: fax: Mariola Wilson MD [address] [facility] [address] [place] [address] Phone: tel: fax: Referral IDStatusReasonStart DateExpiration DateVisits RequestedVisits [id number] Specialty Services Required /[id number]-gbNdrubcme painLump on right leg INFORMATION SOURCE (unrecogn ized section and content) DATE CREATED AUTHOR 01/04/2023 [facility] DATE CREATED AUTHOR AUTHOR'S ORGANIZ ATION 02/03/2025 [facility] DATE CREATED AUTHOR AUTHOR'S ORGANIZ ATION 02/27/2025 [facility] EPIC Care Teams (unrecognized sec tion and content) Team Status: Active Member Role Status Dates Orestes Strange MD Primary Care Provider Active Team Status: Inactive Member Role Status Dates Orestes Strange MD Primary Care Provider Active S tart: October 23, 2024 End: October 23, 2024Akosua Cristobal ProviderActiveStart: October 23, 2024 End: October 23, 2024 Team Status: Inactive Member Role Status Dates Orestes Strange MD Primary Care Provider Active S tart: January 15, 2025 End: January 15Akosua Gracia ProviderActiveStart: January 15, 2025 End: January 15, 2025 Team Status: Active Member Role Status Dates Orestes Strange MD Primary Care Provider Active S tart: August 18, 2024 Dillon Awan DOAttending ProviderActiveStart: August 18, 2024 Team Status: Active Member Role Status Dates Orestes Strange MD Primary Care Provider Active S tart: August 22, 2024 Dillon Awan DOAttending ProviderActiveStart: August 22, 2024 Team Status: Inactive Member Role Status Dates Efren Wan Attending Provider Active Team MemberRelationshipSpecialtyStart DateEnd Date Orestes Strange MD [address] [place] [id number] PCP - [facility]09/26/23Team MemberRelationshipSpecialtyStart DateEnd Date Orestes Strange MD [address] [place] [id number] PCP - [facility]09/26/23 Team Status: Inactive Member Role Status Dates Orestes Strange MD Primary Care Provider Active S tart: November 05, 2023 End: November 04gerhard Morel NP-CAttenhua ProviderActiveStart: November 05, 2023 End: November 05, 2023Team MemberRelationshipSpecialtyStart DateEnd Date Orestes Strange MD [address] [place] [address] PCP - [facility]09/26/23 Shaikh Marquez MD [address] [place] [address] PCP - [facility]12/20/2411Team MemberRelationshipSpecialty Start DateEnd Date Orestes Strange MD [address] [place] [phone] PCP - [facility]09/26/23 Shaikh Marquez MD [address] [place] [address] PCP - [facility]12/20/2411Team MemberRelationshipSpecialty Start DateEnd Date Orestes Strange MD [address] [place] [address] PCP - [facility]09/26/23 Shaikh Marquez MD [address] [place] [address] PCP - [facility]12/20/2411Team MemberRelationshipSpecialty Start DateEnd Date Orestes Strange MD [address] [place] [address] PCP - [facility]09/26/23 Shaikh Marquez MD [address] [place] [address] PCP - [facility]12/20/2411Team MemberRelationshipSpecialty Start DateEnd Date Orestes Strange MD [address] [place] [address] PCP - [facility]09/26/23 Shaikh Marquez MD [address] [place] [address] PCP - [facility]12/20/2411Team MemberRelationshipSpecialty Start DateEnd Date Orestes Strange MD [address] [place] [address] PCP - [facility]09/26/23 Shaikh Marquez MD [address] [place] [address] PCP - [facility]12/20/2411Team MemberRelationshipSpecialty Start DateEnd Date Orestes Strange MD [address] [place] [address] PCP - [facility]09/26/23 Orestes Strange MD [address] [place] [address] PCP - [facility]12/20/2411Team MemberRelationshipSpecialty Start DateEnd Date Orestes Strange MD [address] [place] [address] PCP - [facility]09/26/23 Orestes Strange MD [address] [place] [address] PCP - [facility]12/20/2411Team MemberRelationshipSpecialty Start DateEnd Date Orestes Strange MD [address] [place] [address] PCP - [facility]09/26/23 Orestes Strange MD [address] [place] [address] PCP - [facility]12/20/2411Team MemberRelationshipSpecialty Start DateEnd Date Orestes Strange MD [address] [place] [address] PCP - [facility]09/26/23 Orestes Strange MD [address] [place] [address] PCP - [facility]12/20/2411Team MemberRelationshipSpecialty Start DateEnd Date Orestes Strange MD [address] [place] [address] PCP - [facility]09/26/23 Orestes Strange MD [address] [place] [address] [facility] - [facility]12/20/2411 Team Status: Inactive Member Role Status Dates Corie Horvath MD Attending Provider Active Sta rt: January 31, 2025 End: January 31, 2025 Team Status: Inactive Member Role Status Dates Jessica Schuler APRN Attending Provider Active Start: February 12, 2025 End: February 12, 2025Mar Jodie Strange Care ProviderActiveStart: February 12, 2025 End: February 12, 2025Team MemberRelationshipSpecialtyStart DateEnd Date Orestes Strange MD [address] [place] [address] PCP - [facility]09/26/23 Orestes Strange MD [address] [place] [address] PCP - [facility]12/20/2411Team MemberRelationshipSpecialty Start DateEnd Date Orestes Strange MD [address] [place] [address] PCP - [facility]09/26/23 Orestes Strange MD [address] [place] [address] PCP - [facility]12/20/2411 Team Status: Inactive Member Role Status Dates Orestes Strange MD Primary Care Provider Active S tart: June 04, 2025 End: June 04, 2025[facility] CAROLYN Strangettending ProviderActiveStart: June 04, 2025 End: June 04, 2025 Goals (unrecognized section and content) Goals may [...] BE BASED ON THE PRIMARY CLINICAL RECORDS. [facility] [employer] [facility]. provides no warranty or guarantee of the accuracy or completeness of information in this document.
--- OUTSIDE RECORDS SUMMARY | 2025-06-21 11:21 | XMS_ITS | Encounter Summary ---
Author Organization [facility] Address [address] [place] [address] Care Team Providers Care Vice President Marketing & Development Name Role Phone Orestes Zamora MD Primary Care Provider [phone] Orestes Zamora MD Unavailable Encounter Details DateTypeDepartmentCare Team (Latest Contact Info)Zxodzukcuqu93/31/2025Telephone NOMKatelyn Hays OBGYBrandy [address] [place] [address] [place] [address] Elisa Webb LPN Social History Tobacco UseTypesPacks/DayYears UsedDateSmoking Tobacco: NeverPassive Smoke Exposure: NeverSmokeless Tobacco: NeverAlcohol UseStandard Drinks/WeekComments Never0 (1 standard drink = 0.6 oz pure alcohol)B1300 Health LiteracyAnswerDate RecordedHow often do you need to have someone help you when you read instructions, pamphlets, or other written material from your doctor or pharmacy? Never12/11/2024Humiliation, Afraid, Rape, and Kick questionnaireAnswerDate RecordedWithin the last year, have you been afraid of your partner or ex-partner?No12/11/2024Within the last year, have you been humiliated or emotionally abused in other ways by your partner or ex-partner?No12/11/2024 Within the last year, have you been kicked, hit, slapped, or otherwise physically hurt by your partner or ex-partner?No12/11/2024Within the last year, have you been raped or forced to have any kind of sexual activity by your part ner or ex-partner?No12/11/2024Social Connection and Isolation PanelAnswerDate RecordedIn a typical week, how many times do you talk on the phone with family, friends, or neighbors?More than three times a week12/11/2024How often do you get together with friends or relatives?Twice a week12/11/2024How often do you attend faith or mandaeism services?1 to 4 times per year12/11/2024Do you belong to any clubs or organizations such as faith groups, unions, [employer] or athletic saud ups, or school groups?No12/11/2024How often do you attend meetings of the clubs or organizations you belong to?Never12/11/2024re you , , , , never , or living with a partner?Cbvzptg0912/11/2024 AUDIT-CAnswerDate RecordedQ1: How often do you have a drink containing alcohol? Monthly or less12/11/2024Q2: How many drinks containing alcohol do you have on a typical day when you are drinking?1 or Q3: How often do you have six or more drinks on one occasion?Never12/11/2024Overall Financial Resource Strain (CARDIA)AnswerDate RecordedHow hard is it for you to pay for the very basics like food, housing, medical care, and heating?Not hard at all12/11/2024PHQ-2 AnswerDate RecordedPatient Health Questionnaire-2 [id number] mountain hospital, inc. [facility] [employer] - Occupational Stress QuestionnaireAnswerDate RecordedDo you feel stress - tense, restless, nervous, or anxious, or unable to sleep at night because yourmind is troubled all the time - these days?Not at all 12/11/2024Exercise Vital SignAnswerDate RecordedOn average, how many days per week do you engage in moderate to strenuous exercise (like a brisk walk)?1 day 12/11/2024On average, how many minutes do you engage in exercise at this level? 30 min12/11/2024Hunger Vital SignAnswerDate RecordedWithin the past 12 months, you worried that your food would run out before you got the money to buymore. Never true12/11/2024Within the past 12 months, the food you bought just didn't last and you didn't have money to get more.Never true12/11/2024PRAPARE - TransportationAnswerDate RecordedIn the past 12 months, has lack of transportation kept you from medical appointments or from getting medications?No 12/11/2024In the past 12 months, has lack of transportation kept you from meetings, work, or from getting things needed for daily living?No12/11/2024 Housing Stability Vital SignAnswerDate RecordedIn the last 12 months, was there a time when you were not able to pay the mortgage or rent on time?No09/26/2023In the last 12 months, how many places [...] were you homeless or living in a usp (including now)?No12/11/2024 CommentsUnknownSex and Gender InformationValueDate RecordedSex Assigned at BirthNot on fileLegal VrqBohcxs43/15/2023 9:44 PM EDTGender IdentityNot on fileSexual OrientationNot on filedocumented as of this encounter Miscellaneous Notes * Telephone Encounter - Elisa Webb LPN - 06/20/2025 9:05 AM EDT 06/20/25 @08:38am Patient called and LMOM stating that she had started her cycle on 06/01/25 and isdue to have labs drawn tomorrow. Patient voiced she just wanted a note made so that it was in her chart. 06/20/25 @08:43am Patient called back and LMOM stating that she reached out to [facility] to pre-register and they did not have the order. Patient request call back. 06/20/25 @09:05am Called patient and informed her that lab order was re-faxed to [facility] scheduling (both fax#'s) and [facility] Lab. Informed patient to wait at least 30 minutes to call back to pre-register. Patient inquired if she does not conceive with this cycle if she has to meet with Dr. Wan to discuss further. Informed patient that prior to this round she had not taken fertility medication since December and that we would be able to do a total of 3 rounds and then discuss HSG with 4th round. PVU and post-it will be made on patients chart with this information. Pvu Patient will reach out to office ifshe has not started her cycle by 07/05/25 and will then need to confirm a negative UPT and then Provera will be able to be sent to induce cycle. PVU--ss Nursing will reach out to patient on Monday07/07/25 to inquire about cycle status. documented in this encounter Plan of Treatment Not on file documented as of this encounter Visit Diagnoses Not on filedocumented in this encounter Care Teams Team MemberRelationshipSpecialtyStart DateEnd Date Orestes Zamora MD PCP - GeneralFamily Medicine09/26/23 Orestes Zamora MD [address] [place] [address] PCP - Medical [place] Commercial/documented as of this encounter
== END 2025-06-21 11:18 | disposition home or self-care (01) ==
LOC: LAB 11:18
PROVIDERS: PCP Family Medicine; Visit Provider Obstetrics & Gynecology
DX: N97.0 Female infertility associated with anovulation (principal)
CPT/HCPCS: 36415; 84144

== ENCOUNTER 2025-07-31 07:17 | Emergency (ER) | payer OTHER, SELFPAY ==
[2025-07-31 07:22] VITALS: BP 157/102; PULSE 139; TEMP 37.2; O2SAT 95; BMI 36.3
--- OUTSIDE RECORDS SUMMARY | 2025-07-31 07:43 | XMS_ITS | CCD ---
Author Organization [facility] Care Team Providers Care Appeals Board Referee Name Role Phone Shereen Garcia Unavailable SAVAGE [...] Provider Orestes Strange MD Primary Care Provider [phone] Shaikh Marquez MD Unavailable Orestes Strange MD Unavailable Corie Horvath Attending Unavailable Corie Horvath Admitting Unavailable Orestes Strange MD Primary Care Provider [phone] Eneida Castillo APRN Attending Provider [phone] Corie Horvath MD Attending Provider Jessica Schuler APRN Attending Provider [phone] ORESTES STRANGE Attending Unavailable ALEXANDR, ORESTES Attending Unavailable DANIELA, MARILYN Attending Unavailable ALEXANDR, ORESTES Attending Unavailable MARIOLA WILSON Attending Unavailable ORESTES STRANGE Referring Unavailable ORESTES STRANGE Attending Unavailable ORESTES STRANGE Attending Unavailable Orestes Strange MD Primary Care Provider [phone] Orestes Strange MD Attending Provider [phone] Orestes Strange MD Primary Care Provider Orestes Strange MD Unavailable Allergies Allergy ClassificationReported Allergen(s)Allergy TypeDate of OnsetReaction(s) Facility (20 sources)TopiramateAllergy to xrrossxdz29-49-5438Xlbsalwm, [facility] (1 source)topiramateDrug Ueadhid46-80-7076FxgpfeeyrOhiohealth Hardin Memorial Hospital Repository Medications Current Medications MedicationDrug Class(es)DatesSig (Normalized)Sig (Original)Albuterol Sulfate 90 mcg/actuation HFA aerosol inhaler (1 source)Start: 58-80-8147Rzjooxzcw Sulfate 90 mcg/actuation HFA aerosol inhaler Active 2 INH INHALATION EVERY 4-6 HOURS as needed for shortness of breath or wheezing 6.7 January 15, 2025 12:00amcefdinir 300 mg oral capsule (2 sources)Cephalosporin AntibacterialStart: 08-07-2024 End: 79-76-8950byht 1 capsule by mouth in the morningcefdinir (Omnicef) 300 MG capsule Indications: Acute non-recurrent pansinusitis Take 1 capsule (300mg) by mouth in the morning and 1 capsule (300 mg) before bedtime. Do all this for 10 days. 20 capsule 08/07/2024 08/17/2024 Activecephalexin 500 mg oral capsule (5 sources)Cephalosporin AntibacterialStart: 01-31-2025 End: 51-63-2601vlce 1 capsule by mouth in the morning, then take 1 capsule by mouth in the evening, then take 1 capsule by mouth at bedtimecephalexin (Keflex) 500 MG capsule Take 500 mg by mouth in the morning and 500 mg in the evening and 500 mg before bedtime. 01/31/2025 02/24/2025 Discontinued (Therapy completed) Ciprofloxacin-Dexamethasone 0.3-0.1 % drops,suspension (1 source)Start: 31-53-4212Kfapkelhfmscx-Dexamethasone 0.3-0.1 % drops,suspension Active 4 DROPS OTIC Twice daily 7.5 7 January 15, 2025 12:00am left earEthinyl Estradiol / Ferrous fumarate / Norethindrone (3 sources)EstrogenStart: 08-30-2023 End: 33-87-4637qygcpbemwanmf-ethinyl estradiol (09/09) 1-20 MG-MCG tablet Indications: 6 weeks follow-up Take 1 tablet by mouth in the morning. 28 tablet 11 08/30/2023 09/27/2023 DiscontinuedStart: 08-30-2023 End: 44-54-0855hsrmcxxmriehu-ethinyl estradiol (09/09) 1-20 MG-MCG tablet Indications: 6 weeks follow-up Take 1 tablet by mouth in the morning. 28 tablet 11 08/30/2023 08/29/2024 Activefluocinolone acetonide 0.25 mg/ml topical cream (11 sources)CorticosteroidStart: 08-56-6949rrchryzykfxd (Synalar) 0.025 % cream Indications: Chronic eczematous otitis externa of both ears Apply to right outer ear 2 times daily for 10 day 15 g 1 02/24/2025 ActiveStart: 02-24-2025 End: 84-29-2229yuaonsdzmxhs (DermOtic) 0.01 % ear drops Indications: Chronic eczematous otitis externa of both ears Administer 5 drops into each ear in the morning and 5 drops before bedtime. Do all this for 10 days. 20 mL 1 02/24/2025 03/06/2025 Activefluocinonide 0.5 mg/ml topical solution (20 sources)CorticosteroidStart: 05-30-2024 End: 19-28-1558cjibyqagshfq (Lidex) 0.05 % external solution Indications: Other seborrheic dermatitis Apply to affected areas on the scalp, up to twice a day when flared, 30 day supply 60 mL 5 05/30/2024 Activefluticasone propionate 0.05 mg/actuat metered dose nasal spray (12 sources)CorticosteroidStart: 94-54-4783Cvzdxgvimeq Propionate 50 mcg/actuation spray,suspension Active 2 SPRAY INTRANASAL Daily June 02, 2025 12:57pm Complies with drug therapyStart: 48-84-4792egzx 2 spray(s) nasal route once dailyfluticasone (Flonase) 50 MCG/ACT nasal spray Indications: Eustachian tube dysfunction, left ADMINISTER 2 SPRAYS INTO EACH NOSTRIL DAILY SHAKE GENTLY. BEFORE FIRST USE, PRIME PUMP. AFTER USE, CLEAN TIP AND REPLACE CAP. 48 mL 1 03/04/2025 ActiveStart: 02-12-2025 End: 98-53-3012Ifkigfeiqjz Propionate 50 mcg/actuation spray,suspension Discontinued 1 SPRAY INTRANASAL January 12:00am June 02, 2025 12:58pmStart: 52-33-9809zfqt 2 spray(s) nasal route once dailyfluticasone (Flonase) 50 MCG/ACT nasal spray Indications: Eustachian tube dysfunction, left Administer 2 sprays into each nostril Daily Shake gently. Before first use, prime pump. After use, clean tip and replace cap. 16 g 2 02/07/2025 Active hydroCHLOROthiazide 25 mg oral tablet (20 sources)Thiazide DiureticStart: 08-22-2024 End: 55-93-8774ixyk 1 tablet by mouth once dailyHydrochlorothiazide 25 mg tablet Active 25 MG PO Daily October 23, 2024 1:00am Complies with drug therapylabetalol hydrochloride 100 mg oral tablet (3 sources)beta-Adrenergic BlockerStart: 07-22-2023 End: 73-49-4666xwmz 1 tablet by mouth in the morning, then take 1 tablet by mouth in the evening, then take 1 tablet by mouth at bedtimelabetalol (Normodyne) 100 MG tablet Take 1 tablet by mouth in the morning and 1 tablet in the evening and 1 tablet before bedtime. 0 07/22/2023 09/27/2023 Discontinued medroxyPROGESTERone acetate 10 mg oral tablet (16 sources)ProgestinStart: 50-01-5321yslk 1 tablet by mouth once daily medroxyPROGESTERone (Provera) 10 MG tablet Indications: Anovulation Take 1 tablet (10 mg) by mouth Daily for 10 days 10 tablet 11/19/2024 ActiveStart: 05-22-2024 End: 48-16-0251wkdu 1 tablet by mouth once dailymedroxyPROGESTERone (Provera) 10 MG tablet Indications: Anovulation Take 1 tablet (10 mg) by mouth Daily for 10 days 10 tablet 05/22/2024 08/07/2024 DiscontinuedmetFORMIN (1 source)BiguanidemetFORMIN HCl ActivepredniSONE 50 mg oral tablet (7 sources)Start: 02-26-2025 End: 95-81-4639jgzq 1 tablet by mouth once daily before mealtimepredniSONE (Deltasone) 50 MG tablet Indications: Strain of AC joint, right, initial encounter Take 1 tablet (50 mg) by mouth Daily for 6 days 6 tablet 02/26/2025 03/04/2025 ActiveStart: 01-15-2025 End: 95-78-3521zvxn 1 tablet by mouth twice dailyPrednisone 20 mg tablet Discontinued 20 MG PO Twice daily 6 3 January 15, 2025 12:00am February 12, 2025 9:17amStart: 09-27-2023 End: 12-69-9707wzje 1 tablet by mouth in the morningpredniSONE (Deltasone) 50 MG tablet Indications: De Quervain's tenosynovitis Take 1 tablet (50 mg) by mouth in the morning for 6 days. 6 tablet 0 09/27/2023 10/03/2023 Active Completed/Discontinued Medications MedicationDrug Class(es)DatesSig (Normalized)Sig (Original)[id number] 200 actuat albuterol 0.09 mg/actuat metered dose inhaler (2 sources)beta2-Adrenergic AgonistStart: 01-15-2025 End: 85-29-8550Udhrmxmlt Sulfate 90 mcg/actuation HFA aerosol inhaler Discontinued 2 INH INHALATION EVERY 4-6 HOURS as needed for shortness of breath or wheezing 6.7 January 15, 2025 12:00am February 12, 2025 9:28amamoxicillin 80 mg/ml / clavulanate 11.4 mg/ml oral suspension (3 sources)Penicillin-class AntibacterialStart: 01-15-2025 End: 64-78-4939fmjq 1 mL by mouth every twelve hoursAmoxicillin-Pot Clavulanate 400-57 mg/5 mL suspension for reconstitution Discontinued 10.9 ML PO Every 12 hours 152.6 7 January 15, 2025 12:00am February 12, 2025 9:16amciprofloxacin 3 mg/ml / dexamethasone 1 mg/ml otic suspension (4 sources)Corticosteroid, Quinolone AntimicrobialStart: 02-12-2025 End: 03-54-8551Tonrgtwmykxae-Dexamethasone 0.3-0.1 % drops,suspension Discontinued 4 DROPS OTIC Twice daily 7.5 7 February 12, 2025 12:00am June 02, 2025 12:58pm instill 4 drops in affected earStart: 01-15-2025 End: 70-97-5810Ukrpdtquhynpt-Dexamethasone 0.3-0.1 % drops,suspension Discontinued 4 DROPS OTIC Twice daily 7.5 7 January 15, 2025 12:00am February 12, 2025 9:17am left earNIFEdipine 30 mg osmotic 24 hr extended release oral tablet (4 sources)Dihydropyridine Calcium Channel BlockerStart: 10-23-2024 End: 05-10-6077ztxl 1 tablet by mouth every twenty-four hoursNifedipine 30 mg tablet extended release 24hr Discontinued MG PO October 23, 2024 1:00am October 23, 2024 10:37ampolymyxin b 19655 unt/ml / trimethoprim 1 mg/ml ophthalmic solution (3 sources)Dihydrofolate Reductase Inhibitor Antibacterial, Polymyxin-class AntibacterialStart: 01-15-2025 End: 79-73-5313Fhsrfqxgt B Sulf-Trimethoprim 10,000 unit- 1 mg/mL drops Discontinued 1 DROPS OPHTHALMIC Every three hours 10 7 January 15, 2025 12:00am February 12, 2025 9:17am do not exceed 6 doses in a 24 hr period Problems Active Problems Problem ClassificationProblemDateDocumented DateEpisodic/ChronicChronic obstructive pulmonary disease and bronchiectasis (3 sources)Bronchitis; Translations: [Bronchitis, not specified as acute or chronic]40-04-0674YsboeloyCtpbywmpv hypertension (20 sources)Essential hypertension; Translations: [Essential (primary) hypertension]Onset: 09-27-2023 Resolved: 437950-60-4727SojqmlvEpibowzg; including migraine (20 sources)Chronic migraine without aura; Translations: [Chronic migraine without aura, not intractable, without status migrainosus]Onset: 11-08-2023 83-93-5153HpiwwnyZoiwtuovnpuc; infection of eye (except that caused by tuberculosis or sexually transmitteddisease) (3 sources)Bilateral conjunctivitis; Translations: [Unspecified conjunctivitis] 41-38-7093GawpjgvhHgecbcvrm (4 sources)Influenza due to Influenza A virus; Translations: [Influenza due to other identified influenza virus with other respiratory manifestations] 27-52-7427LofimjjmJjknlkdam disorders (4 sources)Irregular menstruation, unspecified; Translations: [IRREGULAR MENSTRUATION UNSPECIFIED]Onset: 10-15-5506IibjpnzVpscekzkawd deficiencies (20 sources)Vitamin D deficiency, unspecified; Translations: [Vitamin D deficiency]Onset: 029378-00-9832PlmvnttKpxzh circulatory disease (9 sources)Elevated blood-pressure reading without diagnosis of hypertension; Translations: [Elevated blood-pressure reading, without diagnosis of hypertension]Onset: 624070-30-5001EwvbqwwxAktkb ear and sense organ disorders (2 sources)Chronic eczema of external auditory canal; Translations: [Other otitis externa, bilateral]97-14-5378RgboisgYihaf ear and sense organ disorders (2 sources)Impacted cerumen in right ear; Translations: [Impacted cerumen, right ear]05-01-3315PgcdbkjtVzwdw female genital disorders (4 sources)Abnormal uterine and vaginal bleeding, unspecified; Translations: [ABNORMAL UTERINE VAGINAL BLEED UNS]Onset: 39-43-9063OvogpchWnbpl nutritional; endocrine; and metabolic disorders (5 sources)Obesity caused by energy imbalance; Translations: [Class 2 obesity due to excess calories without serious comorbidity with body mass index (BMI) of 36.0 to 36.9 in adult]Onset: 718239-81-4705RusdcitRslur nutritional; endocrine; and metabolic disorders (20 sources)Severe obesity; Translations: [Class 2 severe obesity due to excess calories with serious comorbidity and body mass index (BMI) of 36.0 to 36.9 in adult ([facility])]Onset: 484619-02-4523KpqrkjqUgeyy upper respiratory infections (20 sources)Chronic sinusitis, unspecified; Translations: [Chronic rhinitis] Onset: 11-22-2023 Resolved: 497096-50-3057GcrqvzhEmwghknammja (1 source) Past or Other Problems Problem ClassificationProblemDateDocumented DateEpisodic/ChronicFemale infertility (20 sources)Anovulation; Translations: [Female infertility associated with anovulation]Onset: 11-08-2023 Resolved: 907915-20-7722YazykwiBnrxsnisezkw complicating ; childbirth and the puerperium (20 sources) -induced hypertension; Translations: [Gestational [-induced] hypertension without significant proteinuria, complicating the puerperium]Onset: 09-27-2023 Resolved: 679891-86-9356IubyljesCzcnm connective tissue disease (20 sources)Radial styloid tenosynovitis; Translations: [Radial styloid tenosynovitis [de Quervain]]Onset: 09-27-2023 Resolved: 288966-75-9549ThqexbvqLkala endocrine disorders (20 sources)Hyperinsulinism; Translations: [Other hypoglycemia]Onset: 09-27-2023 Resolved: 594326-61-0108FugzhbwDdhso nervous system disorders (20 sources)Paresthesia of upper limb; Translations: [Anesthesia of skin]Onset: 02-07-2024 Resolved: 648766-28-5596EcwhjrqvQkduc non-traumatic joint disorders (20 sources)Pain in right knee; Translations: [Pain in joint, lower leg]Onset: 09-27-2023 Resolved: 941064-77-4304WvbnaxslPuyyp non-traumatic joint disorders (20 sources)Pain in left shoulder; Translations: [Pain in joint, shoulder region]Onset: 08-07-2024 Resolved: 287518-22-9549UncdsanjYnlmg upper respiratory infections (20 sources)Acute pansinusitis; Translations: [Acute pansinusitis, unspecified] Onset: 11-08-2023 Resolved: 972915-99-2661LzojczcdRqjyet media and related conditions (15 sources)Dysfunction of left eustachian tube; Translations: [Unspecified Eustachian tube disorder, left ear]Onset: 854229-59-1249LwyacgnbXnehorj and strains (6 sources)Disorder of acromioclavicular joint; Translations: [Strain of unspecified muscle, fascia and tendonat shoulder and upper arm level, right arm, initial encounter]Onset: 698405-69-5812MklhlvioSyjvecydabjp (1 source)Exposure to COVID-19 virus Z20.822Onset: 04-01-2022 Resolved: 81-11-4732Forqmzq tract infections (11 sources)Acute urinary tract infection; Translations: [Urinary tract infection, site not specified]Onset: 02-07-2025 Resolved: 606521-99-8906JyebnzjeTiiyt infection (1 source)COVID-19Onset: 04-01-2022 Resolved: 04-01-2022 Results Test NameValueInterpretationReference RangeFacilityALL PROGESTERONEon 06-22-2025 PROGESTERONE5.4 ng/mL.NOMS HealthcareComment on above:Follicular phase 0.1 - 0.9 Luteal phase 1.8 - 23.9 Ovulation phase 0.1 - 12.0 First trimester 11.0 - 44.3 Second trimester 25.4 - 83.3 Third trimester 58.7 - 214.0 Postmenopausal 0.0 - 0.1 Performed at: [facility] Lab[address] [id number] [employer] Processor: Andrew Kumar PhD, Phone: [phone] CLINISYChildren's Hospital at ErlangerUrine Cultureon 42-91-7245Bzjpeohq identified Cx Nom (U) <9,000 colonies/ml mixed bacterial skin contaminants 2 Days PERFORMED BY: [place] [address] PATHOLOGIST ASSOCIATE PROFESSOR OF MEDICINE GÓMEZ GARCIA M.D.NormalSacred Heart Hospital Physician GroupComment on above: Performed By: #### CUU #### [place] [address] USAUrine cultureOrdered By: Corie Horvath on 15-29-1668Yhkhsoci identified Cx Nom (U)2 DaysOhiohealth Hardin Memorial HospitalCOVID Cepheidon 71-29-6789YNPV-CoV-2 (COVID-19) RNA SHAISTA+probe Ql (Unsp spec)NegativeOhiohealth Hardin Memorial HospitalNo Panel InformationOrdered By: Eneida Castillo on 01-15-2025 Quick Strep (POC)[facility] HospitalNo Panel Informationon 04-21-7516NYN Influenza A (PCR)NegativePremier Health [facility] Influenza B (PCR)NegativeOhiohealth Hardin Memorial HospitalInfluenza virus B Ag [Presence] in Upper respiratory specimen by Rapid immunoassayon 24-71-3863WJLQL Ag IA.rapid Ql (Nph)Influenza virus B Ag [Presence] in Upper respiratory specimen by Rapid immunoassayOhiohealth Hardin Memorial HospitalNo Panel Informationon 25-84-5290Wihchuczi Type A (Rapid)PositiveOhiohealth Hardin Memorial HospitalPO SARS CoV-2 AntigenNegativeOhiohealth Hardin Memorial HospitalALL PROGESTERONEon 61-44-9476QYPYAHZNFCPP2.1 ng/mL.NOMS HealthcareComment on above: Follicular phase 0.1 - 0.9 Luteal phase 1.8 - 23.9 Ovulation phase 0.1 - 12.0 First trimester 11.0 - 44.3 Second trimester 25.4 - 83.3 Third trimester 58.7 - 214.0 Postmenopausal 0.0 - 0.1 Performed at: - [facility] [id number] [employer] Processor: Andrew Kumar PhD, Phone: [phone] CLINISYNCNOMS [facility] Greene MemorialCOVID Cepheidon 50-04-3026CUZP-CoV-2 (COVID-19) RNA SHAISTA+probe Ql (Unsp spec)NegativeOhiohealth Hardin Memorial HospitalNo Panel Informationon 75-97-3932UST Influenza A (PCR)NegativeOhiohealth Hardin Memorial HospitalPOC Influenza B (PCR)NegativeOhiohealth Hardin Memorial HospitalNo Panel InformationOrdered By: Radha Morel on 81-13-7581Iktpo Strep (POC)[facility] Memorial HospitalFibrinogen [Mass/volume] in Platelet poor plasma by Coagulation assayOrdered By: Efren Wan on 43-77-4914Gdyxsjdyly Coag (PPP) [Mass/Vol]310 mg/bN640-938EewmejncmOhiohealth Hardin Memorial HospitalComment on above:A hematocrit value greater than 55% may lead to inaccurate results in coagulation testing. Patientshaving hematocrit values >55% require a special collection tube for coagulation studies. Please contact the laboratory at [phone] for redraw instructions.PREG QUANT HCGon 71-25-1187YPE ZOJST23506 mIU/mLNAdena Regional Medical CenterComment on above:Performed By: #### PREGQNT #### [facility] [address] [place] [address] Dr. Alexsander Martinez [facility] Hospital - ColumbusComment on above: Result Comment: 5-50 0.2-1 WEEK 50-500 1-2 WEEKS 100-5,000 2-3 WEEKS 500-10,000 3-4 WEEKS 1,000-50,000 4-5 WEEKS 10,000-100,000 5-6 WEEKS 15,000-200,000 6-8 WEEKS 10,000-100,000 2-3 MONTHSPerformed By: #### PREGQNT #### [facility] [address] [place] [address] Dr. Alexsander MadrigalPROGESTERONEon 95-73-0460Gxehmjsdkgxc2.2 ng/mLNAdena Regional Medical CenterComselect specialty hospital on above:Result Comment: Follicular phase 0.1 - 0.9 Luteal phase 1.8 - 23.9 Ovulation phase 0.1 - 12.0 First trimester 11.0 - 44.3 Second trimester 25.4 - 83.3 Third trimester 58.7 - 214.0 Postmenopausal 0.0 - 0.1Performed By: #### PROGES #### [facility] [address] [place] [address] Dr. Alexsander MadrigalPROGESTERONEon 05-09-5706Hyjyxvietulv5.8 ng/mLNormalGreene Memorial HospitalComment on above:Result Comment: Follicular phase 0.1 - 0.9 Luteal phase 1.8 - 23.9 Ovulation phase 0.1 - 12.0 First trimester 11.0 - 44.3 Second trimester 25.4 - 83.3 Third trimester 58.7 - 214.0 Postmenopausal 0.0 - 0.1Performed By: #### PROGES #### [facility] [address] [place] [address] Dr. Alexsander GordonGESTERONEon 94-62-1825Sajbnoixxyvc<0.1NormalThe [facility] HospitalComment on above:Result Comment: Follicular phase 0.1 - 0.9 Luteal phase 1.8 - 23.9 Ovulation phase 0.1 - 12.0 First trimester 11.0 - 44.3 Second trimester 25.4 - 83.3 Third trimester 58.7 - 214.0 Postmenopausal 0.0 - 0.1Performed By: #### PROGES #### [facility] [address] [place] [address] Dr. Alexsander GordonGESTERONEon 82-44-3822Qnyjcluzrixi<0.1NormalThe [facility] HospitalComment on above:Result Comment: Follicular phase 0.1 - 0.9 Luteal phase 1.8 - 23.9 Ovulation phase 0.1 - 12.0 First trimester 11.0 - 44.3 Second trimester 25.4 - 83.3 Third trimester 58.7 - 214.0 Postmenopausal 0.0 - 0.1Performed By: #### PROGES #### [facility] [address] [place] [address] Dr. Alexsander Tomas AUTO DIFFon 25-24-4806AYZO #0.1 103/ulNormal0.0-0.1The [facility] HospitalComment on above:Performed By: #### CBC #### [facility] [address] [place] [address] Dr. Alexsander MadrigalBasophils/100 WBC (Bld)0.6 %Normal0.2-2.0[facility] Comment on above:Performed By: #### CBC #### [facility] [address] [address] [address] Alexsander Erickson #0.1 103/ulNormal0.0-0.7The [facility] HospitalComment on above: Performed By: #### CBC #### [facility] [address] [place] [address] Dr. Alexsander Klineosinophils/100 WBC (Bld)0.6 %Critically low0.9-7.0The [facility] HospitalComment on above:Performed By: #### CBC #### [facility] [address] [place] [address] Dr. Alexsander Klinerythrocyte distribution width (RBC) [Ratio]13.3 %Xmdckl89.0-15.0 The [facility] HospitalComment on above:Performed By: #### CBC #### [facility] [address] [place] [address] Dr. Alexsander MadrigalHematocrit (Bld) [Volume fraction]42.9 %Azmwru44.0-48.0The [facility] HospitalComment on above:Performed By: #### CBC #### [facility] [address] [place] [address] Dr. Alexsander MadrigalHemoglobin (Bld) [Mass/Vol]13.7 g/aLVmzgda15.0-16.0The [facility] HospitalComment on above:Performed By: #### CBC #### [facility] [address] [place] [address] Dr. Alexsander Reyes #0.02 10e3/ulNormal0.00-0.03The [facility] HospitalComment on above:Performed By: #### CBC #### [facility] [address] [place] [address] Dr. Alexsander Reyes %0.2 %Normal0.0-0.5The [facility] HospitalComment on above: Performed By: #### CBC #### [facility] [address] [place] [address] Dr. Alexsander Ag #4.1 103/ulCritically high1.2-3.8The [facility] Comment on above:Performed By: #### CBC #### [facility] [address] [address] [address] Alexsander Garciamphocytes/100 WBC (Bld)41.1 %Pddbxw34.5-60.0The [facility] HospitalComment on above:Performed By: #### CBC #### [facility] [address] [place] [address] Dr. Alexsander Bean DIFF REQNONormalThe [facility] HospitalComment on above: Performed By: #### CBC #### [facility] [address] [place] [address] Dr. Alexsander Varela (RBC) [Entitic mass]29.4 nxOhfdzl02.7-34.0The [facility] HospitalComment on above:Performed By: #### CBC #### [facility] [address] [place] [address] Dr. Alexsander Varela (RBC) [Mass/Vol]31.9 g/pQOosqgz34.9-35.2The [facility] HospitalComment on above:Performed By: #### CBC #### [facility] [address] [place] [address] Dr. Alexsander Varela (RBC) [Entitic vol]92.1 wXNlsiqw48.0-99.0The [facility] HospitalComment on above:Performed By: #### CBC #### [facility] [address] [place] [address] Dr. Alexsander Prince #0.6 103/ulNormal0.3-0.8The [facility] HospitalComment on above:Performed By: #### CBC #### [facility] [address] [place] [address] Dr. Alexsander Ninaocytes/100 WBC (Bld)6.0 %Normal1.7-12.0The [facility] Comment on above:Performed By: #### CBC #### [facility] [address] [place] [address] Dr. Alexsander Fatima #5.1 103/ulNormal1.4-6.5The [facility] on above:Performed By: #### CBC #### [facility] [address] [address] [address] Alexsander Jiangutrophils/100 WBC (Bld)51.5 %Gsegzk75.0-75.0The [facility] on above:Performed By: #### CBC #### [facility] [address] [place] [address] Dr. Alexsander MadrigalPlatelet mean volume (Bld) [Entitic vol]11.0 fLNormal9.5-13.5The [facility] HospitalComment on above:Performed By: #### CBC #### [facility] [address] [place] [address] Dr. Alexsander MadrigalPLT291 103/wcWaprnq608-110Nqi [facility] on above: Performed By: #### CBC #### [facility] [address] [place] [address] Dr. Alexsander MadrigalRBC4.66 106/ulNormal4.20-5.40The [facility] HospitalComselect specialty hospital on above:Performed By: #### CBC #### [facility] [address] [place] [address] Dr. Alexsander MadrigalWBC9.9 103/ulNormal4.0-11.0The [facility] on above: Performed By: #### CBC #### [facility] [address] [place] [address] Dr. Alexsander MadrigalGLYCOHEMOGLOBIN A1Con 31-02-9215OSA RECOMMENDATIONSEE BELOWNormal [facility] HospitalComselect [facility] on above:Result Comment: ADA RECOMMENDED LIMIT 4.0 - 6.0 ADA THERAPEUTIC TARGET < 7.0 ACTION SUGGESTED > 7.0Performed By: #### A1C #### [facility] [address] [place] [address] Dr. Alexsander MadrigalGlucose [Mass/Vol]126 mg/dLNoUniversity Hospitals [facility]ar[facility] on above:Performed By: #### A1C #### [facility] [address] [place] [address] Dr. Alexsander MadrigalHbA1c (Bld) [Mass fraction]6.0 %Normal4.5-6.2The [facility] Centerment on above:Performed By: #### A1C #### [facility] [address] [place] [address] Dr. Alexsander LopezID PROFILEon [id number]-HDL RATIO NORMSEE [facility] HospitalComment on above:Result Comment: 3.3 - 4.4 LOW RISK 4.4 - 7.1 AVERAGE RISK 7.1 - 11.0 MODERATE RISK >11.0 HIGH RISKPerformed By: #### LIVER, TSH, BMP, LIPID #### [facility] [address] [place] [address] Dr. Alexsander Troyesterol [Mass/Vol]204 mg/dLCritically high<=200The [facility] HospitalComselect specialty hospital on above:Performed By: #### LIVER, TSH, BMP, LIPID #### [facility] [address] [place] [address] Dr. Alexsander Troyesterol in HDL [Mass/Vol]38 mg/dLCritically dkl48-31Wzv [facility]Com[facility] on above:Performed By: #### LIVER, TSH, BMP, LIPID #### [facility] [address] [place] [address] Dr. Alexsander Troyesterol in LDL [Mass/Vol]129.0 mg/dLNoCleveland Clinic Mentor HospitalComselect specialty hospital on above:Performed By: #### LIVER, TSH, BMP, LIPID #### [facility] [address] [place] [address] Dr. Alexsander Fraga.total/Cholesterol in HDL [Mass ratio]5.4 {ratio} NormalThe [facility] on above:Performed By: #### LIVER, TSH, BMP, LIPID #### [facility] [address] [place] [address] Dr. Alexsander Peacock NORMAL> or = 60 mg/dl - LOW CARDIOVASCULAR RISK <40 mg/dl - HIGH CARDIOVASCULAR RISKMercy Health Defiance HospitalComment on above:Performed By: #### LIVER, TSH, BMP, LIPID #### [facility] [address] [address] [address] Alexsander Charles CALC NORMALSEE BELOWNoCleveland Clinic Mentor HospitalComment on above:Result Comment: <100 mg/dl OPTIMAL 100 - 129 mg/dl NEAR OR ABOVE OPTIMAL 130 - 159 mg/dl BORDERLINE HIGH 160 - 189 mg/dl HIGH >190 mg/dl VERY HIGH Performed By: #### LIVER, TSH, BMP, LIPID #### [facility] [address] [place] [address] Dr. Alexsander MadrigalTriglyceride [Mass/Vol]185 mg/dLCritically high<=150The [facility] HospitalComment on above:Performed By: #### LIVER, TSH, BMP, LIPID #### [facility] [address] [place] [address] Dr. Alexsander MadrigalVLDL CALC37.0 mg/dLNoCleveland Clinic Mentor HospitalComment on above: Performed By: #### LIVER, TSH, BMP, LIPID #### [facility] [address] [place] [address] Dr. Alexsander Fosetr PROFILEon 53-04-7851Pqujvtu [Mass/Vol]4.0 g/dLNormal3.4-5.0 The [facility] HospitalComment on above:Performed By: #### LIVER, TSH, BMP, LIPID #### [facility] [address] [place] [address] Dr. Alexsander MadrigalAlbumin/Globulin [Mass ratio]1.0 {ratio}NormalThe [facility] HospitalComselect specialty hospital on above:Performed By: #### LIVER, TSH, BMP, LIPID #### [facility] [address] [place] [address] Dr. Alexsander Willis [Catalytic activity/Vol]73 U/WFdcsao18-081Txr [facility] Centerment on above:Performed By: #### LIVER, TSH, BMP, LIPID #### [facility] [address] [place] [address] Dr. Alexsander Atkinson [Catalytic activity/Vol]78 U/LCritically issz71-64Voz [facility] HospitalComment on above:Performed By: #### LIVER, TSH, BMP, LIPID #### [facility] [address] [address] [address] Alexsander MadrigalAST [Catalytic activity/Vol]40 U/LCritically alkx77-30XafGreene Memorial HospitalComment on above:Performed By: #### LIVER, TSH, BMP, LIPID #### [facility] [address] [address] [address] Alexsander De SantiagoI, CONJUGATED0.1 mg/dLNormal0.0-0.2The [facility] Comment on above:Performed By: #### LIVER, TSH, BMP, LIPID #### [facility] [address] [address] [address] Alexsander De Santiagoirubin [Mass/Vol]0.2 mg/dLNormal0.2-1.0[facility] Comment on above:Performed By: #### LIVER, TSH, BMP, LIPID #### [facility] [address] [place] [address] Dr. Alexsander MadrigalGlobulin (S) [Mass/Vol]3.9 g/dLNormalThe [facility] HospitalComment on above:Performed By: #### LIVER, TSH, BMP, LIPID #### [facility] [address] [place] [address] Dr. Alexsander MadrigalProtein [Mass/Vol]7.9 g/dLNormal6.4-8.2[facility] Comment on above:Performed By: #### LIVER, TSH, BMP, LIPID #### [facility] [address] [place] [address] Dr. Alexsander MadrigalPROF CHEM 8 (BAS METB)on 50-18-5502Xnuii gap [Moles/Vol]14.9 mmol/LNormalGreene Memorial HospitalComment on above:Performed By: #### LIVER, TSH, BMP, LIPID #### [facility] [address] [place] [address] Dr. Alexsander MadrigalCalcium [Mass/Vol]9.3 mg/dLNormal8.5-10.1[facility] Comment on above:Performed By: #### LIVER, TSH, BMP, LIPID #### [facility] [address] [address] [address] Alexsander MadrigalChloride [Moles/Vol]105 mmol/YStgjgq52-902Idf [facility] Comment on above:Performed By: #### LIVER, TSH, BMP, LIPID #### [facility] [address] [address] [address] Alexsander MadrigalCO2 [Moles/Vol]23.2 mmol/UQqaiue49.0-32.0The [facility] Comment on above:Performed By: #### LIVER, TSH, BMP, LIPID #### [facility] [address] [address] [address] Alexsander MadrigalCreatinine [Mass/Vol]0.72 mg/dLNormal0.55-1.02The [facility] HospitalComment on above:Performed By: #### LIVER, TSH, BMP, LIPID #### [facility] [address] [address] [address] Beltre ChangEGFR-AF YEMENI>60Normal>=60The [facility] HospitalComment on above:Performed By: #### LIVER, TSH, BMP, LIPID #### [facility] [address] [address] [address] Alexsander KlineGFR-NON AF YEMENI>60Normal>=60The [facility] HospitalComment on above:Performed By: #### LIVER, TSH, BMP, LIPID #### [facility] [address] [address] [address] Alexsander MadrigalGlucose [Mass/Vol]87 mg/mPNnmbin11-059Hgs [facility] Comment on above:Performed By: #### LIVER, TSH, BMP, LIPID #### [facility] [address] [address] [address] Alexsander MadrigalPotassium [Moles/Vol]4.1 mmol/LNormal3.5-5.1The [facility] Comment on above:Performed By: #### LIVER, TSH, BMP, LIPID #### [facility] [address] [address] [address] Alexsander MadrigalSodium [Moles/Vol]139 mmol/GFgtzzr930-941Yrp [facility] Comment on above:Performed By: #### LIVER, TSH, BMP, LIPID #### [facility] [address] [place] [address] Dr. Alexsander Branch nitrogen [Mass/Vol]15.0 mg/dLNormal7.0-18.0[facility] HospitalComment on above:Performed By: #### LIVER, TSH, BMP, LIPID #### [facility] [address] [place] [address] Dr. Alexsander Branch nitrogen/Creatinine [Mass ratio]20.8 mg/mgNoCleveland Clinic Mentor HospitalComment on above:Performed By: #### LIVER, TSH, BMP, LIPID #### [facility] [address] [place] [address] Dr. Alexsander Pizarro 85-84-4867GBK7.600 uIU/mLNormal0.358-3.740The [facility] HospitalComment on above:Performed By: #### CBC #### [facility] [address] [place] [address] Dr. Alexsander MadrigalVITAMIN D 25 OHon 84-54-7177KHY D 25-OH18.8 ng/mLNormalGreene Memorial HospitalComment on above:Performed By: #### CBC #### [facility] [address] [place] [address] Dr. Alexsander Calles D RANGESSEE BELOWMercy Health Defiance HospitalComment on above: Result Comment: <20 ng/mL Vit D deficient 20 - <30 ng/mL Vit D insufficient 30 - 100 ng/mL Vit D sufficient >100 ng/mL Potential ToxicityPerformed By: #### CBC #### [facility] [address] [place] [address] Dr. Alexsander Mejia-CoV-2 (COVID-19) RNA SHAISTA+probe Ql (Resp)on 04-01-2022 SARS-CoV-2 (COVID-19) RNA SHAISTA+probe Ql (Unsp spec)PositiveNort [employer] Other Vital Signs Date TimeVital SignValuePerforming AtrrqmjcvGvapaczn52-89-9531 07:17-0400Body hopiqx748.02 cmOrestes Strange MD Work Phone: [phone]10-15-2025 07:17-0400 Body mass index (BMI) [Ratio]37.2 kg/m2Orestes Strange MD Work Phone: [phone] [place], [place] 1880110-15-2025 07:17-0400 Body .1 [degF]Orestes Strange MD Work Phone: [phone] [place], [place] 1880110-15-2025 07:17-0400 Body .25 kgOrestes Strange MD Work Phone: [phone] [place], [place] 1880110-15-2025 07:17-0400 Diastolic blood coqwtpml78 mm[Hg]Orestes Strange MD Work Phone: [phone] [place], [place] 1880110-15-2025 07:17-0400 Heart rate93 /minOrestes Strange MD Work Phone: [phone] [place], [place] 188[address]10-15-2025 07:17-0400 Respiratory rate20 /minOrestes Strange MD Work Phone: [phone] [place], [place] 188[address]10-15-2025 07:17-0400 SaO2% (BldA) [Mass fraction]96 %Orestes Strange MD Work Phone: [phone]10-15-2025 07:17-0400 Systolic blood ltlunkgk811 mm[Hg]Orestes Strange MD Work Phone: [phone])[address]07-09-2025 11:09-0400 Body fytaim222 cmOrestes Strange MD Work Phone: [phone] [place], [place] [address]Ufxanoyuse89-28-2078 11:09-0400Body mass index (BMI) [Ratio]36.14 kg/m2Orestes Strange MD Work Phone: [facility]Srvnpaklur10-51-9610 11:09-0400Body temperature 97.5 [degF]Orestes Strange MD Work Phone: NOW[facility] CenterPsmqyyfoyj64-39-3491 11:09-0400Body .53 kgOrestes Strange MD Work Phone: [facility] CenterKbiithnohb65-57-8770 11:09-0400Diastolic blood cbunylen99 mm[Hg]Orestes Strange MD Work Phone: NOW[facility] CenterUeaewsnaxw46-61-2293 11:09-0400Heart yvus849 /min Orestes Strange MD Work Phone: [facility]Sgvqznjcut44-14-8265 11:09-0400Respiratory rate18 /minOrestes Strange MD Work Phone: [facility]Ehyvcjmlmd90-85-8854 11:09-1983RbB9% (BldA) [Mass fraction]98 %Orestes Strange MD Work Phone: [facility]HealthIlrmureeex27-34-3942 11:09-0400Systolic blood wngprvgo842 mm[Hg]Orestes Strange MD Work Phone: [facility]HealthEqbqvrjlmz72-76-2902 08:16-0400Body cm Mariola Wilson MD Work Phone: [facility]HealthLabgktrdez69-36-3505 08:16-0400Body mass index (BMI) [Ratio]36.14 kg/t6TbwlltMariola Wilson MD Work Phone: [facility]Xfqebhbwzj65-33-9595 08:16-0400Body .53 kgMariola Wilson MD Work Phone: [facility] CenterMheonxknha67-74-8202 08:16-0400Diastolic blood agyfpdnt558 mm[Hg]Mariola Wilson MD Work Phone: [facility] CenterKdftpraatv18-89-7977 08:16-0400Heart rate83 /min Mariola Wilson MD Work Phone: noWestern [facility] CenterTjlzsjvzcq76-16-0477 08:16-0400Systolic blood ihshqfpf490 mm[Hg]Mariola Wilson MD Work Phone: [facility]Cxbifezkvw83-91-3092 09:26-0400Body phlvih174.02 cmOrestes Strange MD Work Phone: [phone] [place], [place] [address]306-25-2025 09:26-0400 Body mass index (BMI) [Ratio]36.8 kg/m2Orestes Strange MD Work Phone: [phone]06-25-2025 09:26-0400 Body twrsbczdubi77.1 [degF]Orestes Strange MD Work Phone: [phone]06-25-2025 09:26-0400 Body fxiiyf91.34 kgOrestes Strange MD Work Phone: [phone]06-25-2025 09:26-0400 Diastolic blood osotrrcc471 mm[Hg]Orestes Strange MD Work Phone: [phone])[address]06-25-2025 09:26-0400 Heart rate80 /minOrestes Strange MD Work Phone: [phone])[address]06-25-2025 09:26-0400 Respiratory rate16 /minOrestes Strange MD Work Phone: [phone])[address]06-25-2025 09:26-0400 SaO2% (BldA) [Mass fraction]97 %Orestes Strange MD Work Phone: [phone]06-25-2025 09:26-0400 Systolic blood ojjejgga564 mm[Hg]Orestes Strange MD Work Phone: [phone]06-20-2025 11:35-0400 Body cmOrestes Strange MD Work Phone: [facility]HealthXxotkxcdci40-98-8860 11:35-0400Body mass index (BMI) [Ratio]36.14 kg/m2Orestes Strange MD Work Phone: [facility]HealthJedudkqofn80-63-6037 11:35-0400Body temperature 97.81 [degF]Orestes Strange MD Work Phone: [facility]HealthBqarxocznk58-03-8316 11:35-0400Body .53 kgOrestes Strange MD Work Phone: [facility]HealthVpgtrbnisv14-82-5283 11:35-0400Diastolic blood togmszek45 mm[Hg]Orestes Strange MD Work Phone: [facility]HealthPxsgyeleex47-38-6363 11:35-0400Heart nbjv405 /min Orestes Strange MD Work Phone: [facility]HealthVggvedpwcj18-18-9001 11:35-0400Respiratory rate22 /minOrestes Strange MD Work Phone: [facility]HealthSreawusgii55-78-5788 11:35-4260AlR6% (BldA) [Mass fraction]99 %Orestes Strange MD Work Phone: [facility]HealthVfvwlgfnld29-70-4339 11:35-0400Systolic blood bvpdkaxp764 mm[Hg]Orestes Strange MD Work Phone: [facility]HealthRunbjnpxec98-94-5225 09:20-0400Body .02 cmOhio[facility]05-28-2025 09:20-0400Body mass index (BMI) [Ratio]36.3 kg/w4AvnutmtraOhiohealth Hardin Memorial Hospital05-28-2025 09:20-0400Body umkaulwrdce68.9 [degF][facility]05-28-2025 09:20-0400Body oiugmu10.09 kgOhiohealth [facility]in [facility] Hospital05-28-2025 09:20-0400Diastolic blood enxjwhoy738 mm[Hg][facility]05-28-2025 09:20-0400 Heart mlkt102 /[facility]05-28-2025 09:20-0400 Respiratory rate18 /[facility]05-28-2025 09:20-0400 SaO2% (BldA) [Mass fraction]95 %[facility]05-28-2025 09:20-0400Systolic blood dldivnbq612 mm[Hg][facility] 12-11-2024 07:51-0400Body etzclf402 cmOrestes Strange MD Work Phone: [facility]HealthZbbgctzvze99-62-1330 07:51-0400Body mass index (BMI) [Ratio]36.31 kg/m2Orestes Strange MD Work Phone: [facility]HealthDhppdibebu82-47-7678 07:51-0400Body temperature 97.5 [degF]Orestes Strange MD Work Phone: [facility]HealthKcowlxrewn48-50-0114 07:51-0400Body peaqlc05.99 kgOrestes Strange MD Work Phone: [facility]HealthZgvxzhvmps92-16-8769 07:51-0400Diastolic blood qppoqvlk65 mm[Hg]Orestes Strange MD Work Phone: [facility]Bmuhgpqsxs73-41-6356 07:51-0400Heart hxon962 /min Orestes Strange MD Work Phone: [facility]HealthBmkcdetwav69-47-4333 07:51-0400Respiratory rate18 /minOrestes Strange MD Work Phone: [facility]HealthVpfnsihgdy47-13-2747 07:51-5419ClR2% (BldA) [Mass fraction]98 %Orestes Strange MD Work Phone: [facility]HealthWzvcfgyqlj00-51-2505 07:51-0400Systolic blood mm[Hg]Orestes Strange MD Work Phone: [facility]HealthEisppasnuq94-34-1296 10:03-0500Diastolic blood vwxpytai592 mm[Hg][facility]03-05-2025 10:03-0500Systolic blood qrmsuthj364 mm[Hg][facility]03-05-2025 09:28-0500 Body buiaab826.02 cmOhiohealth [facility]in [facility] Hospital03-05-2025 09:28-0500Body mass index (BMI) [Ratio]35.9 kg/l6HgjrgfpmpOhiohealth Hardin Memorial Hospital03-05-2025 09:28-0500Body pphpozujhlx15.7 [degF][facility]03-05-2025 09:28-0500Body kuotdb19.13 kgOhiohealth Hardin Memorial Hospital03-05-2025 09:28-0500Heart rate99 /[facility]03-05-2025 09:28-0500Respiratory rate14 /[facility]03-05-2025 09:28-0995PxS2% (BldA) [Mass fraction]97 %[facility] 09-09-2024 08:51-0500Body tefqmi642 cmOrestes Strange MD Work Phone: [phone] [place], [place] [address]Vhcyectxnv48-11-0774 08:51-0500Body mass index (BMI) [Ratio]36.67 kg/m2Orestes Strange MD Work Phone: [facility]HealthYixhapbmbm45-34-1287 08:51-0500Body temperature 96.21 [degF]Orestes Strange MD Work Phone: [facility]HealthAqlrzmbill89-40-7868 08:51-0500Body mfsdxe24.89 kgOrestes Strange MD Work Phone: [facility]HealthRzglyqbity13-10-3745 08:51-0500Diastolic blood qzenbxzs61 mm[Hg]Orestes Strange MD Work Phone: [facility]HealthEjdmxopcoo19-98-3480 08:51-0500Heart aadb377 /min Orestes Strange MD Work Phone: [facility]HealthZknyfmbnnh86-48-4980 08:51-0500Respiratory rate16 /minOrestes Strange MD Work Phone: [facility]HealthTwvovuluzw85-24-3049 08:51-8830XcG7% (BldA) [Mass fraction]98 %Orestes Strange MD Work Phone: [facility]HealthFsxyyvkwmo40-66-8934 08:51-0500Systolic blood asexjppl021 mm[Hg]Orestes Strange MD Work Phone: [facility]Wnnrjnkbcv06-49-0195 08:12-0500Body kbldar033 cm Orestes Strange MD Work Phone: [facility]Pbusddyttb42-00-1642 08:12-0500Body mass index (BMI) [Ratio]36.85 kg/m2Orestes Strange MD Work Phone: [facility]HealthXecnyztiox95-68-5504 08:12-0500Body temperature 97.11 [degF]Orestes Strange MD Work Phone: [facility]HealthBfmknbtwwb42-56-4290 08:12-0500Body kcveci97.35 kgOrestes Strange MD Work Phone: [facility]HealthRccrfaamci69-83-8082 08:12-0500Diastolic blood urkymcgb29 mm[Hg]Orestes Strange MD Work Phone: [facility]HealthVwcekhnevc30-38-0096 08:12-0500Heart rate89 /min Orestes Strange MD Work Phone: [facility]Sfxadxscdv22-51-3846 08:12-0500Respiratory rate22 /minOrestes Strange MD Work Phone: [facility]HealthLqjkgmdeue73-36-8565 08:12-5927XkJ3% (BldA) [Mass fraction]98 %Orestes Strange MD Work Phone: [facility]HealthYoecwcggtu43-03-6023 08:12-0500Systolic blood focgkqrs334 mm[Hg]Orestes Strange MD Work Phone: [facility]HealthQfvlrrsooi53-75-0631 09:35-0400Body peewwo916.02 cmOhiohealth [facility]03-17-2024 09:35-0400Body mass index (BMI) [Ratio]34 kg/o7SgsaisuwqOhiohealth Hardin Memorial Hospital03-17-2024 09:35-0400Body nbodttzidgx70.6 [degF][facility]03-17-2024 09:35-0400Body worgmy20.25 kgOhiohealth [facility]in [facility] Hospital03-17-2024 09:35-0400Diastolic blood drbnzkfo65 mm[Hg][facility]03-17-2024 09:35-0400 Heart rate94 /[facility]03-17-2024 09:35-0400 Respiratory rate18 /[facility]03-17-2024 09:35-0400 SaO2% (BldA) [Mass fraction]96 %[facility]03-17-2024 09:35-0400Systolic blood rjztiuxt502 mm[Hg][facility] 09-27-2023 07:56-0500Body lfgegw280 cmOrestes Strange MD Work Phone: [facility]HealthCanemlynkt47-21-5046 07:56-0500Body mass index (BMI) [Ratio]34.37 kg/m2Orestes Strange MD Work Phone: [facility]HealthGidrjyuqdb04-36-1687 07:56-0500Body temperature 97.3 [degF]Orestes Strange MD Work Phone: [facility]HealthEyskvskqoh65-44-5991 07:56-0500Body eguvmr24 kg Orestes Strange MD Work Phone: [facility]HealthRtqdbcniha49-68-7043 07:56-0500Diastolic blood mm[Hg]Orestes Strange MD Work Phone: [facility]HealthZipcxrvzkd76-60-7473 07:56-0500Heart rate94 /min Orestes Strange MD Work Phone: [facility]HealthZoaqoxvvnp60-18-6303 07:56-8453WrY2% (BldA) [Mass fraction]99 %Orestes Strange MD Work Phone: [facility]HealthRrcaoszqhw22-33-8388 07:56-0500Systolic blood zdyjjmtg361 mm[Hg]Orestes Strange MD Work Phone: [facility]HealthIqdjvssfca68-00-0005 14:10-0400Body mdsagj374.02 Claudia Garcia Other [employer] Other 08-12-2022 14:10-0400Body mass index (BMI) [Ratio] 34.54 kg/m5YhnbwShereen Garcia Other [employer] Other 08-12-2022 14:10-0400Body ouxcmtxiuev97.3 [degF]Shereen Garcia Other [employer] Other 08-12-2022 14:10-0400Body ytgdvd19.45 kgShereen Garcia Other [employer] Other 08-12-2022 14:10-0400Respiratory rate18 /minShereen Garcia Other [employer] Other 08-12-2022 14:10-7443AoO4% (BldA) [Mass fraction]98 % Shereen Garcia Other [employer] Other Encounters Encounter DateEncounter TypeCare ProviderFacilityStart: 06-21-2025 End: 98-99-8794Kfucbutzs Result EncounterCorey Savage DO Work Phone: [facility] External Department UnsolicitedStart: 06-21-2025 End: 92-52-5628Okyhiynij Result EncounterCorey Savage DO Work Phone: [facility] External Department UnsolicitedStart: 06-04-2025 End: 04-70-8711hxzgdnfrzlBkmp Naderer MD Work Phone: [facility] Work Phone: Start: 06-04-2025 End: 06-46-8447Gisoraq encounter procedureOrestes Strange MD-[facility] [place] Work Phone: Start: 02-26-2025 End: 48-02-6222Wbomwy flowsheetOrestes Strange MD Work Phone: [facility] CWM FMStart: 02-26-2025 End: 53-06-7330Nmzxqmpierre Strange MD Work Phone: [facility] CWM FMStart: 02-26-2025 End: 20-27-4817Wmmyxt outpatient visit 15 minutesOrestes Strange MD Work Phone: [facility] CWM FMComment on above:Strain of AC joint, right, initial encounter (Primary Dx)Start: 02-26-2025 End: 72-46-0818borsyqeklwNBTD NADERERNot AvailableStart: 02-24-2025 End: 37-90-0453Uylykdpierre Wilson MD Work Phone: [facility] CI ENTStart: 02-24-2025 End: 46-62-9664Fjfbkkpierre Wilson MD Work Phone: [facility] CI ENTStart: 02-24-2025 End: 99-27-4600szgsdxfjifUJAZBL H TIMMISNot AvailableStart: 02-24-2025 End: 48-36-0426Ksjsck outpatient new 45 minutesMariola Wilson MD Work Phone: [facility] CI ENTComment on above:Right ear impacted cerumen (Primary Dx); Chronic eczematous otitis externa of both earsStart: 02-12-2025 End: 56-69-4696ixlqqoetpeUknb Naderer MD Work Phone: [facility] Work Phone: Start: 02-12-2025 End: 90-72-4671Zpfxjfc encounter Meghna Schuler INSPECTOR [place] [place] Work Phone: Start: 02-07-2025 End: 84-13-2520Vwxuazpierre Strange MD Work Phone: [facility] CWM FMStart: 02-07-2025 End: 58-98-1224Fxxboxkeri Strange MD Work Phone: [facility] CWM FMStart: 02-07-2025 End: 62-38-1973Tekwsi outpatient visit 15 minutesOrestes Strange MD Work Phone: [facility] CWM FMComment on above:Acute UTI (Primary Dx); Eustachian tube dysfunction, left; Pharyngitis, unspecified etiologyStart: 02-07-2025 End: 98-85-5701grvfvdfqzrGBWI NADERERNot AvailableStart: 01-31-2025 End: 91-11-2474Maocfhorv Result EncounterGeneric External Data ProviderNOMS External Department UnsolicitedStart: 01-31-2025 End: 97-28-0889Kftehbpus Result EncounterGeneric External Data ProviderNOMS External Department UnsolicitedStart: 01-31-2025 End: 09-23-2394tegffhhxxiTrctvg A DiabFacility:[facility] Start: 01-31-2025 End: 98-43-7037Wlzzfcxp ReferredMariam A Diab MD-[facility] Start: 01-15-2025 End: 84-53-1727kvompiwfqoPtlxxnglePike Community Hospital Work Phone: Start: 01-15-2025 End: 78-49-9454Yzbaalu encounter procedureNov[facility] [place] Work Phone: Start: 12-11-2024 End: 90-23-8067Rqmjic flowsheetOrestes Strange MD Work Phone: [facility] CWM FMStart: 12-11-2024 End: 21-53-7416Icsejs flowsheetOrestes Strange MD Work Phone: [facility] CWM FMStart: 12-11-2024 End: 66-57-4149Qdohgjl encounter procedureOrestes Strange MD Work Phone: [facility] Work Phone: Start: 12-11-2024 End: 18-90-7322Bcylbvja preventive med est patient 18-39 yrsOrestes Strange MD Work Phone: noms CWM FMComment on above:Annual physical exam (Primary Dx); Benign essential hypertension (CMS/HCC); URI, acuteStart: 12-11-2024 End: 10-66-2183fejcxvvwgtZVGU NADERERNot AvailableStart: 10-23-2024 End: 46-77-6085imryyhrmpjKgryfvvzzPike [facility] Work Phone: Start: 10-23-2024 End: 78-05-5182Dgmwplc encounter procedureNov[facility] [place] Work Phone: Start: 09-15-2024 End: 49-73-2831RabzwtVctm Naderer MD Work Phone: noms CWM FMComment on above:Benign essential hypertension (CMS/HCC)Start: 09-09-2024 End: 02-70-9851Fnaurr Aisha Strange MD Work Phone: [facility] CWM FMStart: 09-09-2024 End: 77-05-6997Psbewfkeri Strange MD Work Phone: [facility] CWM FMStart: 09-09-2024 End: 35-68-3379emigyhdjgtWWPM NADERERNot AvailableStart: 09-09-2024 End: 68-20-6650Zgijcu outpatient visit 15 minutesOrestes Strange MD Work Phone: noms CWM FMComment on above:Benign essential hypertension (CMS/HCC) (Primary Dx); Class 2 severe obesity due to excess calories with serious comorbidity and body mass index (BMI) of36.0 to 36.9 in adult (CMS/HCC)Start: 07-90-1081Qhi-patient / Non-visitNov[facility] Physician [facility] Work Phone: Start: 24-67-1337Lff-patient / [facility] Work Phone: Start: 08-07-2024 End: 70-40-0930Vqzqdi flowsMaria A Strange MD Work Phone: [facility] CWM FMStart: 08-07-2024 End: 23-67-0488Otffdi Aisha Strange MD Work Phone: [facility] FMStart: 08-07-2024 End: 44-82-9062tmvkimjwrgFXSA NADERERNot AvailableStart: 08-07-2024 End: 16-39-5282Uhrunyf encounter procedureOrestes Strange MD Work Phone: [facility] Work Phone: Start: 08-07-2024 End: 26-33-0472Gywadscp preventive med est patient 18-39 yrsOrestes Strange MD Work Phone: noms CWM FMComment on above:Annual physical exam (Primary Dx); Elevated blood pressure reading without diagnosis of hypertension; Acute non-recurrent pansinusitis; Acute pain of left shoulder; Class 2 obesity due to excess calories without serious comorbidity with body mass index (BMI) of 36.0 to 36.9 in adultStart: 07-10-2024 End: 48-94-9883Cnicdsmfs Result EncounterGeneric External Data ProviderNOMS External Department UnsolicitedStart: 07-10-2024 End: 82-64-4299Fomtzzlss Result EncounterGeneric External Data ProviderNOMS External Department UnsolicitedStart: 03-21-2024 End: 17-45-6667yqrchlplevFTZ RAMEYNot AvailableStart: 11-05-2023 End: 38-10-1547vmaguiguylGfxwxadmcPike Community Hospital Work Phone: Start: 11-05-2023 End: 81-92-0485Fvkykwj encounter procedureNovant Health [facility] [place] Work Phone: Start: 43-37-7021Rnednj Aisha Strange MD Work Phone: [facility] CWM FMStart: 18-52-6694Yfngmc Aisha Strange MD Work Phone: [facility] FMStart: 09-27-2023 End: 82-30-9850Luuscc outpatient visit 15 minutesMarmedardo Strange MD Work Phone: noms CWM FMComment on above: induced hypertension, (Primary Dx); De Quervain's tenosynovitisStart: 07-15-2023 End: 43-22-5631bydmihfughPsiym Savage Work Phone: [facility] Work Phone: Start: 07-15-2023 End: 45-68-6122Pxgylssr ReferredCorey Savage Work Phone: [facility] Main [place] Work Phone: Start: 53-32-8912bigwcuawecDH EFREN SAVAGE .Facility:H1 Start: 12-29-2022 End: 77-72-1730ikoicyttufAT EFREN SAVAGE .Facility:R3Vcugx: 11-14-2022 End: 25-82-2989qyiyzghqzfEZ EFREN SAVAGE .Facility:I0Llasc: 10-11-2022 End: 26-74-9236zdjsedwekvFV EFREN SAVAGE .Facility:J4Glvdp: 09-05-2022 End: 42-61-0287cissxuzlyqHE EFREN SAVAGE .Facility:V6Clknu: 06-30-2022 End: 30-02-9219xwiptmqamqDM EFREN SAVAGE .Facility:R0Qcvpn: 48-85-3201Wvuslyssh for general adult medical examination without abnormal findingsDR ORESTES STRANGE [facility] Shawtart: 05-30-2022 End: 12-60-9125tutjdymkdcCX ORESTES MOORERFacility:L4Fzebu: 05-30-2022 End: 49-58-9307Tnsmdgmze for general adult medical examination without abnormal findingsDR ORESTES MOORERFacility:X5Womat: 71-51-3391sjnwggitzrDB EFREN SAVAGE . Facility:S4Wtwlz: 04-01-2022 End: 98-90-9394zllnablbjpPcrlo Garcia Other [employer] Other Start: 33-00-4040Ekgxqw outpatient new 30 minutesAmber MikhailmiltonFPG [facility] [place] Procedures DateProcedureProcedure DetailPerforming ClinicianStart: 48-55-7966VFI PROGESTERONECorey Savage DO Work Phone: Start: 85-44-2872Cmpsl cultureOrestes Strange MD Work Phone: Start: 41-21-5135QSWKH CULTURE - FRMCGeneric External Data ProviderStart: 12-63-8835Wgmiq Strep (POC)Orestes Strange MD Work Phone: Start: 65-91-7173FEU PROGESTERONECorey Savage DO Work Phone: Start: 33-80-2312Zwpyjfmsgyk observation [Identifier] in Cervix by Cyto stainGeneric ProviderStart: 64-72-3194Tnybw Strep (POC)Start: 37-16-8059Aolwrqohazx observation [Identifier] in Cervix by Cyto stainOrestes Strange MD Work Phone: Plan of Treatment DateCare ActivityDetailAuthorStart: 93-34-9518Jixbgmfek for malignant neoplasm of cervixNOMS HealthcareStart: 12-18-6095Jluozwhvc for malignant neoplasm of cervixPap SmearNOMS HealthcareStart: 50-98-7838Qyonlczgi for malignant neoplasm of cervixPap SmearNOMS HealthcareStart: 06-04-2025 End: 26-83-3254Xpbrcmi encounter jnhupqpnt21/15/2025 7:00 AM EDT Office Visit [facility] [address] [place] [address] Orestes Strange MD [address] [place] [address] NOMS BERNIE FMStart: 50-88-7679XQWTC-19 Vaccine ()COVID-19 Vaccine ( season)NOMS HealthcareStart: 74-82-6051Btiaksetx vaccinationNOMS HealthcareStart: 02-26-2025 End: 95-32-4274Owbwahd encounter procedureNOJACKSON C. [facility] [place] FMComment on above:Arrived Start: 02-07-2025 End: 94-15-8391Qzalfcb encounter qwkhmptay53/20/2025 11:45 AM EDT Office Visit [facility] [address] [place] [address] Orestes Strange MD [address] [place] [address] ArrivedNOJACKSON C. [facility]IAL [facility] FMComment on above:ArrivedStart: 02-06-2025 End: 57-80-8139Ucmgnvf encounter splnzmgov12/19/2025 9:00 AM EDT Office Visit N[facility] [address] [place] [address] Orestes Strange MD [address] [place] [address] [facility] FMStart: 12-11-2024 End: 94-34-8132Uqzow metabolic 1998 panel - Serum or PlasmaBasic metabolic panel Lab Routine Annual physical exam Expected: 12/11/2024 (Approximate), Expires: 12/11/2025NOPR HealthcareComment on above:Expected: 12/11/2024 (Approximate), Expires: 12/11/2025Start: 12-11-2024 End: 91-56-9035NVR W Auto Differential panel - BloodCBC and differential Lab Routine Annual physical exam Expected: 12/11/2024 (Approximate), Expires: 0 12/11/2025NOPR HealthcareComment on above:Expected: 12/11/2024 (Approximate), Expires: 12/11/2025Start: 12-11-2024 End: 47-01-7206Fsnynevwqh A1c/Hemoglobin.total in BloodHemoglobin A1c Lab Routine Annual physical exam Expected: 12/11/2024 (Approximate), Expires: 12/11/2025[facility] Work Phone: Comment on above:Expected: 12/11/2024 (Approximate), Expires: 12/11/2025Start: 12-11-2024 End: 54-11-6647Glppkpf function 2000 panel - Serum or PlasmaHepatic function panel Lab Routine Annual physical exam Expected: 12/11/2024 (Approximate), Expires: 12/11/2025NOMS HealthcareComment on above:Expected: 12/11/2024 (Approximate), Expires: 12/11/2025Start: 12-11-2024 End: 53-35-5762Zyyzs 1996 panel - Serum or PlasmaLipid panel Lab Routine Annual physical exam Expected: 12/11/2024 (Approximate), Expires: 12/11/2025NOMS HealthcareComment on above:Expected: 12/11/2024 (Approximate), Expires: 12/11/2025Start: 12-11-2024 End: 48-64-3861Xhaqizsgicd [Units/volume] in Serum or PlasmaTSH Lab Routine Annual physical exam Expected: 12/11/2024 (Approximate), Expires: 12/11/2025NOMS HealthcareComment on above:Expected: 12/11/2024 (Approximate), Expires: 12/11/2025Start: 12-11-2024 End: 74-19-4441Xwwvvhd encounter procedureNOMS CWM FMComment on above:Arrived Start: 08-07-2024 End: 50-65-6011Augrz metabolic 1998 panel - Serum or PlasmaBasic metabolic panel Lab Routine Annual physical exam Expected: 08/07/2024 (Approximate), Expires: 08/07/2025NOMS HealthcareComment on above:Expected: 08/07/2024 (Approximate), Expires: 08/07/2025Start: 08-07-2024 End: 15-95-9154RUZ W Auto Differential panel - BloodCBC and differential Lab Routine Annual physical exam Expected: 08/07/2024 (Approximate), Expires: 1 10/08/2024NOMS HealthcareComment on above:Expected: 08/07/2024 (Approximate), Expires: 08/07/2025Start: 08-07-2024 End: 02-74-6907Vvovjxdtnr A1c/Hemoglobin.total in BloodHemoglobin A1c Lab Routine Annual physical exam Expected: 08/07/2024 (Approximate), Expires: 08/07/2025[facility] Work Phone: Comment on above:Expected: 08/07/2024 (Approximate), Expires: 08/07/2025Start: 08-07-2024 End: 75-76-3306Xnegslk function 2000 panel - Serum or PlasmaHepatic function panel Lab Routine Annual physical exam Expected: 08/07/2024 (Approximate), Expires: 08/07/2025NOPR HealthcareComment on above:Expected: 08/07/2024 (Approximate), Expires: 08/07/2025Start: 08-07-2024 End: 99-39-2811Rxhmn 1996 panel - Serum or PlasmaLipid panel Lab Routine Annual physical exam Expected: 08/07/2024 (Approximate), Expires: 08/07/2025NOPR HealthcareComment on above:Expected: 08/07/2024 (Approximate), Expires: 08/07/2025Start: 08-07-2024 End: 64-69-7328Xrxnztyfcbj [Units/volume] in Serum or PlasmaTSH Lab Routine Annual physical exam Expected: 08/07/2024 (Approximate), Expires: 08/07/2025[facility] HealthcareComment on above:Expected: 08/07/2024 (Approximate), Expires: 08/07/2025Start: 08-07-2024 End: 03-48-8125Tfxmpip encounter onzhocace07/18/2024 8:00 AM EST Office Visit [facility] [address] [place] [address] Orestes Strange MD [address] [place] [address] NOMS BERNIE FMStart: 01-59-6286Adzkjsvpl vaccinationInfluenza Vaccine (#1)NOMS HealthcareStart: 03-21-2024 End: 33-90-4296Gmxebni encounter ifhpvnncq46/01/2024 9:00 AM EDT Office Visit N[facility] [address] [place] [address] Marilyn Maya PA [address] [place] [address] NOMS BCP OBStart: 11-07-2023 End: 16-48-7573Btwcazp encounter eldahdfmf72/19/2024 1:15 PM EDT Office Visit [facility] [address] [place] [address] Orestes Strange MD [address] [place] [address] [facility]S [facility] FMStart: 93-65-4532Rtzeduvjb vaccinationInfluenza Vaccine (#1)NOMS HealthcareStart: 30-09-6185GDW Vaccines (1 - 3-dose SCDM series)HPV Vaccines (1 - 3-dose SCDM series)NOMS HealthcareStart: 01-54-7779Wbucbrsrx B Vaccines (1 of 3 - 19+ 3-dose series)Hepatitis B Vaccines (1 of 3 - 19+ 3-dose series)NOMS HealthcareStart: 33-40-5024Xhefpbv of varicella vaccinationVaricella Vaccines (1 of 2 - 13+ 2-dose series)NOMS HealthcareStart: 64-30-8632CHzM/Tdap/Td Vaccines (1 - Tdap)DTaP/Tdap/Td Vaccines (1 - Tdap)NOMS HealthcareStart: 50-27-3106TEY Vaccines (1 of 1 - Standard series)MMR Vaccines (1 of 1 - Standard series)[facility]OM Healthcare[facility] Routine 01/31/2025 12:16 PM EDTNOMS [facility] Payers DatePayer CategoryPayerPolicy [id number] Health InsuranceMEDICAL MUTUAL [id number] Care HMO (unspecified) AETNA AETNA [id number] 2022-Present [address] [place] [address] HMO [id number] 2.0.1.212737.3.57[id number] 2.0.1.010516.3.57[id number] 2.0.1.297336.3.57[id number] 2.0.1.853967.3.57[id number] 2.16840.1.013641.3.57[id number] 2.160.1.040507.3.57[id number] 2.0.1.495703.3.57[id number] 2.160.1.779504.3.57[id number] 2.16.840.1.954104.3.579.[id number] 2.16.840.1.147869.3.57[id number] 2.16.840.1.890400.3.57[id number] 2.16.840.1.892873.3.57[id number] 2.16.840.1.195592.3.57[id number] 2.16.840.1.029487.3.57[id number] 2.16.840.1.057180.3.579.2.095429-76-6643SqoqAdvanced Care Hospital Of Southern New [id number] 2.16.840.4.564397.49706081-65-0039Gbbezgv Health [id number] Private Health [id number]-[id number] 2.16.840.1.652492.3.579.2.531 Social History DateTypeDetailFacilityStart: 09-26-2023 End: 77-94-1692Urj Assigned At [facility] HealthcareStart: 04-52-9032Nyh [facility]: 01-28-2023 End: 44-15-9202Yzwpght smoking status NHISNever smoked tobaccoNOMS Healthcare Start: 01-28-2023 End: 43-69-0159Nsuieke use and exposureSmokeless tobacco non-userNOMS Healthcare Start: 09-26-2023 End: 58-32-8856Lpinrwe intakeLifetime non-drinker (finding)N[facility]S HealthcareStart: 09-26-2023 End: 65-55-9393Nksszfh of Social functionNOMS HealthcareWithin the last year, have you been afraid of your partner or ex-partner?NoNOMS HealthcareStart: 63-33-8215Wzx often do you attend meetings of the clubs or organizations you belong to?Patient refusedNOMS HealthcareAre you now , , , , [...] time - these days [OSQ] Not at allNOMS Healthcare(I/We) worried whether (my/our) food would run out before (I/we) got money to buy more.DK or RefusedNOMS HealthcareStart: 86-52-5123Zgf Assigned At BirthNot on fileNOPR HealthcareStart: 10-23-2024 End: 48-63-7708SddGylabu (finding)[facility](I/We) worried whether (my/our) food would run out before (I/we) got money to buy more. Never trueNOMS HealthcareNEGATED: Highlighted rowStart: NINFHistory of tobacco usePassive smokerNOPR Healthcare Functional Status MrexVweeajhpncBjfnotXohuxkyo93-38-8475Zlpyr score [AUDIT-C]1 12/11/2024 6:59 AM EDT Mychart, GenericNOWestern [facility] Medical CenterQiuilagahe00-49-7546Buu often to you have a drink containing alcohol?Monthly or less 12/11/2024 6:59 AM EDT Mychart, Generic Monthly or lessNOMS Dhvxgpoojq63-08-8685Brb many standard drinks containing alcohol do you have on a typical day?1 or 2 12/11/2024 6:59 AM EDT Mychart, Generic 1 or 2NOMS Pyqiwlwitc37-62-8805Llz often do you have 6 or more drinks on 1 occasion?Never 12/11/2024 6:59 AM EDT Mychart, Generic NeverNOWestern [facility] Clinical Notes 04-01-2022 to 02-26-2025 Note Date & CsvtCbkhUgmickwv43-37-6069 History of Present illness Narrative* Orestes Strange [...] (Deltasone) 50 MG tablet documented in this encounterCoxHealthHtwtlftwbm06-35-3278 History of Present illness Narrative* Mariola Wilson [...] index (BMI) of36.0 to 36.9 in adult ([facility]) 08/07/2024 Acute UTI 02/07/2025 Eustachian tube dysfunction, left 02/07/2025 Pharyngitis 02/07/2025 Resolved Ambulatory Problems Diagnosis Date Noted Right knee pain 09/27/2023 Hyperinsulinemia 09/27/2023 induced hypertension, ([facility]) 09/27/2023 De Quervain's tenosynovitis 09/27/2023 Anovulation 11/08/2023 [...] eczema on the RT documented in this encounterCoxHealthWrhyoehyhv12-05-5043 History of Present illness Narrative* Orestes Strange [...] will refer to ENT. documented in this encounterCoxHealthFtffaospir20-89-8715 Evaluation note* Diagnosis Onset Date Resolution Status Admit Date Acute left otitis media acuteMay 2024 9:16amBilateral conjunctivitisacuteMay 2024 9:16am BronchitisacuteMay 2024 9:16am [facility] Work Phone: 1(830) 703-288804-23-2025 History of Present illness Narrative* Orestes Strange [...] or worse call forre-evaluation. documented in this encounterCoxHealthBmnfwowotr70-02-4984 Evaluation note* Diagnosis Onset Date Resolution Status Admit Date Influenza A acuteMarch 2024 9:26am [facility] Work Phone: 1(944) 940-668001-20-2025 History of Present illness Narrative* Orestes Strange MD - 09/09/2024 9:26 AM ESTAssociated Problem(s): Class 2 severe obesity due to excess calories with serious comorbidity and body mass index (BMI) of 36.0 to 36.9 in adult (CMS/HCC) Discussed proper diet and regular aerobic exercise. Recommend Weight Watchers and need to limit calories and smaller portions. Need to increase activity and regular aerobic exercise several days a week for 30 minutes at a time. * Orestes Strange MD - 09/09/2024 9:26 AM ESTAssociated Problem(s): Benign essential hypertension (CMS/HCC) BP improved [...] index (BMI) of36.0 to 36.9 in adult ([facility]) Discussed proper diet and regular aerobic exercise. Recommend Weight Watchers and need to limit calories and smaller portions. Need to increase activity and regular aerobic exercise several days a week for 30 minutes at a time. documented in this encounterCoxHealthUpxguemarj65-85-0687 History of Present illness Narrative* Orestes Strange [...] monitor. Use OTC PRN. documented in this encounterCoxHealthFrqmyqjnhr80-07-2943 History of Present illness Narrative* Orestes Strange [...] thumb andradiates down into wrist. 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 Pain to push [...] (Deltasone) 50 MG tablet documented in this encounterCoxHealthQgarvroqgv85-89-1012 Evaluation note* Encounter Date Diagnosis Assessment Notes [...] treatment plan. Patient left in stable condition [facility] Other Evaluation noteNo assessment information available [facility] Work Phone: Evaluation note* Diagnosis induced hypertension, - Primary De Quervain's tenosynovitis Radial styloid tenosynovitis documented in this encounter [facility] HealthcareEvaluation note* Diagnosis induced hypertension, - Primary [...] 36.9 in adult documented in this encounter [facility] HealthcareEvaluation note* Diagnosis induced hypertension, - Primary [...] in adult (CMS/HCC) documented in this encounter [facility] HealthcareEvaluation note* Diagnosis induced hypertension, - Primary [...] to 36.9 in adult Benign essential hypertension ([facility]/H[facility])- Primary Essential hypertension, benign Class 2 severe obesity due to excess calories with serious comorbidity and body mass index (BMI) of36.0 to 36.9 in adult ([facility]) Benign essential hypertension ([facility]) Essential hypertension, benign documented in this encounter [facility] HealthcareEvaluation note* Diagnosis Annual physical exam- Primary Routine general medical examination at a health care facility Elevated blood pressure reading without diagnosis of hypertension Acute non-recurrent pansinusitis Acute pain of left shoulder Class 2 obesity due to excess calories without serious comorbidity with body mass index (BMI) of 36.0 to 36.9 in adult Benign essential hypertension ([facility])- Primary Essential hypertension, benign Class 2 severe obesity due to excess calories with serious comorbidity and body mass index (BMI) of36.0 to 36.9 in adult ([facility]) Annual physical exam- Primary Routine general medical examination at a health care facility Benign essential hypertension ([facility]) Essential hypertension, benign URI, acute Acute upper respiratory infections of unspecified site documented in this encounter [facility] HealthcareEvaluation note* Diagnosis Annual physical exam- Primary [...] index (BMI) of36.0 to 36.9 in adult ([facility]) Annual physical exam- Primary Routine general medical [...] index (BMI) of36.0 to 36.9 in adult ([facility] Annual physical exam- Primary Routine general medical [...] index (BMI) of36.0 to 36.9 in adult ([facility] Annual physical exam- Primary Routine general medical [...] for referral (narrative)No reason for referral information availableDayton Children'S Hospital Work Phone: Summary Purpose Family History [...] ContactOtolaryngology Diagnoses Eustachian tube dysfunction, left Procedures NM OFFICE/OUTPATIENT NEW HIGH MDM 60 MINUTES Orestes Strange MD [address] [place] [address] Phone: tel: fax: Mariola Wilson MD [address] [address] Phone: tel: fax: Referral IDStatusReasonStart DateExpiration DateVisits RequestedVisits [id number] Specialty Services Required /[id number]-puFpbdnhaf painLump on right leg INFORMATION SOURCE (unrecogn ized section and content) DATE CREATED AUTHOR 01/04/2023 [facility] DATE CREATED AUTHOR AUTHOR'S ORGANIZ ATION 02/03/2025 [facility] DATE CREATED AUTHOR AUTHOR'S ORGANIZ ATION 02/27/2025 [facility] EPIC Care Teams (unrecognized [...] S tart: January 15, 2025 End: January 15celestino Castillo APRNAtrj ProviderActiveStart: January 15, 2025 End: January 15, 2025 Team Status: Active Member Role Status Dates Orestes Strange MD Primary Care Provider Active S tart: August 18, 2024 Tonya Nicole ProviderActiveStart: August 18, 2024 Team Status: Active Member Role Status Dates Orestes Strange MD Primary Care Provider Active S tart: August 22, 2024 Jovanny Nicoleending ProviderActiveStart: August 22, 2024 Team Status: Inactive Member Role Status Dates Efren Wan Attending Provider Active Team MemberRelationshipSpecialtyStart DateEnd Date Orestes Strange MD [address] [place] [address] PCP - [facility]09/26/23Team MemberRelationshipSpecialtyStart DateEnd Date Orestes Strange MD [address] [place] [address] PCP - [facility]09/26/23 Team Status: Inactive Member Role Status Dates Orestes Strange MD Primary Care Provider Active S tart: November 05, 2023 End: November 04gerhard Morel NP-CAttenhua ProviderActiveStart: November 05, 2023 End: November 05, 2023Team MemberRelationshipSpecialtyStart DateEnd Date Orestes Strange MD [address] [place] [address] [facility] - [facility]09/26/23 Shaikh Marquez MD [address] [place] [address] PCP - [facility] [employer]12/20/2411Team MemberRelationshipSpecialty Start DateEnd Date Orestes Strange MD [address] [place] [address] [facility]/26/23 Shaikh Marquez MD [address] [place] [address] PCP - [facility] [employer]12/20/2411Team MemberRelationshipSpecialty Start DateEnd Date Orestes Strange MD [address] [place] [address] PCP - [facility]09/26/23 Shaikh Marquez MD [address] [place] [address] PCP - [facility] [employer]12/20/2411Team MemberRelationshipSpecialty Start DateEnd Date Orestes Strange MD [address] [place] [address] PCP - [facility]09/26/23 Shaikh Marquez MD [address] [place] [address] PCP - [facility] [employer]12/20/2411Team MemberRelationshipSpecialty Start DateEnd Date Orestes Strange MD [address] [place] [address] PCP - [facility] Medicine09/26/23 Shaikh Marquez MD [address] [place] [address] PCP - [facility] [employer]12/20/2411Team MemberRelationshipSpecialty Start DateEnd Date Orestes Strange MD [address] [place] [address] PCP - [facility]09/26/23 Shaikh Marquez MD [address] [place] [address] PCP - [facility] [employer]12/20/2411Team MemberRelationshipSpecialty Start DateEnd Date Orestes Strange MD [address] [place] [address] PCP - [facility]09/26/23 Orestes Strange MD [address] [place] [address] PCP - [facility] [employer]12/20/2411Team MemberRelationshipSpecialty Start DateEnd Date Orestes Strange MD [address] [place] [address] PCP - [facility]09/26/23 Orestes Strange MD [address] [place] [address] PCP - [facility] [facility]12/20/2411Team MemberRelationshipSpecialty Start DateEnd Date Orestes Strange MD [address] [place] [address] PCP - [facility]09/26/23 Oretses Strange MD [address] [place] [address] PCP - [facility]12/20/2411Team MemberRelationshipSpecialty Start DateEnd Date Orestes Strange MD [address] [place] [phone] PCP - [facility]09/26/23 Orestes Strange MD [address] [place] [phone] [facility] - [facility]12/20/2411Team MemberRelationshipSpecialty Start DateEnd Date Orestes Strange MD [address] [place] [phone] PCP - [facility]09/26/23 Orestes Strange MD [address] [place] [address] [facility] - [facility]12/20/2411 Team Status: Inactive Member Role Status Dates Corie Horvath MD Attending Provider Active Sta rt: January 31, 2025 End: January 31, 2025 Team Status: Inactive Member Role Status Dates Jessica Schuler APRN Attending Provider Active Start: February 12, 2025 End: February 12, 2025[facility] Jodie Strange Care ProviderActiveStart: February 12, 2025 End: February 12, 2025Team MemberRelationshipSpecialtyStart DateEnd Date Orestes Strange MD [address] [place] [address] PCP - [facility]09/26/23 Orestes Strange MD [address] [place] [address] PCP - [facility]12/20/2411Team MemberRelationshipSpecialty Start DateEnd Date Orestes Strange MD [address] [place] [address] PCP - [facility]09/26/23 Orestes Strange MD [address] [place] [address] PCP - [facility]12/20/2411 Team Status: Inactive Member Role Status Dates Orestes Strange MD Primary Care Provider Active S tart: June 04, 2025 End: June 04, 2025[facility] Aung Strangeformerly [facility] ProviderActiveStart: June 04, 2025 End: June 04, 2025Team MemberRelationshipSpecialtyStart DateEnd Date Orestes Strange MD PCP - [facility]09/26/23 Orestes Strange MD [address] [place] [address] PCP - [facility]12/20/2411 Goals (unrecognized section and content) Goals may [...] BE BASED ON THE PRIMARY CLINICAL RECORDS. [employer] [facility] provides no warranty or guarantee of the accuracy or completeness of information in this document.
[2025-07-31 07:52] LABS: Hematocrit 45.7 % (36.0-48.0); Hemoglobin 15.4 g/dL (12.0-16.0); Immature Granulocytes Abs Auto 0.04 10^3/uL (0.00-0.03); Immature Granulocytes Pct Auto 0.3 % (0.0-0.5); Lymphocytes Absolute Auto 0.8 10^3/uL (1.2-3.8); Mean Corpuscular HGB Conc 33.7 g/dL (29.9-35.2); Mean Corpuscular Hemoglobin 30.1 pg (26.7-34.0); Mean Corpuscular Volume 89.4 fL (81.0-99.0); Platelet Count 268 10^3/uL (150-450); Red Blood Count 5.11 10^6/uL (4.20-5.40); White Blood Count 12.5 10^3/uL (4.0-11.0)
[2025-07-31] MEDS: 0.9 % SODIUM CHLORIDE 1,000 ML 999 ML IV (07:59)
[2025-07-31 08:06] LABS: Alanine Aminotransferase 62 U/L (14-59); Albumin Globulin Ratio 0.9; Albumin Level 3.7 g/dL (3.4-5.0); Alkaline Phosphatase 66 U/L (46-116); Anion Gap 15.8; Aspartate Amino Transferase 30 U/L (15-37); Blood Urea Nitrogen 16.0 mg/dL (7.0-18.0); Calcium 8.5 mg/dL (8.5-10.1); Carbon Dioxide 24.1 mmol/L (21.0-32.0); Chloride 106 mmol/L (98-107); Estimated GFR (African America >60 (>=60 mL/min/1.73m^2); Estimated GFR (Non-African Ame >60 (>=60 mL/min/1.73m^2); Globulin 4.0 g/dL; Glucose 157 mg/dL (74-106); Potassium 3.9 mmol/L (3.5-5.1); Sodium 142 mmol/L (136-145); Total Protein 7.7 g/dL (6.4-8.2)
--- NOTE | 2025-07-31 08:12 | ED.GENADUL1 ---
HPI HPI - General Adult General Chief complaint: Abdominal Pain Stated complaint: HEADACHE, ABDOMINAL PAIN Time Seen by Provider: 07/31/25 08:12 Source: patient and family Mode of arrival: walk-in Limitations: no limitations History of Present Illness HPI narrative: 40-year-old female presented to the emergency department for nausea and vomiting. She has not had diarrhea. The symptoms started at 1:00 in the morning. No hematemesis. When she went to bed she felt fine and no other family members are ill. Related Data Home Medications ?Medication ?Instructions ?Recorded ?Confirmed vits,calcium 21-iron fum 1 tab PO DAILY 06/28/23 08/17/24 14 mg iron-folic acid 400 mcg tablet ( Complete) hydrochlorothiazide 25 mg tablet 25 mg PO QAM 01/31/25 01/31/25 Previous Rx's ?Medication ?Instructions ?Recorded cephalexin 500 mg capsule 500 mg PO Q8H 7 days #21 caps 01/31/25 dicyclomine 10 mg capsule 10 mg PO QID PRN abdominal pain 07/31/25 #20 caps ondansetron 4 mg disintegrating 4 mg PO Q6H PRN nausea and 07/31/25 tablet vomiting #20 tabs Allergies Allergy/AdvReac Type Severity Reaction Status Date / Time topiramate (From TopVeeqo) Allergy Mild Numbness Verified 07/31/25 07:22 Opioid HPI Opioid Management Most Recent Opioid Data: Last Pain Scale 5 01/31/25, 12:22 Ur Phencyclidine Scrn, (NEGATIVE) Negative 07/15/23, 19:40 Review of Systems ROS Narrative A ten point review of systems is negative except as noted above. PFSH PFSH Social History Little interest or pleasure in doing things: not at all Feeling down, depressed, or hopeless: not at all Exam Narrative Exam Narrative: Nurses note and vital signs reviewed General:The patient appears well and in no apparent distress.Patient is resting comfortably on cart. Skin:Warm, dry, no pallor noted.There is no rash noted. Head:Normocephalic, atraumatic Eye: Normal conjunctiva, no drainage Ears, Nose, Mouth, and Throat: oral mucosa is moist. Nares patent. Cardiovascular:Regular Rate and Rhythm Respiratory:Patient is in no distress, no accessory muscle use, lungs are clear to auscultation, no wheezing, rales or rhonchi Back:non-tender GI: Soft and nontender. No distention Musculoskeletal: The patient has no evidence of calf tenderness, no pitting edema, symmetrical pulses noted bilaterally Neurological:A&O, normal speech Psychiatric:Cooperative Constitutional Vital Signs, click to edit/add: Last Vital Signs Temp 99 F 07/31/25 07:22 Pulse 139 H 07/31/25 07:22 Resp 18 07/31/25 07:22 BP 157/102 H 07/31/25 07:22 Pulse Ox 95 07/31/25 07:22 O2 Del Method Room Air 07/31/25 07:22 Course Vital Signs Vital signs: Vital Signs Temperature 99 F 07/31/25 07:22 Pulse Rate 139 H 07/31/25 07:22 Respiratory Rate 18 07/31/25 07:22 Blood Pressure 157/102 H 07/31/25 07:22 Pulse Oximetry 95 07/31/25 07:22 Oxygen Delivery Method Room Air 07/31/25 07:22 Temperature 99 F 07/31/25 07:22 Pulse Rate 139 H 07/31/25 07:22 Respiratory Rate 18 07/31/25 07:22 Blood Pressure 157/102 H 07/31/25 07:22 Pulse Oximetry 95 07/31/25 07:22 Oxygen Delivery Method Room Air 07/31/25 07:22 Medical Decision Making MDM Narrative Medical decision making narrative: Blood work is nonspecific. She is feeling improved after IV fluids and IV Zofran and is discharged home on Bentyl and Zofran. Repeat abdominal examination at 10 AM shows no tenderness. At this point I do not clinically suspect appendicitis or other acute inflammatory condition. Treatment diagnosis and follow-up were discussed with the patient. Differential Diagnosis Differential Diagnosis: Nausea and vomiting, gastroenteritis, dehydration Lab Data Lab results reviewed: Yes I reviewed the patient's lab results Labs: Lab Results 07/31/25 07/31/25 Range/Units 07:34 08:10 WBC 12.5 H (4.0-11.0) 10^3/uL RBC 5.11 (4.20-5.40) 10^6/uL Hgb 15.4 (12.0-16.0) g/dL Hct 45.7 (36.0-48.0) % MCV 89.4 (81.0-99.0) fL MCH 30.1 (26.7-34.0) pg MCHC 33.7 (29.9-35.2) g/dL RDW 12.4 (11.0-15.0) % Plt Count 268 (150-450) 10^3/uL MPV 10.9 (9.5-13.5) fL Neut % (Auto) 90.8 H (43.0-75.0) % Lymph % (Auto) 6.1 L (20.5-60.0) % [place] % (Auto) 2.6 (1.7-12.0) % Eos % (Auto) 0.0 L (0.9-7.0) % Baso % (Auto) 0.2 (0.2-2.0) % Neut # (Auto) 11.4 H (1.4-6.5) 10^3/uL Lymph # (Auto) 0.8 L (1.2-3.8) 10^3/uL [place] # (Auto) 0.3 (0.3-0.8) 10^3/uL Eos # (Auto) 0.0 (0.0-0.7) 10^3/uL Baso # (Auto) 0.0 (0.0-0.1) 10^3/uL Abs Immat Gran (auto) 0.04 H (0.00-0.03) 10^3/uL Imm/Tot Granulo (auto) 0.3 (0.0-0.5) % Sodium 142 (136-145) mmol/L Potassium 3.9 (3.5-5.1) mmol/L Chloride 106 (98-107) mmol/L Carbon Dioxide 24.1 (21.0-32.0) mmol/L Anion Gap 15.8 BUN 16.0 (7.0-18.0) mg/dL Creatinine 0.70 (0.55-1.02) mg/dL Est GFR ( Amer) >60 (>=60 mL/min/1.73m^2) Est GFR (Non-Af Amer) >60 (>=60 mL/min/1.73m^2) BUN/Creatinine Ratio 22.9 Glucose 157 H (74-106) mg/dL Calcium 8.5 (8.5-10.1) mg/dL Total Bilirubin 0.6 (0.2-1.0) mg/dL AST 30 (15-37) U/L ALT 62 H (14-59) U/L Alkaline Phosphatase 66 (46-116) U/L Total Protein 7.7 (6.4-8.2) g/dL Albumin 3.7 (3.4-5.0) g/dL Globulin 4.0 g/dL Albumin/Globulin Ratio 0.9 Serum HCG, Qual Negative (NEGATIVE) Urine Color Lt. yellow (YELLOW) Urine Clarity Clear (CLEAR) Urine pH 7.0 (5.0-9.0) Ur Specific [place] 1.015 (1.005-1.025) Urine Protein Negative (NEG/TRACE) mg/dL Urine Glucose (UA) Negative (NEGATIVE) mg/dL Urine Ketones Negative (NEGATIVE) mg/dL Urine Occult Blood Moderate A (NEGATIVE) Urine Nitrite Negative (NEGATIVE) Urine Bilirubin Negative (NEGATIVE) Urine Urobilinogen 0.2 (0.2-1.0) EU/dL Ur Leukocyte Esterase Trace A (NEGATIVE) Urine RBC 10-20 A (0-2) #/HPF Urine WBC 2-5 A (NONE SEEN) #/HPF Ur Squamous Epith Cells Few A (NONE/RARE) #/LPF Urine Crystals None seen (None Seen) #/HPF Urine Bacteria Trace A (NONE SEEN) #/HPF Urine Casts None seen (NONE SEEN) #/LPF Urine Mucus None seen (NONE SEEN) Ur Culture Indicated? No Discharge Plan Discharge Chief Complaint: Abdominal Pain Clinical Impression: Nausea & vomiting Patient Disposition: Home, Self-Care Time of Disposition Decision: 10:01 Condition: Good Mode of Transportation: Private Vehicle Prescriptions / Home Meds: New ondansetron 4 mg tablet,disintegrating 4 mg PO Q6H PRN (Reason: nausea and vomiting) Qty: 20 0RF dicyclomine 10 mg capsule 10 mg PO QID PRN (Reason: abdominal pain) Qty: 20 0RF No Action hydrochlorothiazide 25 mg tablet 25 mg PO QAM cephalexin 500 mg capsule 500 mg PO Q8H 7 Days Qty: 21 0RF Complete 14 mg iron- 400 mcg tablet 1 tab PO DAILY Print Language: Gibralt[place] Instructions: Acute Nausea and Vomiting (ED), Acute Abdominal Pain (DC) Additional Instructions: Return to the emergency department for worsening symptoms. Referrals: Orestes Zamora MD [Primary Care Provider, Family Practice] - 1 week
[2025-07-31 08:45] LABS: Glucose Urine UA NEGATIVE (NEGATIVE)
[2025-07-31 09:07] LABS: Cast Seen? NONE SEEN #/LPF (NONE SEEN); Crystals Seen? None Seen #/HPF (None Seen); Urine Culture Indicated NO
--- NOTE | 2025-07-31 10:03 | PC.NURSE ---
oral challenge started with ice chips
== END 2025-07-31 10:17 | disposition home or self-care (01) ==
PROVIDERS: Emergency Provider Emergency Medicine; PCP Family Medicine
DX: R11.2 Nausea with vomiting, unspecified (principal)
CPT/HCPCS: 36415; 80053; 81001; 84703; 85025; 96361; 96374; 99284; J2405